=== PATIENT | female | born 1950 | race Caucasian/White ===

== ENCOUNTER 2020-01-30 09:45 | Outpatient (RCR) | payer MEDICARE, SELFPAY ==
--- NOTE | 2019-11-12 15:02 | PT.OIE ---
Current Diagnoses Spondylosis without myelopathy or radiculopathy, cervical region (11/12/19) Cervicalgia (11/12/19) Abnormal posture (11/12/19) Weakness (11/12/19) Visit Care Team Role Provider Type Marjorie Joseph MD Primary Care Provider Non-Staff Specialty: Medical Address: [address] [place] [address], [address] MD; [place], [address] Email: Jenelle Lutz PA-C Attending Provider Non-Staff Referring Provider Specialty: Medical Address: [address] [place] [address], [place], [address] Email: Physical Therapy Initial Evaluation PT-OP-A Visit Information Start: 11/12/19 10:58 Freq: Status: Active Protocol: Document 11/12/19 15:26 [facility] (Rec: 11/12/19 16:05 [facility] [id number]) Out-Patient Physical Therapy Visit Information Visit Information Visit Type Initial Evaluation Visit Note 05/25 Visit Start Time 15:21 Visit Stop Time 16:15 Total Visit Minutes 54 Visit Number 1 Number of TOY ASSEMBLY SUPERVISOR Visits 0 PT-OP-B Current Condition Start: 11/12/19 10:58 Freq: Status: Active Protocol: Document 11/12/19 15:26 [facility] (Rec: 11/12/19 16:05 [facility] [id number]) Current Condition History of Current Condition Onset Date August 2018 Current Complaints neck pain History of Current Condition Pt started to get general pain in August of last year then started getting pain and tingling into RUE then into LUE in October. Pt has seen spinal surgeon and neurosurgeon who did not consider a surgerical canidate . She got sent to a rheumatoligist who found that she polymyalgia rheumatica. Pt was put on prednisone on Jan and has been tapering down. Her neck and arm symptoms and knee symptoms were better after prednisone but started to come back after apr. Pt has ill defined area in neck region that is being monitored but it is not growing and they are not too concerned but are monitoring erin with imagine. Pt reports buring pain at night that is somewhat better in the AM. Pt has pain down into R shoulder and is R handed. First thing in the AM . L shoulder blade hurts the most in the AM an dhas to have something supporting head to get up. Pain got worse again in August and is getting tight Prior Treatments and Tests MRI report in chart; massage some help Treatment Goals Patient/Caregiver Goals Dec pain, be able to move better Personal Factors Other Personal Factors That May Effect R RCR R shoulder, R great toe Therapy/Recovery screw, neck pain, polymyalgia rheumatica PT-OP-C Subjective Start: 11/12/19 10:58 Freq: Status: Active Protocol: Document 11/12/19 15:26 [facility] (Rec: 11/12/19 16:05 [facility] [id number]) Patient Questionnaires Neck Disability Index NDI Score 14/50 OP-PT Pain Assessment Location neck pain Pain Location Details from base of head on R down to sup and ant shoulder/pec & L shoulder blade Intensity 3 Scale Used Numeric (0 - 10) Description Burning,With Movement Description- Other worst w/activities like getting up in AM 8/10 Frequency Daily Pain Duration about 30 min before goes to baseline Radiating Location jaw Pain Aggravating Factors Sitting,Lifting Other Pain Aggravating Factors in AM, any movement, laying down, computer Pain Alleviating Factors Heat,Medication PT-OP-F Manual Assessment Start: 11/12/19 10:58 Freq: Status: Active Protocol: Document 11/12/19 15:26 [facility] (Rec: 11/12/19 16:05 [facility] [id number]) Manual Assessments Soft Tissue Assessment Soft Tissue Mobility Assessment R>L tight and tender UT, LS, pec, scalenes, paraspinals; L UT, rhomboids, infraspinatus Joint Mobility Assessment Joint Mobility Assessment L scap winging PT-OP-J Posture/Palpation/Skin Start: 11/12/19 10:58 Freq: Status: Active Protocol: Document 11/12/19 15:26 [facility] (Rec: 11/12/19 16:05 [facility] [id number]) Posture Evaluation Javier Postural Classification System Javier Postural Classifications Posterior/Anterior Vertebral Compression Test 3 Elbow Flexion Test 0 PT-OP-K Range of Motion Start: 11/12/19 10:58 Freq: Status: Active Protocol: Document 11/12/19 15:26 [facility] (Rec: 11/12/19 16:05 [facility] [id number]) Cervical Spine Range of Motion Cervical Spine Active Degrees Flexion 58 Extension 37 Rotation Left 51 Rotation Right 40 Lateral Flexion Left 16 Lateral Flexion Right 14 ROM Limitations Pain Comments ipsilateral pain w/R sB PT-OP-L Special Tests Start: 11/12/19 10:58 Freq: Status: Active Protocol: Document 11/12/19 15:26 [facility] (Rec: 11/12/19 16:05 [facility] [id number]) Special Tests Cervical Spine Special Tests Spurling's Test Test Results neg Vertebrobasilar Test Results neg Alar Ligament Test Results neg PT-OP-M Strength Start: 11/12/19 10:58 Freq: Status: Active Protocol: Document 11/12/19 15:26 [facility] (Rec: 11/12/19 16:05 [facility] [id number]) Shoulder Strength Shoulder Manual Muscle Testing Right Flexion 3 Fair Extension 3+ Fair+ Abduction (C5) 3 Fair External Rotation 3+ Fair+ Internal Rotation 4 Good Left Flexion 4- Good- Extension 4 Good Abduction (C5) 3+ Fair+ External Rotation 4- Good- Internal Rotation 4+ Good+ PT-OP-Q Treatments Start: 11/12/19 10:58 Freq: Status: Active Protocol: Document 11/12/19 15:26 [facility] (Rec: 11/12/19 16:05 [facility] [id number]) Self-Care/Home Management Treatment Education Other Education discussion of pillow positioning and how to choose a pillow PT-OP-R Modalities Start: 11/12/19 10:58 Freq: Status: Active Protocol: Document 11/12/19 15:26 [facility] (Rec: 11/12/19 16:05 [facility] [id number]) Hot Pack/Cold Pack Treatment Hot Pack Location cervical & R shoulder Patient Position Hooklying Treatment Duration (minutes) 15 PT-OP-T Assessment and Plan Start: 11/12/19 10:58 Freq: Status: Active Protocol: Document 11/12/19 15:26 [facility] (Rec: 11/12/19 16:05 [facility] [id number]) Physical Therapy Assessment Rehab Potential Rehabilitation Potential Good Evaluation Complexity Number of Personal Factors/Comorbidities 1-2 Number of Body Systems Impaired 4 or More Clinical Presentation at Evaluation Evolving Impairments Impairments Activity Tolerance,Functional Activities,Functional Mobility ,Pain,Posture,ROM,Soft Tissue Mobility,Strength Goals NDI Impairment 14/50 Short Term Goal (STG) Pt will improve NDI score to 9 /50 to show improved fucntional ability. STG Duration 12/13/19 Rn Integrated Goal (LTG) Pt will improve NDI score to 4 /50 to show improved fucntional ability. LTG Duration 01/12/20 strength Short Term Goal (STG) Pt will be indep with HEP STG Duration 12/13/19 Rn Integrated Goal (LTG) Pt will improve EFT to 4/5 and UE strength B to 5/5 without pain to allow inc ability to carry things and do normal daily activities LTG Duration 01/12/20 ROM Mcfp Goal (LTG) Pt will improve ROM to full range in order to allow improved ability to use neck without increasing pain. LTG Duration 01/12/20 Assessment Summary Assessment Pt presents with chronic neck pain that started with BUE radicular pain, which improved after starting steroids for polymyalgia rhematica. As she decreased steroid amount, she started to have pain again in neck and into R shoulder then into L scapular region. With an increase again in steriods, pain has persisted so MD has sent her to try PT. She has dec ROM, UE strength, core stability, postural stability and inc pain with all activities at this time. She would benefit from skilled PT to address these deficits. Physical Therapy Plan Frequency and Duration Frequency of Treatment 2x/Week Duration of Treatment 2 months Plan of Care Start Date 11/12/19 Plan of Care End Date 01/12/20 Therapeutic Interventions Therapeutic Interventions Aquatic Therapy,Home Exercise Program,Joint Mobilizations, Manual Therapy,Neuromuscular Re-education,Patient/Caregiver Education,Self-Care/Home Management,Soft Tissue Mobilization,Taping, Therapeutic Activities, Therapeutic Exercises Modalities Cold Pack/Ice Massage,Electric Stimulation,Hot Packs, Infrared Therapy,Iontophoresis ,Traction- Mechanical, Ultrasound Next Visit Focus/Plan Next Note Type Treatment Note Next Visit Plan wall posture, cervical retraction, scap stability exercises, STM to cervical region
--- NOTE | 2019-11-12 15:02 | PT.OPPOC ---
Physical, Occupational [facility] Speech Therapy [facility] Current Diagnoses Spondylosis without myelopathy or radiculopathy, cervical region (11/12/19) Cervicalgia (11/12/19) Abnormal posture (11/12/19) Weakness (11/12/19) Visit Care Team Role Provider Type Marjorie Joseph MD Primary Care Provider Non-Staff Specialty: Medical Address: [address] [place] [address], [address] MD; [place], [address] Email: Jenelle Lutz PA-C Attending Provider Non-Staff Referring Provider Specialty: Medical Address: [address] [place] [address], [place], [address] Email: Plan Of Care PT-OP-T Assessment and Plan Start: 11/12/19 10:58 Freq: Status: Active Protocol: Document 11/12/19 15:26 [facility] (Rec: 11/12/19 16:05 [facility] [id number]) Physical Therapy Assessment Rehab Potential Rehabilitation Potential Good Evaluation Complexity Number of Personal Factors/Comorbidities 1-2 Number of Body Systems Impaired 4 or More Clinical Presentation at Evaluation Evolving Impairments Impairments Activity Tolerance,Functional Activities,Functional Mobility ,Pain,Posture,ROM,Soft Tissue Mobility,Strength Goals NDI Impairment 14/50 Short Term Goal (STG) Pt will improve NDI score to 9 /50 to show improved fucntional ability. STG Duration 12/13/19 Assisted Goal (LTG) Pt will improve NDI score to 4 /50 to show improved fucntional ability. LTG Duration 01/12/20 strength Short Term Goal (STG) Pt will be indep with HEP STG Duration 12/13/19 Assisted Goal (LTG) Pt will improve EFT to 4/5 and UE strength B to 5/5 without pain to allow inc ability to carry things and do normal daily activities LTG Duration 01/12/20 ROM Title Curator Goal (LTG) Pt will improve ROM to full range in order to allow improved ability to use neck without increasing pain. LTG Duration 01/12/20 Assessment Summary Assessment Pt presents with chronic neck pain that started with BUE radicular pain, which improved after starting steroids for polymyalgia rhematica. As she decreased steroid amount, she started to have pain again in neck and into R shoulder then into L scapular region. With an increase again in steriods, pain has persisted so MD has sent her to try PT. She has dec ROM, UE strength, core stability, postural stability and inc pain with all activities at this time. She would benefit from skilled PT to address these deficits. Physical Therapy Plan Frequency and Duration Frequency of Treatment 2x/Week Duration of Treatment 2 months Plan of Care Start Date 11/12/19 Plan of Care End Date 01/12/20 Therapeutic Interventions Therapeutic Interventions Aquatic Therapy,Home Exercise Program,Joint Mobilizations, Manual Therapy,Neuromuscular Re-education,Patient/Caregiver Education,Self-Care/Home Management,Soft Tissue Mobilization,Taping, Therapeutic Activities, Therapeutic Exercises Modalities Cold Pack/Ice Massage,Electric Stimulation,Hot Packs, Infrared Therapy,Iontophoresis ,Traction- Mechanical, Ultrasound Next Visit Focus/Plan Next Note Type Treatment Note Next Visit Plan wall posture, cervical retraction, scap stability exercises, STM to cervical region Plan of Care Dates Plan of Care Start Date 11/12/19 Plan of Care End Date 01/12/20 Electronically Signed by: Jennifer Pitts, PT 11/13/19 1002 Please Sign and Return: I have reviewed this Plan of Care and certify that the skilled therapy services above are required to meet the patient?s needs. Physician Signature Date Printed Name and Credentials Clinical Instructor Signature Printed Name and Credentials
--- NOTE | 2019-11-15 12:03 | PT.OTN ---
Current Diagnoses Spondylosis without myelopathy or radiculopathy, cervical region (11/15/19) Cervicalgia (11/15/19) Abnormal posture (11/15/19) Weakness (11/15/19) Physical Therapy Treatment Note PT-OP-A Visit Information Start: 11/12/19 10:58 Freq: Status: Active Protocol: Document 11/15/19 11:18 [facility] (Rec: 11/15/19 12:03 [facility] [id number]) Out-Patient Physical Therapy Visit Information Visit Information Visit Type Treatment Note Visit Note 06/25 Visit Start Time 11:15 Visit Stop Time 12:00 Total Visit Minutes 45 Visit Number 2 Number of RUBY ENGINEER Visits 0 PT-OP-B Current Condition Start: 11/12/19 10:58 Freq: Status: Active Protocol: Document 11/12/19 15:26 [facility] (Rec: 11/12/19 16:05 [facility] [id number]) Current Condition History of Current Condition Onset Date August 2018 Current Complaints neck pain History of Current Condition Pt started to get general pain in August of last year then started getting pain and tingling into RUE then into LUE in October. Pt has seen spinal surgeon and neurosurgeon who did not consider a surgerical canidate . She got sent to a rheumatoligist who found that she polymyalgia rheumatica. Pt was put on prednisone on Jan and has been tapering down. Her neck and arm symptoms and knee symptoms were better after prednisone but started to come back after dec. Pt has ill defined area in neck region that is being monitored but it is not growing and they are not too concerned but are monitoring erin with imagine. Pt reports buring pain at night that is somewhat better in the AM. Pt has pain down into R shoulder and is R handed. First thing in the AM . L shoulder blade hurts the most in the AM an dhas to have something supporting head to get up. Pain got worse again in August and is getting tight Prior Treatments and Tests MRI report in chart; massage some help Treatment Goals Patient/Caregiver Goals Dec pain, be able to move better Personal Factors Other Personal Factors That May Effect R RCR R shoulder, R great toe Therapy/Recovery screw, neck pain, polymyalgia rheumatica PT-OP-C Subjective Start: 11/12/19 10:58 Freq: Status: Active Protocol: Document 11/15/19 11:18 [facility] (Rec: 11/15/19 12:03 [facility] [id number]) OP-PT Subjective Patient Comments Patient Comments I'm about the same as usual. PT-OP-F Manual Assessment Start: 11/12/19 10:58 Freq: Status: Active Protocol: Document 11/12/19 15:26 [facility] (Rec: 11/12/19 16:05 [facility] [id number]) Manual Assessments Soft Tissue Assessment Soft Tissue Mobility Assessment R>L tight and tender UT, LS, pec, scalenes, paraspinals; L UT, rhomboids, infraspinatus Joint Mobility Assessment Joint Mobility Assessment L scap winging PT-OP-J Posture/Palpation/Skin Start: 11/12/19 10:58 Freq: Status: Active Protocol: Document 11/12/19 15:26 [facility] (Rec: 11/12/19 16:05 [facility] [id number]) Posture Evaluation Javier Postural Classification System Javier Postural Classifications Posterior/Anterior Vertebral Compression Test 3 Elbow Flexion Test 0 PT-OP-K Range of Motion Start: 11/12/19 10:58 Freq: Status: Active Protocol: Document 11/12/19 15:26 [facility] (Rec: 11/12/19 16:05 [facility] [id number]) Cervical Spine Range of Motion Cervical Spine Active Degrees Flexion 58 Extension 37 Rotation Left 51 Rotation Right 40 Lateral Flexion Left 16 Lateral Flexion Right 14 ROM Limitations Pain Comments ipsilateral pain w/R sB PT-OP-L Special Tests Start: 11/12/19 10:58 Freq: Status: Active Protocol: Document 11/12/19 15:26 [facility] (Rec: 11/12/19 16:05 [facility] [id number]) Special Tests Cervical Spine Special Tests Spurling's Test Test Results neg Vertebrobasilar Test Results neg Alar Ligament Test Results neg PT-OP-M Strength Start: 11/12/19 10:58 Freq: Status: Active Protocol: Document 11/12/19 15:26 [facility] (Rec: 11/12/19 16:05 [facility] [id number]) Shoulder Strength Shoulder Manual Muscle Testing Right Flexion 3 Fair Extension 3+ Fair+ Abduction (C5) 3 Fair External Rotation 3+ Fair+ Internal Rotation 4 Good Left Flexion 4- Good- Extension 4 Good Abduction (C5) 3+ Fair+ External Rotation 4- Good- Internal Rotation 4+ Good+ PT-OP-Q Treatments Start: 11/12/19 10:58 Freq: Status: Active Protocol: Document 11/15/19 11:18 [facility] (Rec: 11/15/19 12:03 [facility] [id number]) Therapeutic Exercises Supine Exercises Horizontal Adduction Supine Exercise Name H Adduction Side bilateral Resistance 3# Serratus Punch Supine Exercise Name Serratus punch Side bilateral Resistance 3# Sitting Exercises Scaption Sitting Exercise Name Scaption Side bilateral Resistance 3# Standing Exercises Wall posture Standing Exercise Name wall posture/chin tucks Manual Therapy Treatment Soft Tissue Mobilization Parascapular musculature Body Location B Parascapular Mobilization Type Sustained Pressure,Trigger Point Release Body Position Supine Upper Trap Body Location R Upper Trap Mobilization Type Strumming,Sustained Pressure, Trigger Point Release SCM Body Location R SCM Mobilization Type Strumming,Sustained Pressure Suboccipital Body Location Suboccipitals Mobilization Type Sustained Pressure Joint Mobilizations GH Joint R GH Direction Inferior Grade II Body Position Supine Scapulothoracic Joint R Scapulothoracic Direction Lateral Grade III Body Position Supine PT-OP-R Modalities Start: 11/12/19 10:58 Freq: Status: Active Protocol: Document 11/15/19 11:18 [facility] (Rec: 11/15/19 12:03 [facility] [id number]) Hot Pack/Cold Pack Treatment Hot Pack Location cervical & B shoulder Patient Position Hooklying Treatment Duration (minutes) 15 PT-OP-T Assessment and Plan Start: 11/12/19 10:58 Freq: Status: Active Protocol: Document 11/15/19 11:18 [facility] (Rec: 11/15/19 12:03 [facility] [id number]) Physical Therapy Assessment Impairments Impairments Activity Tolerance,Functional Activities,Functional Mobility ,Pain,Posture,ROM,Soft Tissue Mobility,Strength Goals NDI Impairment 14/50 Short Term Goal (STG) Pt will improve NDI score to 9 /50 to show improved fucntional ability. STG Duration 12/13/19 Custodial Goal (LTG) Pt will improve NDI score to 4 /50 to show improved fucntional ability. LTG Duration 01/12/20 strength Short Term Goal (STG) Pt will be indep with HEP STG Duration 12/13/19 Custodial Goal (LTG) Pt will improve EFT to 4/5 and UE strength B to 5/5 without pain to allow inc ability to carry things and do normal daily activities LTG Duration 01/12/20 ROM Custodial Goal (LTG) Pt will improve ROM to full range in order to allow improved ability to use neck without increasing pain. LTG Duration 01/12/20 Assessment Summary Assessment Pt had difficulty with some scapular strengthening exercises due to poor scapulothoracic rhythm, compensated using upper traps and increased lumbar lordosis. Tolerated STM well, did note some tenderness along SCM and at the A/C joint. Physical Therapy Plan Frequency and Duration Frequency of Treatment 2x/Week Duration of Treatment 2 months Plan of Care Start Date 11/12/19 Plan of Care End Date 01/12/20 Therapeutic Interventions Therapeutic Interventions Aquatic Therapy,Home Exercise Program,Joint Mobilizations, Manual Therapy,Neuromuscular Re-education,Patient/Caregiver Education,Self-Care/Home Management,Soft Tissue Mobilization,Taping, Therapeutic Activities, Therapeutic Exercises Modalities Cold Pack/Ice Massage,Electric Stimulation,Hot Packs, Infrared Therapy,Iontophoresis ,Traction- Mechanical, Ultrasound Next Visit Focus/Plan Next Note Type Treatment Note Next Visit Plan wall posture, cervical retraction, scap stability exercises, STM to cervical region
--- NOTE | 2019-11-19 16:42 | PT.OTN ---
Current Diagnoses Spondylosis without myelopathy or radiculopathy, cervical region (11/19/19) Cervicalgia (11/19/19) Abnormal posture (11/19/19) Weakness (11/19/19) Physical Therapy Treatment Note PT-OP-A Visit Information Start: 11/12/19 10:58 Freq: Status: Active Protocol: Document 11/19/19 15:18 [facility] (Rec: 11/19/19 16:42 [facility] [id number]) Out-Patient Physical Therapy Visit Information Visit Information Visit Type Treatment Note Visit Note 07/23 Visit Start Time 15:20 Visit Stop Time 16:15 Total Visit Minutes 55 Visit Number 3 Number of FORGING MACHINE OPERATOR Visits 0 PT-OP-B Current Condition Start: 11/12/19 10:58 Freq: Status: Active Protocol: Document 11/12/19 15:26 [facility] (Rec: 11/12/19 16:05 [facility] [id number]) Current Condition History of Current Condition Onset Date August 2018 Current Complaints neck pain History of Current Condition Pt started to get general pain in August of last year then started getting pain and tingling into RUE then into LUE in October. Pt has seen spinal surgeon and neurosurgeon who did not consider a surgerical canidate . She got sent to a rheumatoligist who found that she polymyalgia rheumatica. Pt was put on prednisone on Jan and has been tapering down. Her neck and arm symptoms and knee symptoms were better after prednisone but started to come back after dec. Pt has ill defined area in neck region that is being monitored but it is not growing and they are not too concerned but are monitoring erin with imagine. Pt reports buring pain at night that is somewhat better in the AM. Pt has pain down into R shoulder and is R handed. First thing in the AM . L shoulder blade hurts the most in the AM an dhas to have something supporting head to get up. Pain got worse again in August and is getting tight Prior Treatments and Tests MRI report in chart; massage some help Treatment Goals Patient/Caregiver Goals Dec pain, be able to move better Personal Factors Other Personal Factors That May Effect R RCR R shoulder, R great toe Therapy/Recovery screw, neck pain, polymyalgia rheumatica PT-OP-C Subjective Start: 11/12/19 10:58 Freq: Status: Active Protocol: Document 11/19/19 15:18 [facility] (Rec: 11/19/19 16:42 [facility] [id number]) OP-PT Subjective Patient Comments Patient Comments L shoulder blade has been painful PT-OP-F Manual Assessment Start: 11/12/19 10:58 Freq: Status: Active Protocol: Document 11/12/19 15:26 [facility] (Rec: 11/12/19 16:05 [facility] [id number]) Manual Assessments Soft Tissue Assessment Soft Tissue Mobility Assessment R>L tight and tender UT, LS, pec, scalenes, paraspinals; L UT, rhomboids, infraspinatus Joint Mobility Assessment Joint Mobility Assessment L scap winging PT-OP-J Posture/Palpation/Skin Start: 11/12/19 10:58 Freq: Status: Active Protocol: Document 11/12/19 15:26 [facility] (Rec: 11/12/19 16:05 [facility] [id number]) Posture Evaluation [facility] Postural Classification System [facility] Postural Classifications Posterior/Anterior Vertebral Compression Test 3 Elbow Flexion Test 0 PT-OP-K Range of Motion Start: 11/12/19 10:58 Freq: Status: Active Protocol: Document 11/12/19 15:26 [facility] (Rec: 11/12/19 16:05 [facility] [id number]) Cervical Spine Range of Motion Cervical Spine Active Degrees Flexion 58 Extension 37 Rotation Left 51 Rotation Right 40 Lateral Flexion Left 16 Lateral Flexion Right 14 ROM Limitations Pain Comments ipsilateral pain w/R sB PT-OP-L Special Tests Start: 11/12/19 10:58 Freq: Status: Active Protocol: Document 11/12/19 15:26 [facility] (Rec: 11/12/19 16:05 [facility] [id number]) Special Tests Cervical Spine Special Tests Spurling's Test Test Results neg Vertebrobasilar Test Results neg Alar Ligament Test Results neg PT-OP-M Strength Start: 11/12/19 10:58 Freq: Status: Active Protocol: Document 11/12/19 15:26 [facility] (Rec: 11/12/19 16:05 [facility] [id number]) Shoulder Strength Shoulder Manual Muscle Testing Right Flexion 3 Fair Extension 3+ Fair+ Abduction (C5) 3 Fair External Rotation 3+ Fair+ Internal Rotation 4 Good Left Flexion 4- Good- Extension 4 Good Abduction (C5) 3+ Fair+ External Rotation 4- Good- Internal Rotation 4+ Good+ PT-OP-Q Treatments Start: 11/12/19 10:58 Freq: Status: Active Protocol: Document 11/19/19 15:18 [facility] (Rec: 11/19/19 16:42 [facility] [id number]) Therapeutic Exercises Supine Exercises retraction Reps/Minutes 5 sec x10 Horizontal Adduction Supine Exercise Name H Adduction Side bilateral Resistance L1 Reps/Minutes 15 Comments stopped d/t improper form Serratus Punch Supine Exercise Name Serratus punch Side bilateral Resistance 3# Reps/Minutes 15 Sidelying Exercises roll & reach Side bilateral Reps/Minutes 10 Standing Exercises ER Side bilateral Reps/Minutes 10x2 row Side bilateral Reps/Minutes 10x2 Wall posture Standing Exercise Name wall posture/chin tucks Manual Therapy Treatment Soft Tissue Mobilization infraspinatus Body Location L Mobilization Type Rolling,Strumming Upper Trap Body Location R Upper Trap Mobilization Type Strumming,Sustained Pressure, Trigger Point Release SCM Body Location R SCM/scalenes Mobilization Type Strumming,Sustained Pressure Joint Mobilizations SC Joint R Direction inf FM AC Joint r Direction gapping PT-OP-R Modalities Start: 11/12/19 10:58 Freq: Status: Active Protocol: Document 11/19/19 15:18 [facility] (Rec: 11/19/19 16:42 [facility] [id number]) Hot Pack/Cold Pack Treatment Hot Pack Location cervical & R shoulder Patient Position Hooklying Treatment Duration (minutes) 15 PT-OP-T Assessment and Plan Start: 11/12/19 10:58 Freq: Status: Active Protocol: Document 11/19/19 15:18 [facility] (Rec: 11/19/19 16:42 [facility] [id number]) Physical Therapy Assessment Goals NDI Impairment 14/50 Short Term Goal (STG) Pt will improve NDI score to 9 /50 to show improved fucntional ability. STG Duration 12/13/19 Carpentry Specialist Goal (LTG) Pt will improve NDI score to 4 /50 to show improved fucntional ability. LTG Duration 01/12/20 strength Short Term Goal (STG) Pt will be indep with HEP STG Duration 12/13/19 Carpentry Specialist Goal (LTG) Pt will improve EFT to 4/5 and UE strength B to 5/5 without pain to allow inc ability to carry things and do normal daily activities LTG Duration 8/29/20 ROM Senior Living Goal (LTG) Pt will improve ROM to full range in order to allow improved ability to use neck without increasing pain. LTG Duration 01/12/20 Assessment Summary Assessment Pt improved with SC motion after mobiliztion with improved shoulder flex. She has signfiicant SCM & scalene on R side that improves with STM. PT educated on why need to work on shoulder and thoracic to improve neck pain. Physical Therapy Plan Frequency and Duration Frequency of Treatment 2x/Week Duration of Treatment 2 months Plan of Care Start Date 11/12/19 Plan of Care End Date 01/12/20 Next Visit Focus/Plan Next Note Type Treatment Note Next Visit Plan review HEP, STM and gentle mobs to shoulders
--- NOTE | 2019-11-21 18:35 | PT.OTN ---
Current Diagnoses Spondylosis without myelopathy or radiculopathy, cervical region (11/21/19) Cervicalgia (11/21/19) Abnormal posture (11/21/19) Weakness (11/21/19) Physical Therapy Treatment Note PT-OP-A Visit Information Start: 11/12/19 10:58 Freq: Status: Active Protocol: Document 11/21/19 18:30 [facility] (Rec: 11/21/19 18:35 [facility] [id number]) Out-Patient Physical Therapy Visit Information Visit Information Visit Type Treatment Note Visit Note 08/23 Visit Start Time 16:48 Visit Stop Time 17:36 Total Visit Minutes 48 Visit Number 4 Number of INDUSTRIAL GARAGE SERVICER Visits 0 PT-OP-B Current Condition Start: 11/12/19 10:58 Freq: Status: Active Protocol: Document 11/12/19 15:26 [facility] (Rec: 11/12/19 16:05 [facility] [id number]) Current Condition History of Current Condition Onset Date August 2018 Current Complaints neck pain History of Current Condition Pt started to get general pain in August of last year then started getting pain and tingling into RUE then into LUE in October. Pt has seen spinal surgeon and neurosurgeon who did not consider a surgerical canidate . She got sent to a rheumatoligist who found that she polymyalgia rheumatica. Pt was put on prednisone on Jan and has been tapering down. Her neck and arm symptoms and knee symptoms were better after prednisone but started to come back after dec. Pt has ill defined area in neck region that is being monitored but it is not growing and they are not too concerned but are monitoring erin with imagine. Pt reports buring pain at night that is somewhat better in the AM. Pt has pain down into R shoulder and is R handed. First thing in the AM . L shoulder blade hurts the most in the AM an dhas to have something supporting head to get up. Pain got worse again in August and is getting tight Prior Treatments and Tests MRI report in chart; massage some help Treatment Goals Patient/Caregiver Goals Dec pain, be able to move better Personal Factors Other Personal Factors That May Effect R RCR R shoulder, R great toe Therapy/Recovery screw, neck pain, polymyalgia rheumatica PT-OP-C Subjective Start: 11/12/19 10:58 Freq: Status: Active Protocol: Document 11/21/19 18:30 [facility] (Rec: 11/21/19 18:35 [facility] [id number]) OP-PT Subjective Patient Comments Patient Comments Pt reports feeling great after last sesion. PT-OP-F Manual Assessment Start: 11/12/19 10:58 Freq: Status: Active Protocol: Document 11/12/19 15:26 [facility] (Rec: 11/12/19 16:05 [facility] [id number]) Manual Assessments Soft Tissue Assessment Soft Tissue Mobility Assessment R>L tight and tender UT, LS, pec, scalenes, paraspinals; L UT, rhomboids, infraspinatus Joint Mobility Assessment Joint Mobility Assessment L scap winging PT-OP-J Posture/Palpation/Skin Start: 11/12/19 10:58 Freq: Status: Active Protocol: Document 11/12/19 15:26 [facility] (Rec: 11/12/19 16:05 [facility] [id number]) Posture Evaluation [facility] Postural Classification System Javier Postural Classifications Posterior/Anterior Vertebral Compression Test 3 Elbow Flexion Test 0 PT-OP-K Range of Motion Start: 11/12/19 10:58 Freq: Status: Active Protocol: Document 11/12/19 15:26 [facility] (Rec: 11/12/19 16:05 [facility] [id number]) Cervical Spine Range of Motion Cervical Spine Active Degrees Flexion 58 Extension 37 Rotation Left 51 Rotation Right 40 Lateral Flexion Left 16 Lateral Flexion Right 14 ROM Limitations Pain Comments ipsilateral pain w/R sB PT-OP-L Special Tests Start: 11/12/19 10:58 Freq: Status: Active Protocol: Document 11/12/19 15:26 [facility] (Rec: 11/12/19 16:05 [facility] [id number]) Special Tests Cervical Spine Special Tests Spurling's Test Test Results neg Vertebrobasilar Test Results neg Alar Ligament Test Results neg PT-OP-M Strength Start: 11/12/19 10:58 Freq: Status: Active Protocol: Document 11/12/19 15:26 [facility] (Rec: 11/12/19 16:05 [facility] [id number]) Shoulder Strength Shoulder Manual Muscle Testing Right Flexion 3 Fair Extension 3+ Fair+ Abduction (C5) 3 Fair External Rotation 3+ Fair+ Internal Rotation 4 Good Left Flexion 4- Good- Extension 4 Good Abduction (C5) 3+ Fair+ External Rotation 4- Good- Internal Rotation 4+ Good+ PT-OP-Q Treatments Start: 11/12/19 10:58 Freq: Status: Active Protocol: Document 11/21/19 18:30 [facility] (Rec: 11/21/19 18:35 [facility] [id number]) Therapeutic Exercises Supine Exercises retraction Reps/Minutes 5 sec x10 Sidelying Exercises roll & reach Side bilateral Reps/Minutes 10 Standing Exercises ER Side bilateral Reps/Minutes 10x2 row Side bilateral Reps/Minutes 10x2 Wall posture Standing Exercise Name wall posture/chin tucks Reps/Minutes 10 Comments 90/90 ER Manual Therapy Treatment Soft Tissue Mobilization Upper Trap Body Location R Upper Trap/LS Mobilization Type Strumming,Sustained Pressure, Trigger Point Release SCM Body Location R SCM/scalenes Mobilization Type Strumming,Sustained Pressure Joint Mobilizations AC Joint r Direction gapping GH Joint R GH Direction post & distraction FM Grade II Body Position Supine PT-OP-R Modalities Start: 11/12/19 10:58 Freq: Status: Active Protocol: Document 11/19/19 15:18 [facility] (Rec: 11/19/19 16:42 [facility] [id number]) Hot Pack/Cold Pack Treatment Hot Pack Location cervical & R shoulder Patient Position Hooklying Treatment Duration (minutes) 15 PT-OP-T Assessment and Plan Start: 11/12/19 10:58 Freq: Status: Active Protocol: Document 11/21/19 18:30 [facility] (Rec: 11/21/19 18:35 [facility] [id number]) Physical Therapy Assessment Goals NDI Impairment 14/50 Short Term Goal (STG) Pt will improve NDI score to 9 /50 to show improved fucntional ability. STG Duration 12/13/19 Fdc Goal (LTG) Pt will improve NDI score to 4 /50 to show improved fucntional ability. LTG Duration 01/12/20 strength Short Term Goal (STG) Pt will be indep with HEP STG Duration 12/13/19 Fdc Goal (LTG) Pt will improve EFT to 4/5 and UE strength B to 5/5 without pain to allow inc ability to carry things and do normal daily activities LTG Duration 01/12/20 ROM Cargo Service Supervisor Goal (LTG) Pt will improve ROM to full range in order to allow improved ability to use neck without increasing pain. LTG Duration 01/12/20 Assessment Summary Assessment Pt reports relief with manual treatment and had improved scapular depression after manual. W/all shoulder motions R>L pt tends to activate SCM, scalenes & UT for elevation of scapula which likely contributes to her pain. Physical Therapy Plan Frequency and Duration Frequency of Treatment 2x/Week Duration of Treatment 2 months Plan of Care Start Date 11/12/19 Plan of Care End Date 01/12/20 Next Visit Focus/Plan Next Note Type Treatment Note Next Visit Plan review HEP, STM and gentle mobs to shoulders
--- NOTE | 2019-11-27 13:47 | PT.OTN ---
Current Diagnoses Spondylosis without myelopathy or radiculopathy, cervical region (11/27/19) Cervicalgia (11/27/19) Abnormal posture (11/27/19) Weakness (11/27/19) Physical Therapy Treatment Note PT-OP-A Visit Information Start: 11/12/19 10:58 Freq: Status: Active Protocol: Document 11/27/19 13:04 [facility] (Rec: 11/27/19 13:47 [facility] [id number]) Out-Patient Physical Therapy Visit Information Visit Information Visit Type Treatment Note Visit Note 09/22 Visit Start Time 13:01 Visit Stop Time 13:42 Total Visit Minutes 41 Visit Number 5 Number of FINANCIAL INVESTIGATOR Visits 0 PT-OP-B Current Condition Start: 11/12/19 10:58 Freq: Status: Active Protocol: Document 11/12/19 15:26 [facility] (Rec: 11/12/19 16:05 [facility] [id number]) Current Condition History of Current Condition Onset Date August 2018 Current Complaints neck pain History of Current Condition Pt started to get general pain in August of last year then started getting pain and tingling into RUE then into LUE in October. Pt has seen spinal surgeon and neurosurgeon who did not consider a surgerical canidate . She got sent to a rheumatoligist who found that she polymyalgia rheumatica. Pt was put on prednisone on Jan and has been tapering down. Her neck and arm symptoms and knee symptoms were better after prednisone but started to come back after dec. Pt has ill defined area in neck region that is being monitored but it is not growing and they are not too concerned but are monitoring erin with imagine. Pt reports buring pain at night that is somewhat better in the AM. Pt has pain down into R shoulder and is R handed. First thing in the AM . L shoulder blade hurts the most in the AM an dhas to have something supporting head to get up. Pain got worse again in August and is getting tight Prior Treatments and Tests MRI report in chart; massage some help Treatment Goals Patient/Caregiver Goals Dec pain, be able to move better Personal Factors Other Personal Factors That May Effect R RCR R shoulder, R great toe Therapy/Recovery screw, neck pain, polymyalgia rheumatica PT-OP-C Subjective Start: 11/12/19 10:58 Freq: Status: Active Protocol: Document 11/27/19 13:04 [facility] (Rec: 11/27/19 13:47 [facility] [id number]) OP-PT Subjective Patient Comments Patient Comments Pt reports she has been working on her exercises. Reports L shoulder still hurts in . R neck pain feels better Patient Reported Progress Improving PT-OP-F Manual Assessment Start: 11/12/19 10:58 Freq: Status: Active Protocol: Document 11/12/19 15:26 [facility] (Rec: 11/12/19 16:05 [facility] [id number]) Manual Assessments Soft Tissue Assessment Soft Tissue Mobility Assessment R>L tight and tender UT, LS, pec, scalenes, paraspinals; L UT, rhomboids, infraspinatus Joint Mobility Assessment Joint Mobility Assessment L scap winging PT-OP-J Posture/Palpation/Skin Start: 11/12/19 10:58 Freq: Status: Active Protocol: Document 11/12/19 15:26 [facility] (Rec: 11/12/19 16:05 [facility] [id number]) Posture Evaluation [facility] Postural Classification System [facility] Postural Classifications Posterior/Anterior Vertebral Compression Test 3 Elbow Flexion Test 0 PT-OP-K Range of Motion Start: 11/12/19 10:58 Freq: Status: Active Protocol: Document 11/12/19 15:26 [facility] (Rec: 11/12/19 16:05 [facility] [id number]) Cervical Spine Range of Motion Cervical Spine Active Degrees Flexion 58 Extension 37 Rotation Left 51 Rotation Right 40 Lateral Flexion Left 16 Lateral Flexion Right 14 ROM Limitations Pain Comments ipsilateral pain w/R sB PT-OP-L Special Tests Start: 11/12/19 10:58 Freq: Status: Active Protocol: Document 11/12/19 15:26 [facility] (Rec: 11/12/19 16:05 [facility] [id number]) Special Tests Cervical Spine Special Tests Spurling's Test Test Results neg Vertebrobasilar Test Results neg Alar Ligament Test Results neg PT-OP-M Strength Start: 11/12/19 10:58 Freq: Status: Active Protocol: Document 11/12/19 15:26 [facility] (Rec: 11/12/19 16:05 [facility] [id number]) Shoulder Strength Shoulder Manual Muscle Testing Right Flexion 3 Fair Extension 3+ Fair+ Abduction (C5) 3 Fair External Rotation 3+ Fair+ Internal Rotation 4 Good Left Flexion 4- Good- Extension 4 Good Abduction (C5) 3+ Fair+ External Rotation 4- Good- Internal Rotation 4+ Good+ PT-OP-Q Treatments Start: 11/12/19 10:58 Freq: Status: Active Protocol: Document 11/27/19 13:04 [facility] (Rec: 11/27/19 13:47 [facility] [id number]) Therapeutic Exercises Supine Exercises foam roll Supine Exercise Name flex, abd, Habd Side bilateral Reps/Minutes 10 retraction Reps/Minutes 5 sec x10 Sidelying Exercises roll & reach Side bilateral Reps/Minutes 10 Standing Exercises ER Side bilateral Reps/Minutes 15 row Side bilateral Reps/Minutes 15 Wall posture Standing Exercise Name wall posture/chin tucks Reps/Minutes 10 Comments 90/90 ER Manual Therapy Treatment Soft Tissue Mobilization teres Body Location L Mobilization Type Rolling Parascapular musculature Body Location L>R Parascapular Mobilization Type Rolling,Sustained Pressure Body Position Supine Joint Mobilizations ribs Joint r rib 3-4 Direction gapping SC Joint R Direction inf FM AC Joint L Direction gapping Scapulothoracic Joint L Scapulothoracic Direction Lateral, med, inf, tipping Grade III Body Position Supine PT-OP-R Modalities Start: 11/12/19 10:58 Freq: Status: Active Protocol: Document 11/19/19 15:18 [facility] (Rec: 11/19/19 16:42 [facility] [id number]) Hot Pack/Cold Pack Treatment Hot Pack Location cervical & R shoulder Patient Position Hooklying Treatment Duration (minutes) 15 PT-OP-T Assessment and Plan Start: 11/12/19 10:58 Freq: Status: Active Protocol: Document 11/27/19 13:04 [facility] (Rec: 11/27/19 13:47 [facility] [id number]) Physical Therapy Assessment Goals NDI Impairment 14/50 Short Term Goal (STG) Pt will improve NDI score to 9 /50 to show improved fucntional ability. STG Duration 12/13/19 Residential Goal (LTG) Pt will improve NDI score to 4 /50 to show improved fucntional ability. LTG Duration 01/12/20 strength Short Term Goal (STG) Pt will be indep with HEP STG Duration 12/13/19 Nut Tapper Goal (LTG) Pt will improve EFT to 4/5 and UE strength B to 5/5 without pain to allow inc ability to carry things and do normal daily activities LTG Duration 01/12/20 ROM Nut Tapper Goal (LTG) Pt will improve ROM to full range in order to allow improved ability to use neck without increasing pain. LTG Duration 01/12/20 Assessment Summary Assessment Improved scap movement after manual treatment to L side. She is imrpoving performance of exercises with better scap movement. cueing required with roll & reach to keep neck in line with torso to avoid pian. Physical Therapy Plan Frequency and Duration Frequency of Treatment 2x/Week Duration of Treatment 2 months Plan of Care Start Date 11/12/19 Plan of Care End Date 01/12/20 Next Visit Focus/Plan Next Note Type Treatment Note Next Visit Plan cont to work with gentle mobs & improve cervical range
--- NOTE | 2019-11-29 14:36 | PT.OTN ---
Current Diagnoses Spondylosis without myelopathy or radiculopathy, cervical region (11/29/19) Cervicalgia (11/29/19) Abnormal posture (11/29/19) Weakness (11/29/19) Physical Therapy Treatment Note PT-OP-A Visit Information Start: 11/12/19 10:58 Freq: Status: Active Protocol: Document 11/29/19 13:56 SP (Rec: 11/29/19 15:47 SP [id number]) Out-Patient Physical Therapy Visit Information Visit Information Visit Type Treatment Note Visit Note 10/23 Visit Start Time 13:56 Visit Stop Time 14:36 Total Visit Minutes 40 Visit Number 6 Number of FORECAST ANALYST Visits 1 PT-OP-B Current Condition Start: 11/12/19 10:58 Freq: Status: Active Protocol: Document 11/12/19 15:26 [facility] (Rec: 11/12/19 16:05 [facility] [id number]) Current Condition History of Current Condition Onset Date August 2018 Current Complaints neck pain History of Current Condition Pt started to get general pain in August of last year then started getting pain and tingling into RUE then into LUE in October. Pt has seen spinal surgeon and neurosurgeon who did not consider a surgerical canidate . She got sent to a rheumatoligist who found that she polymyalgia rheumatica. Pt was put on prednisone on Jan and has been tapering down. Her neck and arm symptoms and knee symptoms were better after prednisone but started to come back after dec. Pt has ill defined area in neck region that is being monitored but it is not growing and they are not too concerned but are monitoring erin with imagine. Pt reports buring pain at night that is somewhat better in the AM. Pt has pain down into R shoulder and is R handed. First thing in the AM . L shoulder blade hurts the most in the AM an dhas to have something supporting head to get up. Pain got worse again in August and is getting tight Prior Treatments and Tests MRI report in chart; massage some help Treatment Goals Patient/Caregiver Goals Dec pain, be able to move better Personal Factors Other Personal Factors That May Effect R RCR R shoulder, R great toe Therapy/Recovery screw, neck pain, polymyalgia rheumatica PT-OP-C Subjective Start: 11/12/19 10:58 Freq: Status: Active Protocol: Document 11/29/19 13:56 SP (Rec: 11/29/19 15:47 SP [id number]) OP-PT Subjective Patient Comments Patient Comments Pt reported working on her exercises, still hurts over R lateral neck occiput to R shld . Patient Reported Progress Improving PT-OP-F Manual Assessment Start: 11/12/19 10:58 Freq: Status: Active Protocol: Document 11/12/19 15:26 [facility] (Rec: 11/12/19 16:05 [facility] [id number]) Manual Assessments Soft Tissue Assessment Soft Tissue Mobility Assessment R>L tight and tender UT, LS, pec, scalenes, paraspinals; L UT, rhomboids, infraspinatus Joint Mobility Assessment Joint Mobility Assessment L scap winging PT-OP-J Posture/Palpation/Skin Start: 11/12/19 10:58 Freq: Status: Active Protocol: Document 11/12/19 15:26 [facility] (Rec: 11/12/19 16:05 [facility] [id number]) Posture Evaluation [facility] Postural Classification System Javier Postural Classifications Posterior/Anterior Vertebral Compression Test 3 Elbow Flexion Test 0 PT-OP-K Range of Motion Start: 11/12/19 10:58 Freq: Status: Active Protocol: Document 11/12/19 15:26 [facility] (Rec: 11/12/19 16:05 [facility] [id number]) Cervical Spine Range of Motion Cervical Spine Active Degrees Flexion 58 Extension 37 Rotation Left 51 Rotation Right 40 Lateral Flexion Left 16 Lateral Flexion Right 14 ROM Limitations Pain Comments ipsilateral pain w/R sB PT-OP-L Special Tests Start: 11/12/19 10:58 Freq: Status: Active Protocol: Document 11/12/19 15:26 [facility] (Rec: 11/12/19 16:05 [facility] [id number]) Special Tests Cervical Spine Special Tests Spurling's Test Test Results neg Vertebrobasilar Test Results neg Alar Ligament Test Results neg PT-OP-M Strength Start: 11/12/19 10:58 Freq: Status: Active Protocol: Document 11/12/19 15:26 [facility] (Rec: 11/12/19 16:05 [facility] [id number]) Shoulder Strength Shoulder Manual Muscle Testing Right Flexion 3 Fair Extension 3+ Fair+ Abduction (C5) 3 Fair External Rotation 3+ Fair+ Internal Rotation 4 Good Left Flexion 4- Good- Extension 4 Good Abduction (C5) 3+ Fair+ External Rotation 4- Good- Internal Rotation 4+ Good+ PT-OP-Q Treatments Start: 11/12/19 10:58 Freq: Status: Active Protocol: Document 11/29/19 13:56 SP (Rec: 11/29/19 15:47 SP [id number]) Therapeutic Exercises Supine Exercises retraction Equipment Used table and 1/2 foam roll Horizontal Adduction Supine Exercise Name H Abduction (open book) Side bilateral Resistance L1 Reps/Minutes 15 Comments stopped d/t improper form Manual Therapy Treatment Soft Tissue Mobilization PNF Body Location scapulothoracic Comments PROM, AAROM, AResisted ROM, eccentric levator scap Body Location R>L Mobilization Type Cross-Friction,Myofascial Release Intensity/Depth Moderate Body Position Supine Upper Trap Body Location R Upper Trap/LS Mobilization Type Strumming,Sustained Pressure, Trigger Point Release Joint Mobilizations ribs Joint r rib 3-4, L 5-7 Direction gapping SC Joint R Direction inf FM PT-OP-R Modalities Start: 11/12/19 10:58 Freq: Status: Active Protocol: Document 11/19/19 15:18 [facility] (Rec: 11/19/19 16:42 [facility] [id number]) Hot Pack/Cold Pack Treatment Hot Pack Location cervical & R shoulder Patient Position Hooklying Treatment Duration (minutes) 15 PT-OP-T Assessment and Plan Start: 11/12/19 10:58 Freq: Status: Active Protocol: Document 11/29/19 13:56 SP (Rec: 11/29/19 15:47 SP [id number]) Physical Therapy Assessment Goals NDI Impairment 14/50 Short Term Goal (STG) Pt will improve NDI score to 9 /50 to show improved fucntional ability. STG Duration 12/13/19 Tax Appraiser Goal (LTG) Pt will improve NDI score to 4 /50 to show improved fucntional ability. LTG Duration 01/12/20 strength Short Term Goal (STG) Pt will be indep with HEP STG Duration 12/13/19 Nursing Home Goal (LTG) Pt will improve EFT to 4/5 and UE strength B to 5/5 without pain to allow inc ability to carry things and do normal daily activities LTG Duration 01/12/20 ROM Tax Appraiser Goal (LTG) Pt will improve ROM to full range in order to allow improved ability to use neck without increasing pain. LTG Duration 01/12/20 Assessment Summary Assessment Tx focused on manual STMs and jt mobs then review HEP with cuing required for scap retraction/ depression to improve mobility in TS and scapulothoracic junctions. Included PNF feedback see details. Physical Therapy Plan Frequency and Duration Frequency of Treatment 2x/Week Duration of Treatment 2 months Plan of Care Start Date 11/12/19 Plan of Care End Date 01/12/20 Therapeutic Interventions Therapeutic Interventions Aquatic Therapy,Home Exercise Program,Joint Mobilizations, Manual Therapy,Neuromuscular Re-education,Patient/Caregiver Education,Self-Care/Home Management,Soft Tissue Mobilization,Taping, Therapeutic Activities, Therapeutic Exercises Modalities Cold Pack/Ice Massage,Electric Stimulation,Hot Packs, Infrared Therapy,Iontophoresis ,Traction- Mechanical, Ultrasound Next Visit Focus/Plan Next Note Type Treatment Note Next Visit Plan assess response to last tx. Continue work gentle mobs, TS rotation, scap mobility to improve cervical ROM.
--- NOTE | 2019-12-04 15:23 | PT.OTN ---
Current Diagnoses Spondylosis without myelopathy or radiculopathy, cervical region (12/04/19) Cervicalgia (12/04/19) Abnormal posture (12/04/19) Weakness (12/04/19) Physical Therapy Treatment Note PT-OP-A Visit Information Start: 11/12/19 10:58 Freq: Status: Active Protocol: Document 12/04/19 15:14 [facility] (Rec: 12/04/19 15:23 [facility] [id number]) Out-Patient Physical Therapy Visit Information Visit Information Visit Type Treatment Note Visit Note 11/22 Visit Start Time 10:35 Visit Stop Time 11:15 Total Visit Minutes 40 Visit Number 7 Number of AERIAL ADVERTISER Visits 0 PT-OP-B Current Condition Start: 11/12/19 10:58 Freq: Status: Active Protocol: Document 11/12/19 15:26 [facility] (Rec: 11/12/19 16:05 [facility] [id number]) Current Condition History of Current Condition Onset Date August 2018 Current Complaints neck pain History of Current Condition Pt started to get general pain in August of last year then started getting pain and tingling into RUE then into LUE in October. Pt has seen spinal surgeon and neurosurgeon who did not consider a surgerical canidate . She got sent to a rheumatoligist who found that she polymyalgia rheumatica. Pt was put on prednisone on Jan and has been tapering down. Her neck and arm symptoms and knee symptoms were better after prednisone but started to come back after dec. Pt has ill defined area in neck region that is being monitored but it is not growing and they are not too concerned but are monitoring erin with imagine. Pt reports buring pain at night that is somewhat better in the AM. Pt has pain down into R shoulder and is R handed. First thing in the AM . L shoulder blade hurts the most in the AM an dhas to have something supporting head to get up. Pain got worse again in August and is getting tight Prior Treatments and Tests MRI report in chart; massage some help Treatment Goals Patient/Caregiver Goals Dec pain, be able to move better Personal Factors Other Personal Factors That May Effect R RCR R shoulder, R great toe Therapy/Recovery screw, neck pain, polymyalgia rheumatica PT-OP-C Subjective Start: 11/12/19 10:58 Freq: Status: Active Protocol: Document 12/04/19 15:14 [facility] (Rec: 12/04/19 15:23 [facility] [id number]) OP-PT Subjective Patient Comments Patient Comments Pt reports her R side of her neck no longer feels as bad. Starting the end of last week, she inc her prednisone per MD recommendation PT-OP-F Manual Assessment Start: 11/12/19 10:58 Freq: Status: Active Protocol: Document 11/12/19 15:26 [facility] (Rec: 11/12/19 16:05 [facility] [id number]) Manual Assessments Soft Tissue Assessment Soft Tissue Mobility Assessment R>L tight and tender UT, LS, pec, scalenes, paraspinals; L UT, rhomboids, infraspinatus Joint Mobility Assessment Joint Mobility Assessment L scap winging PT-OP-J Posture/Palpation/Skin Start: 11/12/19 10:58 Freq: Status: Active Protocol: Document 11/12/19 15:26 [facility] (Rec: 11/12/19 16:05 [facility] [id number]) Posture Evaluation [facility] Postural Classification System Javier Postural Classifications Posterior/Anterior Vertebral Compression Test 3 Elbow Flexion Test 0 PT-OP-K Range of Motion Start: 11/12/19 10:58 Freq: Status: Active Protocol: Document 11/12/19 15:26 [facility] (Rec: 11/12/19 16:05 [facility] [id number]) Cervical Spine Range of Motion Cervical Spine Active Degrees Flexion 58 Extension 37 Rotation Left 51 Rotation Right 40 Lateral Flexion Left 16 Lateral Flexion Right 14 ROM Limitations Pain Comments ipsilateral pain w/R sB PT-OP-L Special Tests Start: 11/12/19 10:58 Freq: Status: Active Protocol: Document 11/12/19 15:26 [facility] (Rec: 11/12/19 16:05 [facility] [id number]) Special Tests Cervical Spine Special Tests Spurling's Test Test Results neg Vertebrobasilar Test Results neg Alar Ligament Test Results neg PT-OP-M Strength Start: 11/12/19 10:58 Freq: Status: Active Protocol: Document 11/12/19 15:26 [facility] (Rec: 11/12/19 16:05 [facility] [id number]) Shoulder Strength Shoulder Manual Muscle Testing Right Flexion 3 Fair Extension 3+ Fair+ Abduction (C5) 3 Fair External Rotation 3+ Fair+ Internal Rotation 4 Good Left Flexion 4- Good- Extension 4 Good Abduction (C5) 3+ Fair+ External Rotation 4- Good- Internal Rotation 4+ Good+ PT-OP-Q Treatments Start: 11/12/19 10:58 Freq: Status: Active Protocol: Document 12/04/19 15:14 [facility] (Rec: 12/04/19 15:23 [facility] [id number]) Therapeutic Exercises Standing Exercises pec stretch Standing Exercise Name doorway Side bilateral Reps/Minutes 30sec Manual Therapy Treatment Soft Tissue Mobilization Upper Trap Body Location R Upper Trap/LS Mobilization Type Strumming,Sustained Pressure, Trigger Point Release SCM Body Location R SCM/scalenes Mobilization Type Strumming,Sustained Pressure Joint Mobilizations ribs Joint R 3 Direction inf FM SC Joint R Direction inf FM PT-OP-R Modalities Start: 11/12/19 10:58 Freq: Status: Active Protocol: Document 11/19/19 15:18 [facility] (Rec: 11/19/19 16:42 [facility] [id number]) Hot Pack/Cold Pack Treatment Hot Pack Location cervical & R shoulder Patient Position Hooklying Treatment Duration (minutes) 15 PT-OP-T Assessment and Plan Start: 11/12/19 10:58 Freq: Status: Active Protocol: Document 12/04/19 15:14 [facility] (Rec: 12/04/19 15:23 [facility] [id number]) Physical Therapy Assessment Goals NDI Impairment 14/50 Short Term Goal (STG) Pt will improve NDI score to 9 /50 to show improved fucntional ability. STG Duration 12/13/19 Rolled Glass Crosscutter Goal (LTG) Pt will improve NDI score to 4 /50 to show improved fucntional ability. LTG Duration 01/12/20 strength Short Term Goal (STG) Pt will be indep with HEP STG Duration 12/13/19 Rolled Glass Crosscutter Goal (LTG) Pt will improve EFT to 4/5 and UE strength B to 5/5 without pain to allow inc ability to carry things and do normal daily activities LTG Duration 01/12/20 ROM Penitentiary Goal (LTG) Pt will improve ROM to full range in order to allow improved ability to use neck without increasing pain. LTG Duration 01/12/20 Assessment Summary Assessment Improved rotation B by 10% after manual treatment and improved thoracic rotation froma bout 50% B to about 80% B. Physical Therapy Plan Frequency and Duration Frequency of Treatment 2x/Week Duration of Treatment 2 months Plan of Care Start Date 11/12/19 Plan of Care End Date 01/12/20 Next Visit Focus/Plan Next Note Type Treatment Note Next Visit Plan assess response to last tx. Continue work gentle mobs, TS rotation, scap mobility to improve cervical ROM.
--- NOTE | 2019-12-06 12:24 | PT.OTN ---
Current Diagnoses Spondylosis without myelopathy or radiculopathy, cervical region (12/06/19) Cervicalgia (12/06/19) Abnormal posture (12/06/19) Weakness (12/06/19) Physical Therapy Treatment Note PT-OP-A Visit Information Start: 11/12/19 10:58 Freq: Status: Active Protocol: Document 12/06/19 12:20 [facility] (Rec: 12/06/19 12:24 [facility] [id number]) Out-Patient Physical Therapy Visit Information Visit Information Visit Type Treatment Note Visit Note 12/23 Visit Start Time 10:35 Visit Stop Time 11:15 Total Visit Minutes 40 Visit Number 8 Number of BELLHOP SERVICE CAPTAIN Visits 0 PT-OP-B Current Condition Start: 11/12/19 10:58 Freq: Status: Active Protocol: Document 11/12/19 15:26 [facility] (Rec: 11/12/19 16:05 [facility] [id number]) Current Condition History of Current Condition Onset Date August 2018 Current Complaints neck pain History of Current Condition Pt started to get general pain in August of last year then started getting pain and tingling into RUE then into LUE in October. Pt has seen spinal surgeon and neurosurgeon who did not consider a surgerical canidate . She got sent to a rheumatoligist who found that she polymyalgia rheumatica. Pt was put on prednisone on Jan and has been tapering down. Her neck and arm symptoms and knee symptoms were better after prednisone but started to come back after dec. Pt has ill defined area in neck region that is being monitored but it is not growing and they are not too concerned but are monitoring erin with imagine. Pt reports buring pain at night that is somewhat better in the AM. Pt has pain down into R shoulder and is R handed. First thing in the AM . L shoulder blade hurts the most in the AM an dhas to have something supporting head to get up. Pain got worse again in August and is getting tight Prior Treatments and Tests MRI report in chart; massage some help Treatment Goals Patient/Caregiver Goals Dec pain, be able to move better Personal Factors Other Personal Factors That May Effect R RCR R shoulder, R great toe Therapy/Recovery screw, neck pain, polymyalgia rheumatica PT-OP-C Subjective Start: 11/12/19 10:58 Freq: Status: Active Protocol: Document 12/06/19 12:20 [facility] (Rec: 12/06/19 12:24 [facility] [id number]) OP-PT Subjective Patient Comments Patient Comments Pt reports she feels like she is opening up more and is not always waking up with L shoulder blade pain now. Patient Reported Progress Improving PT-OP-F Manual Assessment Start: 11/12/19 10:58 Freq: Status: Active Protocol: Document 11/12/19 15:26 [facility] (Rec: 11/12/19 16:05 [facility] [id number]) Manual Assessments Soft Tissue Assessment Soft Tissue Mobility Assessment R>L tight and tender UT, LS, pec, scalenes, paraspinals; L UT, rhomboids, infraspinatus Joint Mobility Assessment Joint Mobility Assessment L scap winging PT-OP-J Posture/Palpation/Skin Start: 11/12/19 10:58 Freq: Status: Active Protocol: Document 11/12/19 15:26 [facility] (Rec: 11/12/19 16:05 [facility] [id number]) Posture Evaluation [facility] Postural Classification System Javier Postural Classifications Posterior/Anterior Vertebral Compression Test 3 Elbow Flexion Test 0 PT-OP-K Range of Motion Start: 11/12/19 10:58 Freq: Status: Active Protocol: Document 11/12/19 15:26 [facility] (Rec: 11/12/19 16:05 [facility] [id number]) Cervical Spine Range of Motion Cervical Spine Active Degrees Flexion 58 Extension 37 Rotation Left 51 Rotation Right 40 Lateral Flexion Left 16 Lateral Flexion Right 14 ROM Limitations Pain Comments ipsilateral pain w/R sB PT-OP-L Special Tests Start: 11/12/19 10:58 Freq: Status: Active Protocol: Document 11/12/19 15:26 [facility] (Rec: 11/12/19 16:05 [facility] [id number]) Special Tests Cervical Spine Special Tests Spurling's Test Test Results neg Vertebrobasilar Test Results neg Alar Ligament Test Results neg PT-OP-M Strength Start: 11/12/19 10:58 Freq: Status: Active Protocol: Document 11/12/19 15:26 [facility] (Rec: 11/12/19 16:05 [facility] [id number]) Shoulder Strength Shoulder Manual Muscle Testing Right Flexion 3 Fair Extension 3+ Fair+ Abduction (C5) 3 Fair External Rotation 3+ Fair+ Internal Rotation 4 Good Left Flexion 4- Good- Extension 4 Good Abduction (C5) 3+ Fair+ External Rotation 4- Good- Internal Rotation 4+ Good+ PT-OP-Q Treatments Start: 11/12/19 10:58 Freq: Status: Active Protocol: Document 12/06/19 12:20 [facility] (Rec: 12/06/19 12:24 [facility] [id number]) Therapeutic Exercises Supine Exercises Thoracic ext Supine Exercise Name LTR w/rolled towel under T5 Side bilateral Reps/Minutes 10 retraction Supine Exercise Name axial elongation w/chin tuck to hand off mat Reps/Minutes 3sec x9 Manual Therapy Treatment Soft Tissue Mobilization Lats Body Location L Mobilization Type Strumming,Sustained Pressure Intensity/Depth Moderate Body Position Sidelying Comments w/shoulder flex Upper Trap Body Location R Upper Trap/LS Mobilization Type Strumming,Sustained Pressure, Trigger Point Release SCM Body Location R SCM/scalenes Mobilization Type Strumming,Sustained Pressure Joint Mobilizations Thoracic Joint T4-7 Direction UPA L FM w/ shoulder flex GH Joint R Direction post FM PT-OP-R Modalities Start: 11/12/19 10:58 Freq: Status: Active Protocol: Document 11/19/19 15:18 [facility] (Rec: 11/19/19 16:42 [facility] [id number]) Hot Pack/Cold Pack Treatment Hot Pack Location cervical & R shoulder Patient Position Hooklying Treatment Duration (minutes) 15 PT-OP-T Assessment and Plan Start: 11/12/19 10:58 Freq: Status: Active Protocol: Document 12/06/19 12:20 [facility] (Rec: 12/06/19 12:24 [facility] [id number]) Physical Therapy Assessment Goals NDI Impairment 14/50 Short Term Goal (STG) Pt will improve NDI score to 9 /50 to show improved fucntional ability. STG Duration 12/13/19 Senior Living Goal (LTG) Pt will improve NDI score to 4 /50 to show improved fucntional ability. LTG Duration 01/12/20 strength Short Term Goal (STG) Pt will be indep with HEP STG Duration 12/13/19 [employer]ilet[employer] Salesperson Goal (LTG) Pt will improve EFT to 4/5 and UE strength B to 5/5 without pain to allow inc ability to carry things and do normal daily activities LTG Duration 01/12/20 ROM Cosmetics [employer] Toilet[employer] Salesperson Goal (LTG) Pt will improve ROM to full range in order to allow improved ability to use neck without increasing pain. LTG Duration 01/12/20 Assessment Summary Assessment pt improved with ability to flex LUE overhead with thoracic mobs. She was able to progress to axial elongation exercise w/out head supported today with challenge and cueing. Physical Therapy Plan Frequency and Duration Frequency of Treatment 2x/Week Duration of Treatment 2 months Plan of Care Start Date 11/12/19 Plan of Care End Date 01/12/20 Next Visit Focus/Plan Next Note Type Treatment Note Next Visit Plan cont to work on cervical and thoracic mboility, work on L rib mobility inf
--- NOTE | 2019-12-10 18:03 | PT.OTN ---
Current Diagnoses Spondylosis without myelopathy or radiculopathy, cervical region (12/10/19) Cervicalgia (12/10/19) Abnormal posture (12/10/19) Weakness (12/10/19) Physical Therapy Treatment Note PT-OP-A Visit Information Start: 11/12/19 10:58 Freq: Status: Active Protocol: Document 12/10/19 17:56 [facility] (Rec: 12/10/19 18:03 [facility] [id number]) Out-Patient Physical Therapy Visit Information Visit Information Visit Type Treatment Note Visit Note 01/23 Visit Start Time 16:50 Visit Stop Time 17:33 Total Visit Minutes 43 Visit Number 9 Number of OIL AND GAS EXPLORATION TECHNICIAN Visits 0 PT-OP-B Current Condition Start: 11/12/19 10:58 Freq: Status: Active Protocol: Document 11/12/19 15:26 [facility] (Rec: 11/12/19 16:05 [facility] [id number]) Current Condition History of Current Condition Onset Date August 2018 Current Complaints neck pain History of Current Condition Pt started to get general pain in August of last year then started getting pain and tingling into RUE then into LUE in October. Pt has seen spinal surgeon and neurosurgeon who did not consider a surgerical canidate . She got sent to a rheumatoligist who found that she polymyalgia rheumatica. Pt was put on prednisone on Jan and has been tapering down. Her neck and arm symptoms and knee symptoms were better after prednisone but started to come back after dec. Pt has ill defined area in neck region that is being monitored but it is not growing and they are not too concerned but are monitoring erin with imagine. Pt reports buring pain at night that is somewhat better in the AM. Pt has pain down into R shoulder and is R handed. First thing in the AM . L shoulder blade hurts the most in the AM an dhas to have something supporting head to get up. Pain got worse again in August and is getting tight Prior Treatments and Tests MRI report in chart; massage some help Treatment Goals Patient/Caregiver Goals Dec pain, be able to move better Personal Factors Other Personal Factors That May Effect R RCR R shoulder, R great toe Therapy/Recovery screw, neck pain, polymyalgia rheumatica PT-OP-C Subjective Start: 11/12/19 10:58 Freq: Status: Active Protocol: Document 12/10/19 17:56 [facility] (Rec: 12/10/19 18:03 [facility] [id number]) OP-PT Subjective Patient Comments Patient Comments pt cont to feel like her pain is improving signfiicantly. Sees rheumatoligist tomorrow. Patient Reported Progress Improving PT-OP-F Manual Assessment Start: 11/12/19 10:58 Freq: Status: Active Protocol: Document 11/12/19 15:26 [facility] (Rec: 11/12/19 16:05 [facility] [id number]) Manual Assessments Soft Tissue Assessment Soft Tissue Mobility Assessment R>L tight and tender UT, LS, pec, scalenes, paraspinals; L UT, rhomboids, infraspinatus Joint Mobility Assessment Joint Mobility Assessment L scap winging PT-OP-J Posture/Palpation/Skin Start: 11/12/19 10:58 Freq: Status: Active Protocol: Document 11/12/19 15:26 [facility] (Rec: 11/12/19 16:05 [facility] [id number]) Posture Evaluation [facility] Postural Classification System Javier Postural Classifications Posterior/Anterior Vertebral Compression Test 3 Elbow Flexion Test 0 PT-OP-K Range of Motion Start: 11/12/19 10:58 Freq: Status: Active Protocol: Document 11/12/19 15:26 [facility] (Rec: 11/12/19 16:05 [facility] [id number]) Cervical Spine Range of Motion Cervical Spine Active Degrees Flexion 58 Extension 37 Rotation Left 51 Rotation Right 40 Lateral Flexion Left 16 Lateral Flexion Right 14 ROM Limitations Pain Comments ipsilateral pain w/R sB PT-OP-L Special Tests Start: 11/12/19 10:58 Freq: Status: Active Protocol: Document 11/12/19 15:26 [facility] (Rec: 11/12/19 16:05 [facility] [id number]) Special Tests Cervical Spine Special Tests Spurling's Test Test Results neg Vertebrobasilar Test Results neg Alar Ligament Test Results neg PT-OP-M Strength Start: 11/12/19 10:58 Freq: Status: Active Protocol: Document 11/12/19 15:26 [facility] (Rec: 11/12/19 16:05 [facility] [id number]) Shoulder Strength Shoulder Manual Muscle Testing Right Flexion 3 Fair Extension 3+ Fair+ Abduction (C5) 3 Fair External Rotation 3+ Fair+ Internal Rotation 4 Good Left Flexion 4- Good- Extension 4 Good Abduction (C5) 3+ Fair+ External Rotation 4- Good- Internal Rotation 4+ Good+ PT-OP-Q Treatments Start: 11/12/19 10:58 Freq: Status: Active Protocol: Document 12/10/19 17:56 [facility] (Rec: 12/10/19 18:03 [facility] [id number]) Therapeutic Exercises Supine Exercises foam roll Supine Exercise Name abd on 1/2 roll Side bilateral Reps/Minutes 10x2 Comments focus on scap retraction Manual Therapy Treatment Soft Tissue Mobilization pecs Body Location R Mobilization Type Rolling,Sustained Pressure Intensity/Depth Moderate Comments w/add & IR/ER Lats Body Location R Mobilization Type Strumming,Sustained Pressure Intensity/Depth Moderate Body Position Sidelying Comments w/shoulder flex & use of plunger Joint Mobilizations Thoracic Joint T4-6 Direction transverse L ribs Joint R 3-5 Direction gapping FM AC Joint r Direction ventral GH Joint R Direction post & lat gapping FM Scapulothoracic Joint R Direction inf, med &med & lat tilts PT-OP-R Modalities Start: 11/12/19 10:58 Freq: Status: Active Protocol: Document 11/19/19 15:18 [facility] (Rec: 11/19/19 16:42 [facility] [id number]) Hot Pack/Cold Pack Treatment Hot Pack Location cervical & R shoulder Patient Position Hooklying Treatment Duration (minutes) 15 PT-OP-T Assessment and Plan Start: 11/12/19 10:58 Freq: Status: Active Protocol: Document 12/10/19 17:56 [facility] (Rec: 12/10/19 18:03 [facility] [id number]) Physical Therapy Assessment Goals NDI Impairment 14/50 Short Term Goal (STG) Pt will improve NDI score to 9 /50 to show improved fucntional ability. STG Duration 12/13/19 Care Home Goal (LTG) Pt will improve NDI score to 4 /50 to show improved fucntional ability. LTG Duration 01/12/20 strength Short Term Goal (STG) Pt will be indep with HEP STG Duration 12/13/19 Group Director Experience Goal (LTG) Pt will improve EFT to 4/5 and UE strength B to 5/5 without pain to allow inc ability to carry things and do normal daily activities LTG Duration 01/12/20 ROM Group Director Experience Goal (LTG) Pt will improve ROM to full range in order to allow improved ability to use neck without increasing pain. LTG Duration 01/12/20 Assessment Summary Assessment pt was c/o grinding of shoulder that was not painful on foam roll w/abd. noted itw as during add phase as humerus comes ant along with scap. Improved range after manual with cracking noise only at end range add. She does not get appropriate lat gappign of shoulder during add which she would benefit from further mobs. Physical Therapy Plan Frequency and Duration Frequency of Treatment 2x/Week Duration of Treatment 2 months Plan of Care Start Date 11/12/19 Plan of Care End Date 01/12/20 Next Visit Focus/Plan Next Note Type Progress Note Next Visit Plan cont to work on cervical and thoracic mboility, work on L rib mobility inf
--- NOTE | 2019-12-13 12:18 | PT.OTN ---
Current Diagnoses Spondylosis without myelopathy or radiculopathy, cervical region (12/13/19) Cervicalgia (12/13/19) Abnormal posture (12/13/19) Weakness (12/13/19) Physical Therapy Treatment Note PT-OP-A Visit Information Start: 11/12/19 10:58 Freq: Status: Active Protocol: Document 12/13/19 10:36 [facility] (Rec: 12/13/19 12:17 [facility] [id number]) Out-Patient Physical Therapy Visit Information Visit Information Visit Type Treatment Note Visit Note 05/25 Visit Start Time 10:35 Visit Stop Time 11:15 Total Visit Minutes 40 Visit Number 10 Number of TOP BOTTOM ATTACHING MACHINE OPERATOR Visits 0 PT-OP-B Current Condition Start: 11/12/19 10:58 Freq: Status: Active Protocol: Document 11/12/19 15:26 [facility] (Rec: 11/12/19 16:05 [facility] [id number]) Current Condition History of Current Condition Onset Date August 2018 Current Complaints neck pain History of Current Condition Pt started to get general pain in August of last year then started getting pain and tingling into RUE then into LUE in October. Pt has seen spinal surgeon and neurosurgeon who did not consider a surgerical canidate . She got sent to a rheumatoligist who found that she polymyalgia rheumatica. Pt was put on prednisone on Jan and has been tapering down. Her neck and arm symptoms and knee symptoms were better after prednisone but started to come back after dec. Pt has ill defined area in neck region that is being monitored but it is not growing and they are not too concerned but are monitoring erin with imagine. Pt reports buring pain at night that is somewhat better in the AM. Pt has pain down into R shoulder and is R handed. First thing in the AM . L shoulder blade hurts the most in the AM an dhas to have something supporting head to get up. Pain got worse again in August and is getting tight Prior Treatments and Tests MRI report in chart; massage some help Treatment Goals Patient/Caregiver Goals Dec pain, be able to move better Personal Factors Other Personal Factors That May Effect R RCR R shoulder, R great toe Therapy/Recovery screw, neck pain, polymyalgia rheumatica PT-OP-C Subjective Start: 11/12/19 10:58 Freq: Status: Active Protocol: Document 12/13/19 10:36 [facility] (Rec: 12/13/19 12:17 [facility] [id number]) OP-PT Subjective Patient Comments Patient Comments Pt reports MD gino wakefield d/t LE issues [facility] is still having . Patient Reported Progress Improving PT-OP-F Manual Assessment Start: 11/12/19 10:58 Freq: Status: Active Protocol: Document 11/12/19 15:26 [facility] (Rec: 11/12/19 16:05 [facility] [id number]) Manual Assessments Soft Tissue Assessment Soft Tissue Mobility Assessment R>L tight and tender UT, LS, pec, scalenes, paraspinals; L UT, rhomboids, infraspinatus Joint Mobility Assessment Joint Mobility Assessment L scap winging PT-OP-J Posture/Palpation/Skin Start: 11/12/19 10:58 Freq: Status: Active Protocol: Document 12/13/19 10:36 [facility] (Rec: 12/13/19 12:17 [facility] [id number]) Posture Evaluation Javier Postural Classification System Elbow Flexion Test 2 PT-OP-K Range of Motion Start: 11/12/19 10:58 Freq: Status: Active Protocol: Document 12/13/19 10:36 [facility] (Rec: 12/13/19 12:17 [facility] [id number]) Cervical Spine Range of Motion Cervical Spine Active Degrees Flexion 60 Extension 36 Rotation Left 64 Rotation Right 67 Lateral Flexion Left 34 Lateral Flexion Right 20 ROM Limitations Pain Comments ipsilateral pain w/R sB PT-OP-L Special Tests Start: 11/12/19 10:58 Freq: Status: Active Protocol: Document 11/12/19 15:26 [facility] (Rec: 11/12/19 16:05 [facility] [id number]) Special Tests Cervical Spine Special Tests Spurling's Test Test Results neg Vertebrobasilar Test Results neg Alar Ligament Test Results neg PT-OP-M Strength Start: 11/12/19 10:58 Freq: Status: Active Protocol: Document 12/13/19 10:36 [facility] (Rec: 12/13/19 12:17 [facility] [id number]) Shoulder Strength Shoulder Manual Muscle Testing Right Flexion 4- Good- Extension 4+ Good+ Abduction (C5) 3+ Fair+ External Rotation 4- Good- Internal Rotation 4+ Good+ Left Flexion 4- Good- Extension 5 Normal Abduction (C5) 3+ Fair+ External Rotation 4 Good Internal Rotation 5 Normal PT-OP-Q Treatments Start: 11/12/19 10:58 Freq: Status: Active Protocol: Document 12/13/19 10:36 [facility] (Rec: 12/13/19 12:17 [facility] [id number]) Manual Therapy Treatment Soft Tissue Mobilization pecs Body Location R Mobilization Type Rolling,Sustained Pressure Intensity/Depth Moderate Comments w/add & IR/ER SCM Body Location R SCM/scalenes Mobilization Type Strumming,Sustained Pressure Comments w/median n glide Joint Mobilizations ribs Joint R 3-5 Direction gapping FM PT-OP-R Modalities Start: 11/12/19 10:58 Freq: Status: Active Protocol: Document 11/19/19 15:18 [facility] (Rec: 11/19/19 16:42 [facility] [id number]) Hot Pack/Cold Pack Treatment Hot Pack Location cervical & R shoulder Patient Position Hooklying Treatment Duration (minutes) 15 PT-OP-T Assessment and Plan Start: 11/12/19 10:58 Freq: Status: Active Protocol: Document 12/13/19 10:36 [facility] (Rec: 12/13/19 12:17 [facility] [id number]) Physical Therapy Assessment Goals NDI Impairment 14/50 Short Term Goal (STG) Pt will improve NDI score to 9 /50 to show improved fucntional ability. STG Duration 12/13/19 Shelter Goal (LTG) Pt will improve NDI score to 4 /50 to show improved fucntional ability. LTG Duration 01/12/20 strength Short Term Goal (STG) Pt will be indep with HEP STG Duration 12/13/19 Shelter Goal (LTG) Pt will improve EFT to 4/5 and UE strength B to 5/5 without pain to allow inc ability to carry things and do normal daily activities LTG Duration 01/12/20 ROM National Accounts Recruiter Goal (LTG) Pt will improve ROM to full range in order to allow improved ability to use neck without increasing pain. LTG Duration 01/12/20 Assessment Summary Assessment Pt had improved shoulder abd and add with less ant shoulder movement and dec elevation. She did wellw ith HEP exercise with min cueing and is showing improved ROM and strength B. Physical Therapy Plan Frequency and Duration Frequency of Treatment 2x/Week Duration of Treatment 2 months Plan of Care Start Date 11/12/19 Plan of Care End Date 01/12/20 Next Visit Focus/Plan Next Note Type Treatment Note Next Visit Plan cont to work on cervical and thoracic mboility, work on L rib mobility inf, median n treatment
--- NOTE | 2019-12-13 16:59 | PT.OPPN ---
Current Diagnoses Spondylosis without myelopathy or radiculopathy, cervical region (12/17/19) Cervicalgia (12/17/19) Abnormal posture (12/17/19) Weakness (12/17/19) Physical Therapy Progress Note PT-OP-A Visit Information Start: 11/12/19 10:58 Freq: Status: Active Protocol: Document 12/13/19 10:36 [facility] (Rec: 12/13/19 12:17 [facility] [id number]) Out-Patient Physical Therapy Visit Information Visit Information Visit Type Treatment Note Visit Note 05/25 Visit Start Time 10:35 Visit Stop Time 11:15 Total Visit Minutes 40 Visit Number 10 Number of PEANUT CLEANER Visits 0 PT-OP-B Current Condition Start: 11/12/19 10:58 Freq: Status: Active Protocol: Document 11/12/19 15:26 [facility] (Rec: 11/12/19 16:05 [facility] [id number]) Current Condition History of Current Condition Onset Date August 2018 Current Complaints neck pain History of Current Condition Pt started to get general pain in August of last year then started getting pain and tingling into RUE then into LUE in October. Pt has seen spinal surgeon and neurosurgeon who did not consider a surgerical canidate . She got sent to a rheumatoligist who found that she polymyalgia rheumatica. Pt was put on prednisone on Jan and has been tapering down. Her neck and arm symptoms and knee symptoms were better after prednisone but started to come back after dec. Pt has ill defined area in neck region that is being monitored but it is not growing and they are not too concerned but are monitoring erin with imagine. Pt reports buring pain at night that is somewhat better in the AM. Pt has pain down into R shoulder and is R handed. First thing in the AM . L shoulder blade hurts the most in the AM an dhas to have something supporting head to get up. Pain got worse again in August and is getting tight Prior Treatments and Tests MRI report in chart; massage some help Treatment Goals Patient/Caregiver Goals Dec pain, be able to move better Personal Factors Other Personal Factors That May Effect R RCR R shoulder, R great toe Therapy/Recovery screw, neck pain, polymyalgia rheumatica PT-OP-C Subjective Start: 11/12/19 10:58 Freq: Status: Active Protocol: Document 12/13/19 10:36 [facility] (Rec: 12/13/19 12:17 [facility] [id number]) OP-PT Subjective Patient Comments Patient Comments Pt reports MD gino wakefield d/t LE issues [facility] is still having . Patient Reported Progress Improving PT-OP-F Manual Assessment Start: 11/12/19 10:58 Freq: Status: Active Protocol: Document 11/12/19 15:26 [facility] (Rec: 11/12/19 16:05 [facility] [id number]) Manual Assessments Soft Tissue Assessment Soft Tissue Mobility Assessment R>L tight and tender UT, LS, pec, scalenes, paraspinals; L UT, rhomboids, infraspinatus Joint Mobility Assessment Joint Mobility Assessment L scap winging PT-OP-J Posture/Palpation/Skin Start: 11/12/19 10:58 Freq: Status: Active Protocol: Document 12/13/19 10:36 [facility] (Rec: 12/13/19 12:17 [facility] [id number]) Posture Evaluation Javier Postural Classification System Elbow Flexion Test 2 PT-OP-K Range of Motion Start: 11/12/19 10:58 Freq: Status: Active Protocol: Document 12/13/19 10:36 [facility] (Rec: 12/13/19 12:17 [facility] [id number]) Cervical Spine Range of Motion Cervical Spine Active Degrees Flexion 60 Extension 36 Rotation Left 64 Rotation Right 67 Lateral Flexion Left 34 Lateral Flexion Right 20 ROM Limitations Pain Comments ipsilateral pain w/R sB PT-OP-L Special Tests Start: 11/12/19 10:58 Freq: Status: Active Protocol: Document 11/12/19 15:26 [facility] (Rec: 11/12/19 16:05 [facility] [id number]) Special Tests Cervical Spine Special Tests Spurling's Test Test Results neg Vertebrobasilar Test Results neg Alar Ligament Test Results neg PT-OP-M Strength Start: 11/12/19 10:58 Freq: Status: Active Protocol: Document 12/13/19 10:36 [facility] (Rec: 12/13/19 12:17 [facility] [id number]) Shoulder Strength Shoulder Manual Muscle Testing Right Flexion 4- Good- Extension 4+ Good+ Abduction (C5) 3+ Fair+ External Rotation 4- Good- Internal Rotation 4+ Good+ Left Flexion 4- Good- Extension 5 Normal Abduction (C5) 3+ Fair+ External Rotation 4 Good Internal Rotation 5 Normal PT-OP-T Assessment and Plan Start: 11/12/19 10:58 Freq: Status: Active Protocol: Document 12/13/19 10:36 [facility] (Rec: 12/13/19 12:17 [facility] [id number]) Physical Therapy Assessment Goals NDI Impairment 14/50 Short Term Goal (STG) Pt will improve NDI score to 9 /50 to show improved fucntional ability. STG Duration 12/13/19 Crematory Operator Goal (LTG) Pt will improve NDI score to 4 /50 to show improved fucntional ability. LTG Duration 01/12/20 strength Short Term Goal (STG) Pt will be indep with HEP STG Duration achieved Fdc Goal (LTG) Pt will improve EFT to 4/5 and UE strength B to 5/5 without pain to allow inc ability to carry things and do normal daily activities LTG Duration 01/12/20 ROM Crematory Operator Goal (LTG) Pt will improve ROM to full range in order to allow improved ability to use neck without increasing pain. LTG Duration 01/12/20 Assessment Summary Assessment Pt had improved shoulder abd and add with less ant shoulder movement and dec elevation. She did wellw ith HEP exercise with min cueing and is showing improved ROM and strength B. Physical Therapy Plan Frequency and Duration Frequency of Treatment 2x/Week Duration of Treatment 2 months Plan of Care Start Date 11/12/19 Plan of Care End Date 01/12/20 Next Visit Focus/Plan Next Note Type Treatment Note Next Visit Plan cont to work on cervical and thoracic mboility, work on L rib mobility inf, median n treatment
--- NOTE | 2019-12-17 13:48 | PT.OTN ---
Current Diagnoses Spondylosis without myelopathy or radiculopathy, cervical region (12/17/19) Cervicalgia (12/17/19) Abnormal posture (12/17/19) Weakness (12/17/19) Physical Therapy Treatment Note PT-OP-A Visit Information Start: 11/12/19 10:58 Freq: Status: Active Protocol: Document 12/17/19 12:59 [facility] (Rec: 12/17/19 13:48 [facility] [id number]) Out-Patient Physical Therapy Visit Information Visit Information Visit Type Treatment Note Visit Note 06/25 Visit Start Time 13:00 Visit Stop Time 13:41 Total Visit Minutes 41 Visit Number 11 Number of PRODUCTION PATTERN MAKER Visits 0 PT-OP-B Current Condition Start: 11/12/19 10:58 Freq: Status: Active Protocol: Document 11/12/19 15:26 [facility] (Rec: 11/12/19 16:05 [facility] [id number]) Current Condition History of Current Condition Onset Date August 2018 Current Complaints neck pain History of Current Condition Pt started to get general pain in August of last year then started getting pain and tingling into RUE then into LUE in October. Pt has seen spinal surgeon and neurosurgeon who did not consider a surgerical canidate . She got sent to a rheumatoligist who found that she polymyalgia rheumatica. Pt was put on prednisone on Jan and has been tapering down. Her neck and arm symptoms and knee symptoms were better after prednisone but started to come back after dec. Pt has ill defined area in neck region that is being monitored but it is not growing and they are not too concerned but are monitoring erin with imagine. Pt reports buring pain at night that is somewhat better in the AM. Pt has pain down into R shoulder and is R handed. First thing in the AM . L shoulder blade hurts the most in the AM an dhas to have something supporting head to get up. Pain got worse again in August and is getting tight Prior Treatments and Tests MRI report in chart; massage some help Treatment Goals Patient/Caregiver Goals Dec pain, be able to move better Personal Factors Other Personal Factors That May Effect R RCR R shoulder, R great toe Therapy/Recovery screw, neck pain, polymyalgia rheumatica PT-OP-C Subjective Start: 11/12/19 10:58 Freq: Status: Active Protocol: Document 12/17/19 12:59 [facility] (Rec: 12/17/19 13:48 [facility] [id number]) OP-PT Subjective Patient Comments Patient Comments Pt reports waking up w/some chest soreness. Notes shoulder blade sroeenss is intermittent PT-OP-F Manual Assessment Start: 11/12/19 10:58 Freq: Status: Active Protocol: Document 11/12/19 15:26 [facility] (Rec: 11/12/19 16:05 [facility] [id number]) Manual Assessments Soft Tissue Assessment Soft Tissue Mobility Assessment R>L tight and tender UT, LS, pec, scalenes, paraspinals; L UT, rhomboids, infraspinatus Joint Mobility Assessment Joint Mobility Assessment L scap winging PT-OP-J Posture/Palpation/Skin Start: 11/12/19 10:58 Freq: Status: Active Protocol: Document 12/13/19 10:36 [facility] (Rec: 12/13/19 12:17 [facility] [id number]) Posture Evaluation [facility] Postural Classification System Elbow Flexion Test 2 PT-OP-K Range of Motion Start: 11/12/19 10:58 Freq: Status: Active Protocol: Document 12/13/19 10:36 [facility] (Rec: 12/13/19 12:17 [facility] [id number]) Cervical Spine Range of Motion Cervical Spine Active Degrees Flexion 60 Extension 36 Rotation Left 64 Rotation Right 67 Lateral Flexion Left 34 Lateral Flexion Right 20 ROM Limitations Pain Comments ipsilateral pain w/R sB PT-OP-L Special Tests Start: 11/12/19 10:58 Freq: Status: Active Protocol: Document 11/12/19 15:26 [facility] (Rec: 11/12/19 16:05 [facility] [id number]) Special Tests Cervical Spine Special Tests Spurling's Test Test Results neg Vertebrobasilar Test Results neg Alar Ligament Test Results neg PT-OP-M Strength Start: 11/12/19 10:58 Freq: Status: Active Protocol: Document 12/13/19 10:36 [facility] (Rec: 12/13/19 12:17 [facility] [id number]) Shoulder Strength Shoulder Manual Muscle Testing Right Flexion 4- Good- Extension 4+ Good+ Abduction (C5) 3+ Fair+ External Rotation 4- Good- Internal Rotation 4+ Good+ Left Flexion 4- Good- Extension 5 Normal Abduction (C5) 3+ Fair+ External Rotation 4 Good Internal Rotation 5 Normal PT-OP-Q Treatments Start: 11/12/19 10:58 Freq: Status: Active Protocol: Document 12/17/19 12:59 [facility] (Rec: 12/17/19 13:48 [facility] [id number]) Therapeutic Exercises Supine Exercises diaphragmatic breathing Reps/Minutes 8 Sidelying Exercises roll & reach Side bilateral Reps/Minutes 5 Sitting Exercises rotation Sitting Exercise Name L 2x 20 sec then R to see inc range Standing Exercises Wall posture Standing Exercise Name wall posture/chin tucks Reps/Minutes 10 Comments 90/90 ER Manual Therapy Treatment Soft Tissue Mobilization pecs Body Location R Mobilization Type Rolling,Sustained Pressure Intensity/Depth Moderate Comments w/add & IR/ER SCM Body Location R SCM/scalenes Mobilization Type Strumming,Sustained Pressure Comments w/median n glide Joint Mobilizations Thoracic Joint T3-6 Direction transverse L FM AC Joint r Direction ventral GH Joint R Direction post FM Nerve Glides median n Nerve w/soft tissue along pathway w/ activw n glide PT-OP-R Modalities Start: 11/12/19 10:58 Freq: Status: Active Protocol: Document 11/19/19 15:18 [facility] (Rec: 11/19/19 16:42 [facility] [id number]) Hot Pack/Cold Pack Treatment Hot Pack Location cervical & R shoulder Patient Position Hooklying Treatment Duration (minutes) 15 PT-OP-T Assessment and Plan Start: 11/12/19 10:58 Freq: Status: Active Protocol: Document 12/17/19 12:59 [facility] (Rec: 12/17/19 13:48 [facility] [id number]) Physical Therapy Assessment Goals NDI Impairment 14/50 Short Term Goal (STG) Pt will improve NDI score to 9 /50 to show improved fucntional ability. STG Duration 12/13/19 Bread Wrapping Machine Feeder Goal (LTG) Pt will improve NDI score to 4 /50 to show improved fucntional ability. LTG Duration 01/12/20 strength Short Term Goal (STG) Pt will be indep with HEP STG Duration achieved Bread Wrapping Machine Feeder Goal (LTG) Pt will improve EFT to 4/5 and UE strength B to 5/5 without pain to allow inc ability to carry things and do normal daily activities LTG Duration 01/12/20 ROM Correction Goal (LTG) Pt will improve ROM to full range in order to allow improved ability to use neck without increasing pain. LTG Duration 01/12/20 Assessment Summary Assessment Pt had improved ability to adduct today. Improved ability to achieve wall posture but still limited with end range neck positioning. She improves with thoracic rotation with dec pain after mobs Physical Therapy Plan Frequency and Duration Frequency of Treatment 2x/Week Duration of Treatment 2 months Plan of Care Start Date 11/12/19 Plan of Care End Date 01/12/20 Next Visit Focus/Plan Next Note Type Treatment Note Next Visit Plan cont to work on cervical and thoracic mboility, work on L rib mobility inf,
--- NOTE | 2019-12-20 13:47 | PT.OTN ---
Current Diagnoses Spondylosis without myelopathy or radiculopathy, cervical region (12/20/19) Cervicalgia (12/20/19) Abnormal posture (12/20/19) Weakness (12/20/19) Physical Therapy Treatment Note PT-OP-A Visit Information Start: 11/12/19 10:58 Freq: Status: Active Protocol: Document 12/20/19 13:43 [facility] (Rec: 12/20/19 13:47 [facility] [id number]) Out-Patient Physical Therapy Visit Information Visit Information Visit Type Treatment Note Visit Note 07/23 Visit Start Time 13:00 Visit Stop Time 13:40 Total Visit Minutes 40 Visit Number 12 Number of SCIENTIFIC PUBLICATIONS EDITOR Visits 0 PT-OP-B Current Condition Start: 11/12/19 10:58 Freq: Status: Active Protocol: Document 11/12/19 15:26 [facility] (Rec: 11/12/19 16:05 [facility] [id number]) Current Condition History of Current Condition Onset Date August 2018 Current Complaints neck pain History of Current Condition Pt started to get general pain in August of last year then started getting pain and tingling into RUE then into LUE in October. Pt has seen spinal surgeon and neurosurgeon who did not consider a surgerical canidate . She got sent to a rheumatoligist who found that she polymyalgia rheumatica. Pt was put on prednisone on Jan and has been tapering down. Her neck and arm symptoms and knee symptoms were better after prednisone but started to come back after dec. Pt has ill defined area in neck region that is being monitored but it is not growing and they are not too concerned but are monitoring erin with imagine. Pt reports buring pain at night that is somewhat better in the AM. Pt has pain down into R shoulder and is R handed. First thing in the AM . L shoulder blade hurts the most in the AM an dhas to have something supporting head to get up. Pain got worse again in August and is getting tight Prior Treatments and Tests MRI report in chart; massage some help Treatment Goals Patient/Caregiver Goals Dec pain, be able to move better Personal Factors Other Personal Factors That May Effect R RCR R shoulder, R great toe Therapy/Recovery screw, neck pain, polymyalgia rheumatica PT-OP-C Subjective Start: 11/12/19 10:58 Freq: Status: Active Protocol: Document 12/20/19 13:43 [facility] (Rec: 12/20/19 13:47 [facility] [id number]) OP-PT Subjective Patient Comments Patient Comments Pt reports she is able to sleep through the night. PT-OP-F Manual Assessment Start: 11/12/19 10:58 Freq: Status: Active Protocol: Document 11/12/19 15:26 [facility] (Rec: 11/12/19 16:05 [facility] [id number]) Manual Assessments Soft Tissue Assessment Soft Tissue Mobility Assessment R>L tight and tender UT, LS, pec, scalenes, paraspinals; L UT, rhomboids, infraspinatus Joint Mobility Assessment Joint Mobility Assessment L scap winging PT-OP-J Posture/Palpation/Skin Start: 11/12/19 10:58 Freq: Status: Active Protocol: Document 12/13/19 10:36 [facility] (Rec: 12/13/19 12:17 [facility] [id number]) Posture Evaluation [facility] Postural Classification System Elbow Flexion Test 2 PT-OP-K Range of Motion Start: 11/12/19 10:58 Freq: Status: Active Protocol: Document 12/13/19 10:36 [facility] (Rec: 12/13/19 12:17 [facility] [id number]) Cervical Spine Range of Motion Cervical Spine Active Degrees Flexion 60 Extension 36 Rotation Left 64 Rotation Right 67 Lateral Flexion Left 34 Lateral Flexion Right 20 ROM Limitations Pain Comments ipsilateral pain w/R sB PT-OP-L Special Tests Start: 11/12/19 10:58 Freq: Status: Active Protocol: Document 11/12/19 15:26 [facility] (Rec: 11/12/19 16:05 [facility] [id number]) Special Tests Cervical Spine Special Tests Spurling's Test Test Results neg Vertebrobasilar Test Results neg Alar Ligament Test Results neg PT-OP-M Strength Start: 11/12/19 10:58 Freq: Status: Active Protocol: Document 12/13/19 10:36 [facility] (Rec: 12/13/19 12:17 [facility] [id number]) Shoulder Strength Shoulder Manual Muscle Testing Right Flexion 4- Good- Extension 4+ Good+ Abduction (C5) 3+ Fair+ External Rotation 4- Good- Internal Rotation 4+ Good+ Left Flexion 4- Good- Extension 5 Normal Abduction (C5) 3+ Fair+ External Rotation 4 Good Internal Rotation 5 Normal PT-OP-Q Treatments Start: 11/12/19 10:58 Freq: Status: Active Protocol: Document 12/20/19 13:43 [facility] (Rec: 12/20/19 13:47 [facility] [id number]) Therapeutic Exercises Standing Exercises Wall posture Standing Exercise Name wall posture/chin tucks Reps/Minutes 10 Comments 90/90 ER Manual Therapy Treatment Soft Tissue Mobilization pecs Body Location L Mobilization Type Rolling,Sustained Pressure Intensity/Depth Moderate Comments w/add & IR/ER SCM Body Location R SCM/scalenes Mobilization Type Strumming,Sustained Pressure Joint Mobilizations Thoracic Joint T4-5 Direction transverse R FM AC Joint L Direction ventral GH Joint L Direction post & inf FM PT-OP-R Modalities Start: 11/12/19 10:58 Freq: Status: Active Protocol: Document 11/19/19 15:18 [facility] (Rec: 11/19/19 16:42 [facility] [id number]) Hot Pack/Cold Pack Treatment Hot Pack Location cervical & R shoulder Patient Position Hooklying Treatment Duration (minutes) 15 PT-OP-T Assessment and Plan Start: 11/12/19 10:58 Freq: Status: Active Protocol: Document 12/20/19 13:43 [facility] (Rec: 12/20/19 13:47 [facility] [id number]) Physical Therapy Assessment Goals NDI Impairment 14/50 Short Term Goal (STG) Pt will improve NDI score to 9 /50 to show improved fucntional ability. STG Duration 12/13/19 Nursing Home Goal (LTG) Pt will improve NDI score to 4 /50 to show improved fucntional ability. LTG Duration 01/12/20 strength Short Term Goal (STG) Pt will be indep with HEP STG Duration achieved Nursing Home Goal (LTG) Pt will improve EFT to 4/5 and UE strength B to 5/5 without pain to allow inc ability to carry things and do normal daily activities LTG Duration 01/12/20 ROM Nursing Home Goal (LTG) Pt will improve ROM to full range in order to allow improved ability to use neck without increasing pain. LTG Duration 01/12/20 Assessment Summary Assessment Pt is progressing abilityt o be more upright and achieved better rotation. Her R scalenes are mroe rested in neutral position but get tight again when put into R rotation. Physical Therapy Plan Frequency and Duration Frequency of Treatment 2x/Week Duration of Treatment 2 months Plan of Care Start Date 11/12/19 Plan of Care End Date 01/12/20 Next Visit Focus/Plan Next Note Type Treatment Note Next Visit Plan cont to work on cervical and thoracic mboility, work on L rib mobility inf, PNF
--- NOTE | 2019-12-24 12:07 | PT.OTN ---
Current Diagnoses Spondylosis without myelopathy or radiculopathy, cervical region (12/24/19) Cervicalgia (12/24/19) Abnormal posture (12/24/19) Weakness (12/24/19) Physical Therapy Treatment Note PT-OP-A Visit Information Start: 11/12/19 10:58 Freq: Status: Active Protocol: Document 12/24/19 12:03 [facility] (Rec: 12/24/19 12:07 [facility] [id number]) Out-Patient Physical Therapy Visit Information Visit Information Visit Type Treatment Note Visit Note 08/23 Visit Start Time 11:17 Visit Stop Time 12:00 Total Visit Minutes 43 Visit Number 13 Number of LOGISTICS ADMINISTRATOR Visits 0 PT-OP-B Current Condition Start: 11/12/19 10:58 Freq: Status: Active Protocol: Document 11/12/19 15:26 [facility] (Rec: 11/12/19 16:05 [facility] [id number]) Current Condition History of Current Condition Onset Date August 2018 Current Complaints neck pain History of Current Condition Pt started to get general pain in August of last year then started getting pain and tingling into RUE then into LUE in October. Pt has seen spinal surgeon and neurosurgeon who did not consider a surgerical canidate . She got sent to a rheumatoligist who found that she polymyalgia rheumatica. Pt was put on prednisone on Jan and has been tapering down. Her neck and arm symptoms and knee symptoms were better after prednisone but started to come back after dec. Pt has ill defined area in neck region that is being monitored but it is not growing and they are not too concerned but are monitoring erin with imagine. Pt reports buring pain at night that is somewhat better in the AM. Pt has pain down into R shoulder and is R handed. First thing in the AM . L shoulder blade hurts the most in the AM an dhas to have something supporting head to get up. Pain got worse again in August and is getting tight Prior Treatments and Tests MRI report in chart; massage some help Treatment Goals Patient/Caregiver Goals Dec pain, be able to move better Personal Factors Other Personal Factors That May Effect R RCR R shoulder, R great toe Therapy/Recovery screw, neck pain, polymyalgia rheumatica PT-OP-C Subjective Start: 11/12/19 10:58 Freq: Status: Active Protocol: Document 12/24/19 12:03 [facility] (Rec: 12/24/19 12:07 [facility] [id number]) OP-PT Subjective Patient Comments Patient Comments Pt reprots her weekend went well til she tried to use her friend's peyman pillow under her neck last night and that made her sore Patient Reported Progress Improving PT-OP-F Manual Assessment Start: 11/12/19 10:58 Freq: Status: Active Protocol: Document 11/12/19 15:26 [facility] (Rec: 11/12/19 16:05 [facility] [id number]) Manual Assessments Soft Tissue Assessment Soft Tissue Mobility Assessment R>L tight and tender UT, LS, pec, scalenes, paraspinals; L UT, rhomboids, infraspinatus Joint Mobility Assessment Joint Mobility Assessment L scap winging PT-OP-J Posture/Palpation/Skin Start: 11/12/19 10:58 Freq: Status: Active Protocol: Document 12/13/19 10:36 [facility] (Rec: 12/13/19 12:17 [facility] [id number]) Posture Evaluation [facility] Postural Classification System Elbow Flexion Test 2 PT-OP-K Range of Motion Start: 11/12/19 10:58 Freq: Status: Active Protocol: Document 12/13/19 10:36 [facility] (Rec: 12/13/19 12:17 [facility] [id number]) Cervical Spine Range of Motion Cervical Spine Active Degrees Flexion 60 Extension 36 Rotation Left 64 Rotation Right 67 Lateral Flexion Left 34 Lateral Flexion Right 20 ROM Limitations Pain Comments ipsilateral pain w/R sB PT-OP-L Special Tests Start: 11/12/19 10:58 Freq: Status: Active Protocol: Document 11/12/19 15:26 [facility] (Rec: 11/12/19 16:05 [facility] [id number]) Special Tests Cervical Spine Special Tests Spurling's Test Test Results neg Vertebrobasilar Test Results neg Alar Ligament Test Results neg PT-OP-M Strength Start: 11/12/19 10:58 Freq: Status: Active Protocol: Document 12/13/19 10:36 [facility] (Rec: 12/13/19 12:17 [facility] [id number]) Shoulder Strength Shoulder Manual Muscle Testing Right Flexion 4- Good- Extension 4+ Good+ Abduction (C5) 3+ Fair+ External Rotation 4- Good- Internal Rotation 4+ Good+ Left Flexion 4- Good- Extension 5 Normal Abduction (C5) 3+ Fair+ External Rotation 4 Good Internal Rotation 5 Normal PT-OP-Q Treatments Start: 11/12/19 10:58 Freq: Status: Active Protocol: Document 12/24/19 12:03 [facility] (Rec: 12/24/19 12:07 [facility] [id number]) Manual Therapy Treatment Soft Tissue Mobilization Upper Trap Body Location R Upper Trap/LS Mobilization Type Strumming,Sustained Pressure, Trigger Point Release SCM Body Location R SCM/scalenes Mobilization Type Strumming,Sustained Pressure Joint Mobilizations cervical Joint C4 trasnverse L Grade II Thoracic Joint T1-3 PA & transverse L FM ribs Joint R Direction inf and AP ribs 2 & 3 & inf 1st rib FM Self-Care/Home Management Treatment Education Other Education discusses pillow options & what to focus on. Look into guarantees for return option PT-OP-R Modalities Start: 11/12/19 10:58 Freq: Status: Active Protocol: Document 11/19/19 15:18 [facility] (Rec: 11/19/19 16:42 [facility] [id number]) Hot Pack/Cold Pack Treatment Hot Pack Location cervical & R shoulder Patient Position Hooklying Treatment Duration (minutes) 15 PT-OP-T Assessment and Plan Start: 11/12/19 10:58 Freq: Status: Active Protocol: Document 12/24/19 12:03 [facility] (Rec: 12/24/19 12:07 [facility] [id number]) Physical Therapy Assessment Goals NDI Impairment 14/50 Short Term Goal (STG) Pt will improve NDI score to 9 /50 to show improved fucntional ability. STG Duration 12/13/19 Long-Term Goal (LTG) Pt will improve NDI score to 4 /50 to show improved fucntional ability. LTG Duration 01/12/20 strength Short Term Goal (STG) Pt will be indep with HEP STG Duration achieved Wireline Field Operator Goal (LTG) Pt will improve EFT to 4/5 and UE strength B to 5/5 without pain to allow inc ability to carry things and do normal daily activities LTG Duration 01/12/20 ROM Long-Term Goal (LTG) Pt will improve ROM to full range in order to allow improved ability to use neck without increasing pain. LTG Duration 01/12/20 Assessment Summary Assessment Pt had improved SB to R with dec apin after manual treatment and improved rotation to R after manual but still noted post R neck tightenss when rotation R. She is improving with ROM and her mobility overallb ut is still limited by ribcage mobility. Physical Therapy Plan Frequency and Duration Frequency of Treatment 2x/Week Duration of Treatment 2 months Plan of Care Start Date 11/12/19 Plan of Care End Date 01/12/20 Next Visit Focus/Plan Next Note Type Treatment Note Next Visit Plan cont to work on cervical and thoracic mboility, work on L rib mobility inf, PNF
--- NOTE | 2019-12-26 12:15 | PT.OTN ---
Current Diagnoses Spondylosis without myelopathy or radiculopathy, cervical region (12/26/19) Cervicalgia (12/26/19) Abnormal posture (12/26/19) Weakness (12/26/19) Physical Therapy Treatment Note PT-OP-A Visit Information Start: 11/12/19 10:58 Freq: Status: Active Protocol: Document 12/26/19 12:07 [facility] (Rec: 12/26/19 12:15 [facility] [id number]) Out-Patient Physical Therapy Visit Information Visit Information Visit Type Treatment Note Visit Note 09/22 Visit Start Time 11:21 Visit Stop Time 12:00 Total Visit Minutes 39 Visit Number 14 Number of INSURANCE UNDERWRITER Visits 0 PT-OP-B Current Condition Start: 11/12/19 10:58 Freq: Status: Active Protocol: Document 11/12/19 15:26 [facility] (Rec: 11/12/19 16:05 [facility] [id number]) Current Condition History of Current Condition Onset Date August 2018 Current Complaints neck pain History of Current Condition Pt started to get general pain in August of last year then started getting pain and tingling into RUE then into LUE in October. Pt has seen spinal surgeon and neurosurgeon who did not consider a surgerical canidate . She got sent to a rheumatoligist who found that she polymyalgia rheumatica. Pt was put on prednisone on Jan and has been tapering down. Her neck and arm symptoms and knee symptoms were better after prednisone but started to come back after dec. Pt has ill defined area in neck region that is being monitored but it is not growing and they are not too concerned but are monitoring erin with imagine. Pt reports buring pain at night that is somewhat better in the AM. Pt has pain down into R shoulder and is R handed. First thing in the AM . L shoulder blade hurts the most in the AM an dhas to have something supporting head to get up. Pain got worse again in August and is getting tight Prior Treatments and Tests MRI report in chart; massage some help Treatment Goals Patient/Caregiver Goals Dec pain, be able to move better Personal Factors Other Personal Factors That May Effect R RCR R shoulder, R great toe Therapy/Recovery screw, neck pain, polymyalgia rheumatica PT-OP-C Subjective Start: 11/12/19 10:58 Freq: Status: Active Protocol: Document 12/26/19 12:07 [facility] (Rec: 12/26/19 12:15 [facility] [id number]) OP-PT Subjective Patient Comments Patient Comments Pt reports overall doing well with exercises. Patient Reported Progress Improving PT-OP-F Manual Assessment Start: 11/12/19 10:58 Freq: Status: Active Protocol: Document 11/12/19 15:26 [facility] (Rec: 11/12/19 16:05 [facility] [id number]) Manual Assessments Soft Tissue Assessment Soft Tissue Mobility Assessment R>L tight and tender UT, LS, pec, scalenes, paraspinals; L UT, rhomboids, infraspinatus Joint Mobility Assessment Joint Mobility Assessment L scap winging PT-OP-J Posture/Palpation/Skin Start: 11/12/19 10:58 Freq: Status: Active Protocol: Document 12/13/19 10:36 [facility] (Rec: 12/13/19 12:17 [facility] [id number]) Posture Evaluation [facility] Postural Classification System Elbow Flexion Test 2 PT-OP-K Range of Motion Start: 11/12/19 10:58 Freq: Status: Active Protocol: Document 12/13/19 10:36 [facility] (Rec: 12/13/19 12:17 [facility] [id number]) Cervical Spine Range of Motion Cervical Spine Active Degrees Flexion 60 Extension 36 Rotation Left 64 Rotation Right 67 Lateral Flexion Left 34 Lateral Flexion Right 20 ROM Limitations Pain Comments ipsilateral pain w/R sB PT-OP-L Special Tests Start: 11/12/19 10:58 Freq: Status: Active Protocol: Document 11/12/19 15:26 [facility] (Rec: 11/12/19 16:05 [facility] [id number]) Special Tests Cervical Spine Special Tests Spurling's Test Test Results neg Vertebrobasilar Test Results neg Alar Ligament Test Results neg PT-OP-M Strength Start: 11/12/19 10:58 Freq: Status: Active Protocol: Document 12/13/19 10:36 [facility] (Rec: 12/13/19 12:17 [facility] [id number]) Shoulder Strength Shoulder Manual Muscle Testing Right Flexion 4- Good- Extension 4+ Good+ Abduction (C5) 3+ Fair+ External Rotation 4- Good- Internal Rotation 4+ Good+ Left Flexion 4- Good- Extension 5 Normal Abduction (C5) 3+ Fair+ External Rotation 4 Good Internal Rotation 5 Normal PT-OP-Q Treatments Start: 11/12/19 10:58 Freq: Status: Active Protocol: Document 12/26/19 12:07 [facility] (Rec: 12/26/19 12:15 [facility] [id number]) Therapeutic Exercises Other Exercises thread the needle Side bilateral Reps/Minutes 30s ec lourdes pose Side bilateral Reps/Minutes fwd & to sides 30 sec ea cat/camel Reps/Minutes 10 Manual Therapy Treatment Soft Tissue Mobilization pecs Body Location R Mobilization Type Rolling,Sustained Pressure Intensity/Depth Moderate Comments w/scap depression Upper Trap Body Location R Upper Trap/LS Mobilization Type Strumming,Sustained Pressure, Trigger Point Release SCM Body Location R SCM/scalenes Mobilization Type Strumming,Sustained Pressure Joint Mobilizations Thoracic Joint PA T3-6 Direction UPA R T3 ribs Joint R Direction caudal FM 1st rib R, distraction R 4-6 FM SC Joint R Direction inf FM AC Joint R Direction ventral Scapulothoracic Joint R Direction inf, med &med & lat tilts PT-OP-R Modalities Start: 11/12/19 10:58 Freq: Status: Active Protocol: Document 11/19/19 15:18 [facility] (Rec: 11/19/19 16:42 [facility] [id number]) Hot Pack/Cold Pack Treatment Hot Pack Location cervical & R shoulder Patient Position Hooklying Treatment Duration (minutes) 15 PT-OP-T Assessment and Plan Start: 11/12/19 10:58 Freq: Status: Active Protocol: Document 12/26/19 12:07 [facility] (Rec: 12/26/19 12:15 [facility] [id number]) Physical Therapy Assessment Goals NDI Impairment 14/50 Short Term Goal (STG) Pt will improve NDI score to 9 /50 to show improved fucntional ability. STG Duration 01/26/20 Group Home Goal (LTG) Pt will improve NDI score to 4 /50 to show improved fucntional ability. LTG Duration 02/25/20 strength Short Term Goal (STG) Pt will be indep with HEP STG Duration achieved Group Home Goal (LTG) Pt will improve EFT to 4/5 and UE strength B to 5/5 without pain to allow inc ability to carry things and do normal daily activities LTG Duration 02/25/20 ROM Hydroelectric Station Operator Goal (LTG) Pt will improve ROM to full range in order to allow improved ability to use neck without increasing pain. LTG Duration 02/25/20 Assessment Summary Assessment Pt had improved SB with dec pain after manual treatment and had imrpoved ROM in R rotation after manual with more equal range B. Pt is cont to imrpove with her ROM and functional ability and is noting less pain. She would benefit from cont with PT to contt o progress. Physical Therapy Plan Frequency and Duration Frequency of Treatment 1-2x/Week Duration of Treatment 2 months Plan of Care Start Date 12/26/19 Plan of Care End Date 02/25/20 Therapeutic Interventions Therapeutic Interventions Aquatic Therapy,Home Exercise Program,Joint Mobilizations, Manual Therapy,Neuromuscular Re-education,Patient/Caregiver Education,Self-Care/Home Management,Soft Tissue Mobilization,Taping, Therapeutic Activities, Therapeutic Exercises Modalities Cold Pack/Ice Massage,Electric Stimulation,Hot Packs, Infrared Therapy,Iontophoresis ,Traction- Mechanical, Ultrasound Next Visit Focus/Plan Next Note Type Treatment Note Next Visit Plan cont to work on cervical and thoracic mboility, work on L rib mobility inf, PNF
--- NOTE | 2019-12-26 12:15 | PT.OPPOC ---
Physical, Occupational & Speech Therapy At [facility] Current Diagnoses Spondylosis without myelopathy or radiculopathy, cervical region (12/26/19) Cervicalgia (12/26/19) Abnormal posture (12/26/19) Weakness (12/26/19) Visit Care Team Role Provider Type Marjorie Joseph MD Primary Care Provider Non-Staff Specialty: Medical Address: [address] [place] [address], [address] MD; [place], [address] Email: Jenelle Lutz PA-C Attending Provider Non-Staff Referring Provider Specialty: Medical Address: [address] [place] [address], [place], [address] Email: Plan Of Care PT-OP-T Assessment and Plan Start: 11/12/19 10:58 Freq: Status: Active Protocol: Document 12/26/19 12:07 [facility] (Rec: 12/26/19 12:15 [facility] [id number]) Physical Therapy Assessment Goals NDI Impairment 14/50 Short Term Goal (STG) Pt will improve NDI score to 9 /50 to show improved fucntional ability. STG Duration 01/26/20 Tiger Machine Operator Goal (LTG) Pt will improve NDI score to 4 /50 to show improved fucntional ability. LTG Duration 02/25/20 strength Short Term Goal (STG) Pt will be indep with HEP STG Duration achieved Tiger Machine Operator Goal (LTG) Pt will improve EFT to 4/5 and UE strength B to 5/5 without pain to allow inc ability to carry things and do normal daily activities LTG Duration 02/25/20 ROM Tiger Machine Operator Goal (LTG) Pt will improve ROM to full range in order to allow improved ability to use neck without increasing pain. LTG Duration 02/25/20 Assessment Summary Assessment Pt had improved SB with dec pain after manual treatment and had imrpoved ROM in R rotation after manual with more equal range B. Pt is cont to imrpove with her ROM and functional ability and is noting less pain. She would benefit from cont with PT to contt o progress. Physical Therapy Plan Frequency and Duration Frequency of Treatment 1-2x/Week Duration of Treatment 2 months Plan of Care Start Date 12/26/19 Plan of Care End Date 02/25/20 Therapeutic Interventions Therapeutic Interventions Aquatic Therapy,Home Exercise Program,Joint Mobilizations, Manual Therapy,Neuromuscular Re-education,Patient/Caregiver Education,Self-Care/Home Management,Soft Tissue Mobilization,Taping, Therapeutic Activities, Therapeutic Exercises Modalities Cold Pack/Ice Massage,Electric Stimulation,Hot Packs, Infrared Therapy,Iontophoresis ,Traction- Mechanical, Ultrasound Next Visit Focus/Plan Next Note Type Treatment Note Next Visit Plan cont to work on cervical and thoracic mboility, work on L rib mobility inf, PNF Plan of Care Dates Plan of Care Start Date 12/26/19 Plan of Care End Date 02/25/20 Electronically Signed by: Jennifer Pitts, PT 12/26/19 [id number] Please Sign and Return: I have reviewed this Plan of Care and certify that the skilled therapy services above are required to meet the patient?s needs. Physician Signature Date Printed Name and Credentials Clinical Instructor Signature Printed Name and Credentials
--- NOTE | 2019-12-31 12:16 | PT.OTN ---
Current Diagnoses Spondylosis without myelopathy or radiculopathy, cervical region (12/31/19) Cervicalgia (12/31/19) Abnormal posture (12/31/19) Weakness (12/31/19) Physical Therapy Treatment Note PT-OP-A Visit Information Start: 11/12/19 10:58 Freq: Status: Active Protocol: Document 12/31/19 12:12 [facility] (Rec: 12/31/19 12:16 [facility] [id number]) Out-Patient Physical Therapy Visit Information Visit Information Visit Type Treatment Note Visit Note 10/23 Visit Start Time 11:21 Visit Stop Time 12:01 Total Visit Minutes 40 Visit Number 15 Number of POWDER GUARD Visits 0 PT-OP-B Current Condition Start: 11/12/19 10:58 Freq: Status: Active Protocol: Document 11/12/19 15:26 [facility] (Rec: 11/12/19 16:05 [facility] [id number]) Current Condition History of Current Condition Onset Date August 2018 Current Complaints neck pain History of Current Condition Pt started to get general pain in August of last year then started getting pain and tingling into RUE then into LUE in October. Pt has seen spinal surgeon and neurosurgeon who did not consider a surgerical canidate . She got sent to a rheumatoligist who found that she polymyalgia rheumatica. Pt was put on prednisone on Jan and has been tapering down. Her neck and arm symptoms and knee symptoms were better after prednisone but started to come back after dec. Pt has ill defined area in neck region that is being monitored but it is not growing and they are not too concerned but are monitoring erin with imagine. Pt reports buring pain at night that is somewhat better in the AM. Pt has pain down into R shoulder and is R handed. First thing in the AM . L shoulder blade hurts the most in the AM an dhas to have something supporting head to get up. Pain got worse again in August and is getting tight Prior Treatments and Tests MRI report in chart; massage some help Treatment Goals Patient/Caregiver Goals Dec pain, be able to move better Personal Factors Other Personal Factors That May Effect R RCR R shoulder, R great toe Therapy/Recovery screw, neck pain, polymyalgia rheumatica PT-OP-C Subjective Start: 11/12/19 10:58 Freq: Status: Active Protocol: Document 12/31/19 12:12 [facility] (Rec: 12/31/19 12:16 [facility] [id number]) OP-PT Subjective Patient Comments Patient Comments Pt reports she is improving and got a new pillwo that helped Patient Reported Progress Improving PT-OP-F Manual Assessment Start: 11/12/19 10:58 Freq: Status: Active Protocol: Document 11/12/19 15:26 [facility] (Rec: 11/12/19 16:05 [facility] [id number]) Manual Assessments Soft Tissue Assessment Soft Tissue Mobility Assessment R>L tight and tender UT, LS, pec, scalenes, paraspinals; L UT, rhomboids, infraspinatus Joint Mobility Assessment Joint Mobility Assessment L scap winging PT-OP-J Posture/Palpation/Skin Start: 11/12/19 10:58 Freq: Status: Active Protocol: Document 12/13/19 10:36 [facility] (Rec: 12/13/19 12:17 [facility] [id number]) Posture Evaluation [facility] Postural Classification System Elbow Flexion Test 2 PT-OP-K Range of Motion Start: 11/12/19 10:58 Freq: Status: Active Protocol: Document 12/13/19 10:36 [facility] (Rec: 12/13/19 12:17 [facility] [id number]) Cervical Spine Range of Motion Cervical Spine Active Degrees Flexion 60 Extension 36 Rotation Left 64 Rotation Right 67 Lateral Flexion Left 34 Lateral Flexion Right 20 ROM Limitations Pain Comments ipsilateral pain w/R sB PT-OP-L Special Tests Start: 11/12/19 10:58 Freq: Status: Active Protocol: Document 11/12/19 15:26 [facility] (Rec: 11/12/19 16:05 [facility] [id number]) Special Tests Cervical Spine Special Tests Spurling's Test Test Results neg Vertebrobasilar Test Results neg Alar Ligament Test Results neg PT-OP-M Strength Start: 11/12/19 10:58 Freq: Status: Active Protocol: Document 12/13/19 10:36 [facility] (Rec: 12/13/19 12:17 [facility] [id number]) Shoulder Strength Shoulder Manual Muscle Testing Right Flexion 4- Good- Extension 4+ Good+ Abduction (C5) 3+ Fair+ External Rotation 4- Good- Internal Rotation 4+ Good+ Left Flexion 4- Good- Extension 5 Normal Abduction (C5) 3+ Fair+ External Rotation 4 Good Internal Rotation 5 Normal PT-OP-Q Treatments Start: 11/12/19 10:58 Freq: Status: Active Protocol: Document 12/31/19 12:12 [facility] (Rec: 12/31/19 12:16 [facility] [id number]) Therapeutic Exercises Sitting Exercises stretches Sitting Exercise Name UT & LS stretchs Side bilateral Reps/Minutes 30 sec Manual Therapy Treatment Soft Tissue Mobilization SCM Body Location R SCM/scalenes Mobilization Type Myofascial Release,Strumming, Sustained Pressure Comments w/rot Joint Mobilizations cervical Joint C1 UPA R & transverse L PT-OP-R Modalities Start: 11/12/19 10:58 Freq: Status: Active Protocol: Document 11/19/19 15:18 [facility] (Rec: 11/19/19 16:42 [facility] [id number]) Hot Pack/Cold Pack Treatment Hot Pack Location cervical & R shoulder Patient Position Hooklying Treatment Duration (minutes) 15 PT-OP-T Assessment and Plan Start: 11/12/19 10:58 Freq: Status: Active Protocol: Document 12/31/19 12:12 [facility] (Rec: 12/31/19 12:16 [facility] [id number]) Physical Therapy Assessment Goals NDI Impairment 14/50 Short Term Goal (STG) Pt will improve NDI score to 9 /50 to show improved fucntional ability. STG Duration 01/26/20 Entertainment Lawyer Goal (LTG) Pt will improve NDI score to 4 /50 to show improved fucntional ability. LTG Duration 02/25/20 strength Short Term Goal (STG) Pt will be indep with HEP STG Duration achieved Shelter Goal (LTG) Pt will improve EFT to 4/5 and UE strength B to 5/5 without pain to allow inc ability to carry things and do normal daily activities LTG Duration 02/25/20 ROM Shelter Goal (LTG) Pt will improve ROM to full range in order to allow improved ability to use neck without increasing pain. LTG Duration 02/25/20 Assessment Summary Assessment Pt improved with R rotation w/ manual treatment today. She had dec pain with w/ R sidebend after manual treatment. Physical Therapy Plan Frequency and Duration Frequency of Treatment 1-2x/Week Duration of Treatment 2 months Plan of Care Start Date 12/26/19 Plan of Care End Date 02/25/20 Next Visit Focus/Plan Next Note Type Treatment Note Next Visit Plan cont to work on cervical and thoracic mboility, work on L rib mobility inf, PNF
--- NOTE | 2019-12-31 13:00 | PT.OTN ---
Current Diagnoses Spondylosis without myelopathy or radiculopathy, cervical region (12/31/19) Cervicalgia (12/31/19) Abnormal posture (12/31/19) Weakness (12/31/19) Physical Therapy Treatment Note PT-OP-A Visit Information Start: 11/12/19 10:58 Freq: Status: Active Protocol: Document 12/31/19 12:12 [facility] (Rec: 12/31/19 12:16 [facility] [id number]) Out-Patient Physical Therapy Visit Information Visit Information Visit Type Treatment Note Visit Note 10/23 Visit Start Time 11:21 Visit Stop Time 12:01 Total Visit Minutes 40 Visit Number 15 Number of LOTTERY CLERK Visits 0 PT-OP-B Current Condition Start: 11/12/19 10:58 Freq: Status: Active Protocol: Document 11/12/19 15:26 [facility] (Rec: 11/12/19 16:05 [facility] [id number]) Current Condition History of Current Condition Onset Date August 2018 Current Complaints neck pain History of Current Condition Pt started to get general pain in August of last year then started getting pain and tingling into RUE then into LUE in October. Pt has seen spinal surgeon and neurosurgeon who did not consider a surgerical canidate . She got sent to a rheumatoligist who found that she polymyalgia rheumatica. Pt was put on prednisone on Jan and has been tapering down. Her neck and arm symptoms and knee symptoms were better after prednisone but started to come back after dec. Pt has ill defined area in neck region that is being monitored but it is not growing and they are not too concerned but are monitoring erin with imagine. Pt reports buring pain at night that is somewhat better in the AM. Pt has pain down into R shoulder and is R handed. First thing in the AM . L shoulder blade hurts the most in the AM an dhas to have something supporting head to get up. Pain got worse again in August and is getting tight Prior Treatments and Tests MRI report in chart; massage some help Treatment Goals Patient/Caregiver Goals Dec pain, be able to move better Personal Factors Other Personal Factors That May Effect R RCR R shoulder, R great toe Therapy/Recovery screw, neck pain, polymyalgia rheumatica PT-OP-C Subjective Start: 11/12/19 10:58 Freq: Status: Active Protocol: Document 12/31/19 12:12 [facility] (Rec: 12/31/19 12:16 [facility] [id number]) OP-PT Subjective Patient Comments Patient Comments Pt reports she is improving and got a new pillwo that helped Patient Reported Progress Improving PT-OP-F Manual Assessment Start: 11/12/19 10:58 Freq: Status: Active Protocol: Document 11/12/19 15:26 [facility] (Rec: 11/12/19 16:05 [facility] [id number]) Manual Assessments Soft Tissue Assessment Soft Tissue Mobility Assessment R>L tight and tender UT, LS, pec, scalenes, paraspinals; L UT, rhomboids, infraspinatus Joint Mobility Assessment Joint Mobility Assessment L scap winging PT-OP-J Posture/Palpation/Skin Start: 11/12/19 10:58 Freq: Status: Active Protocol: Document 12/13/19 10:36 [facility] (Rec: 12/13/19 12:17 [facility] [id number]) Posture Evaluation [facility] Postural Classification System Elbow Flexion Test 2 PT-OP-K Range of Motion Start: 11/12/19 10:58 Freq: Status: Active Protocol: Document 12/13/19 10:36 [facility] (Rec: 12/13/19 12:17 [facility] [id number]) Cervical Spine Range of Motion Cervical Spine Active Degrees Flexion 60 Extension 36 Rotation Left 64 Rotation Right 67 Lateral Flexion Left 34 Lateral Flexion Right 20 ROM Limitations Pain Comments ipsilateral pain w/R sB PT-OP-L Special Tests Start: 11/12/19 10:58 Freq: Status: Active Protocol: Document 11/12/19 15:26 [facility] (Rec: 11/12/19 16:05 [facility] [id number]) Special Tests Cervical Spine Special Tests Spurling's Test Test Results neg Vertebrobasilar Test Results neg Alar Ligament Test Results neg PT-OP-M Strength Start: 11/12/19 10:58 Freq: Status: Active Protocol: Document 12/13/19 10:36 [facility] (Rec: 12/13/19 12:17 [facility] [id number]) Shoulder Strength Shoulder Manual Muscle Testing Right Flexion 4- Good- Extension 4+ Good+ Abduction (C5) 3+ Fair+ External Rotation 4- Good- Internal Rotation 4+ Good+ Left Flexion 4- Good- Extension 5 Normal Abduction (C5) 3+ Fair+ External Rotation 4 Good Internal Rotation 5 Normal PT-OP-Q Treatments Start: 11/12/19 10:58 Freq: Status: Active Protocol: Document 12/31/19 12:12 [facility] (Rec: 12/31/19 12:16 [facility] [id number]) Therapeutic Exercises Sitting Exercises stretches Sitting Exercise Name UT & LS stretchs Side bilateral Reps/Minutes 30 sec Manual Therapy Treatment Soft Tissue Mobilization SCM Body Location R SCM/scalenes Mobilization Type Myofascial Release,Strumming, Sustained Pressure Comments w/rot Joint Mobilizations cervical Joint C1 UPA R & transverse L PT-OP-R Modalities Start: 11/12/19 10:58 Freq: Status: Active Protocol: Document 11/19/19 15:18 [facility] (Rec: 11/19/19 16:42 [facility] [id number]) Hot Pack/Cold Pack Treatment Hot Pack Location cervical & R shoulder Patient Position Hooklying Treatment Duration (minutes) 15 PT-OP-T Assessment and Plan Start: 11/12/19 10:58 Freq: Status: Active Protocol: Document 12/31/19 12:12 [facility] (Rec: 12/31/19 12:16 [facility] [id number]) Physical Therapy Assessment Goals NDI Impairment 14/50 Short Term Goal (STG) Pt will improve NDI score to 9 /50 to show improved fucntional ability. STG Duration 01/26/20 Business Law Professor Goal (LTG) Pt will improve NDI score to 4 /50 to show improved fucntional ability. LTG Duration 02/25/20 strength Short Term Goal (STG) Pt will be indep with HEP STG Duration achieved Halfway Goal (LTG) Pt will improve EFT to 4/5 and UE strength B to 5/5 without pain to allow inc ability to carry things and do normal daily activities LTG Duration 02/25/20 ROM Halfway Goal (LTG) Pt will improve ROM to full range in order to allow improved ability to use neck without increasing pain. LTG Duration 02/25/20 Assessment Summary Assessment Pt improved with R rotation w/ manual treatment today. She had dec pain with w/ R sidebend after manual treatment. Physical Therapy Plan Frequency and Duration Frequency of Treatment 1-2x/Week Duration of Treatment 2 months Plan of Care Start Date 12/26/19 Plan of Care End Date 02/25/20 Next Visit Focus/Plan Next Note Type Treatment Note Next Visit Plan cont to work on cervical and thoracic mboility, work on L rib mobility inf, PNF
--- NOTE | 2020-01-02 12:12 | PT.OTN ---
Current Diagnoses Spondylosis without myelopathy or radiculopathy, cervical region (01/02/20) Cervicalgia (01/02/20) Abnormal posture (01/02/20) Weakness (01/02/20) Physical Therapy Treatment Note PT-OP-A Visit Information Start: 11/12/19 10:58 Freq: Status: Active Protocol: Document 01/02/20 11:11 [facility] (Rec: 01/02/20 12:12 [facility] [id number]) Out-Patient Physical Therapy Visit Information Visit Information Visit Type Treatment Note Visit Note 11/22 Visit Start Time 11:13 Visit Stop Time 12:01 Total Visit Minutes 48 Visit Number 16 Number of HEATING FIXTURE TENDER Visits 0 PT-OP-B Current Condition Start: 11/12/19 10:58 Freq: Status: Active Protocol: Document 11/12/19 15:26 [facility] (Rec: 11/12/19 16:05 [facility] [id number]) Current Condition History of Current Condition Onset Date August 2018 Current Complaints neck pain History of Current Condition Pt started to get general pain in August of last year then started getting pain and tingling into RUE then into LUE in October. Pt has seen spinal surgeon and neurosurgeon who did not consider a surgerical canidate . She got sent to a rheumatoligist who found that she polymyalgia rheumatica. Pt was put on prednisone on Jan and has been tapering down. Her neck and arm symptoms and knee symptoms were better after prednisone but started to come back after dec. Pt has ill defined area in neck region that is being monitored but it is not growing and they are not too concerned but are monitoring erin with imagine. Pt reports buring pain at night that is somewhat better in the AM. Pt has pain down into R shoulder and is R handed. First thing in the AM . L shoulder blade hurts the most in the AM an dhas to have something supporting head to get up. Pain got worse again in August and is getting tight Prior Treatments and Tests MRI report in chart; massage some help Treatment Goals Patient/Caregiver Goals Dec pain, be able to move better Personal Factors Other Personal Factors That May Effect R RCR R shoulder, R great toe Therapy/Recovery screw, neck pain, polymyalgia rheumatica PT-OP-C Subjective Start: 11/12/19 10:58 Freq: Status: Active Protocol: Document 01/02/20 11:11 [facility] (Rec: 01/02/20 12:12 [facility] [id number]) OP-PT Subjective Patient Comments Patient Comments Pt reports seh cont to improve . She likes the new stretches. no L shoulder kavin pain recently Patient Reported Progress Improving PT-OP-F Manual Assessment Start: 11/12/19 10:58 Freq: Status: Active Protocol: Document 11/12/19 15:26 [facility] (Rec: 11/12/19 16:05 [facility] [id number]) Manual Assessments Soft Tissue Assessment Soft Tissue Mobility Assessment R>L tight and tender UT, LS, pec, scalenes, paraspinals; L UT, rhomboids, infraspinatus Joint Mobility Assessment Joint Mobility Assessment L scap winging PT-OP-J Posture/Palpation/Skin Start: 11/12/19 10:58 Freq: Status: Active Protocol: Document 12/13/19 10:36 [facility] (Rec: 12/13/19 12:17 [facility] [id number]) Posture Evaluation Javier Postural Classification System Elbow Flexion Test 2 PT-OP-K Range of Motion Start: 11/12/19 10:58 Freq: Status: Active Protocol: Document 12/13/19 10:36 [facility] (Rec: 12/13/19 12:17 [facility] [id number]) Cervical Spine Range of Motion Cervical Spine Active Degrees Flexion 60 Extension 36 Rotation Left 64 Rotation Right 67 Lateral Flexion Left 34 Lateral Flexion Right 20 ROM Limitations Pain Comments ipsilateral pain w/R sB PT-OP-L Special Tests Start: 11/12/19 10:58 Freq: Status: Active Protocol: Document 11/12/19 15:26 [facility] (Rec: 11/12/19 16:05 [facility] [id number]) Special Tests Cervical Spine Special Tests Spurling's Test Test Results neg Vertebrobasilar Test Results neg Alar Ligament Test Results neg PT-OP-M Strength Start: 11/12/19 10:58 Freq: Status: Active Protocol: Document 12/13/19 10:36 [facility] (Rec: 12/13/19 12:17 [facility] [id number]) Shoulder Strength Shoulder Manual Muscle Testing Right Flexion 4- Good- Extension 4+ Good+ Abduction (C5) 3+ Fair+ External Rotation 4- Good- Internal Rotation 4+ Good+ Left Flexion 4- Good- Extension 5 Normal Abduction (C5) 3+ Fair+ External Rotation 4 Good Internal Rotation 5 Normal PT-OP-Q Treatments Start: 11/12/19 10:58 Freq: Status: Active Protocol: Document 01/02/20 11:11 [facility] (Rec: 01/02/20 12:12 [facility] [id number]) Therapeutic Exercises Sitting Exercises stretches Sitting Exercise Name UT & LS stretches-R only; scalene B Reps/Minutes 30 sec x2 ea Therapeutic Activity Therapeutic Activity posture Name seated w/focus on thoracic & cervical positioning Manual Therapy Treatment Soft Tissue Mobilization SCM Body Location R SCM/scalenes Mobilization Type Myofascial Release,Strumming, Sustained Pressure Comments w/rot Joint Mobilizations Thoracic Joint PA T3-7; transverse L T2-3 SC Joint R Direction inf FM AC Joint R Direction ventral Neuro Re-Education Treatment Other Activities PNF Details post dep Comments L 1. rhythmic initiaion 2. sustained hold PT-OP-R Modalities Start: 11/12/19 10:58 Freq: Status: Active Protocol: Document 11/19/19 15:18 [facility] (Rec: 11/19/19 16:42 [facility] [id number]) Hot Pack/Cold Pack Treatment Hot Pack Location cervical & R shoulder Patient Position Hooklying Treatment Duration (minutes) 15 PT-OP-T Assessment and Plan Start: 11/12/19 10:58 Freq: Status: Active Protocol: Document 01/02/20 11:11 [facility] (Rec: 01/02/20 12:12 [facility] [id number]) Physical Therapy Assessment Goals NDI Impairment 14/50 Short Term Goal (STG) Pt will improve NDI score to 9 /50 to show improved fucntional ability. STG Duration 01/26/20 Microcomputer Support Specialist Goal (LTG) Pt will improve NDI score to 4 /50 to show improved fucntional ability. LTG Duration 02/25/20 strength Short Term Goal (STG) Pt will be indep with HEP STG Duration achieved Microcomputer Support Specialist Goal (LTG) Pt will improve EFT to 4/5 and UE strength B to 5/5 without pain to allow inc ability to carry things and do normal daily activities LTG Duration 02/25/20 ROM Microcomputer Support Specialist Goal (LTG) Pt will improve ROM to full range in order to allow improved ability to use neck without increasing pain. LTG Duration 02/25/20 Assessment Summary Assessment Pt improved with postural understanding after training. Pt had pain on R w/R sidbending so no stretches to L UT d/t R dec mobility to fold. Improved ability to get in good posture after manual Physical Therapy Plan Frequency and Duration Frequency of Treatment 1-2x/Week Duration of Treatment 2 months Plan of Care Start Date 12/26/19 Plan of Care End Date 02/25/20 Next Visit Focus/Plan Next Note Type Treatment Note Next Visit Plan scap stability exercises & scap PNF training
--- NOTE | 2020-01-07 13:45 | PT.OTN ---
Current Diagnoses Spondylosis without myelopathy or radiculopathy, cervical region (01/07/20) Cervicalgia (01/07/20) Abnormal posture (01/07/20) Weakness (01/07/20) Physical Therapy Treatment Note PT-OP-A Visit Information Start: 11/12/19 10:58 Freq: Status: Active Protocol: Document 01/07/20 13:04 [facility] (Rec: 01/07/20 13:48 [facility] [id number]) Out-Patient Physical Therapy Visit Information Visit Information Visit Type Treatment Note Visit Note 12/23 Visit Start Time 13:04 Visit Stop Time 13:45 Total Visit Minutes 41 Visit Number 17 Number of POWER CUTTING MACHINE OPERATOR Visits 1 PT-OP-B Current Condition Start: 11/12/19 10:58 Freq: Status: Active Protocol: Document 11/12/19 15:26 [facility] (Rec: 11/12/19 16:05 [facility] [id number]) Current Condition History of Current Condition Onset Date August 2018 Current Complaints neck pain History of Current Condition Pt started to get general pain in August of last year then started getting pain and tingling into RUE then into LUE in October. Pt has seen spinal surgeon and neurosurgeon who did not consider a surgerical canidate . She got sent to a rheumatoligist who found that she polymyalgia rheumatica. Pt was put on prednisone on Jan and has been tapering down. Her neck and arm symptoms and knee symptoms were better after prednisone but started to come back after dec. Pt has ill defined area in neck region that is being monitored but it is not growing and they are not too concerned but are monitoring erin with imagine. Pt reports buring pain at night that is somewhat better in the AM. Pt has pain down into R shoulder and is R handed. First thing in the AM . L shoulder blade hurts the most in the AM an dhas to have something supporting head to get up. Pain got worse again in August and is getting tight Prior Treatments and Tests MRI report in chart; massage some help Treatment Goals Patient/Caregiver Goals Dec pain, be able to move better Personal Factors Other Personal Factors That May Effect R RCR R shoulder, R great toe Therapy/Recovery screw, neck pain, polymyalgia rheumatica PT-OP-C Subjective Start: 11/12/19 10:58 Freq: Status: Active Protocol: Document 01/07/20 13:04 [facility] (Rec: 01/07/20 13:48 [facility] [id number]) OP-PT Subjective Patient Comments Patient Comments Pt doing good today, wants to review neck stretches given past 2 visits doing correctly. PT-OP-F Manual Assessment Start: 11/12/19 10:58 Freq: Status: Active Protocol: Document 11/12/19 15:26 [facility] (Rec: 11/12/19 16:05 [facility] [id number]) Manual Assessments Soft Tissue Assessment Soft Tissue Mobility Assessment R>L tight and tender UT, LS, pec, scalenes, paraspinals; L UT, rhomboids, infraspinatus Joint Mobility Assessment Joint Mobility Assessment L scap winging PT-OP-J Posture/Palpation/Skin Start: 11/12/19 10:58 Freq: Status: Active Protocol: Document 12/13/19 10:36 [facility] (Rec: 12/13/19 12:17 [facility] [id number]) Posture Evaluation Javier Postural Classification System Elbow Flexion Test 2 PT-OP-K Range of Motion Start: 11/12/19 10:58 Freq: Status: Active Protocol: Document 12/13/19 10:36 [facility] (Rec: 12/13/19 12:17 [facility] [id number]) Cervical Spine Range of Motion Cervical Spine Active Degrees Flexion 60 Extension 36 Rotation Left 64 Rotation Right 67 Lateral Flexion Left 34 Lateral Flexion Right 20 ROM Limitations Pain Comments ipsilateral pain w/R sB PT-OP-L Special Tests Start: 11/12/19 10:58 Freq: Status: Active Protocol: Document 11/12/19 15:26 [facility] (Rec: 11/12/19 16:05 [facility] [id number]) Special Tests Cervical Spine Special Tests Spurling's Test Test Results neg Vertebrobasilar Test Results neg Alar Ligament Test Results neg PT-OP-M Strength Start: 11/12/19 10:58 Freq: Status: Active Protocol: Document 12/13/19 10:36 [facility] (Rec: 12/13/19 12:17 [facility] [id number]) Shoulder Strength Shoulder Manual Muscle Testing Right Flexion 4- Good- Extension 4+ Good+ Abduction (C5) 3+ Fair+ External Rotation 4- Good- Internal Rotation 4+ Good+ Left Flexion 4- Good- Extension 5 Normal Abduction (C5) 3+ Fair+ External Rotation 4 Good Internal Rotation 5 Normal PT-OP-Q Treatments Start: 11/12/19 10:58 Freq: Status: Active Protocol: Document 01/07/20 13:04 [facility] (Rec: 01/07/20 13:48 [facility] [id number]) Therapeutic Exercises Supine Exercises Thoracic ext Supine Exercise Name towel roll, open noodle horizontal spine Reps/Minutes 10 sec x4 Sitting Exercises stretches Sitting Exercise Name UT & LS stretches-R only; scalene B Reps/Minutes 30 sec x2 ea Standing Exercises scaption pec stretch Side bilateral Reps/Minutes 30 sec x2 pec stretch Standing Exercise Name doorway Side bilateral Reps/Minutes 30sec Wall posture Standing Exercise Name w/ T and ER chest lift with LB on wall Reps/Minutes x10 5 sec hold each PT-OP-R Modalities Start: 11/12/19 10:58 Freq: Status: Active Protocol: Document 11/19/19 15:18 [facility] (Rec: 11/19/19 16:42 [facility] [id number]) Hot Pack/Cold Pack Treatment Hot Pack Location cervical & R shoulder Patient Position Hooklying Treatment Duration (minutes) 15 PT-OP-T Assessment and Plan Start: 11/12/19 10:58 Freq: Status: Active Protocol: Document 01/07/20 13:04 [facility] (Rec: 01/07/20 13:48 [facility] [id number]) Physical Therapy Assessment Goals NDI Impairment 14/50 Short Term Goal (STG) Pt will improve NDI score to 9 /50 to show improved fucntional ability. STG Duration 01/26/20 Prison Goal (LTG) Pt will improve NDI score to 4 /50 to show improved fucntional ability. LTG Duration 02/25/20 strength Short Term Goal (STG) Pt will be indep with HEP STG Duration achieved Telephone Interceptor Operator Goal (LTG) Pt will improve EFT to 4/5 and UE strength B to 5/5 without pain to allow inc ability to carry things and do normal daily activities LTG Duration 02/25/20 ROM Prison Goal (LTG) Pt will improve ROM to full range in order to allow improved ability to use neck without increasing pain. LTG Duration 02/25/20 Assessment Summary Assessment Pt improved with posture understanding. Reviewed scalene stretch. Added horizontal rolled towel for TS ext and carryover cuing during scaption pec stretch in doorway. Added ER palms face up with good chest lift while incorporating core facilitation at wall. Pt toleraated tx well. No time for manual, will assess need next tx. Physical Therapy Plan Frequency and Duration Frequency of Treatment 1-2x/Week Duration of Treatment 2 months Plan of Care Start Date 12/26/19 Plan of Care End Date 02/25/20 Therapeutic Interventions Therapeutic Interventions Aquatic Therapy,Home Exercise Program,Joint Mobilizations, Manual Therapy,Neuromuscular Re-education,Patient/Caregiver Education,Self-Care/Home Management,Soft Tissue Mobilization,Taping, Therapeutic Activities, Therapeutic Exercises Modalities Cold Pack/Ice Massage,Electric Stimulation,Hot Packs, Infrared Therapy,Iontophoresis ,Traction- Mechanical, Ultrasound Next Visit Focus/Plan Next Note Type Treatment Note Next Visit Plan Assess scalene tightness if need manual. Review wall posture and stretch HEP as needed. Continue progress scap stability exercises & scap PNF training
--- NOTE | 2020-01-15 12:53 | PT.OTN ---
Current Diagnoses Spondylosis without myelopathy or radiculopathy, cervical region (01/15/20) Cervicalgia (01/15/20) Abnormal posture (01/15/20) Weakness (01/15/20) Physical Therapy Treatment Note PT-OP-A Visit Information Start: 11/12/19 10:58 Freq: Status: Active Protocol: Document 01/15/20 12:09 [facility] (Rec: 01/15/20 12:59 [facility] [id number]) Out-Patient Physical Therapy Visit Information Visit Information Visit Type Treatment Note Visit Note 01/23 Visit Start Time 12:10 Visit Stop Time 12:53 Total Visit Minutes 43 Visit Number 18 Number of REPAIRER FINISHED METAL Visits 2 PT-OP-B Current Condition Start: 11/12/19 10:58 Freq: Status: Active Protocol: Document 11/12/19 15:26 [facility] (Rec: 11/12/19 16:05 [facility] [id number]) Current Condition History of Current Condition Onset Date August 2018 Current Complaints neck pain History of Current Condition Pt started to get general pain in August of last year then started getting pain and tingling into RUE then into LUE in October. Pt has seen spinal surgeon and neurosurgeon who did not consider a surgerical canidate . She got sent to a rheumatoligist who found that she polymyalgia rheumatica. Pt was put on prednisone on Jan and has been tapering down. Her neck and arm symptoms and knee symptoms were better after prednisone but started to come back after dec. Pt has ill defined area in neck region that is being monitored but it is not growing and they are not too concerned but are monitoring erin with imagine. Pt reports buring pain at night that is somewhat better in the AM. Pt has pain down into R shoulder and is R handed. First thing in the AM . L shoulder blade hurts the most in the AM an dhas to have something supporting head to get up. Pain got worse again in August and is getting tight Prior Treatments and Tests MRI report in chart; massage some help Treatment Goals Patient/Caregiver Goals Dec pain, be able to move better Personal Factors Other Personal Factors That May Effect R RCR R shoulder, R great toe Therapy/Recovery screw, neck pain, polymyalgia rheumatica PT-OP-C Subjective Start: 11/12/19 10:58 Freq: Status: Active Protocol: Document 01/15/20 12:09 [facility] (Rec: 01/15/20 12:59 [facility] [id number]) OP-PT Subjective Patient Comments Patient Comments Pt reported was pretty sore after last tx with added more OH pec stretch in corner, pre that day pain in front chest and neck had improved and almost went away. So starting little over again. Is very compliant with many HEP, will review today for proper form. PT-OP-F Manual Assessment Start: 11/12/19 10:58 Freq: Status: Active Protocol: Document 11/12/19 15:26 [facility] (Rec: 11/12/19 16:05 [facility] [id number]) Manual Assessments Soft Tissue Assessment Soft Tissue Mobility Assessment R>L tight and tender UT, LS, pec, scalenes, paraspinals; L UT, rhomboids, infraspinatus Joint Mobility Assessment Joint Mobility Assessment L scap winging PT-OP-J Posture/Palpation/Skin Start: 11/12/19 10:58 Freq: Status: Active Protocol: Document 12/13/19 10:36 [facility] (Rec: 12/13/19 12:17 [facility] [id number]) Posture Evaluation Javier Postural Classification System Elbow Flexion Test 2 PT-OP-K Range of Motion Start: 11/12/19 10:58 Freq: Status: Active Protocol: Document 12/13/19 10:36 [facility] (Rec: 12/13/19 12:17 [facility] [id number]) Cervical Spine Range of Motion Cervical Spine Active Degrees Flexion 60 Extension 36 Rotation Left 64 Rotation Right 67 Lateral Flexion Left 34 Lateral Flexion Right 20 ROM Limitations Pain Comments ipsilateral pain w/R sB PT-OP-L Special Tests Start: 11/12/19 10:58 Freq: Status: Active Protocol: Document 11/12/19 15:26 [facility] (Rec: 11/12/19 16:05 [facility] [id number]) Special Tests Cervical Spine Special Tests Spurling's Test Test Results neg Vertebrobasilar Test Results neg Alar Ligament Test Results neg PT-OP-M Strength Start: 11/12/19 10:58 Freq: Status: Active Protocol: Document 12/13/19 10:36 [facility] (Rec: 12/13/19 12:17 [facility] [id number]) Shoulder Strength Shoulder Manual Muscle Testing Right Flexion 4- Good- Extension 4+ Good+ Abduction (C5) 3+ Fair+ External Rotation 4- Good- Internal Rotation 4+ Good+ Left Flexion 4- Good- Extension 5 Normal Abduction (C5) 3+ Fair+ External Rotation 4 Good Internal Rotation 5 Normal PT-OP-Q Treatments Start: 11/12/19 10:58 Freq: Status: Active Protocol: Document 01/15/20 12:09 [facility] (Rec: 01/15/20 12:59 SP [id number]) Therapeutic Exercises Supine Exercises retraction Supine Exercise Name axial elongation w/chin tuck to hand off mat Equipment Used towel support head when need with BUE Reps/Minutes 5sec x5 Prone Exercises thread needle Comments cued serratus press with R UE during L movement to dec ant shld pinching Sidelying Exercises roll & reach Side bilateral Reps/Minutes 5 Standing Exercises cs ext TB at wall Resistance TB 32 Reps/Minutes 5 sec hold x5 Comments cued scap retraction/ depression OH reverse ABD Standing Exercise Name pulld down frontal plane Equipment Used TB #2, back to wall Reps/Minutes 2x5 Comments cued PPT, c/s ext neural, scap depression ER Side bilateral Resistance Tb #1 Reps/Minutes 15 row Standing Exercise Name row and ext Side bilateral Reps/Minutes 15 Manual Therapy Treatment Soft Tissue Mobilization Upper Trap Body Location R>L Upper Trap/LS Mobilization Type Strumming,Sustained Pressure, Trigger Point Release SCM Body Location R>L SCM/scalenes Mobilization Type Myofascial Release,Strumming, Sustained Pressure Comments w/rot Suboccipital Body Location R>LSuboccipitals Mobilization Type Myofascial Release,Sustained Pressure Intensity/Depth Moderate Body Position Hooklying PT-OP-R Modalities Start: 11/12/19 10:58 Freq: Status: Active Protocol: Document 11/19/19 15:18 [facility] (Rec: 11/19/19 16:42 [facility] [id number]) Hot Pack/Cold Pack Treatment Hot Pack Location cervical & R shoulder Patient Position Hooklying Treatment Duration (minutes) 15 PT-OP-T Assessment and Plan Start: 11/12/19 10:58 Freq: Status: Active Protocol: Document 01/15/20 12:09 [facility] (Rec: 01/15/20 12:59 SP [id number]) Physical Therapy Assessment Goals NDI Impairment 14/50 Short Term Goal (STG) Pt will improve NDI score to 9 /50 to show improved fucntional ability. STG Duration 01/26/20 Bottle Sorter Goal (LTG) Pt will improve NDI score to 4 /50 to show improved fucntional ability. LTG Duration 02/25/20 strength Short Term Goal (STG) Pt will be indep with HEP STG Duration achieved Jail Goal (LTG) Pt will improve EFT to 4/5 and UE strength B to 5/5 without pain to allow inc ability to carry things and do normal daily activities LTG Duration 02/25/20 ROM Bottle Sorter Goal (LTG) Pt will improve ROM to full range in order to allow improved ability to use neck without increasing pain. LTG Duration 02/25/20 Assessment Summary Assessment Pt tolerated tx well, HEP review with cuing for proper form: c/s neutral, scap retract/depression and LS neutral pelvis. Added towel UE support with DNF lift isometric hold supine and pulldown frontal plane scap stabilization with positive feedback and added back towall for self alignment self feedback for form. Physical Therapy Plan Frequency and Duration Frequency of Treatment 1-2x/Week Duration of Treatment 2 months Plan of Care Start Date 12/26/19 Plan of Care End Date 02/25/20 Therapeutic Interventions Therapeutic Interventions Aquatic Therapy,Home Exercise Program,Joint Mobilizations, Manual Therapy,Neuromuscular Re-education,Patient/Caregiver Education,Self-Care/Home Management,Soft Tissue Mobilization,Taping, Therapeutic Activities, Therapeutic Exercises Modalities Cold Pack/Ice Massage,Electric Stimulation,Hot Packs, Infrared Therapy,Iontophoresis ,Traction- Mechanical, Ultrasound Next Visit Focus/Plan Next Note Type Treatment Note Next Visit Plan Assess last tx Tb HEP and added pull down frontal plane with scap stabilztation/ cs and ls neutra l. Hold on pec stretch in corner, discomfort last tx. Continue progress scap stability exercises & scap PNF training
--- NOTE | 2020-01-30 12:32 | PT.OTN ---
Current Diagnoses Spondylosis without myelopathy or radiculopathy, cervical region (01/30/20) Cervicalgia (01/30/20) Abnormal posture (01/30/20) Weakness (01/30/20) Physical Therapy Treatment Note PT-OP-A Visit Information Start: 11/12/19 10:58 Freq: Status: Active Protocol: Document 01/30/20 10:02 [facility] (Rec: 01/30/20 12:30 [facility] [id number]) Out-Patient Physical Therapy Visit Information Visit Information Visit Type Discharge Summary Visit Start Time 09:48 Visit Stop Time 10:35 Total Visit Minutes 47 Visit Number 19 Number of WATER [employer] MECH[employer]IC Visits 2 PT-OP-B Current Condition Start: 11/12/19 10:58 Freq: Status: Active Protocol: Document 11/12/19 15:26 [facility] (Rec: 11/12/19 16:05 [facility] [id number]) Current Condition History of Current Condition Onset Date August 2018 Current Complaints neck pain History of Current Condition Pt started to get general pain in August of last year then started getting pain and tingling into RUE then into LUE in October. Pt has seen spinal surgeon and neurosurgeon who did not consider a surgerical canidate . She got sent to a rheumatoligist who found that she polymyalgia rheumatica. Pt was put on prednisone on Jan and has been tapering down. Her neck and arm symptoms and knee symptoms were better after prednisone but started to come back after dec. Pt has ill defined area in neck region that is being monitored but it is not growing and they are not too concerned but are monitoring erin with imagine. Pt reports buring pain at night that is somewhat better in the AM. Pt has pain down into R shoulder and is R handed. First thing in the AM . L shoulder blade hurts the most in the AM an dhas to have something supporting head to get up. Pain got worse again in August and is getting tight Prior Treatments and Tests MRI report in chart; massage some help Treatment Goals Patient/Caregiver Goals Dec pain, be able to move better Personal Factors Other Personal Factors That May Effect R RCR R shoulder, R great toe Therapy/Recovery screw, neck pain, polymyalgia rheumatica PT-OP-C Subjective Start: 11/12/19 10:58 Freq: Status: Active Protocol: Document 01/30/20 10:02 [facility] (Rec: 01/30/20 12:30 [facility] [id number]) OP-PT Subjective Patient Comments Patient Comments Pt reports she is doing well and pain comes amnd goes. Does not limit her PT-OP-F Manual Assessment Start: 11/12/19 10:58 Freq: Status: Active Protocol: Document 11/12/19 15:26 [facility] (Rec: 11/12/19 16:05 [facility] [id number]) Manual Assessments Soft Tissue Assessment Soft Tissue Mobility Assessment R>L tight and tender UT, LS, pec, scalenes, paraspinals; L UT, rhomboids, infraspinatus Joint Mobility Assessment Joint Mobility Assessment L scap winging PT-OP-J Posture/Palpation/Skin Start: 11/12/19 10:58 Freq: Status: Active Protocol: Document 01/30/20 10:02 [facility] (Rec: 01/30/20 12:22 [facility] [id number]) Posture Evaluation Javier Postural Classification System Vertebral Compression Test 4 Elbow Flexion Test 4 PT-OP-K Range of Motion Start: 11/12/19 10:58 Freq: Status: Active Protocol: Document 01/30/20 10:02 [facility] (Rec: 01/30/20 12:22 [facility] [id number]) Cervical Spine Range of Motion Cervical Spine Active Degrees Flexion 61 Extension 39 Rotation Left 68 Rotation Right 67 Lateral Flexion Left 45 Lateral Flexion Right 32 ROM Limitations Pain Comments ipsilateral pain w/R sB PT-OP-L Special Tests Start: 11/12/19 10:58 Freq: Status: Active Protocol: Document 11/12/19 15:26 [facility] (Rec: 11/12/19 16:05 [facility] [id number]) Special Tests Cervical Spine Special Tests Spurling's Test Test Results neg Vertebrobasilar Test Results neg Alar Ligament Test Results neg PT-OP-M Strength Start: 11/12/19 10:58 Freq: Status: Active Protocol: Document 01/30/20 10:02 [facility] (Rec: 01/30/20 12:22 [facility] [id number]) Shoulder Strength Shoulder Manual Muscle Testing Right Flexion 5 Normal Extension 5 Normal Abduction (C5) 5 Normal External Rotation 4+ Good+ Internal Rotation 5 Normal Left Flexion 5 Normal Extension 5 Normal Abduction (C5) 5 Normal External Rotation 5 Normal Internal Rotation 5 Normal PT-OP-Q Treatments Start: 11/12/19 10:58 Freq: Status: Active Protocol: Document 01/30/20 10:02 [facility] (Rec: 01/30/20 12:30 [facility] [id number]) Therapeutic Exercises Supine Exercises retraction Supine Exercise Name axial elongation w/chin tuck to hand off mat Reps/Minutes 5sec x5 Standing Exercises cs ext TB at wall Resistance 2 Reps/Minutes 5 sec hold x5 Comments cued scap retraction/ depression OH reverse ABD Standing Exercise Name pulld down frontal plane Equipment Used TB #2, back to wall Reps/Minutes 2x5 Comments cued PPT, c/s ext neural, scap depression Manual Therapy Treatment Soft Tissue Mobilization SCM Body Location R>L SCM/scalenes Mobilization Type Myofascial Release,Strumming, Sustained Pressure Comments w/rot Self-Care/Home Management Treatment Education Other Education discussed talking to pamphlet distributor or natropath if there does not appear to be any mechanical cause ot pain. Reviewed HEP PT-OP-R Modalities Start: 11/12/19 10:58 Freq: Status: Active Protocol: Document 11/19/19 15:18 [facility] (Rec: 11/19/19 16:42 [facility] [id number]) Hot Pack/Cold Pack Treatment Hot Pack Location cervical & R shoulder Patient Position Hooklying Treatment Duration (minutes) 15 PT-OP-T Assessment and Plan Start: 11/12/19 10:58 Freq: Status: Active Protocol: Document 01/30/20 10:02 [facility] (Rec: 01/30/20 12:22 [facility] [id number]) Physical Therapy Assessment Goals NDI Impairment 14/50 Short Term Goal (STG) Pt will improve NDI score to 9 /50 to show improved fucntional ability. STG Duration achieved Casing Sewer Goal (LTG) Pt will improve NDI score to 4 /50 to show improved fucntional ability. LTG Duration achieved strength Short Term Goal (STG) Pt will be indep with HEP STG Duration achieved Prison Goal (LTG) Pt will improve EFT to 4/5 and UE strength B to 5/5 without pain to allow inc ability to carry things and do normal daily activities LTG Duration mostly achieved ROM Casing Sewer Goal (LTG) Pt will improve ROM to full range in order to allow improved ability to use neck without increasing pain. LTG Duration achieved Assessment Summary Assessment Pt has WNL ROM and strength at this time and min limits as shown by NDI. She would benefit from cont HEP at this time to cont to work on her posture, flexibility, and strength, but is DC d/t meeting all goals. Min cuieng was required for exercises and seh is indep and consistant with HEP Physical Therapy Plan Discharge Physical Therapy Discharge Reasons Goals Met
== END 2020-02-01 14:34 ==
LOC: PHYS 09:45
PROVIDERS: PCP Student in an Organized Health Care Education/Training Program; Referring Provider Physician Assistant; Visit Provider Physician Assistant
DX: M54.2 Cervicalgia (principal); M47.812 Spondylosis without myelopathy or radiculopathy, cervical region; R53.1 Weakness; R29.3 Abnormal posture
CPT/HCPCS: 97010; 97110; 97140; 97162; 97530; 97535

== ENCOUNTER → 2020-06-12 14:29 | Outpatient (CLI) | payer MEDICARE, SELFPAY ==
[2020-06-12] MEDS: COVID-19 VACC #1, MRNA(MOD) 100 MCG/0.5 ML VIAL IM (14:34)
== END ==
PROVIDERS: PCP Student in an Organized Health Care Education/Training Program; Visit Provider Internal Medicine
DX: Z23 Encounter for immunization (principal)
CPT/HCPCS: 0011A; 91301

== ENCOUNTER → 2020-07-10 14:14 | Outpatient (CLI) | payer MEDICARE, SELFPAY ==
[2020-07-10] MEDS: COVID-19 VACC #2, MRNA(MOD) 100 MCG/0.5 ML VIAL IM (14:31)
== END ==
PROVIDERS: PCP Student in an Organized Health Care Education/Training Program; Visit Provider Internal Medicine
DX: Z23 Encounter for immunization (principal)
CPT/HCPCS: 0012A; 91301

== ENCOUNTER 2020-12-04 05:20 | Emergency (ER) | payer MEDICARE, SELFPAY ==
[2020-12-04] VITALS (40 sets, daily range): BP systolic 109–143; BP diastolic 55–78; PULSE 78–118; RESP 13–29; TEMP 36.6; O2SAT 95–99
--- NOTE | 2020-12-04 05:30 | ED_ITS ---
HPI - Chest Pain <Betzaida Lee, DO - Last Filed: 12/14/20 19:33> General Chief Complaint: Chest Pain Stated Complaint: chest pain raidiating to left shoulder Time Seen by Provider: 12/04/20 05:29 Source: patient Mode of arrival: Ambulatory Limitations: no limitations History of Present Illness HPI narrative: This is a pleasant 70-year-old female comes to the emergency department with complaint of chest pain substernal that started about 5:45 p.m. last night on the . Patient states it radiates towards her left shoulder and at some they went to her left jaw teeth. Patient states she has had chest discomfort occasionally in the past but related to esophageal spasm and history of Schatzki's ring which she has had dilated in the past. She states this typically resolves fairly shortly on its own. This feels a little bit different she has never had chest pain that radiated to her shoulder before and has not resolved at any point. Patient states that going upstairs did not seem to make it worse but climbing into bed did bother her. Patient's denies any radiation to her back. She denies any shortness of breath. She states she does not feel sweaty or had any diaphoresis. She has not had any nausea or vomiting. No abdominal pain. No other GI or urinary symptoms. No swelling in her extremities. She did take an omeprazole and see if that would help because she has had a history of GERD, she has history of polymyalgia rheumatica diagnosed in 2019 and is on a very slow prednisone taper currently taking 1 mg for the next 2 weeks before having that. Her garnett fixer has recently started her on hydroxychloroquine and she states all of her markers have been good. She is on a statin, she takes vitamin-D and calcium. She does not take any medications for hypertension or diabetes. She has had the Schatzki use ring dilated in terms of surgical history, right shoulder surgery, laparoscopy as well as a toe surgery. No tobacco, rare alcohol, no illicit. Her brother had a cardiac stent placed at age 56. She had a g father of a heart attack in his 60s but he also had rheumatoid disease. She has had a treadmill and an echo in the but has never had any further cardiac evaluations. She is allergic to morphine and Vicodin and states she gets a rash. Related Data Allergies Allergy/AdvReac Type Severity Reaction Status Date / Time acetaminophen [From Vicodin] Allergy Unknown Verified 12/04/20 05:35 hydrocodone [From Vicodin] Allergy Unknown Verified 12/04/20 05:35 morphine Allergy Unknown Verified 12/04/20 05:35 Review of Systems <Betzaida Lee DO - Last Filed: 12/14/20 19:33> Review of Systems ROS Unobtainable: All systems reviewed & are unremarkable except as noted in HPI and below Patient History <Betzaida Lee DO - Last Filed: 12/14/20 19:33> Medical History (Updated 12/04/20 @ 09:18 by Nicolasa Garcia MD) Dyslipidemia GERD (gastroesophageal reflux disease) Polymyalgia rheumatica Schatzki's ring Social History Smoking Status: Never smoker Exam <Betzaida Lee DO - Last Filed: 12/14/20 19:33> Narrative Exam Narrative: GENERAL: Alert and oriented x three, well-nourished female in mild distress HEENT: Head normocephalic, atraumatic, EOMI, pupils reactive, face symmetric, moist mucous membranes NECK: Supple, full range of motion CARDIOVASCULAR: Regular rate and rhythm without murmurs, rubs or gallops. RESPIRATORY: Breath sounds equal bilaterally, no wheezes rales or rhonchi. ABDOMEN: Soft, nontender. Normoactive bowel sounds all 4 quadrants. No guarding or rebound, rigidity, no mass : No CVA tenderness EXTREMITIES: Normal range of motion, no clubbing or edema. Neurovascularly intact NEUROLOGICAL: Cranial nerves II through XII grossly intact. Moving all extremities SKIN: Warm, dry, no petechiae, no rashes or lesions. Initial Vital Signs Initial Vital Signs: Vital Signs Temperature 97.8 F 12/04/20 05:25 Pulse Rate 89 12/04/20 05:25 Respiratory Rate 21 12/04/20 05:25 Blood Pressure 143/65 H 12/04/20 05:25 Pulse Oximetry 98 12/04/20 05:25 <Nicolasa Garcia MD - Last Filed: 12/04/20 09:18> Initial Vital Signs Initial Vital Signs: Vital Signs Temperature 97.8 F 12/04/20 05:25 Pulse Rate 89 12/04/20 05:25 Respiratory Rate 21 12/04/20 05:25 Blood Pressure 143/65 H 12/04/20 05:25 Pulse Oximetry 98 12/04/20 05:25 Course <Betzaida Lee, - Last Filed: 12/14/20 19:33> Orders Ordered: Discontinued Medications Aspirin (Aspirin 81 Mg Chew Tab) 324 mg PO NOW ONE Stop: 12/04/20 05:32 Last Admin: 12/04/20 05:39 Dose: 324 mg Documented by: PARESH Clopidogrel Bisulfate (Clopidogrel 75 Mg Tablet) 600 mg PO NOW ONE Stop: 12/04/20 08:50 Last Admin: 12/04/20 08:59 Dose: 600 mg Documented by: JOSÉ Heparin Sodium (Porcine) (Heparin 5,000 Unit/Ml Vial) 5,000 unit IV NOW ONE Stop: 12/04/20 06:31 Last Admin: 12/04/20 06:42 Dose: 5,000 unit Documented by: PARESH Hydromorphone HCl (Hydromorphone 0.5 Mg Inj) 0.5 mg IV Q15MIN PRN PRN Reason: Pain, Last Admin: 12/04/20 08:59 Dose: 0.5 mg Documented by: JOSÉ Sodium Chloride (Normal Saline 0.9%) 1,000 mls @ 150 mls/hr IV CONT JULEE Heparin Sodium/Dextrose (Heparin Drip) 25,000 unit in 500 mls @ 19.377 mls/hr IV CONT JULEE; Protocol Last Infusion: 12/04/20 09:40 Dose: 11.77 units/kg/hr, 19 mls/hr Documented by: Admin: 12/04/20 06:49 Dose: 12 units/kg/hr, 19.377 mls/hr Documented by: PARESH Nitroglycerin (Nitroglycerin) 50 mg in 250 mls @ 1.5 mls/hr IV TITRATE JULEE; Protocol Last Titration: 12/04/20 09:40 Dose: 5 mcg/min, 1.5 mls/hr Documented by: Admin: 12/04/20 06:50 Dose: 5 mcg/min, 1.5 mls/hr Documented by: PARESH Lorazepam (Lorazepam 2 Mg/Ml Inj) 0.5 mg IV NOW ONE Stop: 12/04/20 09:15 Last Admin: 12/04/20 09:22 Dose: 0.5 mg Documented by: JOSÉ Nitroglycerin (Nitroglycerin 0.4 Mg Sl Tab) 0.4 mg SL [id number] PRN PRN Reason: chest pain Last Admin: 12/04/20 06:09 Dose: 0.4 mg Documented by: Admin: 12/04/20 05:50 Dose: 0.4 mg Documented by: PARESH Ondansetron HCl (Ondansetron 4 Mg/2 Ml Inj) 4 mg IV NOW ONE Stop: 12/04/20 08:50 Last Admin: 12/04/20 08:59 Dose: 4 mg Documented by: JOSÉ Reevaluation(s) Reevaluation #1: Patient did have some improvement with sublingual nitro started have some return. Updated patient on her troponin which is 1.88. Patient is aware that we are starting heparin as well as a nitro drip and will be discussing with cardiology. Patient does express that if she does not require stat transfer to the outside facility her main preference would be [facility]. Consultations Consultation #1: Dr. Johnson with Cardiology at [facility]. Discussed today's EKG changes as well as her troponin. Patient had improvement with nitro sublingual but did return and nitro drip is being initiated. Dr. Johnson states that some if were able to control patient's chest pain with nitro drip we do not have to stab her over but if she continues to have chest pain she would recommend stat transfer for cardiac catheterization. Dr. Kapoor his linking machine operator taking over today and she will sign the patient out him as were closed shift change and if patient is continuing to have chest pain he will be aware of the patient. Vital Signs Vital signs: Vital Signs - 8 hr 12/04/20 05:25 12/04/20 05:31 12/04/20 05:46 Temperature 97.8 F Pulse Rate 89 88 81 Respiratory Rate 21 23 Blood Pressure 143/65 H 139/60 Pulse Oximetry 98 99 98 12/04/20 05:50 12/04/20 05:55 12/04/20 06:00 Temperature Pulse Rate 85 81 80 Respiratory Rate 18 20 19 Blood Pressure 115/60 116/57 L 118/57 L Pulse Oximetry 97 96 96 12/04/20 06:16 12/04/20 06:30 12/04/20 06:36 Temperature Pulse Rate 82 78 87 Respiratory Rate 19 19 19 Blood Pressure 109/55 L 116/56 L Pulse Oximetry 96 97 98 12/04/20 06:56 12/04/20 07:00 12/04/20 07:02 Temperature Pulse Rate 80 80 Respiratory Rate 22 15 Blood Pressure 141/65 H 136/63 Pulse Oximetry 99 99 12/04/20 07:05 12/04/20 07:10 12/04/20 07:15 Temperature Pulse Rate 80 87 93 H Respiratory Rate 27 H 21 20 Blood Pressure 127/59 L 132/64 141/69 H Pulse Oximetry 99 99 99 12/04/20 07:20 Temperature Pulse Rate 90 Respiratory Rate 21 Blood Pressure 130/65 Pulse Oximetry 98 <Nicolasa Garcia MD - Last Filed: 12/04/20 09:18> Orders Ordered: Discontinued Medications Aspirin (Aspirin 81 Mg Chew Tab) 324 mg PO NOW ONE Stop: 12/04/20 05:32 Last Admin: 12/04/20 05:39 Dose: 324 mg Documented by: PARESH Clopidogrel Bisulfate (Clopidogrel 75 Mg Tablet) 600 mg PO NOW ONE Stop: 12/04/20 08:50 Last Admin: 12/04/20 08:59 Dose: 600 mg Documented by: JOSÉ Heparin Sodium (Porcine) (Heparin 5,000 Unit/Ml Vial) 5,000 unit IV NOW ONE Stop: 12/04/20 06:31 Last Admin: 12/04/20 06:42 Dose: 5,000 unit Documented by: PARESH Hydromorphone HCl (Hydromorphone 0.5 Mg Inj) 0.5 mg IV Q15MIN PRN PRN Reason: Pain, Last Admin: 12/04/20 08:59 Dose: 0.5 mg Documented by: JOSÉ Sodium Chloride (Normal Saline 0.9%) 1,000 mls @ 150 mls/hr IV CONT JULEE Heparin Sodium/Dextrose (Heparin Drip) 25,000 unit in 500 mls @ 19.377 mls/hr IV CONT JULEE; Protocol Last Infusion: 12/04/20 09:40 Dose: 11.77 units/kg/hr, 19 mls/hr Documented by: Admin: 12/04/20 06:49 Dose: 12 units/kg/hr, 19.377 mls/hr Documented by: PARESH Nitroglycerin (Nitroglycerin) 50 mg in 250 mls @ 1.5 mls/hr IV TITRATE JULEE; Protocol Last Titration: 12/04/20 09:40 Dose: 5 mcg/min, 1.5 mls/hr Documented by: Admin: 12/04/20 06:50 Dose: 5 mcg/min, 1.5 mls/hr Documented by: PARESH Lorazepam (Lorazepam 2 Mg/Ml Inj) 0.5 mg IV NOW ONE Stop: 12/04/20 09:15 Last Admin: 12/04/20 09:22 Dose: 0.5 mg Documented by: JOSÉ Nitroglycerin (Nitroglycerin 0.4 Mg Sl Tab) 0.4 mg SL [id number] PRN PRN Reason: chest pain Last Admin: 12/04/20 06:09 Dose: 0.4 mg Documented by: Admin: 12/04/20 05:50 Dose: 0.4 mg Documented by: PARESH Ondansetron HCl (Ondansetron 4 Mg/2 Ml Inj) 4 mg IV NOW ONE Stop: 12/04/20 08:50 Last Admin: 12/04/20 08:59 Dose: 4 mg Documented by: JOSÉ Reevaluation(s) Reevaluation #2: Care is assumed this morning 845am 70-year-old woman with chest pain currently on nitro at 30 mics and heparin drip initial troponin of 1.88. On multiple waiting lists for various h ospitals including [facility], [facility] and [facility]. This morning she sat up to void and had recurrent chest pain with all current drips in place. She describes it as a central pain fullness that is more noticeable. EKG is repeated and does show some mild dynamic change anteriorly without meeting STEMI criteria. She does not tolerate morphine a but believe she has had Dilaudid in the past. Try small dose of this to help with pain control and contact Cardiology at [facility]. Care is reviewed with Dr. Duarte. He recommend 600 mg of oral Plavix and statin transfer with anticipation of urgent heart catheterization. Will talk with Dr. Kapoor who currently is at [facility] 854am car e is reviewed with Dr. Kapoor. He agrees that urgent transfer is needed and will be talking with the charge nurse immediately. Will be calling back and hopefully and ALS transfer directly from the ER to crime lab analyst can be facilitated. Patient is updated. 911 permission from [facility] to do stat transfer, patient will go to [facility] with anticipation of urgent catheterization. The half a mg of Dilaudid did relieve the rest of her pain. She is hemodynamically stable. She is increasingly anxious and will be given 0.5 mg of IV Ativan Consultations Consultation #1: Dr. Johnson with Cardiology at [facility]. Discussed today's EKG changes as well as her troponin. Patient had improvement with nitro sublingual but did return and nitro drip is being initiated. Dr. Johnson states that some if were able to control patient's chest pain with nitro drip we do not have to stab her over but if she continues to have chest pain she would recommend stat transfer for cardiac catheterization. Dr. Kapoor the linking machine operator taking over today and she will sign the patient out him as were closed shift change and if patient is continuing to have chest pain he will be aware of the patient. Vital Signs Vital signs: Vital Signs - 8 hr 12/04/20 05:25 12/04/20 05:31 12/04/20 05:46 Temperature 97.8 F Pulse Rate 89 88 81 Respiratory Rate 21 23 Blood Pressure 143/65 H 139/60 Pulse Oximetry 98 99 98 12/04/20 05:50 12/04/20 05:55 12/04/20 06:00 Temperature Pulse Rate 85 81 80 Respiratory Rate 18 20 19 Blood Pressure 115/60 116/57 L 118/57 L Pulse Oximetry 97 96 96 12/04/20 06:16 12/04/20 06:30 12/04/20 06:36 Temperature Pulse Rate 82 78 87 Respiratory Rate 19 19 19 Blood Pressure 109/55 L 116/56 L Pulse Oximetry 96 97 98 12/04/20 06:56 12/04/20 07:00 12/04/20 07:02 Temperature Pulse Rate 80 80 Respiratory Rate 22 15 Blood Pressure 141/65 H 136/63 Pulse Oximetry 99 99 12/04/20 07:05 12/04/20 07:10 12/04/20 07:15 Temperature Pulse Rate 80 87 93 H Respiratory Rate 27 H 21 20 Blood Pressure 127/59 L 132/64 141/69 H Pulse Oximetry 99 99 99 12/04/20 07:20 Temperature Pulse Rate 90 Respiratory Rate 21 Blood Pressure 130/65 Pulse Oximetry 98 MDM - Chest Pain <Betzaida Lee DO - Last Filed: 12/14/20 19:33> Lab Data Result diagrams: 12/04/20 05:54 12/04/20 05:54 Labs: Lab Results 12/04/20 12/04/20 12/04/20 Range/Units 05:54 05:54 05:54 WBC 8.4 (4.5-11.0) X10^3/uL RBC 4.19 (4.0-5.2) X10^6/uL Hgb 12.5 (12.0-16.0) g/dL Hct 36.9 (36-46) % MCV 88.1 (80-100) fL MCH 29.7 (26-34) PG MCHC 33.8 (30-36) % RDW 13.5 (11.6-14.8) % Plt Count 219 (150-400) X10^3/uL Neut % (Auto) 70.1 (50-75) % Lymph % (Auto) 19.6 L (25-40) % Blount % (Auto) 8.4 (3-14) % Eos % (Auto) 1.3 L (2-4) % Baso % (Auto) 0.6 (0-2) % Neut # (Auto) 5900 (7726-1527) /uL Lymph # (Auto) 1600 (5784-0044) /uL Blount # (Auto) 700 (0-900) /uL Eos # (Auto) 100 (0-450) /uL Baso # (Auto) 100 (0-100) /uL PT 12.0 (10.1-12.7) SECONDS INR 1.1 (0.9-1.3) APTT 37 H (26.4-36.2) SECONDS Sodium 143 (137-145) mmol/L Potassium 3.9 (3.4-5.1) mmol/L Chloride 106 (98-107) mmol/L Carbon Dioxide 25 (22-32) mmol/L BUN 11 (7-17) mg/dL Creatinine 0.58 (0.52-1.04) mg/dL Estimated GFR > 60.0 (>60) mL/min BUN/Creatinine Ratio 19.0 (6-22) Glucose 106 (80-110) mg/dL Calcium 9.0 (8.4-10.2) mg/dL Total Bilirubin 0.6 (0.2-1.3) mg/dL AST 42 H (14-36) IU/L ALT 23 (<35) IU/L Alkaline Phosphatase 67 (38-126) U/L Total Creatine Kinase 222 H (30-135) U/L CK-MB (CK-2) 8.91 H (<2.37) ng/mL CK-MB (CK-2) Rel Index 4.0 (1.5-5.0) % Troponin I 1.880 H* (0.01-0.034) ng/mL Total Protein 7.2 (6.3-8.2) g/dL Albumin 4.5 (3.5-5.0) g/dL Globulin 2.7 (1.7-4.1) g/dL Albumin/Globulin Ratio 1.7 (1.0-2.8) Lipase 123 (23-300) U/L SARS-CoV-2 (PCR) (Negative) 12/04/20 Range/Units 09:02 WBC (4.5-11.0) X10^3/uL RBC (4.0-5.2) X10^6/uL Hgb (12.0-16.0) g/dL Hct (36-46) % MCV (80-100) fL MCH (26-34) PG MCHC (30-36) % RDW (11.6-14.8) % Plt Count (150-400) X10^3/uL Neut % (Auto) (50-75) % Lymph % (Auto) (25-40) % Blount % (Auto) (3-14) % Eos % (Auto) (2-4) % Baso % (Auto) (0-2) % Neut # (Auto) (6869-1522) /uL Lymph # (Auto) (2843-3449) /uL Blount # (Auto) (0-900) /uL Eos # (Auto) (0-450) /uL Baso # (Auto) (0-100) /uL PT (10.1-12.7) SECONDS INR (0.9-1.3) APTT (26.4-36.2) SECONDS Sodium (137-145) mmol/L Potassium (3.4-5.1) mmol/L Chloride (98-107) mmol/L Carbon Dioxide (22-32) mmol/L BUN (7-17) mg/dL Creatinine (0.52-1.04) mg/dL Estimated GFR (>60) mL/min BUN/Creatinine Ratio (6-22) Glucose (80-110) mg/dL Calcium (8.4-10.2) mg/dL Total Bilirubin (0.2-1.3) mg/dL AST (14-36) IU/L ALT (<35) IU/L Alkaline Phosphatase (38-126) U/L Total Creatine Kinase (30-135) U/L CK-MB (CK-2) (<2.37) ng/mL CK-MB (CK-2) Rel Index (1.5-5.0) % Troponin I (0.01-0.034) ng/mL Total Protein (6.3-8.2) g/dL Albumin (3.5-5.0) g/dL Globulin (1.7-4.1) g/dL Albumin/Globulin Ratio (1.0-2.8) Lipase (23-300) U/L SARS-CoV-2 (PCR) Negative (Negative) Imaging Data Chest x-ray: My Impression: nap ECG Data Attestation: I personally reviewed and interpreted this ECG as follows: Prior ECG tracings: not available for review Interpretation: Sinus rhythm rate of 85, with occasional PVCs. RI 180, QRS 96, QTc 461. T wave inversion 1, avL. V1-V3. MDM Narrative Medical decision making narrative: This is a 70-year-old female comes to the emergency department with chest pain that started last night almost 12 hours ago. Patient has had continuous chest pain that radiates to the left shoulder. She does have some cardiac risk factors with dyslipidemia, brother had cardiac stents in his 50s and a grandfather who of a heart attack in his 60s. Patient EKG does show some inverted T-waves in 1 and aVL, no elevation appreciated put Q-waves in V1 2 and 3. Discussed with patient she had some improvement in her nitro and troponin is positive. Patient is not completely chest pain-free and nitro drip and heparin were ordered. Case was discussed with Cardiology. Patient chest pain had improved with nitro sublingual but had sensed returned on recheck. Nitro drip is being hung and if patient's chest pain does not resolve she would recommend call back to Cardiology for stat transfe ED to ED. If patient's chest pain has resolved patient still needs urgent catheterization but can wait for ability to transfer when bed av ailability is present. Patient signed out to Dr. Garcia while awaiting transfer. We did discuss that patient develops recurrent chest pain she is to recontact Cardiology for stat transfer. Dr. Kapoor is on today. <Nicolasa Garcia MD - Last Filed: 12/04/20 09:18> Lab Data Labs: Lab Results 12/04/20 12/04/20 12/04/20 Range/Units 05:54 05:54 05:54 WBC 8.4 (4.5-11.0) X10^3/uL RBC 4.19 (4.0-5.2) X10^6/uL Hgb 12.5 (12.0-16.0) g/dL Hct 36.9 (36-46) % MCV 88.1 (80-100) fL MCH 29.7 (26-34) PG MCHC 33.8 (30-36) % RDW 13.5 (11.6-14.8) % Plt Count 219 (150-400) X10^3/uL Neut % (Auto) 70.1 (50-75) % Lymph % (Auto) 19.6 L (25-40) % Blount % (Auto) 8.4 (3-14) % Eos % (Auto) 1.3 L (2-4) % Baso % (Auto) 0.6 (0-2) % Neut # (Auto) 5900 (7525-8217) /uL Lymph # (Auto) 1600 (2429-4614) /uL Blount # (Auto) 700 (0-900) /uL Eos # (Auto) 100 (0-450) /uL Baso # (Auto) 100 (0-100) /uL PT 12.0 (10.1-12.7) SECONDS INR 1.1 (0.9-1.3) APTT 37 H (26.4-36.2) SECONDS Sodium 143 (137-145) mmol/L Potassium 3.9 (3.4-5.1) mmol/L Chloride 106 (98-107) mmol/L Carbon Dioxide 25 (22-32) mmol/L BUN 11 (7-17) mg/dL Creatinine 0.58 (0.52-1.04) mg/dL Estimated GFR > 60.0 (>60) mL/min BUN/Creatinine Ratio 19.0 (6-22) Glucose 106 (80-110) mg/dL Calcium 9.0 (8.4-10.2) mg/dL Total Bilirubin 0.6 (0.2-1.3) mg/dL AST 42 H (14-36) IU/L ALT 23 (<35) IU/L Alkaline Phosphatase 67 (38-126) U/L Total Creatine Kinase 222 H (30-135) U/L CK-MB (CK-2) 8.91 H (<2.37) ng/mL CK-MB (CK-2) Rel Index 4.0 (1.5-5.0) % Troponin I 1.880 H* (0.01-0.034) ng/mL Total Protein 7.2 (6.3-8.2) g/dL Albumin 4.5 (3.5-5.0) g/dL Globulin 2.7 (1.7-4.1) g/dL Albumin/Globulin Ratio 1.7 (1.0-2.8) Lipase 123 (23-300) U/L SARS-CoV-2 (PCR) (Negative) 12/04/20 Range/Units 09:02 WBC (4.5-11.0) X10^3/uL RBC (4.0-5.2) X10^6/uL Hgb (12.0-16.0) g/dL Hct (36-46) % MCV (80-100) fL MCH (26-34) PG MCHC (30-36) % RDW (11.6-14.8) % Plt Count (150-400) X10^3/uL Neut % (Auto) (50-75) % Lymph % (Auto) (25-40) % Blount % (Auto) (3-14) % Eos % (Auto) (2-4) % Baso % (Auto) (0-2) % Neut # (Auto) (2232-0891) /uL Lymph # (Auto) (3057-2304) /uL Blount # (Auto) (0-900) /uL Eos # (Auto) (0-450) /uL Baso # (Auto) (0-100) /uL PT (10.1-12.7) SECONDS INR (0.9-1.3) APTT (26.4-36.2) SECONDS Sodium (137-145) mmol/L Potassium (3.4-5.1) mmol/L Chloride (98-107) mmol/L Carbon Dioxide (22-32) mmol/L BUN (7-17) mg/dL Creatinine (0.52-1.04) mg/dL Estimated GFR (>60) mL/min BUN/Creatinine Ratio (6-22) Glucose (80-110) mg/dL Calcium (8.4-10.2) mg/dL Total Bilirubin (0.2-1.3) mg/dL AST (14-36) IU/L ALT (<35) IU/L Alkaline Phosphatase (38-126) U/L Total Creatine Kinase (30-135) U/L CK-MB (CK-2) (<2.37) ng/mL CK-MB (CK-2) Rel Index (1.5-5.0) % Troponin I (0.01-0.034) ng/mL Total Protein (6.3-8.2) g/dL Albumin (3.5-5.0) g/dL Globulin (1.7-4.1) g/dL Albumin/Globulin Ratio (1.0-2.8) Lipase (23-300) U/L SARS-CoV-2 (PCR) Negative (Negative) Critical Care Time <Betzaida Lee DO - Last Filed: 12/14/20 19:33> Critical Care Time Critical Care Time: Yes Attestation: The high probability of a clinically significant, sudden or life threatening deterioration of the [cardiac] system(s) required my full and direct attention, intervention and personal management. The aggregate critical care time was [] minutes. This time is in addition to time spent performing reported procedures but includes the following: [x] Data Review and interpretation [x] Patient assessment and monitoring of vital signs [x] Documentation [x] Medication orders and management <Nicolasa Garcia MD - Last Filed: 12/04/20 09:18> Critical Care Time Total Critical Care Time: 61 Attestation: The high probability of a clinically significant, sudden or life threatening deterioration of the [cardiac] system(s) required my full and direct attention, intervention and personal management. The aggregate critical care time was [61] minutes. This time is in addition to time spent performing reported procedures but includes the following: [x] Data Review and interpretation [x] Patient assessment and monitoring of vital signs [x] Documentation [x] Medication orders and management Discharge Plan Departure Patient Disposition: [facility] Clinical Impression: Myocardial infarction Qualifiers: Myocardial infarction type: non-ST elevation myocardial infarction Qualified Code(s): I21.4 - Non-ST elevation (NSTEMI) myocardial infarction
--- NOTE | 2020-12-04 05:31 | DI.RAD.S_ITS ---
PROCEDURE: XR CHEST 1V INDICATIONS: chest pain TECHNIQUE: One view of the chest was acquired. COMPARISON: None. FINDINGS: Surgical changes and devices: None. Lungs and pleura: Lungs are clear. No pleural effusions or pneumothorax. Mediastinum: Mediastinal contours appear normal. Heart is enlarged. Bones and chest wall: No suspicious bony lesions. Overlying soft tissues appear unremarkable. IMPRESSION: No acute cardiopulmonary disease process. Dictated by: Emilia Hilario MD, PhD on 12/04/2020 at 8:27 Approved by: Emilia Hilario MD, PhD on 12/04/2020 at 8:27
[2020-12-04] MEDS: ASPIRIN 81 MG CHEW TAB 324 MG PO (05:39)
[2020-12-04] MEDS: NITROGLYCERIN 0.4 MG SL TAB SL ×2 (05:50→06:09)
[2020-12-04 06:08] LABS: INR 1.1 (0.9-1.3)
[2020-12-04 06:10] LABS: PTT Partial Thromboplastin Tim 37 SECONDS (26.4-36.2)
[2020-12-04 06:12] LABS: Alanine Aminotransferase 23 IU/L (<35); Albumin 4.5 g/dL (3.5-5.0); Albumin Globulin Ratio 1.7 (1.0-2.8); Alkaline Phosphatase 67 U/L (38-126); Aspartate Aminotransferase 42 IU/L (14-36); Bilirubin Total 0.6 mg/dL (0.2-1.3); Blood Urea Nitrogen 11 mg/dL (7-17); Carbon Dioxide 25 mmol/L (22-32); Chloride 106 mmol/L (98-107); Creatine Kinase 222 U/L (30-135); Estimated Glomerular Filt Rate > 60.0 mL/min (>60); Globulin 2.7 g/dL (1.7-4.1); Glucose 106 mg/dL (80-110); HEMOLYSIS < 15 (0-50); Lipase 123 U/L (23-300); Potassium 3.9 mmol/L (3.4-5.1); Sodium 143 mmol/L (137-145); Total Protein 7.2 g/dL (6.3-8.2)
[2020-12-04 06:17] LABS: Add Manual Diff / Slide Review NO; Basophils Absolute Auto 100 /uL (0-100); Basophils Percent Auto 0.6 % (0-2); Eosinophils Absolute Auto 100 /uL (0-450); Eosinophils Percent Auto 1.3 % (2-4); Hematocrit 36.9 % (36-46); Hemoglobin 12.5 g/dL (12.0-16.0); Lymphocytes Absolute Auto 1600 /uL (1100-4500); Lymphocytes Percent Auto 19.6 % (25-40); Mean Corpuscular HGB Conc 33.8 % (30-36); Mean Corpuscular Hemoglobin 29.7 PG (26-34); Mean Corpuscular Volume 88.1 fL (80-100); Monocytes Absolute Auto 700 /uL (0-900); Monocytes Percent Auto 8.4 % (3-14); Neutrophils Absolute Auto 5900 /uL (1500-7000); Neutrophils Percent Auto 70.1 % (50-75); Platelet Count 219 X10^3/uL (150-400); Red Blood Cell Count 4.19 X10^6/uL (4.0-5.2); Red Cell Distribution Width 13.5 % (11.6-14.8); White Blood Cell Count 8.4 X10^3/uL (4.5-11.0)
[2020-12-04 06:27] LABS: Creatine Kinase MB 8.91 ng/mL (<2.37)
[2020-12-04] MEDS: HEPARIN 5,000 UNIT/ML VIAL 5000 UNIT IV (06:42)
[2020-12-04] MEDS: HEPARIN DRIP 25,000 UNIT/500 ML IV.SOLN 19.377 UNIT IV (06:49)
[2020-12-04] MEDS: NITROGLYCERIN 50 MG/250 ML INFUS..BTL IV (06:50)
--- NOTE | 2020-12-04 07:22 | PC.NURSE ---
She is pain free now,nitro gtt is infusing at mcg per min.
[2020-12-04] MEDS: CLOPIDOGREL 75 MG TABLET 600 MG PO (08:59)
[2020-12-04] MEDS: ONDANSETRON 4 MG/2 ML INJ IV (08:59)
[2020-12-04] MEDS: HYDROMORPHONE 0.5 MG INJ IV (08:59)
[2020-12-04] MEDS: LORazepam 2 MG/ML INJ 0.5 MG IV (09:22)
[2020-12-04 10:22] LABS: COVID19 - ADMIT (NP swab/PCR) Negative (Negative)
== END 2020-12-04 09:41 | disposition short-term general hospital (02) ==
PROVIDERS: Emergency Medicine; Emergency Provider Emergency Medicine
DX: I21.9 Acute myocardial infarction, unspecified (principal); R07.9 Chest pain, unspecified; K22.2 Esophageal obstruction
CPT/HCPCS: 36415; 71045; 80053; 82550; 82553; 83690; 84484; 85025; 85610; 85730; 87635; 93005; 93010; 96365; 96366; 96368; 96375; 99284; 99291; C9803; J1170; J1644; J2060; J2405

== ENCOUNTER → 2021-03-03 13:33 | Outpatient (CLI) | payer MEDICARE, SELFPAY ==
--- NOTE | 2021-03-03 | DI.ECHO.S_ITS ---
[place] +---------+ [facility] +---------+ : : [address] : : : : [id number] : : : : Phone: [phone]+ Echocardiogram Report + + :Name: WAGNER GUZMÁN Study Date: 03/03/2021 Height: 64.5 in: :[facility] ReadingLocation: Weight: 175 lb : : Gender: Female BSA: 1.9 m2 : :: 1950 Age: 71 yrs BP: 145/69 mmHg: :Reason For Study: CARDIOMYOPATHY : :Ordering Physician: DAVID, : :MARTHA Performed By: Celeste Ruby : :Referring: MARTHA KAPOOR : + + Interpretation Summary 1) Normal left ventricular thickness, size, wall motion, and systolic function (EF about 60%). 2) Normal right ventricular size and function. 3) No significant valvular abnormalities. 4) Compared to the Echo done 12/06/2020, LVEF has improved significantly from 40-45% to abot 60% on this study. Procedure: A two-dimensional transthoracic echocardiogram with color flow and Doppler was performed. The study quality was technically adequate. Comparison is made with the echocardiogram of 12/06/2020. The patient was in sinus bradycardia with heart rates between 53-60 bpm during the exam. Left Ventricle: The left ventricle is normal in size and wall thickness. A false chord is noted (normal variant). Left ventricular ejection fraction is estimated to be 60 +/- 5%. Left ventricular systolic function appears normal without focal wall motion abnormalities. Right Ventricle: The right ventricle is normal in size and function. Atria: The left atrium is moderately dilated. Right atrial size is normal. There is no Doppler evidence for an interatrial shunt. Mitral Valve: The mitral valve is normal in structure and function. There is trace mitral regurgitation. Aortic Valve: The aortic valve is trileaflet. The aortic valve opens well. There is no aortic valve stenosis. No aortic regurgitation is present. Tricuspid Valve: The tricuspid valve is normal in structure and function. There is mild tricuspid regurgitation. The right ventricular systolic pressure is estimated to be at least 24 mmHg based on an estimated right atrial pressure of 3 mm Hg. Pulmonic Valve: The pulmonic valve leaflets are thin and pliable; valve motion is normal. There is mild pulmonic regurgitation. Great Vessels: The aortic root is normal size. The ascending aorta is at the upper limits of normal in size. The IVC is of normal diameter and collapses greater than 50% with a sniff. This suggests a low right atrial pressure of 3 mm Hg. Pericardium/ Pleura There is no pericardial effusion. There is no pleural effusion. MMode/2D Measurements & Calculations LVIDd: 5.2 cm LVOT diam: 2.0 cm LVIDs: 3.4 cm Ao root diam: 2.9 cm FS: 35.3 % asc Aorta Diam: 3.4 cm IVSd: 0.80 cm Ao Arch Diam (Prox Trans): 2.6 cm LVPWd: 0.74 cm LV [place]. diameter/BSA (cm/m^2): 2.8 LV sys. diameter/BSA (cm/m^2): 1.8 LA A2 area: 25.5 cm2 RA long axis: 5.8 cm LA A4 area: 19.6 cm2 RA area: 18.9 cm2 LA length (vol): 5.1 cm RA vol: 52.1 ml LA vol: 82.5 ml RA : 28.0 ml/m2 LA vol index: 44.4 ml/m2 IVC diam: 1.3 cm RVD1 (basal): 3.1 cm TAPSE: 2.4 cm Doppler Measurements & Calculations Ao V2 max: 164.7 cm/sec LVOT Max Chuck: 90.0 cm/sec Ao V2 mean: 101.3 cm/sec LV V1 max P.2 mmHg Ao max P.8 mmHg LV V1 VTI: 26.0 cm Ao mean P.9 mmHg COSMO(I,D): 2.3 cm2 Ao V2 VTI: 36.6 cm COSMO(V,D): 1.7 cm2 sev ratio: 0.71 COSMO indexed to BSA (cm^2/m^2): 1.2 MV E max chuck: 75.3 cm/sec TR max chuck: 228.7 cm/sec MV A max chuck: 105.1 cm/sec TR max P.9 mmHg MV E/A: 0.72 PA V2 max: 122.3 cm/sec Med Peak E' Chuck: 5.8 cm/sec PA V2 mean: 81.8 cm/sec E/E' med: 12.9 PA mean P.2 mmHg Lat Peak E' Chuck: 8.4 cm/sec PA pr(Accel): 31.0 mmHg E/E' lat: 9.0 E/e' average: 11.0 MV dec time: 0.27 sec SV(LVOT): 83.0 ml Reading Physician:09:27 AM
== END ==
PROVIDERS: PCP Internal Medicine; Referring Provider Internal Medicine Cardiovascular Disease; Visit Provider Internal Medicine Cardiovascular Disease
DX: I07.1 Rheumatic tricuspid insufficiency (principal); I37.1 Nonrheumatic pulmonary valve insufficiency; I42.9 Cardiomyopathy, unspecified
CPT/HCPCS: 93306

== ENCOUNTER → 2021-03-27 15:29 | Outpatient (CLI) | payer MEDICARE, SELFPAY ==
[2021-03-27] MEDS: COVID-19 VACC #3, MRNA(MOD) 50 MCG/0.25 ML VIAL IM (15:37)
== END ==
PROVIDERS: PCP Internal Medicine; Visit Provider Internal Medicine
DX: Z23 Encounter for immunization (principal)
CPT/HCPCS: 0013A; 91301

== ENCOUNTER 2021-04-06 13:45 | Outpatient (RCR) | payer MEDICARE, SELFPAY ==
--- NOTE | 2020-12-25 18:35 | PT.OIE ---
Current Diagnoses Pain in right hip (12/25/20) Pain in right knee (12/25/20) Dorsalgia, unspecified (12/25/20) Difficulty in walking, not elsewhere classified (12/25/20) Abnormal posture (12/25/20) Weakness (12/25/20) Past Medical History (Last Updated 12/04/20 @ 05:54 by Betzaida Lee DO) Dyslipidemia GERD (gastroesophageal reflux disease) Polymyalgia rheumatica Nayeki's ring Visit Care Team Role Provider Type Jaqueline Riojas MD Attending Provider Non-Staff Referring Provider Specialty: Medical Address: [address] [place] [address], [facility] Email: Physical Therapy Initial Evaluation PT-OP-A Visit Information Start: 12/25/20 08:56 Freq: Status: Active Protocol: Document 12/25/20 16:50 [facility] (Rec: 12/25/20 18:26 [facility] [id number]) Out-Patient Physical Therapy Visit Information Visit Information Visit Type Initial Evaluation Visit Note 05/25 Visit Start Time 16:54 Visit Stop Time 17:46 Total Visit Minutes 52 Visit Number 1 Number of PRICE ANALYST Visits 0 PT-OP-B Current Condition Start: 12/25/20 08:56 Freq: Status: Active Protocol: Document 12/25/20 16:50 [facility] (Rec: 12/25/20 18:26 [facility] [id number]) Current Condition History of Current Condition Onset Date earlier this year Current Complaints R hip pain & knee pain History of Current Condition Pt reports in Jan 2020 she started to get plantar fascititis and got hoka shoes and insoles which helped but still occ gets feet pain in AMs. HIp pain started this year and she hobbles quite a bit when she first gets up. Notes a couple months later the R groin started hurting too and esteban tis the most notable pain now. Pt reports groin gives out on her more recently (few weeks) and comes and goes-sometimes up to 20x/ day. Pt reprots pain in R med also. Pt cannot lay on either side d/t pain in R hip with about 5 min of laying on side so has to lay on back. Denies LBP. Pt notes at one point had to drag herself up the stairs . Pain has gotten gradually worse. Pt walks about 2 miles maximum but her hip hurts the entire time and she just pushes through pain. Pt has polymyalgia rheumatica, w/hx of oopherectomy, R big toe sx, R shoulder surgery, and heart attack and eneck pain. 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, grade one L; neck pain for PT which was successful only occ pain Treatment Goals Patient/Caregiver Goals Be able to walk further and be able to go on the trails, sleep on her sides, not hobble in AM when get up, ease going up/down stairs w/o pain, get up/down from floor w/o using hands on something outside of herself, be able to squat down low to pick up operator things, be able dress lower body w/o pain PT-OP-C Subjective Start: 12/25/20 08:56 Freq: Status: Active Protocol: Document 12/25/20 16:50 [facility] (Rec: 12/25/20 18:26 [facility] [id number]) Patient Questionnaires Lower Extremity Functional Scale LEFS Score 33 Oswestry Low Back Index Oswestry Score 15/50 OP-PT Pain Assessment Location R knee Pain Location Details med knee Intensity 4 Description Tightness,With Movement Description- Other aware of knee all the time but not painful all the time Frequency Intermittent Pain Duration during the activity but then okay after Pain Aggravating Factors Standing,Stair Climbing Other Pain Aggravating Factors change of position (out of bed , out of chair) Other Pain Alleviating Factors rest R hip Pain Location Details R lat hip & groin Scale Used worst 6/10 Description Sharp,Stabbing,With Movement Frequency Frequent Pain Duration after get going better after a couple min Pain Aggravating Factors Changing Position,Standing, Stair Climbing Other Pain Aggravating Factors laying on side, up from bed/up from chair, turning, sit extended Pain Alleviating Factors Heat,Lying Supine Other Pain Alleviating Factors voltaren, menthol cream, hold muscle when getting up (groin) PT-OP-D Balance Start: 12/25/20 08:56 Freq: Status: Active Protocol: Document 12/25/20 16:50 [facility] (Rec: 12/25/20 18:26 [facility] [id number]) Balance Tests Single Limb Standing Single Limb- Right 23 sec w/hip drop and sig UE use Single Limb- Left 22 sec w/hip drop and sig ue use PT-OP-F Manual Assessment Start: 12/25/20 08:56 Freq: Status: Active Protocol: Document 12/25/20 16:50 [facility] (Rec: 12/25/20 18:26 [facility] [id number]) Manual Assessments Soft Tissue Assessment Soft Tissue Mobility Assessment R iliacus, ITB, HS, adductors tightness and tenderness Joint Mobility Assessment Joint Mobility Assessment equal greater trochanter and iliac crest height PT-OP-G Mobility & Gait Start: 12/25/20 08:56 Freq: Status: Active Protocol: Document 12/25/20 16:50 [facility] (Rec: 12/25/20 18:26 [facility] [id number]) OP Gait Assessment Comments Gait Comments very rigid upper body and trunk, dec stance time RUE, ER BLEs PT-OP-J Posture/Palpation/Skin Start: 12/25/20 08:56 Freq: Status: Active Protocol: Document 12/25/20 16:50 [facility] (Rec: 12/25/20 18:26 [facility] [id number]) Posture Evaluation Javier Postural Classification System Lumbar Protective Mechanism Left AP 0 Lumbar Protective Mechanism Right AP 1 Lumbar Protective Mechanism Left PA 0 Lumbar Protective Mechanism Right PA 0 Comments Posture Comments IR of femurs, knees locked, R foot ER >L PT-OP-K Range of Motion Start: 12/25/20 08:56 Freq: Status: Active Protocol: Document 12/25/20 16:50 [facility] (Rec: 12/25/20 18:26 [facility] [id number]) Hip Goniometric Range of Motion Hip Right Active Flexion w/Knee Flexed 94 Straight Leg Raise 66 Internal Rotation 35 External Rotation 21 Left Active Flexion w/Knee Flexed 105 Straight Leg Raise 78 Internal Rotation 31 External Rotation 25 Knee Goniometric Range of Motion Knee Right Flexion Active (degrees) 118 Extension Active (degrees) 8 Left Flexion Active (degrees) 130 Extension Active (degrees) 3 PT-OP-L Special Tests Start: 12/25/20 08:56 Freq: Status: Active Protocol: Document 12/25/20 16:50 [facility] (Rec: 12/25/20 18:26 [facility] [id number]) Special Tests Hip Special Tests obers Test Results R post PT-OP-M Strength Start: 08/12/21 08:56 Freq: Status: Active Protocol: Document 12/25/20 16:50 [facility] (Rec: 12/25/20 18:26 [facility] [id number]) Hip Strength Hip Manual Muscle Testing Right Flexion (L2) 3+ Fair+ Extension (S1) 4- Good- Abduction 4- Good- Adduction 3+ Fair+ External Rotation 4- Good- Internal Rotation 4- Good- Comments pain MMT Left Flexion (L2) 5 Normal Extension (S1) 3+ Fair+ Abduction 5 Normal Adduction 4- Good- External Rotation 4+ Good+ Internal Rotation 4 Good Knee Strength Knee Manual Muscle Testing Right Flexion (S2) 5 Normal Extension (L3) 4+ Good+ Comments sligh knee pain Left Flexion (S2) 5 Normal Extension (L3) 5 Normal Ankle/Foot Strength Ankle and Foot Manual Muscle Testing Right Dorsiflexion (L4) 5 Normal Plantarflexion (S1) 5 Normal Left Dorsiflexion (L4) 5 Normal Plantarflexion (S1) 5 Normal Comments PF tested seated B PT-OP-T Assessment and Plan Start: 12/25/20 08:56 Freq: Status: Active Protocol: Document 12/25/20 16:50 [facility] (Rec: 12/25/20 18:26 [facility] [id number]) Physical Therapy Assessment Rehab Potential Rehabilitation Potential Good Evaluation Complexity Number of Personal Factors/Comorbidities 3 or More Number of Body Systems Impaired 4 or More Clinical Presentation at Evaluation Evolving Impairments Impairments Activity Tolerance,Balance, Functional Activities, Functional Mobility,Gait,Pain, Posture,ROM,Soft Tissue Mobility,Strength,Transfers Goals gait Short Term Goal (STG) pt will be able to go up/down stairs without inc pain in hip or knee STG Duration 01/25/21 Shelter Goal (LTG) Pt will be able to walk any distance she wants without inc pain and be able to walk on trails without feeling of instability. LTG Duration 02/24/21 ADLS Short Term Goal (STG) Pt will have enough hip range to be able to do all lower body dressing w/o pain. STG Duration 01/25/21 Optical Lab Technician Goal (LTG) pt will be able to sleep on B sides w/o inc pain. LTG Duration 02/24/21 strength Short Term Goal (STG) Pt will be indep w/HEP STG Duration 01/25/21 Optical Lab Technician Goal (LTG) Pt will improve strength to at least3/5 LPM all planes and 5 /5 LE strength B to allow for inc ease with mobility. LTG Duration 02/24/21 functional mobility Short Term Goal (STG) Pt will be able to crouch low to pick up operator objects from the ground and/or low shelves without inc pain. STG Duration 01/25/21 Shelter Goal (LTG) pt will be able to get up/down from ground w/o requiring outside surface for hands and without inc pain. LTG Duration 02/24/21 LEFS Impairment 33/80 Short Term Goal (STG) Pt will improve LEFS score to at least 45/80 to show improved functional ability. STG Duration 01/25/21 Shelter Goal (LTG) Pt will improve LEFS score to at least 55/80 to show improved functional ability. LTG Duration 02/24/21 Assessment Summary Assessment Pt presents with gradual increasing pain in R hip and knee with pain worsening to now giving her stabbing pain in groin that makes her leg feel like it will give way that does not appear to have a specific pattern. She has signfiicant LE weakness, dec balance, dec ROM of R hip and knee that all limit her ability to complete functional tasks like up/down from the gorund, squatting down to pick up operator things, dressing, standing extended and walking.She would benefit from skilled PT to work on these deficits in order to improve her mobility and return her to normal funciton. Physical Therapy Plan Frequency and Duration Frequency of Treatment 2x/Week Duration of Treatment 2 months Plan of Care Start Date 12/25/20 Plan of Care End Date 02/24/21 Therapeutic Interventions Therapeutic Interventions Aquatic Therapy,Balance Training,Gait Training,Home Exercise Program,Joint Mobilizations,Manual Therapy, Neuromuscular Re-education, Patient/Caregiver Education, Self-Care/Home Management,Soft Tissue Mobilization,Taping, Therapeutic Activities, Therapeutic Exercises Modalities Cold Pack/Ice Massage,Electric Stimulation,Hot Packs, Infrared Therapy,Ultrasound Next Visit Focus/Plan Next Note Type Treatment Note Next Visit Plan pelvic tilt, bridge, hip stretches (HS, figure 4, piriformis, hip flexor), clamshell, STM to glutes & iliacus, hip mobs
--- NOTE | 2020-12-25 18:35 | PT.OPPOC ---
Physical, Occupational & Speech Therapy At [facility] Current Diagnoses Pain in right hip (12/25/20) Pain in right knee (12/25/20) Dorsalgia, unspecified (12/25/20) Difficulty in walking, not elsewhere classified (12/25/20) Abnormal posture (12/25/20) Weakness (12/25/20) Visit Care Team Role Provider Type Jaqueline Riojas MD Attending Provider Non-Staff Referring Provider Specialty: Medical Address: [address] [place] [address], [facility] Email: Plan Of Care PT-OP-T Assessment and Plan Start: 12/25/20 08:56 Freq: Status: Active Protocol: Document 12/25/20 16:50 [facility] (Rec: 12/25/20 18:26 [facility] [id number]) Physical Therapy Assessment Rehab Potential Rehabilitation Potential Good Evaluation Complexity Number of Personal Factors/Comorbidities 3 or More Number of Body Systems Impaired 4 or More Clinical Presentation at Evaluation Evolving Impairments Impairments Activity Tolerance,Balance, Functional Activities, Functional Mobility,Gait,Pain, Posture,ROM,Soft Tissue Mobility,Strength,Transfers Goals gait Short Term Goal (STG) pt will be able to go up/down stairs without inc pain in hip or knee STG Duration 01/25/21 Custodial Goal (LTG) Pt will be able to walk any distance she wants without inc pain and be able to walk on trails without feeling of instability. LTG Duration 02/24/21 ADLS Short Term Goal (STG) Pt will have enough hip range to be able to do all lower body dressing w/o pain. STG Duration 01/25/21 Custodial Goal (LTG) pt will be able to sleep on B sides w/o inc pain. LTG Duration 02/24/21 strength Short Term Goal (STG) Pt will be indep w/HEP STG Duration 01/25/21 Financial Services Sales Representative Goal (LTG) Pt will improve strength to at least3/5 LPM all planes and 5 /5 LE strength B to allow for inc ease with mobility. LTG Duration 02/24/21 functional mobility Short Term Goal (STG) Pt will be able to crouch low to turkey picker objects from the ground and/or low shelves without inc pain. STG Duration 01/25/21 Financial Services Sales Representative Goal (LTG) pt will be able to get up/down from ground w/o requiring outside surface for hands and without inc pain. LTG Duration 02/24/21 LEFS Impairment 33/80 Short Term Goal (STG) Pt will improve LEFS score to at least 45/80 to show improved functional ability. STG Duration 01/25/21 Custodial Goal (LTG) Pt will improve LEFS score to at least 55/80 to show improved functional ability. LTG Duration 02/24/21 Assessment Summary Assessment Pt presents with gradual increasing pain in R hip and knee with pain worsening to now giving her stabbing pain in groin that makes her leg feel like it will give way that does not appear to have a specific pattern. She has signfiicant LE weakness, dec balance, dec ROM of R hip and knee that all limit her ability to complete functional tasks like up/down from the gorund, squatting down to turkey picker things, dressing, standing extended and walking.She would benefit from skilled PT to work on these deficits in order to improve her mobility and return her to normal funciton. Physical Therapy Plan Frequency and Duration Frequency of Treatment 2x/Week Duration of Treatment 2 months Plan of Care Start Date 12/25/20 Plan of Care End Date 02/24/21 Therapeutic Interventions Therapeutic Interventions Aquatic Therapy,Balance Training,Gait Training,Home Exercise Program,Joint Mobilizations,Manual Therapy, Neuromuscular Re-education, Patient/Caregiver Education, Self-Care/Home Management,Soft Tissue Mobilization,Taping, Therapeutic Activities, Therapeutic Exercises Modalities Cold Pack/Ice Massage,Electric Stimulation,Hot Packs, Infrared Therapy,Ultrasound Next Visit Focus/Plan Next Note Type Treatment Note Next Visit Plan pelvic tilt, bridge, hip stretches (HS, figure 4, piriformis, hip flexor), clamshell, STM to glutes & iliacus, hip mobs Plan of Care Dates Plan of Care Start Date 12/25/20 Plan of Care End Date 02/24/21 Electronically Signed by: Jennifer Pitts, PT 12/25/20 0221 Please Sign and Return: I have reviewed this Plan of Care and certify that the skilled therapy services above are required to meet the patient?s needs. Physician Signature Date Printed Name and Credentials Clinical Instructor Signature Printed Name and Credentials
--- NOTE | 2020-12-31 10:34 | PT.OTN ---
Current Diagnoses Pain in right hip (12/31/20) Pain in right knee (12/31/20) Dorsalgia, unspecified (12/31/20) Difficulty in walking, not elsewhere classified (12/31/20) Abnormal posture (12/31/20) Weakness (12/31/20) Physical Therapy Treatment Note PT-OP-A Visit Information Start: 12/25/20 08:56 Freq: Status: Active Protocol: Document 12/31/20 09:53 [facility] (Rec: 12/31/20 10:34 [facility] [id number]) Out-Patient Physical Therapy Visit Information Visit Information Visit Type Treatment Note Visit Note 06/25 Visit Start Time 09:48 Visit Stop Time 10:30 Total Visit Minutes 42 Visit Number 2 Number of CHUCKING AND SAWING MACHINE OPERATOR Visits 0 PT-OP-B Current Condition Start: 12/25/20 08:56 Freq: Status: Active Protocol: Document 12/25/20 16:50 [facility] (Rec: 12/25/20 18:26 [facility] [id number]) Current Condition History of Current Condition Onset Date earlier this year Current Complaints R hip pain & knee pain History of Current Condition Pt reports in Jan 2020 she started to get plantar fascititis and got hoka shoes and insoles which helped but still occ gets feet pain in AMs. HIp pain started this year and she hobbles quite a bit when she first gets up. Notes a couple months later the R groin started hurting too and esteban tis the most notable pain now. Pt reports groin gives out on her more recently (few weeks) and comes and goes-sometimes up to 20x/ day. Pt reprots pain in R med also. Pt cannot lay on either side d/t pain in R hip with about 5 min of laying on side so has to lay on back. Denies LBP. Pt notes at one point had to drag herself up the stairs . Pain has gotten gradually worse. Pt walks about 2 miles maximum but her hip hurts the entire time and she just pushes through pain. Pt has polymyalgia rheumatica, w/hx of oopherectomy, R big toe sx, R shoulder surgery, and heart attack and eneck pain. 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, grade one L; neck pain for PT which was successful only occ pain Treatment Goals Patient/Caregiver Goals Be able to walk further and be able to go on the trails, sleep on her sides, not hobble in AM when get up, ease going up/down stairs w/o pain, get up/down from floor w/o using hands on something outside of herself, be able to squat down low to warehouse order picker things, be able dress lower body w/o pain PT-OP-C Subjective Start: 12/25/20 08:56 Freq: Status: Active Protocol: Document 12/31/20 09:53 [facility] (Rec: 12/31/20 10:34 [facility] [id number]) OP-PT Subjective Patient Comments Patient Comments Notes soreness just like usual especially getting out of bed PT-OP-D Balance Start: 12/25/20 08:56 Freq: Status: Active Protocol: Document 12/25/20 16:50 [facility] (Rec: 12/25/20 18:26 [facility] [id number]) Balance Tests Single Limb Standing Single Limb- Right 23 sec w/hip drop and sig UE use Single Limb- Left 22 sec w/hip drop and sig ue use PT-OP-F Manual Assessment Start: 12/25/20 08:56 Freq: Status: Active Protocol: Document 12/25/20 16:50 [facility] (Rec: 12/25/20 18:26 [facility] [id number]) Manual Assessments Soft Tissue Assessment Soft Tissue Mobility Assessment R iliacus, ITB, HS, adductors tightness and tenderness Joint Mobility Assessment Joint Mobility Assessment equal greater trochanter and iliac crest height PT-OP-G Mobility & Gait Start: 12/25/20 08:56 Freq: Status: Active Protocol: Document 12/25/20 16:50 [facility] (Rec: 12/25/20 18:26 [facility] [id number]) OP Gait Assessment Comments Gait Comments very rigid upper body and trunk, dec stance time RUE, ER BLEs PT-OP-J Posture/Palpation/Skin Start: 12/25/20 08:56 Freq: Status: Active Protocol: Document 12/25/20 16:50 [facility] (Rec: 12/25/20 18:26 [facility] [id number]) Posture Evaluation [facility] Postural Classification System Lumbar Protective Mechanism Left AP 0 Lumbar Protective Mechanism Right AP 1 Lumbar Protective Mechanism Left PA 0 Lumbar Protective Mechanism Right PA 0 Comments Posture Comments IR of femurs, knees locked, R foot ER >L PT-OP-K Range of Motion Start: 12/25/20 08:56 Freq: Status: Active Protocol: Document 12/25/20 16:50 [facility] (Rec: 12/25/20 18:26 [facility] [id number]) Hip Goniometric Range of Motion Hip Right Active Flexion w/Knee Flexed 94 Straight Leg Raise 66 Internal Rotation 35 External Rotation 21 Left Active Flexion w/Knee Flexed 105 Straight Leg Raise 78 Internal Rotation 31 External Rotation 25 Knee Goniometric Range of Motion Knee Right Flexion Active (degrees) 118 Extension Active (degrees) 8 Left Flexion Active (degrees) 130 Extension Active (degrees) 3 PT-OP-L Special Tests Start: 12/25/20 08:56 Freq: Status: Active Protocol: Document 12/25/20 16:50 [facility] (Rec: 12/25/20 18:26 [facility] [id number]) Special Tests Hip Special Tests obers Test Results R post PT-OP-M Strength Start: 12/25/20 08:56 Freq: Status: Active Protocol: Document 12/25/20 16:50 [facility] (Rec: 12/25/20 18:26 [facility] [id number]) Hip Strength Hip Manual Muscle Testing Right Flexion (L2) 3+ Fair+ Extension (S1) 4- Good- Abduction 4- Good- Adduction 3+ Fair+ External Rotation 4- Good- Internal Rotation 4- Good- Comments pain MMT Left Flexion (L2) 5 Normal Extension (S1) 3+ Fair+ Abduction 5 Normal Adduction 4- Good- External Rotation 4+ Good+ Internal Rotation 4 Good Knee Strength Knee Manual Muscle Testing Right Flexion (S2) 5 Normal Extension (L3) 4+ Good+ Comments sligh knee pain Left Flexion (S2) 5 Normal Extension (L3) 5 Normal Ankle/Foot Strength Ankle and Foot Manual Muscle Testing Right Dorsiflexion (L4) 5 Normal Plantarflexion (S1) 5 Normal Left Dorsiflexion (L4) 5 Normal Plantarflexion (S1) 5 Normal Comments PF tested seated B PT-OP-Q Treatments Start: 12/25/20 08:56 Freq: Status: Active Protocol: Document 12/31/20 09:53 [facility] (Rec: 12/31/20 10:34 [facility] [id number]) Therapeutic Exercises Supine Exercises core Supine Exercise Name DL flex isometric Side bilateral Reps/Minutes 30 sec bridge Side bilateral Reps/Minutes 3 sec x15 Comments traction to improve activiation pelvic tilt Reps/Minutes 15 hip stretch Supine Exercise Name 1. knee to opp chest 2. figure 4 Side bilateral Reps/Minutes 30 sec ea HS stretch Supine Exercise Name w/AP Side bilateral Reps/Minutes 1 min Sidelying Exercises clamshell Side bilateral Reps/Minutes 15 ea Standing Exercises hip flexor Standing Exercise Name stretch Side bilateral Reps/Minutes 30 sec x2 Manual Therapy Treatment Soft Tissue Mobilization iliacus Body Location R Mobilization Type Sustained Pressure Intensity/Depth Moderate Body Position Supine Comments w/ER/IR glute Body Location R Mobilization Type Sustained Pressure Intensity/Depth Moderate Body Position Prone Comments w/ER/IR Joint Mobilizations hip Joint R Direction inf FM & hip on axis ER FM PT-OP-T Assessment and Plan Start: 12/25/20 08:56 Freq: Status: Active Protocol: Document 12/31/20 09:53 [facility] (Rec: 12/31/20 10:34 [facility] [id number]) Physical Therapy Assessment Goals gait Short Term Goal (STG) pt will be able to go up/down stairs without inc pain in hip or knee STG Duration 01/25/21 Band Teacher Goal (LTG) Pt will be able to walk any distance she wants without inc pain and be able to walk on trails without feeling of instability. LTG Duration 02/24/21 ADLS Short Term Goal (STG) Pt will have enough hip range to be able to do all lower body dressing w/o pain. STG Duration 01/25/21 Band Teacher Goal (LTG) pt will be able to sleep on B sides w/o inc pain. LTG Duration 02/24/21 strength Short Term Goal (STG) Pt will be indep w/HEP STG Duration 01/25/21 Residential Goal (LTG) Pt will improve strength to at least3/5 LPM all planes and 5 /5 LE strength B to allow for inc ease with mobility. LTG Duration 02/24/21 functional mobility Short Term Goal (STG) Pt will be able to crouch low to warehouse order picker objects from the ground and/or low shelves without inc pain. STG Duration 01/25/21 Band Teacher Goal (LTG) pt will be able to get up/down from ground w/o requiring outside surface for hands and without inc pain. LTG Duration 02/24/21 LEFS Impairment 33/80 Short Term Goal (STG) Pt will improve LEFS score to at least 45/80 to show improved functional ability. STG Duration 01/25/21 Residential Goal (LTG) Pt will improve LEFS score to at least 55/80 to show improved functional ability. LTG Duration 02/24/21 Assessment Summary Assessment Pt did well with all exercises with out inc pain. had to set up for better position for piriformis stretch in order to get full stretch B. She shows more difficulty w/ moblity of R hip greater than left. Improved ER after manual treatment Physical Therapy Plan Frequency and Duration Frequency of Treatment 2x/Week Duration of Treatment 2 months Plan of Care Start Date 12/25/20 Plan of Care End Date 02/24/21 Next Visit Focus/Plan Next Note Type Treatment Note Next Visit Plan Review :pelvic tilt, bridge, hip stretches (HS, figure 4, piriformis, hip flexor), clamshell, STM to glutes & iliacus, hip mobs
--- NOTE | 2021-01-06 18:20 | PT.OTN ---
Current Diagnoses Pain in right hip (01/06/21) Pain in right knee (01/06/21) Dorsalgia, unspecified (01/06/21) Difficulty in walking, not elsewhere classified (01/06/21) Abnormal posture (01/06/21) Weakness (01/06/21) Physical Therapy Treatment Note PT-OP-A Visit Information Start: 12/25/20 08:56 Freq: Status: Active Protocol: Document 01/06/21 15:34 [facility] (Rec: 01/06/21 18:20 [facility] [id number]) Out-Patient Physical Therapy Visit Information Visit Information Visit Type Treatment Note Visit Note 07/23 Visit Start Time 15:21 Visit Stop Time 16:06 Total Visit Minutes 45 Visit Number 3 Number of SPOOL CARRIER Visits 0 PT-OP-B Current Condition Start: 12/25/20 08:56 Freq: Status: Active Protocol: Document 12/25/20 16:50 [facility] (Rec: 12/25/20 18:26 [facility] [id number]) Current Condition History of Current Condition Onset Date earlier this year Current Complaints R hip pain & knee pain History of Current Condition Pt reports in Jan 2020 she started to get plantar fascititis and got hoka shoes and insoles which helped but still occ gets feet pain in AMs. HIp pain started this year and she hobbles quite a bit when she first gets up. Notes a couple months later the R groin started hurting too and esteban tis the most notable pain now. Pt reports groin gives out on her more recently (few weeks) and comes and goes-sometimes up to 20x/ day. Pt reprots pain in R med also. Pt cannot lay on either side d/t pain in R hip with about 5 min of laying on side so has to lay on back. Denies LBP. Pt notes at one point had to drag herself up the stairs . Pain has gotten gradually worse. Pt walks about 2 miles maximum but her hip hurts the entire time and she just pushes through pain. Pt has polymyalgia rheumatica, w/hx of oopherectomy, R big toe sx, R shoulder surgery, and heart attack and eneck pain. 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, grade one L; neck pain for PT which was successful only occ pain Treatment Goals Patient/Caregiver Goals Be able to walk further and be able to go on the trails, sleep on her sides, not hobble in AM when get up, ease going up/down stairs w/o pain, get up/down from floor w/o using hands on something outside of herself, be able to squat down low to hop picker things, be able dress lower body w/o pain PT-OP-C Subjective Start: 12/25/20 08:56 Freq: Status: Active Protocol: Document 01/06/21 15:34 [facility] (Rec: 01/06/21 18:20 [facility] [id number]) OP-PT Subjective Patient Comments Patient Comments Pt reports [place] re:duc alfaro PT-OP-D Balance Start: 12/25/20 08:56 Freq: Status: Active Protocol: Document 12/25/20 16:50 [facility] (Rec: 12/25/20 18:26 [facility] [id number]) Balance Tests Single Limb Standing Single Limb- Right 23 sec w/hip drop and sig UE use Single Limb- Left 22 sec w/hip drop and sig ue use PT-OP-F Manual Assessment Start: 12/25/20 08:56 Freq: Status: Active Protocol: Document 12/25/20 16:50 [facility] (Rec: 12/25/20 18:26 [facility] [id number]) Manual Assessments Soft Tissue Assessment Soft Tissue Mobility Assessment R iliacus, ITB, HS, adductors tightness and tenderness Joint Mobility Assessment Joint Mobility Assessment equal greater trochanter and iliac crest height PT-OP-G Mobility & Gait Start: 12/25/20 08:56 Freq: Status: Active Protocol: Document 12/25/20 16:50 [facility] (Rec: 12/25/20 18:26 [facility] [id number]) OP Gait Assessment Comments Gait Comments very rigid upper body and trunk, dec stance time RUE, ER BLEs PT-OP-J Posture/Palpation/Skin Start: 12/25/20 08:56 Freq: Status: Active Protocol: Document 12/25/20 16:50 [facility] (Rec: 12/25/20 18:26 [facility] [id number]) Posture Evaluation [facility] Postural Classification System Lumbar Protective Mechanism Left AP 0 Lumbar Protective Mechanism Right AP 1 Lumbar Protective Mechanism Left PA 0 Lumbar Protective Mechanism Right PA 0 Comments Posture Comments IR of femurs, knees locked, R foot ER >L PT-OP-K Range of Motion Start: 12/25/20 08:56 Freq: Status: Active Protocol: Document 12/25/20 16:50 [facility] (Rec: 12/25/20 18:26 [facility] [id number]) Hip Goniometric Range of Motion Hip Right Active Flexion w/Knee Flexed 94 Straight Leg Raise 66 Internal Rotation 35 External Rotation 21 Left Active Flexion w/Knee Flexed 105 Straight Leg Raise 78 Internal Rotation 31 External Rotation 25 Knee Goniometric Range of Motion Knee Right Flexion Active (degrees) 118 Extension Active (degrees) 8 Left Flexion Active (degrees) 130 Extension Active (degrees) 3 PT-OP-L Special Tests Start: 12/25/20 08:56 Freq: Status: Active Protocol: Document 12/25/20 16:50 [facility] (Rec: 12/25/20 18:26 [facility] [id number]) Special Tests Hip Special Tests obers Test Results R post PT-OP-M Strength Start: 12/25/20 08:56 Freq: Status: Active Protocol: Document 12/25/20 16:50 [facility] (Rec: 12/25/20 18:26 [facility] [id number]) Hip Strength Hip Manual Muscle Testing Right Flexion (L2) 3+ Fair+ Extension (S1) 4- Good- Abduction 4- Good- Adduction 3+ Fair+ External Rotation 4- Good- Internal Rotation 4- Good- Comments pain MMT Left Flexion (L2) 5 Normal Extension (S1) 3+ Fair+ Abduction 5 Normal Adduction 4- Good- External Rotation 4+ Good+ Internal Rotation 4 Good Knee Strength Knee Manual Muscle Testing Right Flexion (S2) 5 Normal Extension (L3) 4+ Good+ Comments sligh knee pain Left Flexion (S2) 5 Normal Extension (L3) 5 Normal Ankle/Foot Strength Ankle and Foot Manual Muscle Testing Right Dorsiflexion (L4) 5 Normal Plantarflexion (S1) 5 Normal Left Dorsiflexion (L4) 5 Normal Plantarflexion (S1) 5 Normal Comments PF tested seated B PT-OP-Q Treatments Start: 12/25/20 08:56 Freq: Status: Active Protocol: Document 01/06/21 15:34 [facility] (Rec: 01/06/21 18:20 [facility] [id number]) Therapeutic Exercises Supine Exercises core Supine Exercise Name DL flex isometric Side bilateral Reps/Minutes 30 sec bridge Side bilateral Reps/Minutes 5sec x4, progressed to /july x10 pelvic tilt Supine Exercise Name w/alt july focus on core Reps/Minutes 15 hip stretch Supine Exercise Name 1. knee to opp chest 2. figure 4 Side bilateral Reps/Minutes 30 sec ea HS stretch Supine Exercise Name 1. HS stretch 2. HS/add stretch Side bilateral Reps/Minutes 30 sec ea Manual Therapy Treatment Soft Tissue Mobilization QL Body Location R Mobilization Type Rolling Comments w/ant elevaiton/post dep iliacus Body Location R Mobilization Type Sustained Pressure Intensity/Depth Moderate Body Position Supine Comments w/ER/IR glute Body Location R Mobilization Type Sustained Pressure Intensity/Depth Moderate Body Position Prone Comments w/ER/IR Joint Mobilizations tibfib Joint R proximal Direction AP FM tibfem Joint R Direction AP PF Joint R patellofem Direction sup, inf, med PT-OP-T Assessment and Plan Start: 12/25/20 08:56 Freq: Status: Active Protocol: Document 01/06/21 15:34 [facility] (Rec: 01/06/21 18:20 [facility] [id number]) Physical Therapy Assessment Goals gait Short Term Goal (STG) pt will be able to go up/down stairs without inc pain in hip or knee STG Duration 01/25/21 Mold Closer Goal (LTG) Pt will be able to walk any distance she wants without inc pain and be able to walk on trails without feeling of instability. LTG Duration 02/24/21 ADLS Short Term Goal (STG) Pt will have enough hip range to be able to do all lower body dressing w/o pain. STG Duration 01/25/21 Detention Goal (LTG) pt will be able to sleep on B sides w/o inc pain. LTG Duration 02/24/21 strength Short Term Goal (STG) Pt will be indep w/HEP STG Duration 01/25/21 Detention Goal (LTG) Pt will improve strength to at least3/5 LPM all planes and 5 /5 LE strength B to allow for inc ease with mobility. LTG Duration 02/24/21 functional mobility Short Term Goal (STG) Pt will be able to crouch low to hop picker objects from the ground and/or low shelves without inc pain. STG Duration 01/25/21 Detention Goal (LTG) pt will be able to get up/down from ground w/o requiring outside surface for hands and without inc pain. LTG Duration 02/24/21 LEFS Impairment 33/80 Short Term Goal (STG) Pt will improve LEFS score to at least 45/80 to show improved functional ability. STG Duration 01/25/21 Detention Goal (LTG) Pt will improve LEFS score to at least 55/80 to show improved functional ability. LTG Duration 02/24/21 Assessment Summary Assessment Pt was able to tolerate advancement of exercises today without aneudy pain. Stopped knee to opposite chest stretch d/t stretch not felt in correct area. Physical Therapy Plan Frequency and Duration Frequency of Treatment 2x/Week Duration of Treatment 2 months Plan of Care Start Date 12/25/20 Plan of Care End Date 02/24/21 Next Visit Focus/Plan Next Note Type Treatment Note Next Visit Plan Review :progressed exercises & clamshell, STM to glutes & iliacus, hip mobs
--- NOTE | 2021-01-08 12:04 | PT.OTN ---
Current Diagnoses Pain in right hip (01/08/21) Pain in right knee (01/08/21) Dorsalgia, unspecified (01/08/21) Difficulty in walking, not elsewhere classified (01/08/21) Abnormal posture (01/08/21) Weakness (01/08/21) Physical Therapy Treatment Note PT-OP-A Visit Information Start: 12/25/20 08:56 Freq: Status: Active Protocol: Document 01/08/21 09:50 [facility] (Rec: 01/08/21 12:04 [facility] [id number]) Out-Patient Physical Therapy Visit Information Visit Information Visit Type Treatment Note Visit Note 08/23 Visit Start Time 09:50 Visit Stop Time 10:30 Total Visit Minutes 40 Visit Number 4 Number of SAW REPAIRER Visits 0 PT-OP-B Current Condition Start: 12/25/20 08:56 Freq: Status: Active Protocol: Document 12/25/20 16:50 [facility] (Rec: 12/25/20 18:26 [facility] [id number]) Current Condition History of Current Condition Onset Date earlier this year Current Complaints R hip pain & knee pain History of Current Condition Pt reports in Jan 2020 she started to get plantar fascititis and got hoka shoes and insoles which helped but still occ gets feet pain in AMs. HIp pain started this year and she hobbles quite a bit when she first gets up. Notes a couple months later the R groin started hurting too and esteban tis the most notable pain now. Pt reports groin gives out on her more recently (few weeks) and comes and goes-sometimes up to 20x/ day. Pt reprots pain in R med also. Pt cannot lay on either side d/t pain in R hip with about 5 min of laying on side so has to lay on back. Denies LBP. Pt notes at one point had to drag herself up the stairs . Pain has gotten gradually worse. Pt walks about 2 miles maximum but her hip hurts the entire time and she just pushes through pain. Pt has polymyalgia rheumatica, w/hx of oopherectomy, R big toe sx, R shoulder surgery, and heart attack and eneck pain. 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, grade one L; neck pain for PT which was successful only occ pain Treatment Goals Patient/Caregiver Goals Be able to walk further and be able to go on the trails, sleep on her sides, not hobble in AM when get up, ease going up/down stairs w/o pain, get up/down from floor w/o using hands on something outside of herself, be able to squat down low to lemon picker things, be able dress lower body w/o pain PT-OP-C Subjective Start: 12/25/20 08:56 Freq: Status: Active Protocol: Document 01/08/21 09:50 [facility] (Rec: 01/08/21 12:04 [facility] [id number]) OP-PT Subjective Patient Comments Patient Comments Pt reports compliance w/ exercises. Some questions w/ exercises PT-OP-D Balance Start: 12/25/20 08:56 Freq: Status: Active Protocol: Document 12/25/20 16:50 [facility] (Rec: 12/25/20 18:26 [facility] [id number]) Balance Tests Single Limb Standing Single Limb- Right 23 sec w/hip drop and sig UE use Single Limb- Left 22 sec w/hip drop and sig ue use PT-OP-F Manual Assessment Start: 12/25/20 08:56 Freq: Status: Active Protocol: Document 12/25/20 16:50 [facility] (Rec: 12/25/20 18:26 [facility] [id number]) Manual Assessments Soft Tissue Assessment Soft Tissue Mobility Assessment R iliacus, ITB, HS, adductors tightness and tenderness Joint Mobility Assessment Joint Mobility Assessment equal greater trochanter and iliac crest height PT-OP-G Mobility & Gait Start: 12/25/20 08:56 Freq: Status: Active Protocol: Document 12/25/20 16:50 [facility] (Rec: 12/25/20 18:26 [facility] [id number]) OP Gait Assessment Comments Gait Comments very rigid upper body and trunk, dec stance time RUE, ER BLEs PT-OP-J Posture/Palpation/Skin Start: 12/25/20 08:56 Freq: Status: Active Protocol: Document 12/25/20 16:50 [facility] (Rec: 12/25/20 18:26 [facility] [id number]) Posture Evaluation Javier Postural Classification System Lumbar Protective Mechanism Left AP 0 Lumbar Protective Mechanism Right AP 1 Lumbar Protective Mechanism Left PA 0 Lumbar Protective Mechanism Right PA 0 Comments Posture Comments IR of femurs, knees locked, R foot ER >L PT-OP-K Range of Motion Start: 12/25/20 08:56 Freq: Status: Active Protocol: Document 12/25/20 16:50 [facility] (Rec: 12/25/20 18:26 [facility] [id number]) Hip Goniometric Range of Motion Hip Right Active Flexion w/Knee Flexed 94 Straight Leg Raise 66 Internal Rotation 35 External Rotation 21 Left Active Flexion w/Knee Flexed 105 Straight Leg Raise 78 Internal Rotation 31 External Rotation 25 Knee Goniometric Range of Motion Knee Right Flexion Active (degrees) 118 Extension Active (degrees) 8 Left Flexion Active (degrees) 130 Extension Active (degrees) 3 PT-OP-L Special Tests Start: 12/25/20 08:56 Freq: Status: Active Protocol: Document 12/25/20 16:50 [facility] (Rec: 12/25/20 18:26 [facility] [id number]) Special Tests Hip Special Tests obers Test Results R post PT-OP-M Strength Start: 12/25/20 08:56 Freq: Status: Active Protocol: Document 12/25/20 16:50 [facility] (Rec: 12/25/20 18:26 [facility] [id number]) Hip Strength Hip Manual Muscle Testing Right Flexion (L2) 3+ Fair+ Extension (S1) 4- Good- Abduction 4- Good- Adduction 3+ Fair+ External Rotation 4- Good- Internal Rotation 4- Good- Comments pain MMT Left Flexion (L2) 5 Normal Extension (S1) 3+ Fair+ Abduction 5 Normal Adduction 4- Good- External Rotation 4+ Good+ Internal Rotation 4 Good Knee Strength Knee Manual Muscle Testing Right Flexion (S2) 5 Normal Extension (L3) 4+ Good+ Comments sligh knee pain Left Flexion (S2) 5 Normal Extension (L3) 5 Normal Ankle/Foot Strength Ankle and Foot Manual Muscle Testing Right Dorsiflexion (L4) 5 Normal Plantarflexion (S1) 5 Normal Left Dorsiflexion (L4) 5 Normal Plantarflexion (S1) 5 Normal Comments PF tested seated B PT-OP-Q Treatments Start: 12/25/20 08:56 Freq: Status: Active Protocol: Document 01/08/21 09:50 [facility] (Rec: 01/08/21 12:04 [facility] [id number]) Therapeutic Exercises Supine Exercises core Supine Exercise Name DL flex isometric Side bilateral Reps/Minutes 30 sec bridge Supine Exercise Name w/alt july Side bilateral Reps/Minutes 10 pelvic tilt Supine Exercise Name 1.w/alt july focus on core 2. SLR Reps/Minutes 10 ea hip stretch Supine Exercise Name figure 4 Side bilateral Reps/Minutes 30 sec ea HS stretch Supine Exercise Name 1. HS stretch 2. HS/add stretch Side bilateral Reps/Minutes 30 sec ea Sidelying Exercises clamshell Side bilateral Equipment Used L1 Reps/Minutes 15 ea Standing Exercises sidestep Side bilateral Reps/Minutes 20ftx2 hip flexor Standing Exercise Name stretch Side bilateral Reps/Minutes 30 sec x2 Manual Therapy Treatment Soft Tissue Mobilization QL Body Location R Mobilization Type Rolling Comments w/ant elevaiton/post dep glute Body Location R Mobilization Type Sustained Pressure Intensity/Depth Moderate Body Position Prone Comments w/ER/IR Joint Mobilizations innominate Joint R Direction ER FM hip Joint R Direction hip on axis ER FM PT-OP-T Assessment and Plan Start: 12/25/20 08:56 Freq: Status: Active Protocol: Document 01/08/21 09:50 [facility] (Rec: 01/08/21 12:04 [facility] [id number]) Physical Therapy Assessment Goals gait Short Term Goal (STG) pt will be able to go up/down stairs without inc pain in hip or knee STG Duration 01/25/21 Fuel Verification Technician Goal (LTG) Pt will be able to walk any distance she wants without inc pain and be able to walk on trails without feeling of instability. LTG Duration 02/24/21 ADLS Short Term Goal (STG) Pt will have enough hip range to be able to do all lower body dressing w/o pain. STG Duration 01/25/21 Fuel Verification Technician Goal (LTG) pt will be able to sleep on B sides w/o inc pain. LTG Duration 02/24/21 strength Short Term Goal (STG) Pt will be indep w/HEP STG Duration 01/25/21 Usp Goal (LTG) Pt will improve strength to at least3/5 LPM all planes and 5 /5 LE strength B to allow for inc ease with mobility. LTG Duration 02/24/21 functional mobility Short Term Goal (STG) Pt will be able to crouch low to lemon picker objects from the ground and/or low shelves without inc pain. STG Duration 01/25/21 Fuel Verification Technician Goal (LTG) pt will be able to get up/down from ground w/o requiring outside surface for hands and without inc pain. LTG Duration 02/24/21 LEFS Impairment 33/80 Short Term Goal (STG) Pt will improve LEFS score to at least 45/80 to show improved functional ability. STG Duration 01/25/21 Usp Goal (LTG) Pt will improve LEFS score to at least 55/80 to show improved functional ability. LTG Duration 02/24/21 Assessment Summary Assessment Pt did well with exercises. Cueing needed for all the added progressions of exercises and added more instructions on handouts. Improved hip ER afer manual treatment. Physical Therapy Plan Next Visit Focus/Plan Next Note Type Treatment Note Next Visit Plan review exercises if needed, progress hip and core strengthening
--- NOTE | 2021-01-12 17:51 | PT.OTN ---
Current Diagnoses Pain in right hip (01/12/21) Pain in right knee (01/12/21) Dorsalgia, unspecified (01/12/21) Difficulty in walking, not elsewhere classified (01/12/21) Abnormal posture (01/12/21) Weakness (01/12/21) Physical Therapy Treatment Note PT-OP-A Visit Information Start: 12/25/20 08:56 Freq: Status: Active Protocol: Document 01/12/21 16:51 [facility] (Rec: 01/12/21 17:50 [facility] [id number]) Out-Patient Physical Therapy Visit Information Visit Information Visit Type Treatment Note Visit Note 09/22 Visit Start Time 16:50 Visit Stop Time 17:30 Total Visit Minutes 40 Visit Number 5 Number of REAL ESTATE AGENCY LICENSEE Visits 0 PT-OP-B Current Condition Start: 12/25/20 08:56 Freq: Status: Active Protocol: Document 12/25/20 16:50 [facility] (Rec: 12/25/20 18:26 [facility] [id number]) Current Condition History of Current Condition Onset Date earlier this year Current Complaints R hip pain & knee pain History of Current Condition Pt reports in Jan 2020 she started to get plantar fascititis and got hoka shoes and insoles which helped but still occ gets feet pain in AMs. HIp pain started this year and she hobbles quite a bit when she first gets up. Notes a couple months later the R groin started hurting too and esteban tis the most notable pain now. Pt reports groin gives out on her more recently (few weeks) and comes and goes-sometimes up to 20x/ day. Pt reprots pain in R med also. Pt cannot lay on either side d/t pain in R hip with about 5 min of laying on side so has to lay on back. Denies LBP. Pt notes at one point had to drag herself up the stairs . Pain has gotten gradually worse. Pt walks about 2 miles maximum but her hip hurts the entire time and she just pushes through pain. Pt has polymyalgia rheumatica, w/hx of oopherectomy, R big toe sx, R shoulder surgery, and heart attack and eneck pain. 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, grade one L; neck pain for PT which was successful only occ pain Treatment Goals Patient/Caregiver Goals Be able to walk further and be able to go on the trails, sleep on her sides, not hobble in AM when get up, ease going up/down stairs w/o pain, get up/down from floor w/o using hands on something outside of herself, be able to squat down low to pear picker things, be able dress lower body w/o pain PT-OP-C Subjective Start: 12/25/20 08:56 Freq: Status: Active Protocol: Document 01/12/21 16:51 [facility] (Rec: 01/12/21 17:50 [facility] [id number]) OP-PT Subjective Patient Comments Patient Comments Pt reports pain has been a little better. feels like she can get out of a chairb rukhsana. Couldn't remember if she was supposed to tie band for clamshells PT-OP-D Balance Start: 12/25/20 08:56 Freq: Status: Active Protocol: Document 12/25/20 16:50 [facility] (Rec: 12/25/20 18:26 [facility] [id number]) Balance Tests Single Limb Standing Single Limb- Right 23 sec w/hip drop and sig UE use Single Limb- Left 22 sec w/hip drop and sig ue use PT-OP-F Manual Assessment Start: 12/25/20 08:56 Freq: Status: Active Protocol: Document 12/25/20 16:50 [facility] (Rec: 12/25/20 18:26 [facility] [id number]) Manual Assessments Soft Tissue Assessment Soft Tissue Mobility Assessment R iliacus, ITB, HS, adductors tightness and tenderness Joint Mobility Assessment Joint Mobility Assessment equal greater trochanter and iliac crest height PT-OP-G Mobility & Gait Start: 12/25/20 08:56 Freq: Status: Active Protocol: Document 12/25/20 16:50 [facility] (Rec: 12/25/20 18:26 [facility] [id number]) OP Gait Assessment Comments Gait Comments very rigid upper body and trunk, dec stance time RUE, ER BLEs PT-OP-J Posture/Palpation/Skin Start: 12/25/20 08:56 Freq: Status: Active Protocol: Document 12/25/20 16:50 [facility] (Rec: 12/25/20 18:26 [facility] [id number]) Posture Evaluation Javier Postural Classification System Lumbar Protective Mechanism Left AP 0 Lumbar Protective Mechanism Right AP 1 Lumbar Protective Mechanism Left PA 0 Lumbar Protective Mechanism Right PA 0 Comments Posture Comments IR of femurs, knees locked, R foot ER >L PT-OP-K Range of Motion Start: 12/25/20 08:56 Freq: Status: Active Protocol: Document 12/25/20 16:50 [facility] (Rec: 12/25/20 18:26 [facility] [id number]) Hip Goniometric Range of Motion Hip Right Active Flexion w/Knee Flexed 94 Straight Leg Raise 66 Internal Rotation 35 External Rotation 21 Left Active Flexion w/Knee Flexed 105 Straight Leg Raise 78 Internal Rotation 31 External Rotation 25 Knee Goniometric Range of Motion Knee Right Flexion Active (degrees) 118 Extension Active (degrees) 8 Left Flexion Active (degrees) 130 Extension Active (degrees) 3 PT-OP-L Special Tests Start: 12/25/20 08:56 Freq: Status: Active Protocol: Document 12/25/20 16:50 [facility] (Rec: 12/25/20 18:26 [facility] [id number]) Special Tests Hip Special Tests obers Test Results R post PT-OP-M Strength Start: 12/25/20 08:56 Freq: Status: Active Protocol: Document 12/25/20 16:50 [facility] (Rec: 12/25/20 18:26 [facility] [id number]) Hip Strength Hip Manual Muscle Testing Right Flexion (L2) 3+ Fair+ Extension (S1) 4- Good- Abduction 4- Good- Adduction 3+ Fair+ External Rotation 4- Good- Internal Rotation 4- Good- Comments pain MMT Left Flexion (L2) 5 Normal Extension (S1) 3+ Fair+ Abduction 5 Normal Adduction 4- Good- External Rotation 4+ Good+ Internal Rotation 4 Good Knee Strength Knee Manual Muscle Testing Right Flexion (S2) 5 Normal Extension (L3) 4+ Good+ Comments sligh knee pain Left Flexion (S2) 5 Normal Extension (L3) 5 Normal Ankle/Foot Strength Ankle and Foot Manual Muscle Testing Right Dorsiflexion (L4) 5 Normal Plantarflexion (S1) 5 Normal Left Dorsiflexion (L4) 5 Normal Plantarflexion (S1) 5 Normal Comments PF tested seated B PT-OP-Q Treatments Start: 12/25/20 08:56 Freq: Status: Active Protocol: Document 01/12/21 16:51 [facility] (Rec: 01/12/21 17:50 [facility] [id number]) Gym Equipment Shuttle Balance red clips Comments fwd & side: WBOS & NBOS fwd: staggered stance B Therapeutic Exercises Sidelying Exercises clamshell Side bilateral Equipment Used L1 Reps/Minutes 15 ea Standing Exercises hip abd Side bilateral Equipment Used L1 Reps/Minutes x10 hip ext Side bilateral Equipment Used L1 Reps/Minutes 2x10 sidestep Side bilateral Equipment Used lvl 1 Reps/Minutes 20ftx2 Manual Therapy Treatment Soft Tissue Mobilization ITB Body Location R Mobilization Type Rolling,Strumming Intensity/Depth Moderate Body Position Sidelying QL Body Location R Mobilization Type Rolling Comments w/ant elevaiton/post dep glute Body Location R glure and piriformis Mobilization Type Sustained Pressure Intensity/Depth Moderate Body Position Sidelying Neuro Re-Education Treatment Balance Activities SLS Details trials in mirror working on no pelvis drop B PT-OP-T Assessment and Plan Start: 12/25/20 08:56 Freq: Status: Active Protocol: Document 01/12/21 16:51 [facility] (Rec: 01/12/21 17:50 [facility] [id number]) Physical Therapy Assessment Goals gait Short Term Goal (STG) pt will be able to go up/down stairs without inc pain in hip or knee STG Duration 01/25/21 Fishing Rod Mechanic Goal (LTG) Pt will be able to walk any distance she wants without inc pain and be able to walk on trails without feeling of instability. LTG Duration 02/24/21 ADLS Short Term Goal (STG) Pt will have enough hip range to be able to do all lower body dressing w/o pain. STG Duration 01/25/21 Fishing Rod Mechanic Goal (LTG) pt will be able to sleep on B sides w/o inc pain. LTG Duration 02/24/21 strength Short Term Goal (STG) Pt will be indep w/HEP STG Duration 01/25/21 Detention Goal (LTG) Pt will improve strength to at least3/5 LPM all planes and 5 /5 LE strength B to allow for inc ease with mobility. LTG Duration 02/24/21 functional mobility Short Term Goal (STG) Pt will be able to crouch low to pear picker objects from the ground and/or low shelves without inc pain. STG Duration 01/25/21 Detention Goal (LTG) pt will be able to get up/down from ground w/o requiring outside surface for hands and without inc pain. LTG Duration 02/24/21 LEFS Impairment 33/80 Short Term Goal (STG) Pt will improve LEFS score to at least 45/80 to show improved functional ability. STG Duration 01/25/21 Detention Goal (LTG) Pt will improve LEFS score to at least 55/80 to show improved functional ability. LTG Duration 02/24/21 Assessment Summary Assessment Pt tolerated more advanced exercises today without c/o pain. Notes feeling clamshells in glutes but appears to be mm work when using band. Physical Therapy Plan Frequency and Duration Frequency of Treatment 2x/Week Duration of Treatment 2 months Plan of Care Start Date 12/25/20 Plan of Care End Date 02/24/21 Next Visit Focus/Plan Next Note Type Treatment Note Next Visit Plan manual to dec pain, progress hip and core strengthening
--- NOTE | 2021-01-14 11:27 | PT.OTN ---
Current Diagnoses Pain in right hip (01/14/21) Pain in right knee (01/14/21) Dorsalgia, unspecified (01/14/21) Difficulty in walking, not elsewhere classified (01/14/21) Abnormal posture (01/14/21) Weakness (01/14/21) Physical Therapy Treatment Note PT-OP-A Visit Information Start: 12/25/20 08:56 Freq: Status: Active Protocol: Document 01/14/21 10:35 [facility] (Rec: 01/14/21 11:26 [facility] [id number]) Out-Patient Physical Therapy Visit Information Visit Information Visit Type Treatment Note Visit Note 10/23 Visit Start Time 10:35 Visit Stop Time 11:15 Total Visit Minutes 40 Visit Number 6 Number of MEDICAL REPRESENTATIVE Visits 0 PT-OP-B Current Condition Start: 12/25/20 08:56 Freq: Status: Active Protocol: Document 12/25/20 16:50 [facility] (Rec: 12/25/20 18:26 [facility] [id number]) Current Condition History of Current Condition Onset Date earlier this year Current Complaints R hip pain & knee pain History of Current Condition Pt reports in Jan 2020 she started to get plantar fascititis and got hoka shoes and insoles which helped but still occ gets feet pain in AMs. HIp pain started this year and she hobbles quite a bit when she first gets up. Notes a couple months later the R groin started hurting too and esteban tis the most notable pain now. Pt reports groin gives out on her more recently (few weeks) and comes and goes-sometimes up to 20x/ day. Pt reprots pain in R med also. Pt cannot lay on either side d/t pain in R hip with about 5 min of laying on side so has to lay on back. Denies LBP. Pt notes at one point had to drag herself up the stairs . Pain has gotten gradually worse. Pt walks about 2 miles maximum but her hip hurts the entire time and she just pushes through pain. Pt has polymyalgia rheumatica, w/hx of oopherectomy, R big toe sx, R shoulder surgery, and heart attack and eneck pain. 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, grade one L; neck pain for PT which was successful only occ pain Treatment Goals Patient/Caregiver Goals Be able to walk further and be able to go on the trails, sleep on her sides, not hobble in AM when get up, ease going up/down stairs w/o pain, get up/down from floor w/o using hands on something outside of herself, be able to squat down low to pharmacy picking tech things, be able dress lower body w/o pain PT-OP-C Subjective Start: 12/25/20 08:56 Freq: Status: Active Protocol: Document 01/14/21 10:35 [facility] (Rec: 01/14/21 11:26 [facility] [id number]) OP-PT Subjective Patient Comments Patient Comments Pt reports the exercise that is really difficult is the sideways walk. Overall no questiosn on exercises though PT-OP-D Balance Start: 12/25/20 08:56 Freq: Status: Active Protocol: Document 12/25/20 16:50 [facility] (Rec: 12/25/20 18:26 [facility] [id number]) Balance Tests Single Limb Standing Single Limb- Right 23 sec w/hip drop and sig UE use Single Limb- Left 22 sec w/hip drop and sig ue use PT-OP-F Manual Assessment Start: 12/25/20 08:56 Freq: Status: Active Protocol: Document 12/25/20 16:50 [facility] (Rec: 12/25/20 18:26 [facility] [id number]) Manual Assessments Soft Tissue Assessment Soft Tissue Mobility Assessment R iliacus, ITB, HS, adductors tightness and tenderness Joint Mobility Assessment Joint Mobility Assessment equal greater trochanter and iliac crest height PT-OP-G Mobility & Gait Start: 12/25/20 08:56 Freq: Status: Active Protocol: Document 12/25/20 16:50 [facility] (Rec: 12/25/20 18:26 [facility] [id number]) OP Gait Assessment Comments Gait Comments very rigid upper body and trunk, dec stance time RUE, ER BLEs PT-OP-J Posture/Palpation/Skin Start: 12/25/20 08:56 Freq: Status: Active Protocol: Document 12/25/20 16:50 [facility] (Rec: 12/25/20 18:26 [facility] [id number]) Posture Evaluation [facility]avier Postural Classification System Lumbar Protective Mechanism Left AP 0 Lumbar Protective Mechanism Right AP 1 Lumbar Protective Mechanism Left PA 0 Lumbar Protective Mechanism Right PA 0 Comments Posture Comments IR of femurs, knees locked, R foot ER >L PT-OP-K Range of Motion Start: 12/25/20 08:56 Freq: Status: Active Protocol: Document 12/25/20 16:50 [facility] (Rec: 12/25/20 18:26 [facility] [id number]) Hip Goniometric Range of Motion Hip Right Active Flexion w/Knee Flexed 94 Straight Leg Raise 66 Internal Rotation 35 External Rotation 21 Left Active Flexion w/Knee Flexed 105 Straight Leg Raise 78 Internal Rotation 31 External Rotation 25 Knee Goniometric Range of Motion Knee Right Flexion Active (degrees) 118 Extension Active (degrees) 8 Left Flexion Active (degrees) 130 Extension Active (degrees) 3 PT-OP-L Special Tests Start: 12/25/20 08:56 Freq: Status: Active Protocol: Document 12/25/20 16:50 [facility] (Rec: 12/25/20 18:26 [facility] [id number]) Special Tests Hip Special Tests obers Test Results R post PT-OP-M Strength Start: 12/25/20 08:56 Freq: Status: Active Protocol: Document 12/25/20 16:50 [facility] (Rec: 12/25/20 18:26 [facility] [id number]) Hip Strength Hip Manual Muscle Testing Right Flexion (L2) 3+ Fair+ Extension (S1) 4- Good- Abduction 4- Good- Adduction 3+ Fair+ External Rotation 4- Good- Internal Rotation 4- Good- Comments pain MMT Left Flexion (L2) 5 Normal Extension (S1) 3+ Fair+ Abduction 5 Normal Adduction 4- Good- External Rotation 4+ Good+ Internal Rotation 4 Good Knee Strength Knee Manual Muscle Testing Right Flexion (S2) 5 Normal Extension (L3) 4+ Good+ Comments sligh knee pain Left Flexion (S2) 5 Normal Extension (L3) 5 Normal Ankle/Foot Strength Ankle and Foot Manual Muscle Testing Right Dorsiflexion (L4) 5 Normal Plantarflexion (S1) 5 Normal Left Dorsiflexion (L4) 5 Normal Plantarflexion (S1) 5 Normal Comments PF tested seated B PT-OP-Q Treatments Start: 12/25/20 08:56 Freq: Status: Active Protocol: Document 01/14/21 10:35 [facility] (Rec: 01/14/21 11:26 [facility] [id number]) Gym Equipment Shuttle Balance red clips Comments fwd & side: WBOS & NBOS fwd: staggered stance B Therapeutic Exercises Standing Exercises hip abd Side bilateral Equipment Used L1 Reps/Minutes x10 hip ext Side bilateral Equipment Used L1 Reps/Minutes 2x10 sidestep Side bilateral Equipment Used lvl 1 Reps/Minutes 20ftx2 Manual Therapy Treatment Soft Tissue Mobilization HS Body Location R Mobilization Type Rolling,Strumming Intensity/Depth Moderate Body Position Supine Comments w/hip flex passive ITB Body Location R Mobilization Type Rolling,Strumming Intensity/Depth Moderate Body Position Sidelying iliacus Body Location R Mobilization Type Sustained Pressure Intensity/Depth Moderate Body Position Supine Comments w/ER/IR Joint Mobilizations innominate Joint R Direction flex FM PT-OP-T Assessment and Plan Start: 12/25/20 08:56 Freq: Status: Active Protocol: Document 01/14/21 10:35 [facility] (Rec: 01/14/21 11:26 [facility] [id number]) Physical Therapy Assessment Goals gait Short Term Goal (STG) pt will be able to go up/down stairs without inc pain in hip or knee STG Duration 01/25/21 Wick Tender Goal (LTG) Pt will be able to walk any distance she wants without inc pain and be able to walk on trails without feeling of instability. LTG Duration 02/24/21 ADLS Short Term Goal (STG) Pt will have enough hip range to be able to do all lower body dressing w/o pain. STG Duration 01/25/21 Longterm Goal (LTG) pt will be able to sleep on B sides w/o inc pain. LTG Duration 02/24/21 strength Short Term Goal (STG) Pt will be indep w/HEP STG Duration 01/25/21 Wick Tender Goal (LTG) Pt will improve strength to at least3/5 LPM all planes and 5 /5 LE strength B to allow for inc ease with mobility. LTG Duration 02/24/21 functional mobility Short Term Goal (STG) Pt will be able to crouch low to pharmacy picking tech objects from the ground and/or low shelves without inc pain. STG Duration 01/25/21 Longterm Goal (LTG) pt will be able to get up/down from ground w/o requiring outside surface for hands and without inc pain. LTG Duration 02/24/21 LEFS Impairment 33/80 Short Term Goal (STG) Pt will improve LEFS score to at least 45/80 to show improved functional ability. STG Duration 01/25/21 Longterm Goal (LTG) Pt will improve LEFS score to at least 55/80 to show improved functional ability. LTG Duration 02/24/21 Assessment Summary Assessment Pt did well with exercises but does require cues with ext to avoid fwd lean. She had significantly improved hip flex w/less ant pinching after manual treatment. Physical Therapy Plan Frequency and Duration Frequency of Treatment 2x/Week Duration of Treatment 2 months Plan of Care Start Date 12/25/20 Plan of Care End Date 02/24/21 Next Visit Focus/Plan Next Note Type Treatment Note Next Visit Plan manual to dec pain, progress hip and core strengthening; work on hip hinge and squat form
--- NOTE | 2021-01-23 11:19 | PT.OTN ---
Current Diagnoses Pain in right hip (01/23/21) Pain in right knee (01/23/21) Dorsalgia, unspecified (01/23/21) Difficulty in walking, not elsewhere classified (01/23/21) Abnormal posture (01/23/21) Weakness (01/23/21) Physical Therapy Treatment Note PT-OP-A Visit Information Start: 12/25/20 08:56 Freq: Status: Active Protocol: Document 01/23/21 10:36 [facility] (Rec: 01/23/21 11:19 [facility] [id number]) Out-Patient Physical Therapy Visit Information Visit Information Visit Type Treatment Note Visit Note 11/22 Visit Start Time 10:35 Visit Stop Time 11:00 Visit Number 7 Number of DIETARY SERVICES MANAGER Visits 1 PT-OP-B Current Condition Start: 12/25/20 08:56 Freq: Status: Active Protocol: Document 12/25/20 16:50 [facility] (Rec: 12/25/20 18:26 [facility] [id number]) Current Condition History of Current Condition Onset Date earlier this year Current Complaints R hip pain & knee pain History of Current Condition Pt reports in Jan 2020 she started to get plantar fascititis and got hoka shoes and insoles which helped but still occ gets feet pain in AMs. HIp pain started this year and she hobbles quite a bit when she first gets up. Notes a couple months later the R groin started hurting too and esteban tis the most notable pain now. Pt reports groin gives out on her more recently (few weeks) and comes and goes-sometimes up to 20x/ day. Pt reprots pain in R med also. Pt cannot lay on either side d/t pain in R hip with about 5 min of laying on side so has to lay on back. Denies LBP. Pt notes at one point had to drag herself up the stairs . Pain has gotten gradually worse. Pt walks about 2 miles maximum but her hip hurts the entire time and she just pushes through pain. Pt has polymyalgia rheumatica, w/hx of oopherectomy, R big toe sx, R shoulder surgery, and heart attack and eneck pain. 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, grade one L; neck pain for PT which was successful only occ pain Treatment Goals Patient/Caregiver Goals Be able to walk further and be able to go on the trails, sleep on her sides, not hobble in AM when get up, ease going up/down stairs w/o pain, get up/down from floor w/o using hands on something outside of herself, be able to squat down low to shrimp picker things, be able dress lower body w/o pain PT-OP-C Subjective Start: 12/25/20 08:56 Freq: Status: Active Protocol: Document 01/23/21 10:36 [facility] (Rec: 01/23/21 11:19 [facility] [id number]) OP-PT Subjective Patient Comments Patient Comments Pt states that her pain has improved since starting PT-OP-D Balance Start: 12/25/20 08:56 Freq: Status: Active Protocol: Document 12/25/20 16:50 [facility] (Rec: 12/25/20 18:26 [facility] [id number]) Balance Tests Single Limb Standing Single Limb- Right 23 sec w/hip drop and sig UE use Single Limb- Left 22 sec w/hip drop and sig ue use PT-OP-F Manual Assessment Start: 12/25/20 08:56 Freq: Status: Active Protocol: Document 12/25/20 16:50 [facility] (Rec: 12/25/20 18:26 [facility] [id number]) Manual Assessments Soft Tissue Assessment Soft Tissue Mobility Assessment R iliacus, ITB, HS, adductors tightness and tenderness Joint Mobility Assessment Joint Mobility Assessment equal greater trochanter and iliac crest height PT-OP-G Mobility & Gait Start: 12/25/20 08:56 Freq: Status: Active Protocol: Document 12/25/20 16:50 [facility] (Rec: 12/25/20 18:26 [facility] [id number]) OP Gait Assessment Comments Gait Comments very rigid upper body and trunk, dec stance time RUE, ER BLEs PT-OP-J Posture/Palpation/Skin Start: 12/25/20 08:56 Freq: Status: Active Protocol: Document 12/25/20 16:50 [facility] (Rec: 12/25/20 18:26 [facility] [id number]) Posture Evaluation [facility] Postural Classification System Lumbar Protective Mechanism Left AP 0 Lumbar Protective Mechanism Right AP 1 Lumbar Protective Mechanism Left PA 0 Lumbar Protective Mechanism Right PA 0 Comments Posture Comments IR of femurs, knees locked, R foot ER >L PT-OP-K Range of Motion Start: 12/25/20 08:56 Freq: Status: Active Protocol: Document 12/25/20 16:50 [facility] (Rec: 12/25/20 18:26 [facility] [id number]) Hip Goniometric Range of Motion Hip Right Active Flexion w/Knee Flexed 94 Straight Leg Raise 66 Internal Rotation 35 External Rotation 21 Left Active Flexion w/Knee Flexed 105 Straight Leg Raise 78 Internal Rotation 31 External Rotation 25 Knee Goniometric Range of Motion Knee Right Flexion Active (degrees) 118 Extension Active (degrees) 8 Left Flexion Active (degrees) 130 Extension Active (degrees) 3 PT-OP-L Special Tests Start: 12/25/20 08:56 Freq: Status: Active Protocol: Document 12/25/20 16:50 [facility] (Rec: 12/25/20 18:26 [facility] [id number]) Special Tests Hip Special Tests obers Test Results R post PT-OP-M Strength Start: 12/25/20 08:56 Freq: Status: Active Protocol: Document 12/25/20 16:50 [facility] (Rec: 12/25/20 18:26 [facility] [id number]) Hip Strength Hip Manual Muscle Testing Right Flexion (L2) 3+ Fair+ Extension (S1) 4- Good- Abduction 4- Good- Adduction 3+ Fair+ External Rotation 4- Good- Internal Rotation 4- Good- Comments pain MMT Left Flexion (L2) 5 Normal Extension (S1) 3+ Fair+ Abduction 5 Normal Adduction 4- Good- External Rotation 4+ Good+ Internal Rotation 4 Good Knee Strength Knee Manual Muscle Testing Right Flexion (S2) 5 Normal Extension (L3) 4+ Good+ Comments sligh knee pain Left Flexion (S2) 5 Normal Extension (L3) 5 Normal Ankle/Foot Strength Ankle and Foot Manual Muscle Testing Right Dorsiflexion (L4) 5 Normal Plantarflexion (S1) 5 Normal Left Dorsiflexion (L4) 5 Normal Plantarflexion (S1) 5 Normal Comments PF tested seated B PT-OP-Q Treatments Start: 12/25/20 08:56 Freq: Status: Active Protocol: Document 01/23/21 10:36 [facility] (Rec: 01/23/21 11:19 [facility] [id number]) Therapeutic Exercises Standing Exercises squats Standing Exercise Name mini squats Side bilateral Reps/Minutes 10x Comments over raised plinth Hip Hinge Equipment Used yardstick Reps/Minutes 10x hip abd Side bilateral Equipment Used L1 Reps/Minutes x10 hip ext Side bilateral Equipment Used L1 Reps/Minutes 2x10 sidestep Side bilateral Equipment Used lvl 1 Reps/Minutes 20ftx2 Manual Therapy Treatment Soft Tissue Mobilization HS Body Location R Mobilization Type Rolling,Strumming Intensity/Depth Moderate Body Position Supine Comments w/hip flex passive ITB Body Location R Mobilization Type Rolling,Strumming Intensity/Depth Moderate Body Position Sidelying QL Body Location R Mobilization Type Rolling Comments w/ant elevaiton/post dep iliacus Body Location R Mobilization Type Sustained Pressure Intensity/Depth Moderate Body Position Supine Comments w/ER/IR glute Body Location R glure and piriformis Mobilization Type Sustained Pressure Intensity/Depth Moderate Body Position Sidelying PT-OP-T Assessment and Plan Start: 12/25/20 08:56 Freq: Status: Active Protocol: Document 01/23/21 10:36 [facility] (Rec: 01/23/21 11:19 [facility] [id number]) Physical Therapy Assessment Goals gait Short Term Goal (STG) pt will be able to go up/down stairs without inc pain in hip or knee STG Duration 01/25/21 Prison Goal (LTG) Pt will be able to walk any distance she wants without inc pain and be able to walk on trails without feeling of instability. LTG Duration 02/24/21 ADLS Short Term Goal (STG) Pt will have enough hip range to be able to do all lower body dressing w/o pain. STG Duration Achieved Patternmaker Goal (LTG) pt will be able to sleep on B sides w/o inc pain. LTG Duration 02/24/21 strength Short Term Goal (STG) Pt will be indep w/HEP STG Duration Achieved Patternmaker Goal (LTG) Pt will improve strength to at least3/5 LPM all planes and 5 /5 LE strength B to allow for inc ease with mobility. LTG Duration 02/24/21 functional mobility Short Term Goal (STG) Pt will be able to crouch low to shrimp picker objects from the ground and/or low shelves without inc pain. STG Duration 01/25/21 Patternmaker Goal (LTG) pt will be able to get up/down from ground w/o requiring outside surface for hands and without inc pain. LTG Duration 02/24/21 LEFS Impairment 33/80 Short Term Goal (STG) Pt will improve LEFS score to at least 45/80 to show improved functional ability. 01/23/21- score 34/80 STG Duration 01/25/21 Patternmaker Goal (LTG) Pt will improve LEFS score to at least 55/80 to show improved functional ability. LTG Duration 02/24/21 Assessment Summary Assessment María required yardstick for external cue during hip hinge or she will flex thoracic spine. Worked on sit<>stands from raised plinth than progressed to squats over chair with pt having minor pain along medial knee during squats but showing good form. Pt requested heavier resistance band at end of session for HEP. Will assess how exercises went with lvl 2TB next session. Pt filled out LEFS at end of session and increased 1 point from 33 to 34/80. Pt thinks she filled out the form incorrectly the first time and overestimated her abilities but states she filled it out more accurately and truthfully today. Physical Therapy Plan Frequency and Duration Frequency of Treatment 2x/Week Duration of Treatment 2 months Plan of Care Start Date 12/25/20 Plan of Care End Date 02/24/21 Therapeutic Interventions Therapeutic Interventions Aquatic Therapy,Balance Training,Gait Training,Home Exercise Program,Joint Mobilizations,Manual Therapy, Neuromuscular Re-education, Patient/Caregiver Education, Self-Care/Home Management,Soft Tissue Mobilization,Taping, Therapeutic Activities, Therapeutic Exercises Modalities Cold Pack/Ice Massage,Electric Stimulation,Hot Packs, Infrared Therapy,Ultrasound Next Visit Focus/Plan Next Note Type Treatment Note Next Visit Plan manual to dec pain, progress hip and core strengthening; work on hip hinge and squat form
--- NOTE | 2021-02-04 13:45 | PT.OTN ---
Current Diagnoses Pain in right hip (02/04/21) Pain in right knee (02/04/21) Dorsalgia, unspecified (02/04/21) Difficulty in walking, not elsewhere classified (02/04/21) Abnormal posture (02/04/21) Weakness (02/04/21) Physical Therapy Treatment Note PT-OP-A Visit Information Start: 12/25/20 08:56 Freq: Status: Active Protocol: Document 02/04/21 13:03 [facility] (Rec: 02/04/21 13:45 [facility] [id number]) Out-Patient Physical Therapy Visit Information Visit Information Visit Type Progress Note Visit Start Time 13:00 Visit Stop Time 13:40 Total Visit Minutes 40 Visit Number 8 Number of INSTRUCTIONAL DESIGNER Visits 0 PT-OP-B Current Condition Start: 12/25/20 08:56 Freq: Status: Active Protocol: Document 12/25/20 16:50 [facility] (Rec: 12/25/20 18:26 [facility] [id number]) Current Condition History of Current Condition Onset Date earlier this year Current Complaints R hip pain & knee pain History of Current Condition Pt reports in Jan 2020 she started to get plantar fascititis and got hoka shoes and insoles which helped but still occ gets feet pain in AMs. HIp pain started this year and she hobbles quite a bit when she first gets up. Notes a couple months later the R groin started hurting too and esteban tis the most notable pain now. Pt reports groin gives out on her more recently (few weeks) and comes and goes-sometimes up to 20x/ day. Pt reprots pain in R med also. Pt cannot lay on either side d/t pain in R hip with about 5 min of laying on side so has to lay on back. Denies LBP. Pt notes at one point had to drag herself up the stairs . Pain has gotten gradually worse. Pt walks about 2 miles maximum but her hip hurts the entire time and she just pushes through pain. Pt has polymyalgia rheumatica, w/hx of oopherectomy, R big toe sx, R shoulder surgery, and heart attack and eneck pain. 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, grade one L; neck pain for PT which was successful only occ pain Treatment Goals Patient/Caregiver Goals Be able to walk further and be able to go on the trails, sleep on her sides, not hobble in AM when get up, ease going up/down stairs w/o pain, get up/down from floor w/o using hands on something outside of herself, be able to squat down low to corn picker things, be able dress lower body w/o pain PT-OP-C Subjective Start: 12/25/20 08:56 Freq: Status: Active Protocol: Document 02/04/21 13:03 [facility] (Rec: 02/04/21 13:45 [facility] [id number]) OP-PT Subjective Patient Comments Patient Comments Pt reports being stiff after driving to [place]. Still painful laying on hips Patient Reported Progress Improving PT-OP-D Balance Start: 12/25/20 08:56 Freq: Status: Active Protocol: Document 12/25/20 16:50 [facility] (Rec: 12/25/20 18:26 [facility] [id number]) Balance Tests Single Limb Standing Single Limb- Right 23 sec w/hip drop and sig UE use Single Limb- Left 22 sec w/hip drop and sig ue use PT-OP-F Manual Assessment Start: 12/25/20 08:56 Freq: Status: Active Protocol: Document 12/25/20 16:50 [facility] (Rec: 12/25/20 18:26 [facility] [id number]) Manual Assessments Soft Tissue Assessment Soft Tissue Mobility Assessment R iliacus, ITB, HS, adductors tightness and tenderness Joint Mobility Assessment Joint Mobility Assessment equal greater trochanter and iliac crest height PT-OP-G Mobility & Gait Start: 12/25/20 08:56 Freq: Status: Active Protocol: Document 12/25/20 16:50 [facility] (Rec: 12/25/20 18:26 [facility] [id number]) OP Gait Assessment Comments Gait Comments very rigid upper body and trunk, dec stance time RUE, ER BLEs PT-OP-J Posture/Palpation/Skin Start: 12/25/20 08:56 Freq: Status: Active Protocol: Document 02/04/21 13:03 [facility] (Rec: 02/04/21 13:45 [facility] [id number]) Posture Evaluation Javier Postural Classification System Lumbar Protective Mechanism Left AP 0 Lumbar Protective Mechanism Right AP 2 Lumbar Protective Mechanism Left PA 1 Lumbar Protective Mechanism Right PA 0 PT-OP-K Range of Motion Start: 12/25/20 08:56 Freq: Status: Active Protocol: Document 12/25/20 16:50 [facility] (Rec: 12/25/20 18:26 [facility] [id number]) Hip Goniometric Range of Motion Hip Right Active Flexion w/Knee Flexed 94 Straight Leg Raise 66 Internal Rotation 35 External Rotation 21 Left Active Flexion w/Knee Flexed 105 Straight Leg Raise 78 Internal Rotation 31 External Rotation 25 Knee Goniometric Range of Motion Knee Right Flexion Active (degrees) 118 Extension Active (degrees) 8 Left Flexion Active (degrees) 130 Extension Active (degrees) 3 PT-OP-L Special Tests Start: 12/25/20 08:56 Freq: Status: Active Protocol: Document 12/25/20 16:50 [facility] (Rec: 12/25/20 18:26 [facility] [id number]) Special Tests Hip Special Tests obers Test Results R post PT-OP-M Strength Start: 12/25/20 08:56 Freq: Status: Active Protocol: Document 02/04/21 13:03 [facility] (Rec: 02/04/21 13:45 [facility] [id number]) Hip Strength Hip Manual Muscle Testing Right Flexion (L2) 4+ Good+ Extension (S1) 4 Good Abduction 4- Good- Adduction 4- Good- External Rotation 5 Normal Internal Rotation 5 Normal Left Flexion (L2) 4 Good Extension (S1) 4 Good Abduction 5 Normal Adduction 4 Good External Rotation 5 Normal Internal Rotation 5 Normal Knee Strength Knee Manual Muscle Testing Right Flexion (S2) 5 Normal Extension (L3) 5 Normal Left Flexion (S2) 5 Normal Extension (L3) 5 Normal Ankle/Foot Strength Ankle and Foot Manual Muscle Testing Right Dorsiflexion (L4) 5 Normal Plantarflexion (S1) 5 Normal Left Dorsiflexion (L4) 5 Normal Plantarflexion (S1) 5 Normal Comments 20 heel raises B PT-OP-Q Treatments Start: 12/25/20 08:56 Freq: Status: Active Protocol: Document 02/04/21 13:03 [facility] (Rec: 02/04/21 13:45 [facility] [id number]) Therapeutic Exercises Standing Exercises squats Standing Exercise Name sit to stand Side bilateral Reps/Minutes 10x Comments onto plinth cues for ocntrol Manual Therapy Treatment Soft Tissue Mobilization ant knee Body Location pes anscerine & patellar tendon Mobilization Type Strumming HS Body Location R HS & calf med Mobilization Type Rolling,Strumming Intensity/Depth Moderate Body Position Supine Comments w/APs ITB Body Location R Mobilization Type Rolling,Strumming Intensity/Depth Moderate Body Position Supine Joint Mobilizations tibfem Joint PA FM PT-OP-T Assessment and Plan Start: 12/25/20 08:56 Freq: Status: Active Protocol: Document 02/04/21 13:03 [facility] (Rec: 02/04/21 13:45 [facility] [id number]) Physical Therapy Assessment Goals gait Short Term Goal (STG) pt will be able to go up/down stairs without inc pain in hip or knee 02/04-able to do recipro [place] but slight knee pain but better and R hip pain STG Duration 03/06 Group Home Goal (LTG) Pt will be able to walk any distance she wants without inc pain and be able to walk on trails without feeling of instability. 02/04-has walked the [place] only LTG Duration 04/06 ADLS Short Term Goal (STG) Pt will have enough hip range to be able to do all lower body dressing w/o pain. STG Duration Achieved Group Home Goal (LTG) pt will be able to sleep on B sides w/o inc pain. 02/04-can lie on sides a little more but after 10 min has to go back to back LTG Duration 04/06 strength Short Term Goal (STG) Pt will be indep w/HEP STG Duration Achieved Group Home Goal (LTG) Pt will improve strength to at least3/5 LPM all planes and 5 /5 LE strength B to allow for inc ease with mobility. 02/04-improved LTG Duration 04/06 functional mobility Short Term Goal (STG) Pt will be able to crouch low to corn picker objects from the ground and/or low shelves without inc pain. 02/04-avoids crouching still- knee painw hen attempting STG Duration 03/06/21 Group Home Goal (LTG) pt will be able to get up/down from ground w/o requiring outside surface for hands and without inc pain. LTG Duration achieved LEFS Impairment 33/80 Short Term Goal (STG) Pt will improve LEFS score to at least 45/80 to show improved functional ability. 01/23/21- score 34/80 STG Duration 01/25/21 Orthopedic Tech Goal (LTG) Pt will improve LEFS score to at least 55/80 to show improved functional ability. LTG Duration 02/24/21 Assessment Summary Assessment Pt did well with sit to stand w/o pain so encouraged to do 10 reps at a time at home and can inc if no pain with that. Pt did well with testing showing improved strength, functional ability and dec pain> She woudl beneift from cont PT to work on strength, stability, balance and dec pain of B knees and hips Physical Therapy Plan Frequency and Duration Frequency of Treatment 1-2x/week Duration of Treatment 2 months Plan of Care Start Date 02/04/21 Plan of Care End Date 04/06/21 Therapeutic Interventions Therapeutic Interventions Aquatic Therapy,Balance Training,Gait Training,Home Exercise Program,Joint Mobilizations,Manual Therapy, Neuromuscular Re-education, Patient/Caregiver Education, Self-Care/Home Management, Sensory Integration,Soft Tissue Mobilization,Taping, Therapeutic Activities, Therapeutic Exercises Modalities Cold Pack/Ice Massage,Electric Stimulation,Hot Packs, Infrared Therapy,Ultrasound Next Visit Focus/Plan Next Note Type Treatment Note Next Visit Plan manual to dec pain, progress hip and core strengthening; work on hip hinge and squat form
--- NOTE | 2021-02-04 13:46 | PT.OPPOC ---
Physical, Occupational & Speech Therapy At [facility] Current Diagnoses Pain in right hip (02/04/21) Pain in right knee (02/04/21) Dorsalgia, unspecified (02/04/21) Difficulty in walking, not elsewhere classified (02/04/21) Abnormal posture (02/04/21) Weakness (02/04/21) Visit Care Team Role Provider Type Jaqueline Riojas MD Attending Provider Non-Staff Referring Provider Specialty: Medical Address: [address] [place] [address], [facility] Email: Plan Of Care PT-OP-T Assessment and Plan Start: 12/25/20 08:56 Freq: Status: Active Protocol: Document 02/04/21 13:03 [facility] (Rec: 02/04/21 13:45 [facility] [id number]) Physical Therapy Assessment Goals gait Short Term Goal (STG) pt will be able to go up/down stairs without inc pain in hip or knee 02/04-able to do recipro [place] but slight knee pain but better and R hip pain STG Duration 03/06 Dorr Operator Goal (LTG) Pt will be able to walk any distance she wants without inc pain and be able to walk on trails without feeling of instability. 02/04-has walked the flat of [facility] only LTG Duration 04/06 ADLS Short Term Goal (STG) Pt will have enough hip range to be able to do all lower body dressing w/o pain. STG Duration Achieved Dorr Operator Goal (LTG) pt will be able to sleep on B sides w/o inc pain. 02/04-can lie on sides a little more but after 10 min has to go back to back LTG Duration 04/06 strength Short Term Goal (STG) Pt will be indep w/HEP STG Duration Achieved Dorr Operator Goal (LTG) Pt will improve strength to at least3/5 LPM all planes and 5 /5 LE strength B to allow for inc ease with mobility. 02/04-improved LTG Duration 04/06 functional mobility Short Term Goal (STG) Pt will be able to crouch low to picker and sorter load and unload objects from the ground and/or low shelves without inc pain. 02/04-avoids crouching still- knee painw hen attempting STG Duration 03/06/21 Dorr Operator Goal (LTG) pt will be able to get up/down from ground w/o requiring outside surface for hands and without inc pain. LTG Duration achieved LEFS Impairment 33/80 Short Term Goal (STG) Pt will improve LEFS score to at least 45/80 to show improved functional ability. 01/23/21- score 34/80 STG Duration 01/25/21 Senior Care Goal (LTG) Pt will improve LEFS score to at least 55/80 to show improved functional ability. LTG Duration 02/24/21 Assessment Summary Assessment Pt did well with sit to stand w/o pain so encouraged to do 10 reps at a time at home and can inc if no pain with that. Pt did well with testing showing improved strength, functional ability and dec pain> She woudl beneift from cont PT to work on strength, stability, balance and dec pain of B knees and hips Physical Therapy Plan Frequency and Duration Frequency of Treatment 1-2x/week Duration of Treatment 2 months Plan of Care Start Date 02/04/21 Plan of Care End Date 04/06/21 Therapeutic Interventions Therapeutic Interventions Aquatic Therapy,Balance Training,Gait Training,Home Exercise Program,Joint Mobilizations,Manual Therapy, Neuromuscular Re-education, Patient/Caregiver Education, Self-Care/Home Management, Sensory Integration,Soft Tissue Mobilization,Taping, Therapeutic Activities, Therapeutic Exercises Modalities Cold Pack/Ice Massage,Electric Stimulation,Hot Packs, Infrared Therapy,Ultrasound Next Visit Focus/Plan Next Note Type Treatment Note Next Visit Plan manual to dec pain, progress hip and core strengthening; work on hip hinge and squat form Plan of Care Dates Plan of Care Start Date 02/04/21 Plan of Care End Date 04/06/21 Electronically Signed by: Jennifer Pitts, PT 02/04/21 [id number] Please Sign and Return: I have reviewed this Plan of Care and certify that the skilled therapy services above are required to meet the patient?s needs. Physician Signature Date Printed Name and Credentials Clinical Instructor Signature Printed Name and Credentials
--- NOTE | 2021-02-06 11:13 | PT.OTN ---
Current Diagnoses Pain in right hip (02/06/21) Pain in right knee (02/06/21) Dorsalgia, unspecified (02/06/21) Difficulty in walking, not elsewhere classified (02/06/21) Abnormal posture (02/06/21) Weakness (02/06/21) Physical Therapy Treatment Note PT-OP-A Visit Information Start: 12/25/20 08:56 Freq: Status: Active Protocol: Document 02/06/21 10:29 [facility] (Rec: 02/06/21 11:13 [facility] [id number]) Out-Patient Physical Therapy Visit Information Visit Information Visit Type Treatment Note Visit Note 01/23 Visit Start Time 10:30 Visit Stop Time 11:12 Total Visit Minutes 42 Visit Number 9 Number of GLOBAL PROCESS OWNER Visits 1 PT-OP-B Current Condition Start: 12/25/20 08:56 Freq: Status: Active Protocol: Document 12/25/20 16:50 [facility] (Rec: 12/25/20 18:26 [facility] [id number]) Current Condition History of Current Condition Onset Date earlier this year Current Complaints R hip pain & knee pain History of Current Condition Pt reports in Jan 2020 she started to get plantar fascititis and got hoka shoes and insoles which helped but still occ gets feet pain in AMs. HIp pain started this year and she hobbles quite a bit when she first gets up. Notes a couple months later the R groin started hurting too and esteban tis the most notable pain now. Pt reports groin gives out on her more recently (few weeks) and comes and goes-sometimes up to 20x/ day. Pt reprots pain in R med also. Pt cannot lay on either side d/t pain in R hip with about 5 min of laying on side so has to lay on back. Denies LBP. Pt notes at one point had to drag herself up the stairs . Pain has gotten gradually worse. Pt walks about 2 miles maximum but her hip hurts the entire time and she just pushes through pain. Pt has polymyalgia rheumatica, w/hx of oopherectomy, R big toe sx, R shoulder surgery, and heart attack and eneck pain. 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, grade one L; neck pain for PT which was successful only occ pain Treatment Goals Patient/Caregiver Goals Be able to walk further and be able to go on the trails, sleep on her sides, not hobble in AM when get up, ease going up/down stairs w/o pain, get up/down from floor w/o using hands on something outside of herself, be able to squat down low to pickling solution maker things, be able dress lower body w/o pain PT-OP-C Subjective Start: 12/25/20 08:56 Freq: Status: Active Protocol: Document 02/06/21 10:29 [facility] (Rec: 02/06/21 11:13 [facility] [id number]) OP-PT Subjective Patient Comments Patient Comments Pt reports doing well with HEP and feeling challenged by level 2 TB PT-OP-D Balance Start: 12/25/20 08:56 Freq: Status: Active Protocol: Document 12/25/20 16:50 [facility] (Rec: 12/25/20 18:26 [facility] [id number]) Balance Tests Single Limb Standing Single Limb- Right 23 sec w/hip drop and sig UE use Single Limb- Left 22 sec w/hip drop and sig ue use PT-OP-F Manual Assessment Start: 12/25/20 08:56 Freq: Status: Active Protocol: Document 12/25/20 16:50 [facility] (Rec: 12/25/20 18:26 [facility] [id number]) Manual Assessments Soft Tissue Assessment Soft Tissue Mobility Assessment R iliacus, ITB, HS, adductors tightness and tenderness Joint Mobility Assessment Joint Mobility Assessment equal greater trochanter and iliac crest height PT-OP-G Mobility & Gait Start: 12/25/20 08:56 Freq: Status: Active Protocol: Document 12/25/20 16:50 [facility] (Rec: 12/25/20 18:26 [facility] [id number]) OP Gait Assessment Comments Gait Comments very rigid upper body and trunk, dec stance time RUE, ER BLEs PT-OP-J Posture/Palpation/Skin Start: 12/25/20 08:56 Freq: Status: Active Protocol: Document 02/04/21 13:03 [facility] (Rec: 02/04/21 13:45 [facility] [id number]) Posture Evaluation Javier Postural Classification System Lumbar Protective Mechanism Left AP 0 Lumbar Protective Mechanism Right AP 2 Lumbar Protective Mechanism Left PA 1 Lumbar Protective Mechanism Right PA 0 PT-OP-K Range of Motion Start: 08/12/21 08:56 Freq: Status: Active Protocol: Document 12/25/20 16:50 [facility] (Rec: 12/25/20 18:26 [facility] [id number]) Hip Goniometric Range of Motion Hip Right Active Flexion w/Knee Flexed 94 Straight Leg Raise 66 Internal Rotation 35 External Rotation 21 Left Active Flexion w/Knee Flexed 105 Straight Leg Raise 78 Internal Rotation 31 External Rotation 25 Knee Goniometric Range of Motion Knee Right Flexion Active (degrees) 118 Extension Active (degrees) 8 Left Flexion Active (degrees) 130 Extension Active (degrees) 3 PT-OP-L Special Tests Start: 12/25/20 08:56 Freq: Status: Active Protocol: Document 12/25/20 16:50 [facility] (Rec: 12/25/20 18:26 [facility] [id number]) Special Tests Hip Special Tests obers Test Results R post PT-OP-M Strength Start: 12/25/20 08:56 Freq: Status: Active Protocol: Document 02/04/21 13:03 [facility] (Rec: 02/04/21 13:45 [facility] [id number]) Hip Strength Hip Manual Muscle Testing Right Flexion (L2) 4+ Good+ Extension (S1) 4 Good Abduction 4- Good- Adduction 4- Good- External Rotation 5 Normal Internal Rotation 5 Normal Left Flexion (L2) 4 Good Extension (S1) 4 Good Abduction 5 Normal Adduction 4 Good External Rotation 5 Normal Internal Rotation 5 Normal Knee Strength Knee Manual Muscle Testing Right Flexion (S2) 5 Normal Extension (L3) 5 Normal Left Flexion (S2) 5 Normal Extension (L3) 5 Normal Ankle/Foot Strength Ankle and Foot Manual Muscle Testing Right Dorsiflexion (L4) 5 Normal Plantarflexion (S1) 5 Normal Left Dorsiflexion (L4) 5 Normal Plantarflexion (S1) 5 Normal Comments 20 heel raises B PT-OP-Q Treatments Start: 12/25/20 08:56 Freq: Status: Active Protocol: Document 02/06/21 10:29 [facility] (Rec: 02/06/21 11:13 [facility] [id number]) Therapeutic Exercises Supine Exercises hip stretch Supine Exercise Name figure 4 Side bilateral Reps/Minutes 30 sec ea HS stretch Supine Exercise Name 1. HS stretch 2. HS/add stretch Side bilateral Reps/Minutes 30 sec ea Standing Exercises squats Standing Exercise Name sit to stand Side bilateral Reps/Minutes 10x Comments onto plinth cues for ocntrol hip abd Side bilateral Equipment Used L2 Reps/Minutes x10 hip ext Side bilateral Equipment Used L2 Reps/Minutes 2x10 sidestep Side bilateral Equipment Used lvl 2 Reps/Minutes 20ftx2 Manual Therapy Treatment Soft Tissue Mobilization ant knee Body Location pes anscerine & patellar tendon Mobilization Type Strumming HS Body Location R HS & calf med Mobilization Type Rolling,Strumming Intensity/Depth Moderate Body Position Supine Comments w/APs ITB Body Location R Mobilization Type Rolling,Strumming Intensity/Depth Moderate Body Position Supine QL Body Location R Mobilization Type Rolling Comments w/ant elevaiton/post dep glute Body Location R glure and piriformis Mobilization Type Sustained Pressure Intensity/Depth Moderate Body Position Sidelying PT-OP-T Assessment and Plan Start: 12/25/20 08:56 Freq: Status: Active Protocol: Document 02/06/21 10:29 [facility] (Rec: 02/06/21 11:13 [facility] [id number]) Physical Therapy Assessment Goals gait Short Term Goal (STG) pt will be able to go up/down stairs without inc pain in hip or knee 02/04-able to do recipro [place] but slight knee pain but better and R hip pain STG Duration 03/06 Strike Off Machine Operator Goal (LTG) Pt will be able to walk any distance she wants without inc pain and be able to walk on trails without feeling of instability. 02/04-has walked the flat of [facility] only LTG Duration 04/06 ADLS Short Term Goal (STG) Pt will have enough hip range to be able to do all lower body dressing w/o pain. STG Duration Achieved Half-Way Goal (LTG) pt will be able to sleep on B sides w/o inc pain. 02/04-can lie on sides a little more but after 10 min has to go back to back LTG Duration 04/06 strength Short Term Goal (STG) Pt will be indep w/HEP STG Duration Achieved Strike Off Machine Operator Goal (LTG) Pt will improve strength to at least3/5 LPM all planes and 5 /5 LE strength B to allow for inc ease with mobility. 02/04-improved LTG Duration 04/06 functional mobility Short Term Goal (STG) Pt will be able to crouch low to pickling solution maker objects from the ground and/or low shelves without inc pain. 02/04-avoids crouching still- knee painw hen attempting STG Duration 03/06/21 Half-Way Goal (LTG) pt will be able to get up/down from ground w/o requiring outside surface for hands and without inc pain. LTG Duration achieved LEFS Impairment 33/80 Short Term Goal (STG) Pt will improve LEFS score to at least 45/80 to show improved functional ability. 01/23/21- score 34/80 STG Duration 01/25/21 Half-Way Goal (LTG) Pt will improve LEFS score to at least 55/80 to show improved functional ability. LTG Duration 02/24/21 Assessment Summary Assessment Pt is most tender along adductors this session during STM. She has knee pain when performing sit<>stands from a low surface such as her chair at home but pain improves if height is raised to starting from 90 degree knee flexion. Physical Therapy Plan Frequency and Duration Frequency of Treatment 1-2x/week Duration of Treatment 2 months Plan of Care Start Date 02/04/21 Plan of Care End Date 04/06/21 Therapeutic Interventions Therapeutic Interventions Aquatic Therapy,Balance Training,Gait Training,Home Exercise Program,Joint Mobilizations,Manual Therapy, Neuromuscular Re-education, Patient/Caregiver Education, Self-Care/Home Management, Sensory Integration,Soft Tissue Mobilization,Taping, Therapeutic Activities, Therapeutic Exercises Modalities Cold Pack/Ice Massage,Electric Stimulation,Hot Packs, Infrared Therapy,Ultrasound Next Visit Focus/Plan Next Note Type Treatment Note Next Visit Plan Add adductor stretch to HEP; manual to dec pain, progress hip and core strengthening; work on hip hinge and squat form
--- NOTE | 2021-02-10 13:02 | PT.OTN ---
Current Diagnoses Pain in right hip (02/10/21) Pain in right knee (02/10/21) Dorsalgia, unspecified (02/10/21) Difficulty in walking, not elsewhere classified (02/10/21) Abnormal posture (02/10/21) Weakness (02/10/21) Physical Therapy Treatment Note PT-OP-A Visit Information Start: 12/25/20 08:56 Freq: Status: Active Protocol: Document 02/10/21 12:17 SP (Rec: 02/10/21 14:03 SP [id number]) Out-Patient Physical Therapy Visit Information Visit Information Visit Type Treatment Note Visit Note 02/22 Visit Start Time 12:17 Visit Stop Time 13:02 Total Visit Minutes 45 Visit Number 10 Number of FACE AND FILL PACKER Visits 2 PT-OP-B Current Condition Start: 12/25/20 08:56 Freq: Status: Active Protocol: Document 12/25/20 16:50 LR (Rec: 12/25/20 18:26 [facility] [id number]) Current Condition History of Current Condition Onset Date earlier this year Current Complaints R hip pain & knee pain History of Current Condition Pt reports in Jan 2020 she started to get plantar fascititis and got hoka shoes and insoles which helped but still occ gets feet pain in AMs. HIp pain started this year and she hobbles quite a bit when she first gets up. Notes a couple months later the R groin started hurting too and esteban tis the most notable pain now. Pt reports groin gives out on her more recently (few weeks) and comes and goes-sometimes up to 20x/ day. Pt reprots pain in R med also. Pt cannot lay on either side d/t pain in R hip with about 5 min of laying on side so has to lay on back. Denies LBP. Pt notes at one point had to drag herself up the stairs . Pain has gotten gradually worse. Pt walks about 2 miles maximum but her hip hurts the entire time and she just pushes through pain. Pt has polymyalgia rheumatica, w/hx of oopherectomy, R big toe sx, R shoulder surgery, and heart attack and eneck pain. 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, grade one L; neck pain for PT which was successful only occ pain Treatment Goals Patient/Caregiver Goals Be able to walk further and be able to go on the trails, sleep on her sides, not hobble in AM when get up, ease going up/down stairs w/o pain, get up/down from floor w/o using hands on something outside of herself, be able to squat down low to greens picker things, be able dress lower body w/o pain PT-OP-C Subjective Start: 12/25/20 08:56 Freq: Status: Active Protocol: Document 02/10/21 12:17 SP (Rec: 02/10/21 14:03 SP [id number]) OP-PT Subjective Patient Comments Patient Comments Pt reporte hips more sore and painful lately. PT-OP-D Balance Start: 12/25/20 08:56 Freq: Status: Active Protocol: Document 12/25/20 16:50 LR (Rec: 12/25/20 18:26 [facility] [id number]) Balance Tests Single Limb Standing Single Limb- Right 23 sec w/hip drop and sig UE use Single Limb- Left 22 sec w/hip drop and sig ue use PT-OP-F Manual Assessment Start: 12/25/20 08:56 Freq: Status: Active Protocol: Document 12/25/20 16:50 [facility] (Rec: 12/25/20 18:26 [facility] [id number]) Manual Assessments Soft Tissue Assessment Soft Tissue Mobility Assessment R iliacus, ITB, HS, adductors tightness and tenderness Joint Mobility Assessment Joint Mobility Assessment equal greater trochanter and iliac crest height PT-OP-G Mobility & Gait Start: 12/25/20 08:56 Freq: Status: Active Protocol: Document 12/25/20 16:50 [facility] (Rec: 12/25/20 18:26 [facility] [id number]) OP Gait Assessment Comments Gait Comments very rigid upper body and trunk, dec stance time RUE, ER BLEs PT-OP-J Posture/Palpation/Skin Start: 12/25/20 08:56 Freq: Status: Active Protocol: Document 02/04/21 13:03 LR (Rec: 02/04/21 13:45 [facility] [id number]) Posture Evaluation Javier Postural Classification System Lumbar Protective Mechanism Left AP 0 Lumbar Protective Mechanism Right AP 2 Lumbar Protective Mechanism Left PA 1 Lumbar Protective Mechanism Right PA 0 PT-OP-K Range of Motion Start: 12/25/20 08:56 Freq: Status: Active Protocol: Document 12/25/20 16:50 [facility] (Rec: 12/25/20 18:26 [facility] [id number]) Hip Goniometric Range of Motion Hip Right Active Flexion w/Knee Flexed 94 Straight Leg Raise 66 Internal Rotation 35 External Rotation 21 Left Active Flexion w/Knee Flexed 105 Straight Leg Raise 78 Internal Rotation 31 External Rotation 25 Knee Goniometric Range of Motion Knee Right Flexion Active (degrees) 118 Extension Active (degrees) 8 Left Flexion Active (degrees) 130 Extension Active (degrees) 3 PT-OP-L Special Tests Start: 12/25/20 08:56 Freq: Status: Active Protocol: Document 12/25/20 16:50 [facility] (Rec: 12/25/20 18:26 [facility] [id number]) Special Tests Hip Special Tests obers Test Results R post PT-OP-M Strength Start: 12/25/20 08:56 Freq: Status: Active Protocol: Document 02/04/21 13:03 [facility] (Rec: 02/04/21 13:45 [facility] [id number]) Hip Strength Hip Manual Muscle Testing Right Flexion (L2) 4+ Good+ Extension (S1) 4 Good Abduction 4- Good- Adduction 4- Good- External Rotation 5 Normal Internal Rotation 5 Normal Left Flexion (L2) 4 Good Extension (S1) 4 Good Abduction 5 Normal Adduction 4 Good External Rotation 5 Normal Internal Rotation 5 Normal Knee Strength Knee Manual Muscle Testing Right Flexion (S2) 5 Normal Extension (L3) 5 Normal Left Flexion (S2) 5 Normal Extension (L3) 5 Normal Ankle/Foot Strength Ankle and Foot Manual Muscle Testing Right Dorsiflexion (L4) 5 Normal Plantarflexion (S1) 5 Normal Left Dorsiflexion (L4) 5 Normal Plantarflexion (S1) 5 Normal Comments 20 heel raises B PT-OP-Q Treatments Start: 12/25/20 08:56 Freq: Status: Active Protocol: Document 02/10/21 12:17 SP (Rec: 02/10/21 14:03 SP [id number]) Therapeutic Exercises Supine Exercises Marcelino stretch Supine Exercise Name added to HEP Side right Equipment Used strap to get mid quad Reps/Minutes 60 sec Comments good feedback response core Supine Exercise Name hip/ knee flexion isometric against hands Side bilateral Reps/Minutes 30 sec bridge Supine Exercise Name w/alt front kick july Side bilateral Reps/Minutes 5 sec hold then 10 kicks Comments can lead each LE, cued slow pacing kick/march hip stretch Supine Exercise Name figure 4 Side bilateral Reps/Minutes 30 sec ea Comments able to get more knee flexion for stronger stretch HS stretch Supine Exercise Name 1. HS stretch w/ankle pump grasp behind thigh 2. HS/add stretch Side bilateral Equipment Used w/ strap adductor stretch Reps/Minutes 30 sec ea Comments good feedback response Standing Exercises self STMs using ball wall Standing Exercise Name R piriformis, glut med, ITB Equipment Used tennis ball roll on wall Reps/Minutes good feedback tolerance squats Standing Exercise Name sit to stand Side bilateral Reps/Minutes 10x Comments onto plinth cues for control, knees //w/ feet Manual Therapy Treatment Soft Tissue Mobilization ant knee Body Location R pes anscerine & patellar tendon, Mobilization Type Strumming glute Body Location R glut med and distal piriformis Mobilization Type Strumming Intensity/Depth Moderate Body Position Hooklying PT-OP-T Assessment and Plan Start: 12/25/20 08:56 Freq: Status: Active Protocol: Document 02/10/21 12:17 SP (Rec: 02/10/21 14:03 SP [id number]) Physical Therapy Assessment Goals gait Short Term Goal (STG) pt will be able to go up/down stairs without inc pain in hip or knee. 02/04-able to do recipro lebron but slight knee pain but better and R hip pain 02/10/21: progressing: Pt ableto ascend/descend reciprocal patterning without UE support mild medial R knee pain. STG Duration 03/06 progressing Dairy Processing Equipment Operator Goal (LTG) Pt will be able to walk any distance she wants without inc pain and be able to walk on trails without feeling of instability. 02/04-has walked the flat of [employer] only 02/10/21: progressing able to walk more level surfaces of [employer] approx little over 1 mile total still pain low level constant pain with warm to touch. LTG Duration 04/06 progressing ADLS Short Term Goal (STG) Pt will have enough hip range to be able to do all lower body dressing w/o pain. 02/10/21: progressing: LLE stiff and tight but not pain, R knee below knee and R hip when cross R over L knee. STG Duration Achieved Alf Goal (LTG) pt will be able to sleep on B sides w/o inc pain. 02/04-can lie on sides a little more but after 10 min has to go back to back LTG Duration 04/06 strength Short Term Goal (STG) Pt will be indep w/HEP STG Duration Achieved Alf Goal (LTG) Pt will improve strength to at least 3/5 LPM all planes and 5/5 LE strength B to allow for inc ease with mobility. 02/04-improved LTG Duration 04/06 functional mobility Short Term Goal (STG) Pt will be able to crouch low to greens picker objects from the ground and/or low shelves without inc pain. 02/04-avoids crouching still- knee painw hen attempting 02/10/21pt able to modify mini squat to get things off floor. STG Duration 03/06/21 Alf Goal (LTG) pt will be able to get up/down from ground w/o requiring outside surface for hands and without inc pain. LTG Duration achieved LEFS Impairment 33/80 Short Term Goal (STG) Pt will improve LEFS score to at least 45/80 to show improved functional ability. 01/23/21- score 34/80 STG Duration 01/25/21 Dairy Processing Equipment Operator Goal (LTG) Pt will improve LEFS score to at least 55/80 to show improved functional ability. LTG Duration 02/24/21 Assessment Summary Assessment Pt making gains in functional mobility ableto semi squat to grab objects off floor and ascend/ descend stairs no HR reciprocal. Continues to have medial R knee pain. Improves with STMs and stretching, is compliant. Limited R hip ER but notes able to perform better in supine than sitting. Initiated self STMs using racquetball on wall for ITB, glut med and added marcelino stretch for decrease groin pain has at times. Pt reported felt more mobility end of tx. Physical Therapy Plan Frequency and Duration Frequency of Treatment 1-2x/week Duration of Treatment 2 months Plan of Care Start Date 02/04/21 Plan of Care End Date 04/06/21 Therapeutic Interventions Therapeutic Interventions Aquatic Therapy,Balance Training,Gait Training,Home Exercise Program,Joint Mobilizations,Manual Therapy, Neuromuscular Re-education, Patient/Caregiver Education, Self-Care/Home Management, Sensory Integration,Soft Tissue Mobilization,Taping, Therapeutic Activities, Therapeutic Exercises Modalities Cold Pack/Ice Massage,Electric Stimulation,Hot Packs, Infrared Therapy,Ultrasound Next Visit Focus/Plan Next Note Type Treatment Note Next Visit Plan Assess response to added Marcelino stretch to HEP, revieed adductor stretch; manual to dec pain POC: progress hip and core strengthening; work on hip hinge and squat form
--- NOTE | 2021-02-12 11:19 | PT.OTN ---
Current Diagnoses Pain in right hip (02/12/21) Pain in right knee (02/12/21) Dorsalgia, unspecified (02/12/21) Difficulty in walking, not elsewhere classified (02/12/21) Abnormal posture (02/12/21) Weakness (02/12/21) Physical Therapy Treatment Note PT-OP-A Visit Information Start: 12/25/20 08:56 Freq: Status: Active Protocol: Document 02/12/21 10:34 SP (Rec: 02/12/21 11:35 SP [id number]) Out-Patient Physical Therapy Visit Information Visit Information Visit Type Treatment Note Visit Note 03/25 Visit Start Time 10:34 Visit Stop Time 11:19 Total Visit Minutes 45 Visit Number 11 Number of MEDICAL SALES SPECIALIST Visits 3 PT-OP-B Current Condition Start: 12/25/20 08:56 Freq: Status: Active Protocol: Document 12/25/20 16:50 LR (Rec: 12/25/20 18:26 [facility] [id number]) Current Condition History of Current Condition Onset Date earlier this year Current Complaints R hip pain & knee pain History of Current Condition Pt reports in Jan 2020 she started to get plantar fascititis and got hoka shoes and insoles which helped but still occ gets feet pain in AMs. HIp pain started this year and she hobbles quite a bit when she first gets up. Notes a couple months later the R groin started hurting too and esteban tis the most notable pain now. Pt reports groin gives out on her more recently (few weeks) and comes and goes-sometimes up to 20x/ day. Pt reprots pain in R med also. Pt cannot lay on either side d/t pain in R hip with about 5 min of laying on side so has to lay on back. Denies LBP. Pt notes at one point had to drag herself up the stairs . Pain has gotten gradually worse. Pt walks about 2 miles maximum but her hip hurts the entire time and she just pushes through pain. Pt has polymyalgia rheumatica, w/hx of oopherectomy, R big toe sx, R shoulder surgery, and heart attack and eneck pain. 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, grade one L; neck pain for PT which was successful only occ pain Treatment Goals Patient/Caregiver Goals Be able to walk further and be able to go on the trails, sleep on her sides, not hobble in AM when get up, ease going up/down stairs w/o pain, get up/down from floor w/o using hands on something outside of herself, be able to squat down low to orange picker things, be able dress lower body w/o pain PT-OP-C Subjective Start: 12/25/20 08:56 Freq: Status: Active Protocol: Document 02/12/21 10:34 SP (Rec: 02/12/21 11:35 SP [id number]) OP-PT Subjective Patient Comments Patient Comments Pt stated her R posterolateral hip experienced pain during Marcelino stretch so stopped, she didn't try it yesterday. Pt states feels so tight in anterior L>R pelvis today. Pt stated since last tx is able to squat little deeper than last tx to get things off ground. Still not able to get on/ off floor to allow yoga has done in past. Patient Reported Progress Improving PT-OP-D Balance Start: 12/25/20 08:56 Freq: Status: Active Protocol: Document 12/25/20 16:50 [facility] (Rec: 12/25/20 18:26 [facility] [id number]) Balance Tests Single Limb Standing Single Limb- Right 23 sec w/hip drop and sig UE use Single Limb- Left 22 sec w/hip drop and sig ue use PT-OP-F Manual Assessment Start: 12/25/20 08:56 Freq: Status: Active Protocol: Document 12/25/20 16:50 [facility] (Rec: 12/25/20 18:26 [facility] [id number]) Manual Assessments Soft Tissue Assessment Soft Tissue Mobility Assessment R iliacus, ITB, HS, adductors tightness and tenderness Joint Mobility Assessment Joint Mobility Assessment equal greater trochanter and iliac crest height PT-OP-G Mobility & Gait Start: 12/25/20 08:56 Freq: Status: Active Protocol: Document 12/25/20 16:50 LR (Rec: 12/25/20 18:26 [facility] [id number]) OP Gait Assessment Comments Gait Comments very rigid upper body and trunk, dec stance time RUE, ER BLEs PT-OP-J Posture/Palpation/Skin Start: 12/25/20 08:56 Freq: Status: Active Protocol: Document 02/04/21 13:03 [facility] (Rec: 02/04/21 13:45 [facility] [id number]) Posture Evaluation Javier Postural Classification System Lumbar Protective Mechanism Left AP 0 Lumbar Protective Mechanism Right AP 2 Lumbar Protective Mechanism Left PA 1 Lumbar Protective Mechanism Right PA 0 PT-OP-K Range of Motion Start: 12/25/20 08:56 Freq: Status: Active Protocol: Document 12/25/20 16:50 [facility] (Rec: 12/25/20 18:26 [facility] [id number]) Hip Goniometric Range of Motion Hip Right Active Flexion w/Knee Flexed 94 Straight Leg Raise 66 Internal Rotation 35 External Rotation 21 Left Active Flexion w/Knee Flexed 105 Straight Leg Raise 78 Internal Rotation 31 External Rotation 25 Knee Goniometric Range of Motion Knee Right Flexion Active (degrees) 118 Extension Active (degrees) 8 Left Flexion Active (degrees) 130 Extension Active (degrees) 3 PT-OP-L Special Tests Start: 12/25/20 08:56 Freq: Status: Active Protocol: Document 12/25/20 16:50 [facility] (Rec: 12/25/20 18:26 [facility] [id number]) Special Tests Hip Special Tests obers Test Results R post PT-OP-M Strength Start: 12/25/20 08:56 Freq: Status: Active Protocol: Document 02/04/21 13:03 [facility] (Rec: 02/04/21 13:45 [facility] [id number]) Hip Strength Hip Manual Muscle Testing Right Flexion (L2) 4+ Good+ Extension (S1) 4 Good Abduction 4- Good- Adduction 4- Good- External Rotation 5 Normal Internal Rotation 5 Normal Left Flexion (L2) 4 Good Extension (S1) 4 Good Abduction 5 Normal Adduction 4 Good External Rotation 5 Normal Internal Rotation 5 Normal Knee Strength Knee Manual Muscle Testing Right Flexion (S2) 5 Normal Extension (L3) 5 Normal Left Flexion (S2) 5 Normal Extension (L3) 5 Normal Ankle/Foot Strength Ankle and Foot Manual Muscle Testing Right Dorsiflexion (L4) 5 Normal Plantarflexion (S1) 5 Normal Left Dorsiflexion (L4) 5 Normal Plantarflexion (S1) 5 Normal Comments 20 heel raises B PT-OP-Q Treatments Start: 12/25/20 08:56 Freq: Status: Active Protocol: Document 02/12/21 10:34 SP (Rec: 02/12/21 11:35 SP [id number]) Therapeutic Exercises Supine Exercises Marcelino stretch Supine Exercise Name reviewed HEP Side right Equipment Used PROM release Reps/Minutes 60 sec Comments good feedback response post manual core Supine Exercise Name hip/ knee flexion isometric against hands Side bilateral Reps/Minutes 30 sec Comments discussed but not performed bridge Supine Exercise Name w/alt front kick march Side bilateral Resistance discussed not performed Reps/Minutes 5 sec hold then 10 kicks Comments can lead each LE, cued slow pacing kick/march hip stretch Supine Exercise Name figure 4 Side bilateral Reps/Minutes 30 sec ea Comments able to get more knee flexion for stronger stretch HS stretch Supine Exercise Name 1. HS stretch w/ankle pump grasp behind thigh 2. HS/add stretch Side bilateral Equipment Used w/ strap adductor stretch Reps/Minutes 30 sec ea Comments good feedback response Standing Exercises stationary lunge Standing Exercise Name assessed tolerance Side bilateral Equipment Used pillow under knee on floor, Mod UE support on table Reps/Minutes x3 each LE Comments improved ROM as reps progressed but did feel B knee pain, tolerable low rep squats Standing Exercise Name sit to stand Side bilateral Equipment Used 18 raised table Reps/Minutes 10x Comments feet //, arms across chest Hip Hinge Standing Exercise Name hip/knees 90 deg squat to orange picker object off floor Equipment Used yardstick Reps/Minutes x5 Comments very mild knee discomfort hip abd Side bilateral Equipment Used L2 Reps/Minutes x10 Comments discussed does daily hip ext Side bilateral Equipment Used L2 Reps/Minutes x10 Comments discussed does daily sidestep Standing Exercise Name f/b/side stepping Side bilateral Equipment Used lvl 2 Reps/Minutes 20ftx2 each direction Comments good pain free. Other Exercises 1/2 kneel stretch Other Exercise Name hip flexor, proximal quad stretch Side bilateral Equipment Used pillow under knee, contact table Reps/Minutes 30 x2 Comments more stretch felt on L than R, R better Marcelino stretch pos Manual Therapy Treatment Soft Tissue Mobilization iliacus Body Location R Mobilization Type Sustained Pressure Intensity/Depth Moderate Body Position Supine Comments w/ER/IR glute Body Location R glut med and distal piriformis Mobilization Type Strumming Intensity/Depth Moderate Body Position Hooklying Self-Care/Home Management Treatment Education Patient Education Body Mechanics,Home Exercise Program,Posture Other Education Initiated 1/2 knee hip flexor stretch felt supine marcelino stretch more effective and assessed ability to get down to 1/2 knee to progress getting on floor for return to yoga with improved hip/ knee ROM with UE support. PT-OP-T Assessment and Plan Start: 12/25/20 08:56 Freq: Status: Active Protocol: Document 02/12/21 10:34 SP (Rec: 02/12/21 11:35 SP [id number]) Physical Therapy Assessment Goals gait Short Term Goal (STG) pt will be able to go up/down stairs without inc pain in hip or knee. 02/04-able to do recipro lebron but slight knee pain but better and R hip pain 02/10/21: progressing: Pt ableto ascend/descend reciprocal patterning without UE support mild medial R knee pain. STG Duration 03/06 progressing Cleat Blanker Goal (LTG) Pt will be able to walk any distance she wants without inc pain and be able to walk on trails without feeling of instability. 02/04-has walked the flat of [employer] only 02/10/21: progressing able to walk more level surfaces of [employer] approx little over 1 mile total still pain low level constant pain with warm to touch. LTG Duration 04/06 progressing ADLS Short Term Goal (STG) Pt will have enough hip range to be able to do all lower body dressing w/o pain. 02/10/21: progressing: LLE stiff and tight but not pain, R knee below knee and R hip 8/ 10 when cross R over L knee. STG Duration Achieved Cleat Blanker Goal (LTG) pt will be able to sleep on B sides w/o inc pain. 02/04-can lie on sides a little more but after 10 min has to go back to back LTG Duration 04/06 strength Short Term Goal (STG) Pt will be indep w/HEP STG Duration Achieved Cleat Blanker Goal (LTG) Pt will improve strength to at least 3/5 LPM all planes and 5/5 LE strength B to allow for inc ease with mobility. 02/04-improved LTG Duration 04/06 functional mobility Short Term Goal (STG) Pt will be able to crouch low to orange picker objects from the ground and/or low shelves without inc pain. 02/04-avoids crouching still- knee painw hen attempting 02/10/21 pt able to modify mini squat to get things off floor very minimal pain. 02/12/21 Goal MET STG Duration achieved Cleat Blanker Goal (LTG) pt will be able to get up/down from ground w/o requiring outside surface for hands and without inc pain. LTG Duration achieved LEFS Impairment 33/80 Short Term Goal (STG) Pt will improve LEFS score to at least 45/80 to show improved functional ability. 01/23/21- score 34/80 STG Duration 01/25/21 Nursing Home Goal (LTG) Pt will improve LEFS score to at least 55/80 to show improved functional ability. LTG Duration 02/24/21 Progress Towards Goals Progress Towards Goals Progressing Toward Goals Progress Comments Met LTG # funcitional mobiltiy : able to crouch/hover maintain squat to pick small things off ground. Assessment Summary Assessment Pt able to crouch/ midrange squat to get small things off ground with mild knee pain. Initiated 1/2 kneel hip flexor stretch post manual and allowed her to get on/off floor w/ UE support on table for stretch and assess stationary lunge, reports some mild knee pain but able to eccentric lower as reps progressed. Physical Therapy Plan Frequency and Duration Frequency of Treatment 1-2x/week Duration of Treatment 2 months Plan of Care Start Date 02/04/21 Plan of Care End Date 04/06/21 Therapeutic Interventions Therapeutic Interventions Aquatic Therapy,Balance Training,Gait Training,Home Exercise Program,Joint Mobilizations,Manual Therapy, Neuromuscular Re-education, Patient/Caregiver Education, Self-Care/Home Management, Sensory Integration,Soft Tissue Mobilization,Taping, Therapeutic Activities, Therapeutic Exercises Modalities Cold Pack/Ice Massage,Electric Stimulation,Hot Packs, Infrared Therapy,Ultrasound Next Visit Focus/Plan Next Note Type Treatment Note Next Visit Plan Assess response to added band walk, 1/2 kneel hip flex stretch vs Marcelino stretch. Assessed response to stationary lunge last tx. manual to dec pain POC: progress hip and core strengthening; work on hip hinge and squat form
--- NOTE | 2021-02-16 19:09 | PT.OTN ---
Current Diagnoses Pain in right hip (02/16/21) Pain in right knee (02/16/21) Dorsalgia, unspecified (02/16/21) Difficulty in walking, not elsewhere classified (02/16/21) Abnormal posture (02/16/21) Weakness (02/16/21) Physical Therapy Treatment Note PT-OP-A Visit Information Start: 12/25/20 08:56 Freq: Status: Active Protocol: Document 02/16/21 18:58 [facility] (Rec: 02/16/21 19:09 [facility] [id number]) Out-Patient Physical Therapy Visit Information Visit Information Visit Type Treatment Note Visit Note 09/22 Visit Start Time 13:00 Visit Stop Time 13:43 Total Visit Minutes 43 Visit Number 12 Number of SOCIAL MEDIA INTERN Visits 0 PT-OP-B Current Condition Start: 12/25/20 08:56 Freq: Status: Active Protocol: Document 12/25/20 16:50 [facility] (Rec: 12/25/20 18:26 [facility] [id number]) Current Condition History of Current Condition Onset Date earlier this year Current Complaints R hip pain & knee pain History of Current Condition Pt reports in Jan 2020 she started to get plantar fascititis and got hoka shoes and insoles which helped but still occ gets feet pain in AMs. HIp pain started this year and she hobbles quite a bit when she first gets up. Notes a couple months later the R groin started hurting too and esteban tis the most notable pain now. Pt reports groin gives out on her more recently (few weeks) and comes and goes-sometimes up to 20x/ day. Pt reprots pain in R med also. Pt cannot lay on either side d/t pain in R hip with about 5 min of laying on side so has to lay on back. Denies LBP. Pt notes at one point had to drag herself up the stairs . Pain has gotten gradually worse. Pt walks about 2 miles maximum but her hip hurts the entire time and she just pushes through pain. Pt has polymyalgia rheumatica, w/hx of oopherectomy, R big toe sx, R shoulder surgery, and heart attack and eneck pain. 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, grade one L; neck pain for PT which was successful only occ pain Treatment Goals Patient/Caregiver Goals Be able to walk further and be able to go on the trails, sleep on her sides, not hobble in AM when get up, ease going up/down stairs w/o pain, get up/down from floor w/o using hands on something outside of herself, be able to squat down low to last picker things, be able dress lower body w/o pain PT-OP-C Subjective Start: 12/25/20 08:56 Freq: Status: Active Protocol: Document 02/16/21 18:58 [facility] (Rec: 02/16/21 19:09 [facility] [id number]) OP-PT Subjective Patient Comments Patient Comments Pt reprots R knee has been the main area bothering her especailly getting up from low surfaces PT-OP-D Balance Start: 12/25/20 08:56 Freq: Status: Active Protocol: Document 12/25/20 16:50 [facility] (Rec: 12/25/20 18:26 [facility] [id number]) Balance Tests Single Limb Standing Single Limb- Right 23 sec w/hip drop and sig UE use Single Limb- Left 22 sec w/hip drop and sig ue use PT-OP-F Manual Assessment Start: 12/25/20 08:56 Freq: Status: Active Protocol: Document 12/25/20 16:50 [facility] (Rec: 12/25/20 18:26 [facility] [id number]) Manual Assessments Soft Tissue Assessment Soft Tissue Mobility Assessment R iliacus, ITB, HS, adductors tightness and tenderness Joint Mobility Assessment Joint Mobility Assessment equal greater trochanter and iliac crest height PT-OP-G Mobility & Gait Start: 12/25/20 08:56 Freq: Status: Active Protocol: Document 12/25/20 16:50 [facility] (Rec: 12/25/20 18:26 [facility] [id number]) OP Gait Assessment Comments Gait Comments very rigid upper body and trunk, dec stance time RUE, DENEEN BLEs PT-OP-J Posture/Palpation/Skin Start: 12/25/20 08:56 Freq: Status: Active Protocol: Document 02/04/21 13:03 [facility] (Rec: 02/04/21 13:45 [facility] [id number]) Posture Evaluation [facility] Postural Classification System Lumbar Protective Mechanism Left AP 0 Lumbar Protective Mechanism Right AP 2 Lumbar Protective Mechanism Left PA 1 Lumbar Protective Mechanism Right PA 0 PT-OP-K Range of Motion Start: 12/25/20 08:56 Freq: Status: Active Protocol: Document 12/25/20 16:50 [facility] (Rec: 12/25/20 18:26 [facility] [id number]) Hip Goniometric Range of Motion Hip Right Active Flexion w/Knee Flexed 94 Straight Leg Raise 66 Internal Rotation 35 External Rotation 21 Left Active Flexion w/Knee Flexed 105 Straight Leg Raise 78 Internal Rotation 31 External Rotation 25 Knee Goniometric Range of Motion Knee Right Flexion Active (degrees) 118 Extension Active (degrees) 8 Left Flexion Active (degrees) 130 Extension Active (degrees) 3 PT-OP-L Special Tests Start: 12/25/20 08:56 Freq: Status: Active Protocol: Document 12/25/20 16:50 [facility] (Rec: 12/25/20 18:26 [facility] [id number]) Special Tests Hip Special Tests obers Test Results R post PT-OP-M Strength Start: 12/25/20 08:56 Freq: Status: Active Protocol: Document 02/04/21 13:03 [facility] (Rec: 02/04/21 13:45 [facility] [id number]) Hip Strength Hip Manual Muscle Testing Right Flexion (L2) 4+ Good+ Extension (S1) 4 Good Abduction 4- Good- Adduction 4- Good- External Rotation 5 Normal Internal Rotation 5 Normal Left Flexion (L2) 4 Good Extension (S1) 4 Good Abduction 5 Normal Adduction 4 Good External Rotation 5 Normal Internal Rotation 5 Normal Knee Strength Knee Manual Muscle Testing Right Flexion (S2) 5 Normal Extension (L3) 5 Normal Left Flexion (S2) 5 Normal Extension (L3) 5 Normal Ankle/Foot Strength Ankle and Foot Manual Muscle Testing Right Dorsiflexion (L4) 5 Normal Plantarflexion (S1) 5 Normal Left Dorsiflexion (L4) 5 Normal Plantarflexion (S1) 5 Normal Comments 20 heel raises B PT-OP-Q Treatments Start: 12/25/20 08:56 Freq: Status: Active Protocol: Document 02/16/21 18:58 [facility] (Rec: 02/16/21 19:09 [facility] [id number]) Manual Therapy Treatment Soft Tissue Mobilization ant knee Body Location R plunger on ant knee w/knee ext HS Body Location R HS Mobilization Type Rolling,Strumming Intensity/Depth Moderate Body Position Supine Comments w/knee ext ITB Body Location R Mobilization Type Rolling,Strumming Intensity/Depth Moderate Body Position Supine Comments w/ knee ext & rotation; also used plunger Joint Mobilizations tibfib Joint R proximal Direction AP FM tibfem Joint AP FM PF Joint R patellofem Direction sup, inf, med Self-Care/Home Management Treatment Education Other Education edu to pt to avoid jennifer test stretch d/t pain and cont w/ current exercises. encouraged when able to go to lower chair for sit to stand. edu re: rot of femur and how it can affect knee. PT-OP-T Assessment and Plan Start: 12/25/20 08:56 Freq: Status: Active Protocol: Document 02/16/21 18:58 [facility] (Rec: 02/16/21 19:09 [facility] [id number]) Physical Therapy Assessment Goals gait Short Term Goal (STG) pt will be able to go up/down stairs without inc pain in hip or knee. 02/04-able to do recipro [place] but slight knee pain but better and R hip pain 02/10/21: progressing: Pt ableto ascend/descend reciprocal patterning without UE support mild medial R knee pain. STG Duration 03/06 progressing Law Firm Administrator Goal (LTG) Pt will be able to walk any distance she wants without inc pain and be able to walk on trails without feeling of instability. 02/04-has walked the flat of [place] [employer] only 02/10/21: progressing able to walk more level surfaces of [facility] approx little over 1 mile total still pain low level constant pain with warm to touch. LTG Duration 04/06 progressing ADLS Short Term Goal (STG) Pt will have enough hip range to be able to do all lower body dressing w/o pain. 02/10/21: progressing: LLE stiff and tight but not pain, R knee below knee and R hip when cross R over L knee. STG Duration Achieved Law Firm Administrator Goal (LTG) pt will be able to sleep on B sides w/o inc pain. 02/04-can lie on sides a little more but after 10 min has to go back to back LTG Duration 04/06 strength Short Term Goal (STG) Pt will be indep w/HEP STG Duration Achieved Law Firm Administrator Goal (LTG) Pt will improve strength to at least 3/5 LPM all planes and 5/5 LE strength B to allow for inc ease with mobility. 02/04-improved LTG Duration 04/06 functional mobility Short Term Goal (STG) Pt will be able to crouch low to last picker objects from the ground and/or low shelves without inc pain. 02/04-avoids crouching still- knee painw hen attempting 02/10/21 pt able to modify mini squat to get things off floor very minimal pain. 02/12/21 Goal MET STG Duration achieved Law Firm Administrator Goal (LTG) pt will be able to get up/down from ground w/o requiring outside surface for hands and without inc pain. LTG Duration achieved LEFS Impairment 33/80 Short Term Goal (STG) Pt will improve LEFS score to at least 45/80 to show improved functional ability. 01/23/21- score 34/80 STG Duration 01/25/21 Senior Care Goal (LTG) Pt will improve LEFS score to at least 55/80 to show improved functional ability. LTG Duration 02/24/21 Assessment Summary Assessment Pt still has signficiant femoral IR on R which likely contributes to her knee pain. She did show improved end feel w/overpressure into ext w/ less pain after manual treatment and had improved AROM ext of R knee Physical Therapy Plan Frequency and Duration Frequency of Treatment 1-2x/week Duration of Treatment 2 months Plan of Care Start Date 02/04/21 Plan of Care End Date 04/06/21 Next Visit Focus/Plan Next Note Type Treatment Note Next Visit Plan work on hip mobility to improve knee tracking on R side to help w/knee pain
--- NOTE | 2021-02-24 10:07 | PT.OTN ---
Current Diagnoses Pain in right hip (02/24/21) Pain in right knee (02/24/21) Dorsalgia, unspecified (02/24/21) Difficulty in walking, not elsewhere classified (02/24/21) Abnormal posture (02/24/21) Weakness (02/24/21) Physical Therapy Treatment Note PT-OP-A Visit Information Start: 12/25/20 08:56 Freq: Status: Active Protocol: Document 02/24/21 09:56 [facility] (Rec: 02/24/21 10:07 [facility] [id number]) Out-Patient Physical Therapy Visit Information Visit Information Visit Type Treatment Note Visit Note 10/23 Visit Start Time 09:03 Visit Stop Time 09:45 Total Visit Minutes 42 Visit Number 13 Number of CRIME LAB ANALYST Visits 0 PT-OP-B Current Condition Start: 12/25/20 08:56 Freq: Status: Active Protocol: Document 12/25/20 16:50 [facility] (Rec: 12/25/20 18:26 [facility] [id number]) Current Condition History of Current Condition Onset Date earlier this year Current Complaints R hip pain & knee pain History of Current Condition Pt reports in Jan 2020 she started to get plantar fascititis and got hoka shoes and insoles which helped but still occ gets feet pain in AMs. HIp pain started this year and she hobbles quite a bit when she first gets up. Notes a couple months later the R groin started hurting too and esteban tis the most notable pain now. Pt reports groin gives out on her more recently (few weeks) and comes and goes-sometimes up to 20x/ day. Pt reprots pain in R med also. Pt cannot lay on either side d/t pain in R hip with about 5 min of laying on side so has to lay on back. Denies LBP. Pt notes at one point had to drag herself up the stairs . Pain has gotten gradually worse. Pt walks about 2 miles maximum but her hip hurts the entire time and she just pushes through pain. Pt has polymyalgia rheumatica, w/hx of oopherectomy, R big toe sx, R shoulder surgery, and heart attack and eneck pain. 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, grade one L; neck pain for PT which was successful only occ pain Treatment Goals Patient/Caregiver Goals Be able to walk further and be able to go on the trails, sleep on her sides, not hobble in AM when get up, ease going up/down stairs w/o pain, get up/down from floor w/o using hands on something outside of herself, be able to squat down low to pickers material handlers things, be able dress lower body w/o pain PT-OP-C Subjective Start: 12/25/20 08:56 Freq: Status: Active Protocol: Document 02/24/21 09:56 [facility] (Rec: 02/24/21 10:07 [facility] [id number]) OP-PT Subjective Patient Comments Patient Comments Pt reports something feels looser. Notes still tightness in ant lat R thigh and some pain in B knees w/standing up from low toilet or seats Patient Reported Progress Improving PT-OP-D Balance Start: 12/25/20 08:56 Freq: Status: Active Protocol: Document 12/25/20 16:50 [facility] (Rec: 12/25/20 18:26 [facility] [id number]) Balance Tests Single Limb Standing Single Limb- Right 23 sec w/hip drop and sig UE use Single Limb- Left 22 sec w/hip drop and sig ue use PT-OP-F Manual Assessment Start: 12/25/20 08:56 Freq: Status: Active Protocol: Document 12/25/20 16:50 [facility] (Rec: 12/25/20 18:26 [facility] [id number]) Manual Assessments Soft Tissue Assessment Soft Tissue Mobility Assessment R iliacus, ITB, HS, adductors tightness and tenderness Joint Mobility Assessment Joint Mobility Assessment equal greater trochanter and iliac crest height PT-OP-G Mobility & Gait Start: 12/25/20 08:56 Freq: Status: Active Protocol: Document 12/25/20 16:50 [facility] (Rec: 12/25/20 18:26 [facility] [id number]) OP Gait Assessment Comments Gait Comments very rigid upper body and trunk, dec stance time RUE, ER BLEs PT-OP-J Posture/Palpation/Skin Start: 12/25/20 08:56 Freq: Status: Active Protocol: Document 02/04/21 13:03 [facility] (Rec: 02/04/21 13:45 [facility] [id number]) Posture Evaluation [facility] Postural Classification System Lumbar Protective Mechanism Left AP 0 Lumbar Protective Mechanism Right AP 2 Lumbar Protective Mechanism Left PA 1 Lumbar Protective Mechanism Right PA 0 PT-OP-K Range of Motion Start: 12/25/20 08:56 Freq: Status: Active Protocol: Document 12/25/20 16:50 [facility] (Rec: 12/25/20 18:26 [facility] [id number]) Hip Goniometric Range of Motion Hip Right Active Flexion w/Knee Flexed 94 Straight Leg Raise 66 Internal Rotation 35 External Rotation 21 Left Active Flexion w/Knee Flexed 105 Straight Leg Raise 78 Internal Rotation 31 External Rotation 25 Knee Goniometric Range of Motion Knee Right Flexion Active (degrees) 118 Extension Active (degrees) 8 Left Flexion Active (degrees) 130 Extension Active (degrees) 3 PT-OP-L Special Tests Start: 12/25/20 08:56 Freq: Status: Active Protocol: Document 12/25/20 16:50 [facility] (Rec: 12/25/20 18:26 [facility] [id number]) Special Tests Hip Special Tests obers Test Results R post PT-OP-M Strength Start: 12/25/20 08:56 Freq: Status: Active Protocol: Document 02/04/21 13:03 [facility] (Rec: 02/04/21 13:45 [facility] [id number]) Hip Strength Hip Manual Muscle Testing Right Flexion (L2) 4+ Good+ Extension (S1) 4 Good Abduction 4- Good- Adduction 4- Good- External Rotation 5 Normal Internal Rotation 5 Normal Left Flexion (L2) 4 Good Extension (S1) 4 Good Abduction 5 Normal Adduction 4 Good External Rotation 5 Normal Internal Rotation 5 Normal Knee Strength Knee Manual Muscle Testing Right Flexion (S2) 5 Normal Extension (L3) 5 Normal Left Flexion (S2) 5 Normal Extension (L3) 5 Normal Ankle/Foot Strength Ankle and Foot Manual Muscle Testing Right Dorsiflexion (L4) 5 Normal Plantarflexion (S1) 5 Normal Left Dorsiflexion (L4) 5 Normal Plantarflexion (S1) 5 Normal Comments 20 heel raises B PT-OP-Q Treatments Start: 12/25/20 08:56 Freq: Status: Active Protocol: Document 02/24/21 09:56 [facility] (Rec: 02/24/21 10:07 [facility] [id number]) Manual Therapy Treatment Soft Tissue Mobilization ant knee Body Location patellar tendon lat R Mobilization Type Strumming Intensity/Depth Moderate Body Position Supine Comments w/APs ITB Body Location R Mobilization Type Rolling,Strumming Intensity/Depth Moderate Body Position Supine Comments w/ knee ext & hip rotation; supine & S/L Neuro Re-Education Treatment Other Activities sit to stand facilitation Comments 1. traction from distal femur progressed to w/pull up R 2.traction from distal femur progressed to w/pull up L 3. traction from distal femur progressed to w/pull up B PT R PT student LLE 4. PT hold into hip hinge fwd to wt shift of legs w/pt cued to push into ground as when PT and PT student were pulling through legs 5. sit to stand x5 w/focus on wt shift based on training PT-OP-T Assessment and Plan Start: 12/25/20 08:56 Freq: Status: Active Protocol: Document 02/24/21 09:56 [facility] (Rec: 02/24/21 10:07 [facility] [id number]) Physical Therapy Assessment Goals gait Short Term Goal (STG) pt will be able to go up/down stairs without inc pain in hip or knee. 02/04-able to do recipro [place] but slight knee pain but better and R hip pain 02/10/21: progressing: Pt ableto ascend/descend reciprocal patterning without UE support mild medial R knee pain. STG Duration 03/06 progressing Fdc Goal (LTG) Pt will be able to walk any distance she wants without inc pain and be able to walk on trails without feeling of instability. 02/04-has walked the flat of [place] [employer] only 02/10/21: progressing able to walk more level surfaces of [place] [employer] approx little over 1 mile total still pain low level constant pain with warm to touch. LTG Duration 04/06 progressing ADLS Short Term Goal (STG) Pt will have enough hip range to be able to do all lower body dressing w/o pain. 02/10/21: progressing: LLE stiff and tight but not pain, R knee below knee and R hip when cross R over L knee. STG Duration Achieved Fdc Goal (LTG) pt will be able to sleep on B sides w/o inc pain. 02/04-can lie on sides a little more but after 10 min has to go back to back LTG Duration 04/06 strength Short Term Goal (STG) Pt will be indep w/HEP STG Duration Achieved Fdc Goal (LTG) Pt will improve strength to at least 3/5 LPM all planes and 5/5 LE strength B to allow for inc ease with mobility. 02/04-improved LTG Duration 04/06 functional mobility Short Term Goal (STG) Pt will be able to crouch low to pickers material handlers objects from the ground and/or low shelves without inc pain. 02/04-avoids crouching still- knee painw hen attempting 02/10/21 pt able to modify mini squat to get things off floor very minimal pain. 02/12/21 Goal MET STG Duration achieved Fdc Goal (LTG) pt will be able to get up/down from ground w/o requiring outside surface for hands and without inc pain. LTG Duration achieved LEFS Impairment 33/80 Short Term Goal (STG) Pt will improve LEFS score to at least 45/80 to show improved functional ability. 01/23/21- score 34/80 STG Duration 01/25/21 Pattern Attendant Goal (LTG) Pt will improve LEFS score to at least 55/80 to show improved functional ability. LTG Duration 02/24/21 Assessment Summary Assessment Pt had improved smoothness w/ up/down from lowest setting of mat and had dec knee pain after neuro re-edu for improved glute and quad activation for sit to stand. She has lat knee soft tissue tightness which likely affects her knee tracking. Physical Therapy Plan Frequency and Duration Frequency of Treatment 1-2x/week Duration of Treatment 2 months Plan of Care Start Date 02/04/21 Plan of Care End Date 04/06/21 Next Visit Focus/Plan Next Note Type Treatment Note Next Visit Plan cont to work on knee tracking and ability to stand from low surfaces
--- NOTE | 2021-02-26 12:11 | PT.OTN ---
Current Diagnoses Pain in right hip (02/26/21) Pain in right knee (02/26/21) Dorsalgia, unspecified (02/26/21) Difficulty in walking, not elsewhere classified (02/26/21) Abnormal posture (02/26/21) Weakness (02/26/21) Physical Therapy Treatment Note PT-OP-A Visit Information Start: 12/25/20 08:56 Freq: Status: Active Protocol: Document 02/26/21 11:19 [facility] (Rec: 02/26/21 12:11 [facility] [id number]) Out-Patient Physical Therapy Visit Information Visit Information Visit Type Treatment Note Visit Note 11/22 Visit Start Time 11:19 Visit Stop Time 11:59 Total Visit Minutes 40 Visit Number 14 Number of ASSEMBLY LINE MACHINE OPERATOR Visits 0 PT-OP-B Current Condition Start: 12/25/20 08:56 Freq: Status: Active Protocol: Document 12/25/20 16:50 [facility] (Rec: 12/25/20 18:26 [facility] [id number]) Current Condition History of Current Condition Onset Date earlier this year Current Complaints R hip pain & knee pain History of Current Condition Pt reports in Jan 2020 she started to get plantar fascititis and got hoka shoes and insoles which helped but still occ gets feet pain in AMs. HIp pain started this year and she hobbles quite a bit when she first gets up. Notes a couple months later the R groin started hurting too and esteban tis the most notable pain now. Pt reports groin gives out on her more recently (few weeks) and comes and goes-sometimes up to 20x/ day. Pt reprots pain in R med also. Pt cannot lay on either side d/t pain in R hip with about 5 min of laying on side so has to lay on back. Denies LBP. Pt notes at one point had to drag herself up the stairs . Pain has gotten gradually worse. Pt walks about 2 miles maximum but her hip hurts the entire time and she just pushes through pain. Pt has polymyalgia rheumatica, w/hx of oopherectomy, R big toe sx, R shoulder surgery, and heart attack and eneck pain. 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, grade one L; neck pain for PT which was successful only occ pain Treatment Goals Patient/Caregiver Goals Be able to walk further and be able to go on the trails, sleep on her sides, not hobble in AM when get up, ease going up/down stairs w/o pain, get up/down from floor w/o using hands on something outside of herself, be able to squat down low to lemon picker things, be able dress lower body w/o pain PT-OP-C Subjective Start: 12/25/20 08:56 Freq: Status: Active Protocol: Document 02/26/21 11:19 [facility] (Rec: 02/26/21 12:11 [facility] [id number]) OP-PT Subjective Patient Comments Patient Comments Pt reports she thinks the work last session did help some w/ up/down from chairs PT-OP-D Balance Start: 12/25/20 08:56 Freq: Status: Active Protocol: Document 12/25/20 16:50 [facility] (Rec: 12/25/20 18:26 [facility] [id number]) Balance Tests Single Limb Standing Single Limb- Right 23 sec w/hip drop and sig UE use Single Limb- Left 22 sec w/hip drop and sig ue use PT-OP-F Manual Assessment Start: 12/25/20 08:56 Freq: Status: Active Protocol: Document 12/25/20 16:50 [facility] (Rec: 12/25/20 18:26 [facility] [id number]) Manual Assessments Soft Tissue Assessment Soft Tissue Mobility Assessment R iliacus, ITB, HS, adductors tightness and tenderness Joint Mobility Assessment Joint Mobility Assessment equal greater trochanter and iliac crest height PT-OP-G Mobility & Gait Start: 12/25/20 08:56 Freq: Status: Active Protocol: Document 12/25/20 16:50 [facility] (Rec: 12/25/20 18:26 [facility] [id number]) OP Gait Assessment Comments Gait Comments very rigid upper body and trunk, dec stance time RUE, ER BLEs PT-OP-J Posture/Palpation/Skin Start: 12/25/20 08:56 Freq: Status: Active Protocol: Document 02/04/21 13:03 [facility] (Rec: 02/04/21 13:45 [facility] [id number]) Posture Evaluation Javier Postural Classification System Lumbar Protective Mechanism Left AP 0 Lumbar Protective Mechanism Right AP 2 Lumbar Protective Mechanism Left PA 1 Lumbar Protective Mechanism Right PA 0 PT-OP-K Range of Motion Start: 12/25/20 08:56 Freq: Status: Active Protocol: Document 12/25/20 16:50 [facility] (Rec: 12/25/20 18:26 [facility] [id number]) Hip Goniometric Range of Motion Hip Right Active Flexion w/Knee Flexed 94 Straight Leg Raise 66 Internal Rotation 35 External Rotation 21 Left Active Flexion w/Knee Flexed 105 Straight Leg Raise 78 Internal Rotation 31 External Rotation 25 Knee Goniometric Range of Motion Knee Right Flexion Active (degrees) 118 Extension Active (degrees) 8 Left Flexion Active (degrees) 130 Extension Active (degrees) 3 PT-OP-L Special Tests Start: 12/25/20 08:56 Freq: Status: Active Protocol: Document 12/25/20 16:50 [facility] (Rec: 12/25/20 18:26 [facility] [id number]) Special Tests Hip Special Tests obers Test Results R post PT-OP-M Strength Start: 12/25/20 08:56 Freq: Status: Active Protocol: Document 02/04/21 13:03 [facility] (Rec: 02/04/21 13:45 [facility] [id number]) Hip Strength Hip Manual Muscle Testing Right Flexion (L2) 4+ Good+ Extension (S1) 4 Good Abduction 4- Good- Adduction 4- Good- External Rotation 5 Normal Internal Rotation 5 Normal Left Flexion (L2) 4 Good Extension (S1) 4 Good Abduction 5 Normal Adduction 4 Good External Rotation 5 Normal Internal Rotation 5 Normal Knee Strength Knee Manual Muscle Testing Right Flexion (S2) 5 Normal Extension (L3) 5 Normal Left Flexion (S2) 5 Normal Extension (L3) 5 Normal Ankle/Foot Strength Ankle and Foot Manual Muscle Testing Right Dorsiflexion (L4) 5 Normal Plantarflexion (S1) 5 Normal Left Dorsiflexion (L4) 5 Normal Plantarflexion (S1) 5 Normal Comments 20 heel raises B PT-OP-Q Treatments Start: 12/25/20 08:56 Freq: Status: Active Protocol: Document 02/26/21 11:19 [facility] (Rec: 02/26/21 12:11 [facility] [id number]) Therapeutic Exercises Supine Exercises core Supine Exercise Name hip/ knee flexion isometric against hands Side bilateral Reps/Minutes 30 sec bridge Supine Exercise Name w/alt front march Side bilateral Resistance discussed not performed Reps/Minutes 15 july pelvic tilt Supine Exercise Name w/july then leg raise Reps/Minutes 15 Comments focus on core Standing Exercises squats Standing Exercise Name 1. sit to stand x5 2. squat over chair 2x10 Comments mini squat over chair and used mirror for 2nd set to monitor hips Manual Therapy Treatment Soft Tissue Mobilization HS Body Location R HS Mobilization Type Rolling,Strumming Intensity/Depth Moderate Body Position Supine Comments w/knee ext in HS stretch positon med Joint Mobilizations tibfib Joint R proximal Direction AP FM tibfem Joint AP FM femur PF Joint R patellofem Direction sup, inf, med Comments w/quad set PT-OP-T Assessment and Plan Start: 12/25/20 08:56 Freq: Status: Active Protocol: Document 02/26/21 11:19 [facility] (Rec: 02/26/21 12:11 [facility] [id number]) Physical Therapy Assessment Goals gait Short Term Goal (STG) pt will be able to go up/down stairs without inc pain in hip or knee. 02/04-able to do recipro [place] but slight knee pain but better and R hip pain 02/10/21: progressing: Pt ableto ascend/descend reciprocal patterning without UE support mild medial R knee pain. STG Duration 03/06 progressing Halfway Goal (LTG) Pt will be able to walk any distance she wants without inc pain and be able to walk on trails without feeling of instability. 02/04-has walked the flat of [place] only 02/10/21: progressing able to walk more level surfaces of [place] approx little over 1 mile total still pain low level constant pain with warm to touch. LTG Duration 04/06 progressing ADLS Short Term Goal (STG) Pt will have enough hip range to be able to do all lower body dressing w/o pain. 02/10/21: progressing: LLE stiff and tight but not pain, R knee below knee and R hip when cross R over L knee. STG Duration Achieved Halfway Goal (LTG) pt will be able to sleep on B sides w/o inc pain. 02/04-can lie on sides a little more but after 10 min has to go back to back LTG Duration 04/06 strength Short Term Goal (STG) Pt will be indep w/HEP STG Duration Achieved Halfway Goal (LTG) Pt will improve strength to at least 3/5 LPM all planes and 5/5 LE strength B to allow for inc ease with mobility. 02/04-improved LTG Duration 04/06 functional mobility Short Term Goal (STG) Pt will be able to crouch low to lemon picker objects from the ground and/or low shelves without inc pain. 02/04-avoids crouching still- knee painw hen attempting 02/10/21 pt able to modify mini squat to get things off floor very minimal pain. 02/12/21 Goal MET STG Duration achieved Roofing Subcontractor Goal (LTG) pt will be able to get up/down from ground w/o requiring outside surface for hands and without inc pain. LTG Duration achieved LEFS Impairment 33/80 Short Term Goal (STG) Pt will improve LEFS score to at least 45/80 to show improved functional ability. 01/23/21- score 34/80 STG Duration 01/25/21 Halfway Goal (LTG) Pt will improve LEFS score to at least 55/80 to show improved functional ability. LTG Duration 02/24/21 Assessment Summary Assessment Pt required cues during supine exercise sto slow down and to work on more control of pelvis position & relaxation of cervical spine. She initially had a R shear of pelvis during squats that imrpoved w/cues and use of mirror Physical Therapy Plan Frequency and Duration Frequency of Treatment 1-2x/week Duration of Treatment 2 months Plan of Care Start Date 02/04/21 Plan of Care End Date 04/06/21 Next Visit Focus/Plan Next Note Type Treatment Note Next Visit Plan cont to work on knee tracking and ability to stand from low surfaces
--- NOTE | 2021-03-02 12:15 | PT.OTN ---
Current Diagnoses Pain in right hip (03/02/21) Pain in right knee (03/02/21) Dorsalgia, unspecified (03/02/21) Difficulty in walking, not elsewhere classified (03/02/21) Abnormal posture (03/02/21) Weakness (03/02/21) Physical Therapy Treatment Note PT-OP-A Visit Information Start: 12/25/20 08:56 Freq: Status: Active Protocol: Document 03/02/21 10:54 [facility] (Rec: 03/02/21 12:15 [facility] [id number]) Out-Patient Physical Therapy Visit Information Visit Information Visit Type Treatment Note Visit Note 12/23 Visit Start Time 11:17 Visit Stop Time 12:02 Total Visit Minutes 45 Visit Number 15 Number of GAS ENGINE OPERATOR COMPRESSORS Visits 0 PT-OP-B Current Condition Start: 12/25/20 08:56 Freq: Status: Active Protocol: Document 12/25/20 16:50 [facility] (Rec: 12/25/20 18:26 [facility] [id number]) Current Condition History of Current Condition Onset Date earlier this year Current Complaints R hip pain & knee pain History of Current Condition Pt reports in Jan 2020 she started to get plantar fascititis and got hoka shoes and insoles which helped but still occ gets feet pain in AMs. HIp pain started this year and she hobbles quite a bit when she first gets up. Notes a couple months later the R groin started hurting too and esteban tis the most notable pain now. Pt reports groin gives out on her more recently (few weeks) and comes and goes-sometimes up to 20x/ day. Pt reprots pain in R med also. Pt cannot lay on either side d/t pain in R hip with about 5 min of laying on side so has to lay on back. Denies LBP. Pt notes at one point had to drag herself up the stairs . Pain has gotten gradually worse. Pt walks about 2 miles maximum but her hip hurts the entire time and she just pushes through pain. Pt has polymyalgia rheumatica, w/hx of oopherectomy, R big toe sx, R shoulder surgery, and heart attack and eneck pain. 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, grade one L; neck pain for PT which was successful only occ pain Treatment Goals Patient/Caregiver Goals Be able to walk further and be able to go on the trails, sleep on her sides, not hobble in AM when get up, ease going up/down stairs w/o pain, get up/down from floor w/o using hands on something outside of herself, be able to squat down low to apple picking supervisor things, be able dress lower body w/o pain PT-OP-C Subjective Start: 12/25/20 08:56 Freq: Status: Active Protocol: Document 03/02/21 10:54 [facility] (Rec: 03/02/21 12:15 [facility] [id number]) OP-PT Subjective Patient Comments Patient Comments Pt reports noticing greater ease w/stairs and low surfaces but does still feel it in her knees some Patient Reported Progress Improving PT-OP-D Balance Start: 12/25/20 08:56 Freq: Status: Active Protocol: Document 12/25/20 16:50 [facility] (Rec: 12/25/20 18:26 [facility] [id number]) Balance Tests Single Limb Standing Single Limb- Right 23 sec w/hip drop and sig UE use Single Limb- Left 22 sec w/hip drop and sig ue use PT-OP-F Manual Assessment Start: 12/25/20 08:56 Freq: Status: Active Protocol: Document 12/25/20 16:50 [facility] (Rec: 12/25/20 18:26 [facility] [id number]) Manual Assessments Soft Tissue Assessment Soft Tissue Mobility Assessment R iliacus, ITB, HS, adductors tightness and tenderness Joint Mobility Assessment Joint Mobility Assessment equal greater trochanter and iliac crest height PT-OP-G Mobility & Gait Start: 12/25/20 08:56 Freq: Status: Active Protocol: Document 12/25/20 16:50 [facility] (Rec: 12/25/20 18:26 [facility] [id number]) OP Gait Assessment Comments Gait Comments very rigid upper body and trunk, dec stance time RUE, ER BLEs PT-OP-J Posture/Palpation/Skin Start: 12/25/20 08:56 Freq: Status: Active Protocol: Document 02/04/21 13:03 [facility] (Rec: 02/04/21 13:45 [facility] [id number]) Posture Evaluation Javier Postural Classification System Lumbar Protective Mechanism Left AP 0 Lumbar Protective Mechanism Right AP 2 Lumbar Protective Mechanism Left PA 1 Lumbar Protective Mechanism Right PA 0 PT-OP-K Range of Motion Start: 12/25/20 08:56 Freq: Status: Active Protocol: Document 12/25/20 16:50 [facility] (Rec: 12/25/20 18:26 [facility] [id number]) Hip Goniometric Range of Motion Hip Right Active Flexion w/Knee Flexed 94 Straight Leg Raise 66 Internal Rotation 35 External Rotation 21 Left Active Flexion w/Knee Flexed 105 Straight Leg Raise 78 Internal Rotation 31 External Rotation 25 Knee Goniometric Range of Motion Knee Right Flexion Active (degrees) 118 Extension Active (degrees) 8 Left Flexion Active (degrees) 130 Extension Active (degrees) 3 PT-OP-L Special Tests Start: 12/25/20 08:56 Freq: Status: Active Protocol: Document 12/25/20 16:50 [facility] (Rec: 12/25/20 18:26 [facility] [id number]) Special Tests Hip Special Tests obers Test Results R post PT-OP-M Strength Start: 12/25/20 08:56 Freq: Status: Active Protocol: Document 02/04/21 13:03 [facility] (Rec: 02/04/21 13:45 [facility] [id number]) Hip Strength Hip Manual Muscle Testing Right Flexion (L2) 4+ Good+ Extension (S1) 4 Good Abduction 4- Good- Adduction 4- Good- External Rotation 5 Normal Internal Rotation 5 Normal Left Flexion (L2) 4 Good Extension (S1) 4 Good Abduction 5 Normal Adduction 4 Good External Rotation 5 Normal Internal Rotation 5 Normal Knee Strength Knee Manual Muscle Testing Right Flexion (S2) 5 Normal Extension (L3) 5 Normal Left Flexion (S2) 5 Normal Extension (L3) 5 Normal Ankle/Foot Strength Ankle and Foot Manual Muscle Testing Right Dorsiflexion (L4) 5 Normal Plantarflexion (S1) 5 Normal Left Dorsiflexion (L4) 5 Normal Plantarflexion (S1) 5 Normal Comments 20 heel raises B PT-OP-Q Treatments Start: 12/25/20 08:56 Freq: Status: Active Protocol: Document 03/02/21 10:54 [facility] (Rec: 03/02/21 12:15 [facility] [id number]) Gym Equipment Shuttle Balance red clips Comments fwd & side: WBOS & NBOS fwd: staggered stance B w/head turns darrell xcept side NBOS Therapeutic Exercises Standing Exercises squats Standing Exercise Name 1. sit to stand on blue foam x10 2. squat over chair 2x10 Comments mini squat over chair and used mirror to monitor hips Manual Therapy Treatment Soft Tissue Mobilization ant knee Body Location patellar tendon lat R Mobilization Type Strumming Intensity/Depth Moderate Body Position Supine Comments w/APs ITB Body Location R Mobilization Type Rolling,Strumming Intensity/Depth Moderate Body Position Supine Comments w/ knee ext & hip rotation; supine & S/L Taping Kierra Body Location L Treatment Focus med glide, tilt & rot KT Body Location R 3 Y technique Treatment Focus for med glide & quad activation Neuro Re-Education Treatment Balance Activities foam Details step ups Surface blue foam ontop of 4 in step Reps/Duration 10B foam pad walk through Surface blue tpad, green tpad, black tpad, hartmann and blue foams Reps/Duration 5x Comments walk across PT-OP-T Assessment and Plan Start: 12/25/20 08:56 Freq: Status: Active Protocol: Document 03/02/21 10:54 [facility] (Rec: 03/02/21 12:15 [facility] [id number]) Physical Therapy Assessment Goals gait Short Term Goal (STG) pt will be able to go up/down stairs without inc pain in hip or knee. 02/04-able to do recipro [place] but slight knee pain but better and R hip pain 02/10/21: progressing: Pt ableto ascend/descend reciprocal patterning without UE support mild medial R knee pain. STG Duration 03/06 progressing Penitentiary Goal (LTG) Pt will be able to walk any distance she wants without inc pain and be able to walk on trails without feeling of instability. 02/04-has walked the flat of [place] only 02/10/21: progressing able to walk more level surfaces of [employer] approx little over 1 mile total still pain low level constant pain with warm to touch. LTG Duration 04/06 progressing ADLS Short Term Goal (STG) Pt will have enough hip range to be able to do all lower body dressing w/o pain. 02/10/21: progressing: LLE stiff and tight but not pain, R knee below knee and R hip 8/ 10 when cross R over L knee. STG Duration Achieved Paddle Dyeing Machine Operator Goal (LTG) pt will be able to sleep on B sides w/o inc pain. 02/04-can lie on sides a little more but after 10 min has to go back to back LTG Duration 04/06 strength Short Term Goal (STG) Pt will be indep w/HEP STG Duration Achieved Paddle Dyeing Machine Operator Goal (LTG) Pt will improve strength to at least 3/5 LPM all planes and 5/5 LE strength B to allow for inc ease with mobility. 02/04-improved LTG Duration 04/06 functional mobility Short Term Goal (STG) Pt will be able to crouch low to apple picking supervisor objects from the ground and/or low shelves without inc pain. 02/04-avoids crouching still- knee painw hen attempting 02/10/21 pt able to modify mini squat to get things off floor very minimal pain. 02/12/21 Goal MET STG Duration achieved Paddle Dyeing Machine Operator Goal (LTG) pt will be able to get up/down from ground w/o requiring outside surface for hands and without inc pain. LTG Duration achieved LEFS Impairment 33/80 Short Term Goal (STG) Pt will improve LEFS score to at least 45/80 to show improved functional ability. 01/23/21- score 34/80 STG Duration 01/25/21 Paddle Dyeing Machine Operator Goal (LTG) Pt will improve LEFS score to at least 55/80 to show improved functional ability. LTG Duration 02/24/21 Assessment Summary Assessment Pt did betteer with squatting but still did require edu and work through w/the exercise for knee tracking and foot position and hip tracking during exercise. She noted dec pain w/sit to stand w/blue foam under feet despite inc hip and knee flex in this positon. This is likely d/t improved activaition of VMO w/ unstable surface. She did require cues for comortable range w/squats Physical Therapy Plan Frequency and Duration Frequency of Treatment 1-2x/week Duration of Treatment 2 months Plan of Care Start Date 02/04/21 Plan of Care End Date 04/06/21 Next Visit Focus/Plan Next Note Type Treatment Note Next Visit Plan cont to work on knee tracking and ability to stand from low surfaces & do stairs & walk trails
--- NOTE | 2021-03-05 13:03 | PT.OTN ---
Current Diagnoses Pain in right hip (03/05/21) Pain in right knee (03/05/21) Dorsalgia, unspecified (03/05/21) Difficulty in walking, not elsewhere classified (03/05/21) Abnormal posture (03/05/21) Weakness (03/05/21) Physical Therapy Treatment Note PT-OP-A Visit Information Start: 12/25/20 08:56 Freq: Status: Active Protocol: Document 03/05/21 11:21 [facility] (Rec: 03/05/21 13:03 [facility] [id number]) Out-Patient Physical Therapy Visit Information Visit Information Visit Type Treatment Note Visit Note 01/23 Visit Start Time 11:21 Visit Stop Time 12:02 Total Visit Minutes 41 Visit Number 16 Number of MIXING PAN TENDER Visits 0 PT-OP-B Current Condition Start: 12/25/20 08:56 Freq: Status: Active Protocol: Document 12/25/20 16:50 [facility] (Rec: 12/25/20 18:26 [facility] [id number]) Current Condition History of Current Condition Onset Date earlier this year Current Complaints R hip pain & knee pain History of Current Condition Pt reports in Jan 2020 she started to get plantar fascititis and got hoka shoes and insoles which helped but still occ gets feet pain in AMs. HIp pain started this year and she hobbles quite a bit when she first gets up. Notes a couple months later the R groin started hurting too and esteban tis the most notable pain now. Pt reports groin gives out on her more recently (few weeks) and comes and goes-sometimes up to 20x/ day. Pt reprots pain in R med also. Pt cannot lay on either side d/t pain in R hip with about 5 min of laying on side so has to lay on back. Denies LBP. Pt notes at one point had to drag herself up the stairs . Pain has gotten gradually worse. Pt walks about 2 miles maximum but her hip hurts the entire time and she just pushes through pain. Pt has polymyalgia rheumatica, w/hx of oopherectomy, R big toe sx, R shoulder surgery, and heart attack and eneck pain. 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, grade one L; neck pain for PT which was successful only occ pain Treatment Goals Patient/Caregiver Goals Be able to walk further and be able to go on the trails, sleep on her sides, not hobble in AM when get up, ease going up/down stairs w/o pain, get up/down from floor w/o using hands on something outside of herself, be able to squat down low to scrap picker things, be able dress lower body w/o pain PT-OP-C Subjective Start: 12/25/20 08:56 Freq: Status: Active Protocol: Document 03/05/21 11:21 [facility] (Rec: 03/05/21 13:03 [facility] [id number]) OP-PT Subjective Patient Comments Patient Comments Pt reports she felt like the KT tape helped a lot. Pt reports walkin small bit of trail at [facility] and that went okay. All blood work showed good levels per pt Patient Reported Progress Improving PT-OP-D Balance Start: 12/25/20 08:56 Freq: Status: Active Protocol: Document 12/25/20 16:50 [facility] (Rec: 12/25/20 18:26 [facility] [id number]) Balance Tests Single Limb Standing Single Limb- Right 23 sec w/hip drop and sig UE use Single Limb- Left 22 sec w/hip drop and sig ue use PT-OP-F Manual Assessment Start: 12/25/20 08:56 Freq: Status: Active Protocol: Document 12/25/20 16:50 [facility] (Rec: 12/25/20 18:26 [facility] [id number]) Manual Assessments Soft Tissue Assessment Soft Tissue Mobility Assessment R iliacus, ITB, HS, adductors tightness and tenderness Joint Mobility Assessment Joint Mobility Assessment equal greater trochanter and iliac crest height PT-OP-G Mobility & Gait Start: 12/25/20 08:56 Freq: Status: Active Protocol: Document 12/25/20 16:50 [facility] (Rec: 12/25/20 18:26 [facility] [id number]) OP Gait Assessment Comments Gait Comments very rigid upper body and trunk, dec stance time RUE, ER BLEs PT-OP-J Posture/Palpation/Skin Start: 12/25/20 08:56 Freq: Status: Active Protocol: Document 02/04/21 13:03 [facility] (Rec: 02/04/21 13:45 [facility] [id number]) Posture Evaluation Javier Postural Classification System Lumbar Protective Mechanism Left AP 0 Lumbar Protective Mechanism Right AP 2 Lumbar Protective Mechanism Left PA 1 Lumbar Protective Mechanism Right PA 0 PT-OP-K Range of Motion Start: 12/25/20 08:56 Freq: Status: Active Protocol: Document 12/25/20 16:50 [facility] (Rec: 12/25/20 18:26 [facility] [id number]) Hip Goniometric Range of Motion Hip Right Active Flexion w/Knee Flexed 94 Straight Leg Raise 66 Internal Rotation 35 External Rotation 21 Left Active Flexion w/Knee Flexed 105 Straight Leg Raise 78 Internal Rotation 31 External Rotation 25 Knee Goniometric Range of Motion Knee Right Flexion Active (degrees) 118 Extension Active (degrees) 8 Left Flexion Active (degrees) 130 Extension Active (degrees) 3 PT-OP-L Special Tests Start: 12/25/20 08:56 Freq: Status: Active Protocol: Document 12/25/20 16:50 [facility] (Rec: 12/25/20 18:26 [facility] [id number]) Special Tests Hip Special Tests obers Test Results R post PT-OP-M Strength Start: 12/25/20 08:56 Freq: Status: Active Protocol: Document 02/04/21 13:03 [facility] (Rec: 02/04/21 13:45 [facility] [id number]) Hip Strength Hip Manual Muscle Testing Right Flexion (L2) 4+ Good+ Extension (S1) 4 Good Abduction 4- Good- Adduction 4- Good- External Rotation 5 Normal Internal Rotation 5 Normal Left Flexion (L2) 4 Good Extension (S1) 4 Good Abduction 5 Normal Adduction 4 Good External Rotation 5 Normal Internal Rotation 5 Normal Knee Strength Knee Manual Muscle Testing Right Flexion (S2) 5 Normal Extension (L3) 5 Normal Left Flexion (S2) 5 Normal Extension (L3) 5 Normal Ankle/Foot Strength Ankle and Foot Manual Muscle Testing Right Dorsiflexion (L4) 5 Normal Plantarflexion (S1) 5 Normal Left Dorsiflexion (L4) 5 Normal Plantarflexion (S1) 5 Normal Comments 20 heel raises B PT-OP-Q Treatments Start: 12/25/20 08:56 Freq: Status: Active Protocol: Document 03/05/21 11:21 [facility] (Rec: 03/05/21 13:03 [facility] [id number]) Therapeutic Exercises Standing Exercises squats Standing Exercise Name 1. sit to stand on blue foam x10 2. squat over chair 2x10 sidestep Standing Exercise Name in mini squat Side bilateral Equipment Used L3 around knees Reps/Minutes 20ft x2 Comments cues for foot and knee positon Manual Therapy Treatment Soft Tissue Mobilization HS Body Location R HS and mostly calf med Mobilization Type Rolling,Strumming Intensity/Depth Moderate Body Position Supine Comments w/knee ext ITB Body Location R Mobilization Type Rolling,Strumming Intensity/Depth Moderate Body Position Supine Comments w/ knee ext Taping KT Body Location R 3 Y technique Treatment Focus for med glide & quad activation Comments B Neuro Re-Education Treatment Balance Activities foam Comments 1. fwd step ups blue foam ontop 4 in step x10 B 2. side step up/over 4 in step w/blue foam on top x12 B SLS Details on foam B trials PT-OP-T Assessment and Plan Start: 12/25/20 08:56 Freq: Status: Active Protocol: Document 03/05/21 11:21 [facility] (Rec: 03/05/21 13:03 [facility] [id number]) Physical Therapy Assessment Goals gait Short Term Goal (STG) pt will be able to go up/down stairs without inc pain in hip or knee. 02/04-able to do recipro [place] but slight knee pain but better and R hip pain 02/10/21: progressing: Pt ableto ascend/descend reciprocal patterning without UE support mild medial R knee pain. STG Duration 03/06 progressing Winch Runner Goal (LTG) Pt will be able to walk any distance she wants without inc pain and be able to walk on trails without feeling of instability. 02/04-has walked the flat of [place] only 02/10/21: progressing able to walk more level surfaces of [place] approx little over 1 mile total still pain low level constant pain with warm to touch. LTG Duration 04/06 progressing ADLS Short Term Goal (STG) Pt will have enough hip range to be able to do all lower body dressing w/o pain. 02/10/21: progressing: LLE stiff and tight but not pain, R knee below knee and R hip when cross R over L knee. STG Duration Achieved Intermediate Goal (LTG) pt will be able to sleep on B sides w/o inc pain. 02/04-can lie on sides a little more but after 10 min has to go back to back LTG Duration 04/06 strength Short Term Goal (STG) Pt will be indep w/HEP STG Duration Achieved Intermediate Goal (LTG) Pt will improve strength to at least 3/5 LPM all planes and 5/5 LE strength B to allow for inc ease with mobility. 02/04-improved LTG Duration 04/06 functional mobility Short Term Goal (STG) Pt will be able to crouch low to scrap picker objects from the ground and/or low shelves without inc pain. 02/04-avoids crouching still- knee painw hen attempting 02/10/21 pt able to modify mini squat to get things off floor very minimal pain. 02/12/21 Goal MET STG Duration achieved Intermediate Goal (LTG) pt will be able to get up/down from ground w/o requiring outside surface for hands and without inc pain. LTG Duration achieved LEFS Impairment 33/80 Short Term Goal (STG) Pt will improve LEFS score to at least 45/80 to show improved functional ability. 01/23/21- score 34/80 STG Duration 01/25/21 Winch Runner Goal (LTG) Pt will improve LEFS score to at least 55/80 to show improved functional ability. LTG Duration 02/24/21 Assessment Summary Assessment Pt did well with exercises today w/o c/o pain during exercises. She requires cues for knee and foot position occ but ovearll does well with form. Pt was challenged by balance w/foam. Physical Therapy Plan Frequency and Duration Frequency of Treatment 1-2x/week Duration of Treatment 2 months Plan of Care Start Date 02/04/21 Plan of Care End Date 04/06/21 Next Visit Focus/Plan Next Note Type Progress Note Next Visit Plan cont to work on knee tracking and ability to stand from low surfaces & do stairs comfortably
--- NOTE | 2021-03-09 12:16 | PT.OTN ---
Current Diagnoses Pain in right hip (03/09/21) Pain in right knee (03/09/21) Dorsalgia, unspecified (03/09/21) Difficulty in walking, not elsewhere classified (03/09/21) Abnormal posture (03/09/21) Weakness (03/09/21) Physical Therapy Treatment Note PT-OP-A Visit Information Start: 12/25/20 08:56 Freq: Status: Active Protocol: Document 03/09/21 11:27 [facility] (Rec: 03/09/21 12:16 [facility] [id number]) Out-Patient Physical Therapy Visit Information Visit Information Visit Type Progress Note Visit Note 05/25 Visit Start Time 11:22 Visit Stop Time 12:01 Total Visit Minutes 39 Visit Number 17 Number of CHERRY CUTTER Visits 0 PT-OP-B Current Condition Start: 12/25/20 08:56 Freq: Status: Active Protocol: Document 12/25/20 16:50 [facility] (Rec: 12/25/20 18:26 [facility] [id number]) Current Condition History of Current Condition Onset Date earlier this year Current Complaints R hip pain & knee pain History of Current Condition Pt reports in Jan 2020 she started to get plantar fascititis and got hoka shoes and insoles which helped but still occ gets feet pain in AMs. HIp pain started this year and she hobbles quite a bit when she first gets up. Notes a couple months later the R groin started hurting too and esteban tis the most notable pain now. Pt reports groin gives out on her more recently (few weeks) and comes and goes-sometimes up to 20x/ day. Pt reprots pain in R med also. Pt cannot lay on either side d/t pain in R hip with about 5 min of laying on side so has to lay on back. Denies LBP. Pt notes at one point had to drag herself up the stairs . Pain has gotten gradually worse. Pt walks about 2 miles maximum but her hip hurts the entire time and she just pushes through pain. Pt has polymyalgia rheumatica, w/hx of oopherectomy, R big toe sx, R shoulder surgery, and heart attack and eneck pain. 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, grade one L; neck pain for PT which was successful only occ pain Treatment Goals Patient/Caregiver Goals Be able to walk further and be able to go on the trails, sleep on her sides, not hobble in AM when get up, ease going up/down stairs w/o pain, get up/down from floor w/o using hands on something outside of herself, be able to squat down low to shrimp picker things, be able dress lower body w/o pain PT-OP-C Subjective Start: 12/25/20 08:56 Freq: Status: Active Protocol: Document 03/09/21 11:27 [facility] (Rec: 03/09/21 12:16 [facility] [id number]) OP-PT Subjective Patient Comments Patient Comments Pt reports she will be walking a lot when going to [place]. She feels like the tape helps but notes she feels like her knees are still the thing that limit her the most PT-OP-D Balance Start: 12/25/20 08:56 Freq: Status: Active Protocol: Document 12/25/20 16:50 [facility] (Rec: 12/25/20 18:26 [facility] [id number]) Balance Tests Single Limb Standing Single Limb- Right 23 sec w/hip drop and sig UE use Single Limb- Left 22 sec w/hip drop and sig ue use PT-OP-F Manual Assessment Start: 12/25/20 08:56 Freq: Status: Active Protocol: Document 12/25/20 16:50 [facility] (Rec: 12/25/20 18:26 [facility] [id number]) Manual Assessments Soft Tissue Assessment Soft Tissue Mobility Assessment R iliacus, ITB, HS, adductors tightness and tenderness Joint Mobility Assessment Joint Mobility Assessment equal greater trochanter and iliac crest height PT-OP-G Mobility & Gait Start: 12/25/20 08:56 Freq: Status: Active Protocol: Document 12/25/20 16:50 [facility] (Rec: 12/25/20 18:26 [facility] [id number]) OP Gait Assessment Comments Gait Comments very rigid upper body and trunk, dec stance time RUE, ER BLEs PT-OP-J Posture/Palpation/Skin Start: 12/25/20 08:56 Freq: Status: Active Protocol: Document 03/09/21 11:27 [facility] (Rec: 03/09/21 12:16 [facility] [id number]) Posture Evaluation Javier Postural Classification System Lumbar Protective Mechanism Left AP 1 Lumbar Protective Mechanism Right AP 2 Lumbar Protective Mechanism Left PA 2 Lumbar Protective Mechanism Right PA 1 PT-OP-K Range of Motion Start: 12/25/20 08:56 Freq: Status: Active Protocol: Document 12/25/20 16:50 [facility] (Rec: 12/25/20 18:26 [facility] [id number]) Hip Goniometric Range of Motion Hip Right Active Flexion w/Knee Flexed 94 Straight Leg Raise 66 Internal Rotation 35 External Rotation 21 Left Active Flexion w/Knee Flexed 105 Straight Leg Raise 78 Internal Rotation 31 External Rotation 25 Knee Goniometric Range of Motion Knee Right Flexion Active (degrees) 118 Extension Active (degrees) 8 Left Flexion Active (degrees) 130 Extension Active (degrees) 3 PT-OP-L Special Tests Start: 12/25/20 08:56 Freq: Status: Active Protocol: Document 12/25/20 16:50 [facility] (Rec: 12/25/20 18:26 [facility] [id number]) Special Tests Hip Special Tests obers Test Results R post PT-OP-M Strength Start: 12/25/20 08:56 Freq: Status: Active Protocol: Document 03/09/21 11:27 [facility] (Rec: 03/09/21 12:16 [facility] [id number]) Hip Strength Hip Manual Muscle Testing Right Flexion (L2) 5 Normal Extension (S1) 4+ Good+ Abduction 4+ Good+ Adduction 4 Good External Rotation 4+ Good+ Internal Rotation 5 Normal Left Flexion (L2) 4+ Good+ Extension (S1) 4+ Good+ Abduction 5 Normal Adduction 5 Normal External Rotation 5 Normal Internal Rotation 5 Normal Knee Strength Knee Manual Muscle Testing Right Flexion (S2) 5 Normal Extension (L3) 5 Normal Left Flexion (S2) 5 Normal Extension (L3) 5 Normal Ankle/Foot Strength Ankle and Foot Manual Muscle Testing Right Dorsiflexion (L4) 5 Normal Plantarflexion (S1) 5 Normal Left Dorsiflexion (L4) 5 Normal Plantarflexion (S1) 5 Normal Comments 20 heel raises B PT-OP-Q Treatments Start: 12/25/20 08:56 Freq: Status: Active Protocol: Document 03/09/21 11:27 [facility] (Rec: 03/09/21 12:16 [facility] [id number]) Therapeutic Exercises Sitting Exercises karena pin Sitting Exercise Name to calf Side right Standing Exercises stertch Standing Exercise Name calf stair stretch Side bilateral Reps/Minutes 30 sec sidestep Side bilateral Equipment Used L3 at feet Reps/Minutes 20ft x2 Comments cues for foot and knee positon Manual Therapy Treatment Soft Tissue Mobilization ITB Body Location R distal Mobilization Type Rolling,Strumming Intensity/Depth Moderate Body Position Supine Comments w/ knee ext Joint Mobilizations tibfib Joint R proximal Direction AP FM tibfem Joint AP FM femur & lat glides Self-Care/Home Management Treatment Education Other Education edu for pillow between legs and under side for s/l and edu re: how it is important for building hip and thigh strength to dec pain w/low sit to stand. edu on how to pick things up w/ getting closer PT-OP-T Assessment and Plan Start: 12/25/20 08:56 Freq: Status: Active Protocol: Document 03/09/21 11:27 [facility] (Rec: 03/09/21 12:16 [facility] [id number]) Physical Therapy Assessment Goals gait Short Term Goal (STG) pt will be able to go up/down stairs without inc pain in hip or knee. 02/04-able to do recipro [place] but slight knee pain but better and R hip pain 02/10/21: progressing: Pt ableto ascend/descend reciprocal patterning without UE support mild medial R knee pain. 03/09-mild knee pain w/decent STG Duration 03/06 progressing Director Family Goal (LTG) Pt will be able to walk any distance she wants without inc pain and be able to walk on trails without feeling of instability. 02/04-has walked the flat of [place] [employer] only 02/10/21: progressing able to walk more level surfaces of [place] [employer] approx little over 1 mile total still pain low level constant pain with warm to touch. 03/09-reports no issues with walking. d/t weather has not tried trails LTG Duration 04/06 progressing ADLS Short Term Goal (STG) Pt will have enough hip range to be able to do all lower body dressing w/o pain. 02/10/21: progressing: LLE stiff and tight but not pain, R knee below knee and R hip / when cross R over L knee. STG Duration Achieved Skilled Nursing Goal (LTG) pt will be able to sleep on B sides w/o inc pain. 02/04-can lie on sides a little more but after 10 min has to go back to back 03/09-no change LTG Duration 04/06 strength Short Term Goal (STG) Pt will be indep w/HEP STG Duration Achieved Skilled Nursing Goal (LTG) Pt will improve strength to at least 3/5 LPM all planes and 5/5 LE strength B to allow for inc ease with mobility. 02/04-improved 03/09 improved LTG Duration 04/06 functional mobility Short Term Goal (STG) Pt will be able to crouch low to shrimp picker objects from the ground and/or low shelves without inc pain. 02/04-avoids crouching still- knee painw hen attempting 02/10/21 pt able to modify mini squat to get things off floor very minimal pain. 02/12/21 Goal MET STG Duration achieved Director Family Goal (LTG) pt will be able to get up/down from ground w/o requiring outside surface for hands and without inc pain. LTG Duration achieved LEFS Impairment 33/80 Short Term Goal (STG) Pt will improve LEFS score to at least 45/80 to show improved functional ability. 01/23/21- score 34/80 03/09-n/t STG Duration 01/25/21 Director Family Goal (LTG) Pt will improve LEFS score to at least 55/80 to show improved functional ability. LTG Duration 02/24/21 Assessment Summary Assessment Pt is progressing with therapy and is making good improvements w/her strength, functional ability & range. She is able to squat down to get things out of a cubbord. Physical Therapy Plan Frequency and Duration Frequency of Treatment 1-2x/week Duration of Treatment 2 months Plan of Care Start Date 02/04/21 Plan of Care End Date 04/06/21 Therapeutic Interventions Therapeutic Interventions Aquatic Therapy,Balance Training,Gait Training,Home Exercise Program,Joint Mobilizations,Manual Therapy, Neuromuscular Re-education, Patient/Caregiver Education, Self-Care/Home Management, Sensory Integration,Soft Tissue Mobilization,Taping, Therapeutic Activities, Therapeutic Exercises Modalities Cold Pack/Ice Massage,Electric Stimulation,Hot Packs, Infrared Therapy,Ultrasound Next Visit Focus/Plan Next Note Type Progress Note Next Visit Plan cont to work on knee tracking and ability to stand from low surfaces & do stairs comfortably
--- NOTE | 2021-03-11 09:49 | PT.OTN ---
Current Diagnoses Pain in right hip (03/11/21) Pain in right knee (03/11/21) Dorsalgia, unspecified (03/11/21) Difficulty in walking, not elsewhere classified (03/11/21) Abnormal posture (03/11/21) Weakness (03/11/21) Physical Therapy Treatment Note PT-OP-A Visit Information Start: 12/25/20 08:56 Freq: Status: Active Protocol: Document 03/11/21 09:04 [facility] (Rec: 03/11/21 09:49 [facility] [id number]) Out-Patient Physical Therapy Visit Information Visit Information Visit Type Treatment Note Visit Note 06/25 Visit Start Time 09:02 Visit Stop Time 09:43 Total Visit Minutes 41 Visit Number 18 Number of PUMP ATTENDANT Visits 0 PT-OP-B Current Condition Start: 12/25/20 08:56 Freq: Status: Active Protocol: Document 12/25/20 16:50 [facility] (Rec: 12/25/20 18:26 [facility] [id number]) Current Condition History of Current Condition Onset Date earlier this year Current Complaints R hip pain & knee pain History of Current Condition Pt reports in Jan 2020 she started to get plantar fascititis and got hoka shoes and insoles which helped but still occ gets feet pain in AMs. HIp pain started this year and she hobbles quite a bit when she first gets up. Notes a couple months later the R groin started hurting too and esteban tis the most notable pain now. Pt reports groin gives out on her more recently (few weeks) and comes and goes-sometimes up to 20x/ day. Pt reprots pain in R med also. Pt cannot lay on either side d/t pain in R hip with about 5 min of laying on side so has to lay on back. Denies LBP. Pt notes at one point had to drag herself up the stairs . Pain has gotten gradually worse. Pt walks about 2 miles maximum but her hip hurts the entire time and she just pushes through pain. Pt has polymyalgia rheumatica, w/hx of oopherectomy, R big toe sx, R shoulder surgery, and heart attack and eneck pain. 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, grade one L; neck pain for PT which was successful only occ pain Treatment Goals Patient/Caregiver Goals Be able to walk further and be able to go on the trails, sleep on her sides, not hobble in AM when get up, ease going up/down stairs w/o pain, get up/down from floor w/o using hands on something outside of herself, be able to squat down low to pick and shovel worker things, be able dress lower body w/o pain PT-OP-C Subjective Start: 12/25/20 08:56 Freq: Status: Active Protocol: Document 03/11/21 09:04 [facility] (Rec: 03/11/21 09:49 [facility] [id number]) OP-PT Subjective Patient Comments Patient Comments Pt reports right knee felt fine getting up/down from chair and she was able to get up/down from the couch. [place] L knee a little. Notes she feels like she can get up/down from the ground smoother now. Patient Reported Progress Improving PT-OP-D Balance Start: 12/25/20 08:56 Freq: Status: Active Protocol: Document 12/25/20 16:50 [facility] (Rec: 12/25/20 18:26 [facility] [id number]) Balance Tests Single Limb Standing Single Limb- Right 23 sec w/hip drop and sig UE use Single Limb- Left 22 sec w/hip drop and sig ue use PT-OP-F Manual Assessment Start: 12/25/20 08:56 Freq: Status: Active Protocol: Document 12/25/20 16:50 [facility] (Rec: 12/25/20 18:26 [facility] [id number]) Manual Assessments Soft Tissue Assessment Soft Tissue Mobility Assessment R iliacus, ITB, HS, adductors tightness and tenderness Joint Mobility Assessment Joint Mobility Assessment equal greater trochanter and iliac crest height PT-OP-G Mobility & Gait Start: 12/25/20 08:56 Freq: Status: Active Protocol: Document 12/25/20 16:50 [facility] (Rec: 12/25/20 18:26 [facility] [id number]) OP Gait Assessment Comments Gait Comments very rigid upper body and trunk, dec stance time RUE, ER BLEs PT-OP-J Posture/Palpation/Skin Start: 12/25/20 08:56 Freq: Status: Active Protocol: Document 03/09/21 11:27 [facility] (Rec: 03/09/21 12:16 [facility] [id number]) Posture Evaluation [facility] Postural Classification System Lumbar Protective Mechanism Left AP 1 Lumbar Protective Mechanism Right AP 2 Lumbar Protective Mechanism Left PA 2 Lumbar Protective Mechanism Right PA 1 PT-OP-K Range of Motion Start: 12/25/20 08:56 Freq: Status: Active Protocol: Document 12/25/20 16:50 [facility] (Rec: 12/25/20 18:26 [facility] [id number]) Hip Goniometric Range of Motion Hip Right Active Flexion w/Knee Flexed 94 Straight Leg Raise 66 Internal Rotation 35 External Rotation 21 Left Active Flexion w/Knee Flexed 105 Straight Leg Raise 78 Internal Rotation 31 External Rotation 25 Knee Goniometric Range of Motion Knee Right Flexion Active (degrees) 118 Extension Active (degrees) 8 Left Flexion Active (degrees) 130 Extension Active (degrees) 3 PT-OP-L Special Tests Start: 12/25/20 08:56 Freq: Status: Active Protocol: Document 12/25/20 16:50 [facility] (Rec: 12/25/20 18:26 [facility] [id number]) Special Tests Hip Special Tests obers Test Results R post PT-OP-M Strength Start: 12/25/20 08:56 Freq: Status: Active Protocol: Document 03/09/21 11:27 [facility] (Rec: 03/09/21 12:16 [facility] [id number]) Hip Strength Hip Manual Muscle Testing Right Flexion (L2) 5 Normal Extension (S1) 4+ Good+ Abduction 4+ Good+ Adduction 4 Good External Rotation 4+ Good+ Internal Rotation 5 Normal Left Flexion (L2) 4+ Good+ Extension (S1) 4+ Good+ Abduction 5 Normal Adduction 5 Normal External Rotation 5 Normal Internal Rotation 5 Normal Knee Strength Knee Manual Muscle Testing Right Flexion (S2) 5 Normal Extension (L3) 5 Normal Left Flexion (S2) 5 Normal Extension (L3) 5 Normal Ankle/Foot Strength Ankle and Foot Manual Muscle Testing Right Dorsiflexion (L4) 5 Normal Plantarflexion (S1) 5 Normal Left Dorsiflexion (L4) 5 Normal Plantarflexion (S1) 5 Normal Comments 20 heel raises B PT-OP-Q Treatments Start: 12/25/20 08:56 Freq: Status: Active Protocol: Document 03/11/21 09:04 [facility] (Rec: 03/11/21 09:49 [facility] [id number]) Manual Therapy Treatment Soft Tissue Mobilization ant knee Body Location L quad Mobilization Type Strumming Intensity/Depth Moderate Body Position Supine ITB Body Location L distal Mobilization Type Rolling,Strumming Intensity/Depth Moderate Body Position Supine Comments w/ knee ext & rot & use of plunger Neuro Re-Education Treatment Balance Activities foam Comments 1. fwd step ups blue foam ontop 4 in step x10 B 2. side step up/over 4 in step w/blue foam on top x12 B 3. NBOS EC PT-OP-T Assessment and Plan Start: 12/25/20 08:56 Freq: Status: Active Protocol: Document 03/11/21 09:04 [facility] (Rec: 03/11/21 09:49 [facility] [id number]) Physical Therapy Assessment Goals gait Short Term Goal (STG) pt will be able to go up/down stairs without inc pain in hip or knee. 02/04-able to do recipro [place] but slight knee pain but better and R hip pain 02/10/21: progressing: Pt ableto ascend/descend reciprocal patterning without UE support mild medial R knee pain. 03/09-mild knee pain w/decent STG Duration 03/06 progressing Usp Goal (LTG) Pt will be able to walk any distance she wants without inc pain and be able to walk on trails without feeling of instability. 02/04-has walked the flat of [place] only 02/10/21: progressing able to walk more level surfaces of [facility] approx little over 1 mile total still pain low level constant pain with warm to touch. 03/09-reports no issues with walking. d/t weather has not tried trails LTG Duration 04/06 progressing ADLS Short Term Goal (STG) Pt will have enough hip range to be able to do all lower body dressing w/o pain. 02/10/21: progressing: LLE stiff and tight but not pain, R knee below knee and R hip when cross R over L knee. STG Duration Achieved Usp Goal (LTG) pt will be able to sleep on B sides w/o inc pain. 02/04-can lie on sides a little more but after 10 min has to go back to back 03/09-no change LTG Duration 04/06 strength Short Term Goal (STG) Pt will be indep w/HEP STG Duration Achieved Traveling Construction Superintendent Goal (LTG) Pt will improve strength to at least 3/5 LPM all planes and 5/5 LE strength B to allow for inc ease with mobility. 02/04-improved 03/09 improved LTG Duration 04/06 functional mobility Short Term Goal (STG) Pt will be able to crouch low to pick and shovel worker objects from the ground and/or low shelves without inc pain. 02/04-avoids crouching still- knee painw hen attempting 02/10/21 pt able to modify mini squat to get things off floor very minimal pain. 02/12/21 Goal MET STG Duration achieved Usp Goal (LTG) pt will be able to get up/down from ground w/o requiring outside surface for hands and without inc pain. LTG Duration achieved LEFS Impairment 33/80 Short Term Goal (STG) Pt will improve LEFS score to at least 45/80 to show improved functional ability. 01/23/21- score 34/80 03/09-n/t STG Duration 01/25/21 Usp Goal (LTG) Pt will improve LEFS score to at least 55/80 to show improved functional ability. LTG Duration 02/24/21 Assessment Summary Assessment Pt did well with step up activities today w/o inc pain just noting working hard. She had L ITB tightness that limits her mobility of her knee and it did improve w/soft tissue work Physical Therapy Plan Frequency and Duration Frequency of Treatment 1-2x/week Duration of Treatment 2 months Plan of Care Start Date 02/04/21 Plan of Care End Date 04/06/21 Next Visit Focus/Plan Next Note Type Treatment Note Next Visit Plan cont to work on knee tracking and ability to stand from low surfaces & do stairs comfortably
--- NOTE | 2021-03-31 11:19 | PT.OTN ---
Current Diagnoses Pain in right hip (03/31/21) Pain in right knee (03/31/21) Dorsalgia, unspecified (03/31/21) Difficulty in walking, not elsewhere classified (03/31/21) Abnormal posture (03/31/21) Weakness (03/31/21) Physical Therapy Treatment Note PT-OP-A Visit Information Start: 12/25/20 08:56 Freq: Status: Active Protocol: Document 03/31/21 10:36 [facility] (Rec: 03/31/21 11:19 [facility] [id number]) Out-Patient Physical Therapy Visit Information Visit Information Visit Type Treatment Note Visit Note 07/23 Visit Start Time 10:35 Visit Stop Time 11:15 Total Visit Minutes 40 Visit Number 19 Number of PLANNING AND ANALYSIS MANAGER Visits 0 PT-OP-B Current Condition Start: 12/25/20 08:56 Freq: Status: Active Protocol: Document 12/25/20 16:50 [facility] (Rec: 12/25/20 18:26 [facility] [id number]) Current Condition History of Current Condition Onset Date earlier this year Current Complaints R hip pain & knee pain History of Current Condition Pt reports in Jan 2020 she started to get plantar fascititis and got hoka shoes and insoles which helped but still occ gets feet pain in AMs. HIp pain started this year and she hobbles quite a bit when she first gets up. Notes a couple months later the R groin started hurting too and esteban tis the most notable pain now. Pt reports groin gives out on her more recently (few weeks) and comes and goes-sometimes up to 20x/ day. Pt reprots pain in R med also. Pt cannot lay on either side d/t pain in R hip with about 5 min of laying on side so has to lay on back. Denies LBP. Pt notes at one point had to drag herself up the stairs . Pain has gotten gradually worse. Pt walks about 2 miles maximum but her hip hurts the entire time and she just pushes through pain. Pt has polymyalgia rheumatica, w/hx of oopherectomy, R big toe sx, R shoulder surgery, and heart attack and eneck pain. 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, grade one L; neck pain for PT which was successful only occ pain Treatment Goals Patient/Caregiver Goals Be able to walk further and be able to go on the trails, sleep on her sides, not hobble in AM when get up, ease going up/down stairs w/o pain, get up/down from floor w/o using hands on something outside of herself, be able to squat down low to sweet pickled fruit maker things, be able dress lower body w/o pain PT-OP-C Subjective Start: 12/25/20 08:56 Freq: Status: Active Protocol: Document 03/31/21 10:36 [facility] (Rec: 03/31/21 11:19 [facility] [id number]) OP-PT Subjective Patient Comments Patient Comments Pt reports L leg feels good and feels tight some still in R ant knee and thigh. Some discomfort in R hip. Occ a little buttocks pain but it goes away Patient Reported Progress Improving PT-OP-D Balance Start: 12/25/20 08:56 Freq: Status: Active Protocol: Document 12/25/20 16:50 [facility] (Rec: 12/25/20 18:26 [facility] [id number]) Balance Tests Single Limb Standing Single Limb- Right 23 sec w/hip drop and sig UE use Single Limb- Left 22 sec w/hip drop and sig ue use PT-OP-F Manual Assessment Start: 12/25/20 08:56 Freq: Status: Active Protocol: Document 12/25/20 16:50 [facility] (Rec: 12/25/20 18:26 [facility] [id number]) Manual Assessments Soft Tissue Assessment Soft Tissue Mobility Assessment R iliacus, ITB, HS, adductors tightness and tenderness Joint Mobility Assessment Joint Mobility Assessment equal greater trochanter and iliac crest height PT-OP-G Mobility & Gait Start: 12/25/20 08:56 Freq: Status: Active Protocol: Document 12/25/20 16:50 [facility] (Rec: 12/25/20 18:26 [facility] [id number]) OP Gait Assessment Comments Gait Comments very rigid upper body and trunk, dec stance time RUE, ER BLEs PT-OP-J Posture/Palpation/Skin Start: 12/25/20 08:56 Freq: Status: Active Protocol: Document 03/09/21 11:27 [facility] (Rec: 03/09/21 12:16 [facility] [id number]) Posture Evaluation [facility] Postural Classification System Lumbar Protective Mechanism Left AP 1 Lumbar Protective Mechanism Right AP 2 Lumbar Protective Mechanism Left PA 2 Lumbar Protective Mechanism Right PA 1 PT-OP-K Range of Motion Start: 12/25/20 08:56 Freq: Status: Active Protocol: Document 12/25/20 16:50 [facility] (Rec: 12/25/20 18:26 [facility] [id number]) Hip Goniometric Range of Motion Hip Right Active Flexion w/Knee Flexed 94 Straight Leg Raise 66 Internal Rotation 35 External Rotation 21 Left Active Flexion w/Knee Flexed 105 Straight Leg Raise 78 Internal Rotation 31 External Rotation 25 Knee Goniometric Range of Motion Knee Right Flexion Active (degrees) 118 Extension Active (degrees) 8 Left Flexion Active (degrees) 130 Extension Active (degrees) 3 PT-OP-L Special Tests Start: 12/25/20 08:56 Freq: Status: Active Protocol: Document 12/25/20 16:50 [facility] (Rec: 12/25/20 18:26 [facility] [id number]) Special Tests Hip Special Tests obers Test Results R post PT-OP-M Strength Start: 12/25/20 08:56 Freq: Status: Active Protocol: Document 03/09/21 11:27 [facility] (Rec: 03/09/21 12:16 [facility] [id number]) Hip Strength Hip Manual Muscle Testing Right Flexion (L2) 5 Normal Extension (S1) 4+ Good+ Abduction 4+ Good+ Adduction 4 Good External Rotation 4+ Good+ Internal Rotation 5 Normal Left Flexion (L2) 4+ Good+ Extension (S1) 4+ Good+ Abduction 5 Normal Adduction 5 Normal External Rotation 5 Normal Internal Rotation 5 Normal Knee Strength Knee Manual Muscle Testing Right Flexion (S2) 5 Normal Extension (L3) 5 Normal Left Flexion (S2) 5 Normal Extension (L3) 5 Normal Ankle/Foot Strength Ankle and Foot Manual Muscle Testing Right Dorsiflexion (L4) 5 Normal Plantarflexion (S1) 5 Normal Left Dorsiflexion (L4) 5 Normal Plantarflexion (S1) 5 Normal Comments 20 heel raises B PT-OP-Q Treatments Start: 12/25/20 08:56 Freq: Status: Active Protocol: Document 03/31/21 10:36 [facility] (Rec: 03/31/21 11:19 [facility] [id number]) Therapeutic Exercises Standing Exercises stertch Standing Exercise Name 1. hip flexor 2. quad Side right Reps/Minutes 30 sec ea squats Standing Exercise Name tap to mat Side bilateral Reps/Minutes 3x8 Comments cues for knee tracking Manual Therapy Treatment Soft Tissue Mobilization ant knee Body Location R lat quad Mobilization Type Strumming Intensity/Depth Moderate Body Position Hooklying Comments w/IR/ER ITB Body Location L distal Mobilization Type Rolling,Strumming Intensity/Depth Moderate Body Position Supine Comments w/ APs & rot Joint Mobilizations tibfib Joint R proximal Direction PA FM tibfem Joint PA FM for flex w/toe taps Self-Care/Home Management Treatment Education Other Education Discuss plan for DC and edu re : rolling out for ITB still PT-OP-T Assessment and Plan Start: 12/25/20 08:56 Freq: Status: Active Protocol: Document 03/31/21 10:36 [facility] (Rec: 03/31/21 11:19 [facility] [id number]) Physical Therapy Assessment Goals gait Short Term Goal (STG) pt will be able to go up/down stairs without inc pain in hip or knee. 02/04-able to do recipro [place] but slight knee pain but better and R hip pain 02/10/21: progressing: Pt ableto ascend/descend reciprocal patterning without UE support mild medial R knee pain. 03/09-mild knee pain w/decent STG Duration 03/06 progressing Nylon Winder Goal (LTG) Pt will be able to walk any distance she wants without inc pain and be able to walk on trails without feeling of instability. 02/04-has walked the flat of [facility] only 02/10/21: progressing able to walk more level surfaces of [facility] approx little over 1 mile total still pain low level constant pain with warm to touch. 03/09-reports no issues with walking. d/t weather has not tried trails LTG Duration 04/06 progressing ADLS Short Term Goal (STG) Pt will have enough hip range to be able to do all lower body dressing w/o pain. 02/10/21: progressing: LLE stiff and tight but not pain, R knee below knee and R hip when cross R over L knee. STG Duration Achieved Nylon Winder Goal (LTG) pt will be able to sleep on B sides w/o inc pain. 02/04-can lie on sides a little more but after 10 min has to go back to back 03/09-no change LTG Duration 04/06 strength Short Term Goal (STG) Pt will be indep w/HEP STG Duration Achieved Nylon Winder Goal (LTG) Pt will improve strength to at least 3/5 LPM all planes and 5/5 LE strength B to allow for inc ease with mobility. 02/04-improved 03/09 improved LTG Duration 04/06 functional mobility Short Term Goal (STG) Pt will be able to crouch low to sweet pickled fruit maker objects from the ground and/or low shelves without inc pain. 02/04-avoids crouching still- knee painw hen attempting 02/10/21 pt able to modify mini squat to get things off floor very minimal pain. 02/12/21 Goal MET STG Duration achieved Nylon Winder Goal (LTG) pt will be able to get up/down from ground w/o requiring outside surface for hands and without inc pain. LTG Duration achieved LEFS Impairment 33/80 Short Term Goal (STG) Pt will improve LEFS score to at least 45/80 to show improved functional ability. 01/23/21- score 34/80 03/09-n/t STG Duration 01/25/21 Care Home Goal (LTG) Pt will improve LEFS score to at least 55/80 to show improved functional ability. LTG Duration 02/24/21 Assessment Summary Assessment Cues required for knee tracking w/squats. Pt did feel good stretch w/quad stretching exercise and did have improved ROM into flex after manual therapy on R side . Physical Therapy Plan Frequency and Duration Frequency of Treatment 1-2x/week Duration of Treatment 2 months Plan of Care Start Date 02/04/21 Plan of Care End Date 04/06/21 Next Visit Focus/Plan Next Note Type Discharge Summary Next Visit Plan review HEP as needed
--- NOTE | 2021-04-06 16:06 | PT.OTN ---
Current Diagnoses Pain in right hip (04/06/21) Pain in right knee (04/06/21) Dorsalgia, unspecified (04/06/21) Difficulty in walking, not elsewhere classified (04/06/21) Abnormal posture (04/06/21) Weakness (04/06/21) Physical Therapy Treatment Note PT-OP-A Visit Information Start: 12/25/20 08:56 Freq: Status: Active Protocol: Document 04/06/21 13:50 [facility] (Rec: 04/06/21 16:06 [facility] [id number]) Out-Patient Physical Therapy Visit Information Visit Information Visit Type Discharge Summary Visit Start Time 13:48 Visit Stop Time 14:30 Total Visit Minutes 42 Visit Number 20 Number of UPPER SHAPER Visits 0 PT-OP-B Current Condition Start: 12/25/20 08:56 Freq: Status: Active Protocol: Document 12/25/20 16:50 [facility] (Rec: 12/25/20 18:26 [facility] [id number]) Current Condition History of Current Condition Onset Date earlier this year Current Complaints R hip pain & knee pain History of Current Condition Pt reports in Jan 2020 she started to get plantar fascititis and got hoka shoes and insoles which helped but still occ gets feet pain in AMs. HIp pain started this year and she hobbles quite a bit when she first gets up. Notes a couple months later the R groin started hurting too and esteban tis the most notable pain now. Pt reports groin gives out on her more recently (few weeks) and comes and goes-sometimes up to 20x/ day. Pt reprots pain in R med also. Pt cannot lay on either side d/t pain in R hip with about 5 min of laying on side so has to lay on back. Denies LBP. Pt notes at one point had to drag herself up the stairs . Pain has gotten gradually worse. Pt walks about 2 miles maximum but her hip hurts the entire time and she just pushes through pain. Pt has polymyalgia rheumatica, w/hx of oopherectomy, R big toe sx, R shoulder surgery, and heart attack and eneck pain. 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, grade one L; neck pain for PT which was successful only occ pain Treatment Goals Patient/Caregiver Goals Be able to walk further and be able to go on the trails, sleep on her sides, not hobble in AM when get up, ease going up/down stairs w/o pain, get up/down from floor w/o using hands on something outside of herself, be able to squat down low to bean picker machine operator things, be able dress lower body w/o pain PT-OP-C Subjective Start: 12/25/20 08:56 Freq: Status: Active Protocol: Document 04/06/21 13:50 [facility] (Rec: 04/06/21 16:06 [facility] [id number]) OP-PT Subjective Patient Comments Patient Comments Pt reports she feels ready for DC Patient Reported Progress Improving PT-OP-D Balance Start: 12/25/20 08:56 Freq: Status: Active Protocol: Document 12/25/20 16:50 [facility] (Rec: 12/25/20 18:26 [facility] [id number]) Balance Tests Single Limb Standing Single Limb- Right 23 sec w/hip drop and sig UE use Single Limb- Left 22 sec w/hip drop and sig ue use PT-OP-F Manual Assessment Start: 12/25/20 08:56 Freq: Status: Active Protocol: Document 12/25/20 16:50 [facility] (Rec: 12/25/20 18:26 [facility] [id number]) Manual Assessments Soft Tissue Assessment Soft Tissue Mobility Assessment R iliacus, ITB, HS, adductors tightness and tenderness Joint Mobility Assessment Joint Mobility Assessment equal greater trochanter and iliac crest height PT-OP-G Mobility & Gait Start: 12/25/20 08:56 Freq: Status: Active Protocol: Document 12/25/20 16:50 [facility] (Rec: 12/25/20 18:26 [facility] [id number]) OP Gait Assessment Comments Gait Comments very rigid upper body and trunk, dec stance time RUE, ER BLEs PT-OP-J Posture/Palpation/Skin Start: 12/25/20 08:56 Freq: Status: Active Protocol: Document 04/06/21 13:50 [facility] (Rec: 04/06/21 15:15 [facility] [id number]) Posture Evaluation Javier Postural Classification System Lumbar Protective Mechanism Left AP 4 Lumbar Protective Mechanism Right AP 3 Lumbar Protective Mechanism Left PA 5 Lumbar Protective Mechanism Right PA 3 PT-OP-K Range of Motion Start: 12/25/20 08:56 Freq: Status: Active Protocol: Document 12/25/20 16:50 [facility] (Rec: 12/25/20 18:26 [facility] [id number]) Hip Goniometric Range of Motion Hip Right Active Flexion w/Knee Flexed 94 Straight Leg Raise 66 Internal Rotation 35 External Rotation 21 Left Active Flexion w/Knee Flexed 105 Straight Leg Raise 78 Internal Rotation 31 External Rotation 25 Knee Goniometric Range of Motion Knee Right Flexion Active (degrees) 118 Extension Active (degrees) 8 Left Flexion Active (degrees) 130 Extension Active (degrees) 3 PT-OP-L Special Tests Start: 12/25/20 08:56 Freq: Status: Active Protocol: Document 12/25/20 16:50 [facility] (Rec: 12/25/20 18:26 [facility] [id number]) Special Tests Hip Special Tests obers Test Results R post PT-OP-M Strength Start: 12/25/20 08:56 Freq: Status: Active Protocol: Document 04/06/21 13:50 [facility] (Rec: 04/06/21 15:15 [facility] [id number]) Hip Strength Hip Manual Muscle Testing Right Flexion (L2) 4+ Good+ Extension (S1) 5 Normal Abduction 4+ Good+ Adduction 4+ Good+ External Rotation 5 Normal Internal Rotation 5 Normal Left Flexion (L2) 5 Normal Extension (S1) 5 Normal Abduction 5 Normal Adduction 5 Normal External Rotation 5 Normal Internal Rotation 5 Normal Knee Strength Knee Manual Muscle Testing Right Flexion (S2) 5 Normal Extension (L3) 5 Normal Left Flexion (S2) 5 Normal Extension (L3) 5 Normal Ankle/Foot Strength Ankle and Foot Manual Muscle Testing Right Dorsiflexion (L4) 5 Normal Plantarflexion (S1) 5 Normal Left Dorsiflexion (L4) 5 Normal Plantarflexion (S1) 5 Normal Comments 20 heel raises B PT-OP-Q Treatments Start: 12/25/20 08:56 Freq: Status: Active Protocol: Document 04/06/21 13:50 [facility] (Rec: 04/06/21 15:15 [facility] [id number]) Therapeutic Exercises Supine Exercises bridge Supine Exercise Name w/alt front july Side bilateral Resistance discussed not performed Reps/Minutes 21 july pelvic tilt Supine Exercise Name 1./july then leg raise 2. slr Reps/Minutes 15 ea Comments focus on core hip stretch Supine Exercise Name figure 4 Side bilateral Reps/Minutes 30 sec ea HS stretch Supine Exercise Name 1. HS stretch w/ankle pump grasp behind thigh 2. HS/add stretch Side bilateral Equipment Used w/ strap adductor stretch Reps/Minutes 30 sec ea Comments good feedback response Sidelying Exercises clamshell Side right Equipment Used L3 Reps/Minutes 10 Standing Exercises fwd/back Standing Exercise Name resisted walk Side bilateral Equipment Used L3 Reps/Minutes 10ft stertch Standing Exercise Name 1. hip flexor 2. quad Side right Reps/Minutes 30 sec ea squats Standing Exercise Name 1. sit to stand 2. squat Side bilateral Reps/Minutes 8 ea w/cues sidestep Side bilateral Equipment Used L3 at feet Reps/Minutes 10ft Comments cues for foot and knee positon Self-Care/Home Management Treatment Education Other Education discussed trying ND treatment and other anti-inflamatory options, eud to cont strengthening a couple times a weeka nd cont walking PT-OP-T Assessment and Plan Start: 12/25/20 08:56 Freq: Status: Active Protocol: Document 04/06/21 13:50 [facility] (Rec: 04/06/21 15:15 [facility] [id number]) Physical Therapy Assessment Goals gait Short Term Goal (STG) pt will be able to go up/down stairs without inc pain in hip or knee. 02/04-able to do recipro [place] but slight knee pain but better and R hip pain 02/10/21: progressing: Pt ableto ascend/descend reciprocal patterning without UE support mild medial R knee pain. 03/09-mild knee pain w/decent STG Duration slight R hip discomfort Welding Equipment Repairer Goal (LTG) Pt will be able to walk any distance she wants without inc pain and be able to walk on trails without feeling of instability. 02/04-has walked the flat of [employer] only 02/10/21: progressing able to walk more level surfaces of [place] approx little over 1 mile total still pain low level constant pain with warm to touch. 03/09-reports no issues with walking. d/t weather has not tried trails LTG Duration achieved with some discomofrt in hip after but subsides quickly ADLS Short Term Goal (STG) Pt will have enough hip range to be able to do all lower body dressing w/o pain. 02/10/21: progressing: LLE stiff and tight but not pain, R knee below knee and R hip 8/ 10 when cross R over L knee. STG Duration Achieved Welding Equipment Repairer Goal (LTG) pt will be able to sleep on B sides w/o inc pain. 02/04-can lie on sides a little more but after 10 min has to go back to back 03/09-no change LTG Duration only able to do for short bouts strength Short Term Goal (STG) Pt will be indep w/HEP STG Duration Achieved Welding Equipment Repairer Goal (LTG) Pt will improve strength to at least 3/5 LPM all planes and 5/5 LE strength B to allow for inc ease with mobility. 02/04-improved 03/09 improved LTG Duration Improved almost 5/5 functional mobility Short Term Goal (STG) Pt will be able to crouch low to bean picker machine operator objects from the ground and/or low shelves without inc pain. 02/04-avoids crouching still- knee painw hen attempting 02/10/21 pt able to modify mini squat to get things off floor very minimal pain. 02/12/21 Goal MET STG Duration achieved Penitentiary Goal (LTG) pt will be able to get up/down from ground w/o requiring outside surface for hands and without inc pain. LTG Duration achieved LEFS Impairment 33/80 Short Term Goal (STG) Pt will improve LEFS score to at least 45/80 to show improved functional ability. 01/23/21- score 34/80 03/09-n/t STG Duration achieved to 65/80 Penitentiary Goal (LTG) Pt will improve LEFS score to at least 55/80 to show improved functional ability. LTG Duration achieved to 65/80 Assessment Summary Assessment Pt has imrpoved significantly w/PT and at this time is DC d/ t meeting goals. She has improved strengtha nd ROM and functional ability. SHe sitll does get hip and knee pain but it is less and requries more activity to bring it on. Exercises reviewed today and pt required very little cues. DC to HEP at this time. Physical Therapy Plan Discharge Physical Therapy Discharge Reasons Goals Met
== END 2021-06-16 09:33 ==
LOC: PHYS 13:45
PROVIDERS: PCP Internal Medicine; Referring Provider Internal Medicine Rheumatology; Visit Provider Internal Medicine Rheumatology
DX: M25.551 Pain in right hip (principal); M54.9 Dorsalgia, unspecified; M25.561 Pain in right knee; R53.1 Weakness; R26.2 Difficulty in walking, not elsewhere classified; R29.3 Abnormal posture
CPT/HCPCS: 97110; 97112; 97140; 97162; 97535

== ENCOUNTER 2021-07-13 14:15 | Outpatient (RCR) | payer MEDICARE, SELFPAY | END 2021-07-13 16:15 | LOC: CAR 14:15 | PROVIDERS: PCP Internal Medicine; Referring Provider Internal Medicine Cardiovascular Disease; Visit Provider Internal Medicine Cardiovascular Disease | DX: I21.3 ST elevation (STEMI) myocardial infarction of unspecified site (principal) | CPT/HCPCS: 93798 ==

== ENCOUNTER 2023-01-19 11:30 | Outpatient (RCR) | payer MEDICARE, SELFPAY ==
--- NOTE | 2022-10-26 18:39 | PT.OIE ---
Current Diagnoses Pain in right hip (10/26/22) Pain in right knee (10/26/22) Pain in left knee (10/26/22) Difficulty in walking, not elsewhere classified (10/26/22) Weakness (10/26/22) Past Medical History (Last Updated 12/04/20 @ 05:54 by Betzadia Lee DO) Dyslipidemia GERD (gastroesophageal reflux disease) Polymyalgia rheumatica Eddie's ring Visit Care Team Role Provider Type Erica Patel MD Primary Care Provider Non-Staff Specialty: Internal Medicine Address: [address] [place], [address] Fax: Email: Attending Provider Referring Provider Specialty: Address: Phone: Fax: Email: Physical Therapy Initial Evaluation PT-OP-A Visit Information Start: 10/21/22 14:55 Freq: Status: Active Protocol: Document 10/26/22 10:17 [facility] (Rec: 10/26/22 12:26 [facility] [id number]) Out-Patient Physical Therapy Visit Information Visit Information Visit Type Initial Evaluation Visit Note 05/25 Visit Start Time 11:36 Visit Stop Time 12:26 Total Visit Minutes 50 Visit Number 1 Number of PROTECTION ANALYST Visits 0 PT-OP-B Current Condition Start: 10/21/22 14:55 Freq: Status: Active Protocol: Document 10/26/22 10:17 [facility] (Rec: 10/26/22 12:26 [facility] [id number]) Current Condition History of Current Condition Onset Date Jun was when it got really bad Current Complaints L knee pain History of Current Condition Pt has history of neck pain which was treated w/PT w/good results and R hip pain that did imrpove w/PT and injection . She had heart attack in November 2020 and she is monitored and taking meds for this. Pt reports L knee felt like a 'a knife was stuck into it' and when she walked it felt like ' it was going further'. She saw her MD and made her wait several weeks and the constantness is not present but it still will inc. Pain in L knee will hurt w/stairs, walking, sleeping. She sleeps on her back d/t her R hip and CPAP. Sometimes she has to place a pillow under her knees to get comfortable. it stops her from going to sleep but doesn't wake her. Sometimes she gets rodriguez down the pozo that is burning. APs improves burning in pozo and propping LE. Pt notes she still walks but just deals with the pain. She does do hills and downhill and stairs are painful. Sometimes it feels like the knee is going ot go out from under her and she has to grab something. Pt reports she fell when she squatted down in [employer] to get somethign and fell toher butt. no known injury. Getting up from the floor is hard. Avoiding the gardening d/t her knee. Pt reports R knee is also limiting her ability to kneel and stairs, walking. She has had pain for years d/t polymyalgia rheumatica, so she keeps herself moving. The last time missy had the knife feeling was about 2 weeks ago. She is using the rower at home and that feels okay. Pt is typically do 2 miles walking 2-3x/wk and that was on the flat except the past few weeks. SHe hasn't walked d /t a respiratory thing. She hasn't tried to get back. August is around when pain got to be more intermittent. Denies back pain recently. Notes sometimes she has a weird feeling in her L ankle and she has to mvoe it around. Treatment Goals Patient/Caregiver Goals be able to do hills and stairs , be able to garden and kneel, be able to squat down, be able to walk w/o inc pain, be able to get off the floor without looking like a crab; build strength and balance to avoid a fall. PT-OP-C Subjective Start: 10/21/22 14:55 Freq: Status: Active Protocol: Document 10/26/22 10:17 [facility] (Rec: 10/26/22 12:26 [facility] [id number]) Patient Questionnaires Lower Extremity Functional Scale LEFS Score 46/80 OP-PT Pain Assessment Location L knee Pain Location Details med knee and across ant knee and post knee Description Burning,Shooting,Stabbing Frequency Daily Variations/Patterns burning in pozo Pain Aggravating Factors Walking,Stair Climbing Other Pain Aggravating Factors laying supine, kneeling,squat, up from ground Other Pain Alleviating Factors APs, prop pillow w/LE PT-OP-D Balance Start: 10/21/22 14:55 Freq: Status: Active Protocol: Document 10/26/22 10:17 [facility] (Rec: 10/26/22 12:26 [facility] [id number]) Balance Tests Single Limb Standing Single Limb- Right 3 sec (cramp in L HS) Single Limb- Left 12 sec w/use of arms to blance (pain in R HS) PT-OP-G Mobility & Gait Start: 10/21/22 14:55 Freq: Status: Active Protocol: Document 10/26/22 10:17 [facility] (Rec: 10/26/22 12:26 [facility] [id number]) OP Gait Assessment Comments Gait Comments dec ant dep R; dec push off B, primarily leg walker for prupulsion, L pelvic shear PT-OP-J Posture/Palpation/Skin Start: 10/21/22 14:55 Freq: Status: Active Protocol: Document 10/26/22 10:17 [facility] (Rec: 10/26/22 12:26 [facility] [id number]) Posture Evaluation [facility] Postural Classification System Lumbar Protective Mechanism Left AP 0 Lumbar Protective Mechanism Right AP 0 Lumbar Protective Mechanism Left PA 0 Lumbar Protective Mechanism Right PA 0 Comments Posture Comments RLE turned out, L shoulder is higher, L pelvic shear, inc kyphosis (pain in knee); R iliac crest higher, greater trochanter equal B PT-OP-K Range of Motion Start: 10/21/22 14:55 Freq: Status: Active Protocol: Document 10/26/22 10:17 [facility] (Rec: 10/26/22 12:26 [facility] [id number]) Knee Goniometric Range of Motion Knee Right Flexion Active (degrees) 110 Extension Active (degrees) 4 Comments cramping post knee w/flex Left Flexion Active (degrees) 110 Extension Active (degrees) 3 Comments painful flex in me dknee; PT-OP-M Strength Start: 10/21/22 14:55 Freq: Status: Active Protocol: Document 10/26/22 10:17 [facility] (Rec: 10/26/22 12:26 [facility] [id number]) Hip Strength Hip Manual Muscle Testing Right Flexion (L2) 4 Good Extension (S1) 3- Fair- Abduction 3+ Fair+ Adduction 3+ Fair+ External Rotation 4+ Good+ Internal Rotation 3+ Fair+ Left Flexion (L2) 4- Good- Extension (S1) 4 Good Abduction 4 Good Adduction 3 Fair External Rotation 4- Good- Internal Rotation 4- Good- Comments dec core engagement B Knee Strength Knee Manual Muscle Testing Right Flexion (S2) 4+ Good+ Extension (L3) 5 Normal Left Flexion (S2) 4+ Good+ Extension (L3) 4 Good Ankle/Foot Strength Ankle and Foot Manual Muscle Testing Right Dorsiflexion (L4) 5 Normal Plantarflexion (S1) 5 Normal Comments 20 heel raises Left Dorsiflexion (L4) 5 Normal Plantarflexion (S1) 4+ Good+ Comments pozo cramping; 17 heel raises PT-OP-T Assessment and Plan Start: 10/21/22 14:55 Freq: Status: Active Protocol: Document 10/26/22 10:17 [facility] (Rec: 10/26/22 12:26 [facility] [id number]) Physical Therapy Assessment Rehab Potential Rehabilitation Potential Good Evaluation Complexity Number of Personal Factors/Comorbidities 3 or More Number of Body Systems Impaired 4 or More Clinical Presentation at Evaluation Evolving Impairments Impairments Activity Tolerance,Balance, Functional Activities, Functional Mobility,Gait,Pain, Posture,ROM,Soft Tissue Mobility,Strength,Transfers Goals balance Senior Living Goal (LTG) Pt will be able to do SLS B w/ arms at side for at least 15 sec LTG Duration 01/14/23 gait Regional Controller Goal (LTG) Pt will be able do go up/down stairs w/o inc pain LTG Duration 01/07 LE strength Short Term Goal (STG) Pt will be abl to squat down to seed cone picker things/lift things w/o pain or dec balance STG Duration 12/14 Senior Living Goal (LTG) Pt willb e able to get up/down from the ground w/o inc pain or significant difficulty LTG Duration 01/14/23 strength Short Term Goal (STG) Pt will be indep w/HEP STG Duration 11/27/22 Regional Controller Goal (LTG) Pt will score at least 3/5 on LPM in all planes and 5/5 on all MMT of LEs to show improved stability in order to improve pt gait mecahnics and dec pain. LTG Duration 01/14/23 activities Short Term Goal (STG) Pt will be able to returnt o 2 mile flat walks w/o B knee or R hip pain greater tahn 2/ 10. STG Duration 12/07/22 Regional Controller Goal (LTG) pt will be able to return to hilly walks w/o B knee pain or R hip pain LTG Duration 01/14/23 Assessment Summary Assessment Pt presents w/L knee pain that started to be much worse in Feb w/sharp pains and history of B knee pain and R hip pain wchi likely contribute to this pain. She does show uneven pelvis height and gait impariments that likely are related to her inc in R knee pain as she has changed movement based on her R sided pain taht did improve w/past PT and a shot but did not resolve fully. She is limited in her moblity due to how sharp L knee painw as at the start and does still have pain w/stairs, hills and extended walkinga nd did note discomfort w/ext standing during eval for postural eval. S he does have ER of tibia and IR of femur in standing w/ signfiicant inward tracing of knee w/bending,which has likely has caused wear and tear of the meniscus. no special tests performed today but will complete at next session. Pt would benefit from skilled PT to work on pelvic height and posture, B hip mobiltiy and stability along w /gait mechanics and LE strength and stabiltiy. Physical Therapy Plan Frequency and Duration Frequency of Treatment 1-2x/wk Duration of treatment (weeks) 12 Plan of Care Start Date 10/26/22 Plan of Care End Date 01/18/23 Therapeutic Interventions Therapeutic Interventions Balance Training,Gait Training ,Home Exercise Program,Joint Mobilizations,Manual Therapy, Neuromuscular Re-education, Patient/Caregiver Education, Self-Care/Home Management,Soft Tissue Mobilization,Taping, Therapeutic Activities, Therapeutic Exercises Modalities Cold Pack/Ice Massage,Electric Stimulation,Hot Packs, Infrared Therapy,Iontophoresis ,Ultrasound Next Visit Focus/Plan Next Note Type Treatment Note Next Visit Plan knee special tests, impact test; HEP: sidesteps, bridges, sit to stands, B knee press; manual to B hips, sacrum and innominate
--- NOTE | 2022-10-26 18:39 | PT.OPPOC ---
Physical, Occupational & Speech Therapy At [facility] Current Diagnoses Pain in right hip (10/26/22) Pain in right knee (10/26/22) Pain in left knee (10/26/22) Difficulty in walking, not elsewhere classified (10/26/22) Weakness (10/26/22) Visit Care Team Role Provider Type Erica Patel MD Primary Care Provider Non-Staff Specialty: Internal Medicine Address: [address] [place] [address], [phone] Fax: Email: Attending Provider Referring Provider Specialty: Address: Phone: Fax: Email: Plan Of Care PT-OP-T Assessment and Plan Start: 10/21/22 14:55 Freq: Status: Active Protocol: Document 10/26/22 10:17 [facility] (Rec: 10/26/22 12:26 [facility] [id number]) Physical Therapy Assessment Rehab Potential Rehabilitation Potential Good Evaluation Complexity Number of Personal Factors/Comorbidities 3 or More Number of Body Systems Impaired 4 or More Clinical Presentation at Evaluation Evolving Impairments Impairments Activity Tolerance,Balance, Functional Activities, Functional Mobility,Gait,Pain, Posture,ROM,Soft Tissue Mobility,Strength,Transfers Goals balance Motor Vehicle Assembler Goal (LTG) Pt will be able to do SLS B w/ arms at side for at least 15 sec LTG Duration 01/14/23 gait Halfway Goal (LTG) Pt will be able do go up/down stairs w/o inc pain LTG Duration 01/07 LE strength Short Term Goal (STG) Pt will be abl to squat down to curing pickling packer things/lift things w/o pain or dec balance STG Duration 12/14 Motor Vehicle Assembler Goal (LTG) Pt willb e able to get up/down from the ground w/o inc pain or significant difficulty LTG Duration 01/14/23 strength Short Term Goal (STG) Pt will be indep w/HEP STG Duration 11/27/22 Motor Vehicle Assembler Goal (LTG) Pt will score at least 3/5 on LPM in all planes and 5/5 on all MMT of LEs to show improved stability in order to improve pt gait mecahnics and dec pain. LTG Duration 01/14/23 activities Short Term Goal (STG) Pt will be able to returnt o 2 mile flat walks w/o B knee or R hip pain greater tahn 2/ 10. STG Duration 12/07/22 Motor Vehicle Assembler Goal (LTG) pt will be able to return to hilly walks w/o B knee pain or R hip pain LTG Duration 01/14/23 Assessment Summary Assessment Pt presents w/L knee pain that started to be much worse in Feb w/sharp pains and history of B knee pain and R hip pain wchi likely contribute to this pain. She does show uneven pelvis height and gait impariments that likely are related to her inc in R knee pain as she has changed movement based on her R sided pain taht did improve w/past PT and a shot but did not resolve fully. She is limited in her moblity due to how sharp L knee painw as at the start and does still have pain w/stairs, hills and extended walkinga nd did note discomfort w/ext standing during eval for postural eval. S he does have ER of tibia and IR of femur in standing w/ signfiicant inward tracing of knee w/bending,which has likely has caused wear and tear of the meniscus. no special tests performed today but will complete at next session. Pt would benefit from skilled PT to work on pelvic height and posture, B hip mobiltiy and stability along w /gait mechanics and LE strength and stabiltiy. Physical Therapy Plan Frequency and Duration Frequency of Treatment 1-2x/wk Duration of treatment (weeks) 12 Plan of Care Start Date 10/26/22 Plan of Care End Date 01/18/23 Therapeutic Interventions Therapeutic Interventions Balance Training,Gait Training ,Home Exercise Program,Joint Mobilizations,Manual Therapy, Neuromuscular Re-education, Patient/Caregiver Education, Self-Care/Home Management,Soft Tissue Mobilization,Taping, Therapeutic Activities, Therapeutic Exercises Modalities Cold Pack/Ice Massage,Electric Stimulation,Hot Packs, Infrared Therapy,Iontophoresis ,Ultrasound Next Visit Focus/Plan Next Note Type Treatment Note Next Visit Plan knee special tests, impact test; HEP: sidesteps, bridges, sit to stands, B knee press; manual to B hips, sacrum and innominate Plan of Care Dates Plan of Care Start Date 10/26/22 Plan of Care End Date 01/18/23 Electronically Signed by: Jennifer Pitts, PT 10/26/22 1373 If you are in agreement with this Plan of Care, please return a signed and dated copy. I have reviewed this Plan of Care and certify that the skilled therapy services above are required to meet the patient?s needs. Physician Signature Date Printed Name and Credentials Clinical Instructor Signature Printed Name and Credentials
--- NOTE | 2022-11-10 14:28 | PT.OTN ---
Current Diagnoses Pain in right hip (11/10/22) Pain in right knee (11/10/22) Pain in left knee (11/10/22) Difficulty in walking, not elsewhere classified (11/10/22) Weakness (11/10/22) Physical Therapy Treatment Note PT-OP-A Visit Information Start: 10/21/22 14:55 Freq: Status: Active Protocol: Document 11/10/22 13:34 [facility] (Rec: 11/10/22 14:28 [facility] [id number]) Out-Patient Physical Therapy Visit Information Visit Information Visit Type Treatment Note Visit Start Time 13:34 Visit Stop Time 14:16 Total Visit Minutes 42 Visit Number 2 Number of PHOTONICS ENGINEER Visits 0 PT-OP-B Current Condition Start: 10/21/22 14:55 Freq: Status: Active Protocol: Document 10/26/22 10:17 [facility] (Rec: 10/26/22 12:26 [facility] [id number]) Current Condition History of Current Condition Onset Date Jun was when it got really bad Current Complaints L knee pain History of Current Condition Pt has history of neck pain which was treated w/PT w/good results and R hip pain that did imrpove w/PT and injection . She had heart attack in November 2020 and she is monitored and taking meds for this. Pt reports L knee felt like a 'a knife was stuck into it' and when she walked it felt like ' it was going further'. She saw her MD and made her wait several weeks and the constantness is not present but it still will inc. Pain in L knee will hurt w/stairs, walking, sleeping. She sleeps on her back d/t her R hip and CPAP. Sometimes she has to place a pillow under her knees to get comfortable. it stops her from going to sleep but doesn't wake her. Sometimes she gets rodriguez down the pozo that is burning. APs improves burning in pozo and propping LE. Pt notes she still walks but just deals with the pain. She does do hills and downhill and stairs are painful. Sometimes it feels like the knee is going ot go out from under her and she has to grab something. Pt reports she fell when she squatted down in [employer] to get somethign and fell toher butt. no known injury. Getting up from the floor is hard. Avoiding the gardening d/t her knee. Pt reports R knee is also limiting her ability to kneel and stairs, walking. She has had pain for years d/t polymyalgia rheumatica, so she keeps herself moving. The last time msisy had the knife feeling was about 2 weeks ago. She is using the rower at home and that feels okay. Pt is typically do 2 miles walking 2-3x/wk and that was on the flat except the past few weeks. SHe hasn't walked d /t a respiratory thing. She hasn't tried to get back. August is around when pain got to be more intermittent. Denies back pain recently. Notes sometimes she has a weird feeling in her L ankle and she has to mvoe it around. Treatment Goals Patient/Caregiver Goals be able to do hills and stairs , be able to garden and kneel, be able to squat down, be able to walk w/o inc pain, be able to get off the floor without looking like a crab; build strength and balance to avoid a fall. PT-OP-C Subjective Start: 10/21/22 14:55 Freq: Status: Active Protocol: Document 11/10/22 13:34 [facility] (Rec: 11/10/22 14:28 [facility] [id number]) OP-PT Subjective Patient Comments Patient Comments Pt realized she just bends at her back to do her gardening. PT-OP-D Balance Start: 10/21/22 14:55 Freq: Status: Active Protocol: Document 10/26/22 10:17 [facility] (Rec: 10/26/22 12:26 [facility] [id number]) Balance Tests Single Limb Standing Single Limb- Right 3 sec (cramp in L HS) Single Limb- Left 12 sec w/use of arms to blance (pain in R HS) PT-OP-G Mobility & Gait Start: 10/21/22 14:55 Freq: Status: Active Protocol: Document 10/26/22 10:17 [facility] (Rec: 10/26/22 12:26 [facility] [id number]) OP Gait Assessment Comments Gait Comments dec ant dep R; dec push off B, primarily leg walker for prupulsion, L pelvic shear PT-OP-J Posture/Palpation/Skin Start: 10/21/22 14:55 Freq: Status: Active Protocol: Document 10/26/22 10:17 [facility] (Rec: 10/26/22 12:26 [facility] [id number]) Posture Evaluation [facility] Postural Classification System Lumbar Protective Mechanism Left AP 0 Lumbar Protective Mechanism Right AP 0 Lumbar Protective Mechanism Left PA 0 Lumbar Protective Mechanism Right PA 0 Comments Posture Comments RLE turned out, L shoulder is higher, L pelvic shear, inc kyphosis (pain in knee); R iliac crest higher, greater trochanter equal B PT-OP-K Range of Motion Start: 10/21/22 14:55 Freq: Status: Active Protocol: Document 10/26/22 10:17 [facility] (Rec: 10/26/22 12:26 [facility] [id number]) Knee Goniometric Range of Motion Knee Right Flexion Active (degrees) 110 Extension Active (degrees) 4 Comments cramping post knee w/flex Left Flexion Active (degrees) 110 Extension Active (degrees) 3 Comments painful flex in me dknee; PT-OP-L Special Tests Start: 10/21/22 14:55 Freq: Status: Active Protocol: Document 11/10/22 13:34 [facility] (Rec: 11/10/22 14:28 [facility] [id number]) Special Tests Knee Special Tests Thessaly Test 5 Degrees Test Results neg L Prem Test Test Results neg L Apley's Compression Comments positive L ligamentous test Comments ACL, PCL, MCL & LCL neg L PT-OP-M Strength Start: 10/21/22 14:55 Freq: Status: Active Protocol: Document 10/26/22 10:17 [facility] (Rec: 10/26/22 12:26 [facility] [id number]) Hip Strength Hip Manual Muscle Testing Right Flexion (L2) 4 Good Extension (S1) 3- Fair- Abduction 3+ Fair+ Adduction 3+ Fair+ External Rotation 4+ Good+ Internal Rotation 3+ Fair+ Left Flexion (L2) 4- Good- Extension (S1) 4 Good Abduction 4 Good Adduction 3 Fair External Rotation 4- Good- Internal Rotation 4- Good- Comments dec core engagement B Knee Strength Knee Manual Muscle Testing Right Flexion (S2) 4+ Good+ Extension (L3) 5 Normal Left Flexion (S2) 4+ Good+ Extension (L3) 4 Good Ankle/Foot Strength Ankle and Foot Manual Muscle Testing Right Dorsiflexion (L4) 5 Normal Plantarflexion (S1) 5 Normal Comments 20 heel raises Left Dorsiflexion (L4) 5 Normal Plantarflexion (S1) 4+ Good+ Comments pozo cramping; 17 heel raises PT-OP-Q Treatments Start: 10/21/22 14:55 Freq: Status: Active Protocol: Document 11/10/22 13:34 [facility] (Rec: 11/10/22 14:28 [facility] [id number]) Therapeutic Exercises Supine Exercises bridge Supine Exercise Name w/alt march Side bilateral Reps/Minutes 10 core Side bilateral Reps/Minutes 30 sec Comments DL press Standing Exercises squat Side bilateral Equipment Used grand traverse band at knees Reps/Minutes 10 sidesteps Side bilateral Equipment Used grand traverse band Reps/Minutes 2x15ft Manual Therapy Treatment Soft Tissue Mobilization quads Body Location L along VMO border w/quad set Mobilization Type Sustained Pressure Intensity/Depth Moderate adductors Body Location L w/ER FM Mobilization Type Rolling Intensity/Depth Moderate Body Position Hooklying Joint Mobilizations patellofemoral Joint sup, inf, med L hip Joint free the ball L FM Body Position Hooklying Neuro Re-Education Treatment Other Activities facilitation Comments R diagonal DL press w/L chop, chin tuck and pillow tucked under pelvis prolonged holds ( 3 min total) PT-OP-T Assessment and Plan Start: 10/21/22 14:55 Freq: Status: Active Protocol: Document 11/10/22 13:34 [facility] (Rec: 11/10/22 14:28 [facility] [id number]) Physical Therapy Assessment Goals balance Garment Manufacturer Goal (LTG) Pt will be able to do SLS B w/ arms at side for at least 15 sec LTG Duration 01/14/23 gait Garment Manufacturer Goal (LTG) Pt will be able do go up/down stairs w/o inc pain LTG Duration 01/07 LE strength Short Term Goal (STG) Pt will be abl to squat down to warehouse picker things/lift things w/o pain or dec balance STG Duration 12/14 Long-Term Goal (LTG) Pt willb e able to get up/down from the ground w/o inc pain or significant difficulty LTG Duration 01/14/23 strength Short Term Goal (STG) Pt will be indep w/HEP STG Duration 11/27/22 Long-Term Goal (LTG) Pt will score at least 3/5 on LPM in all planes and 5/5 on all MMT of LEs to show improved stability in order to improve pt gait mecahnics and dec pain. LTG Duration 01/14/23 activities Short Term Goal (STG) Pt will be able to returnt o 2 mile flat walks w/o B knee or R hip pain greater tahn 2/ 10. STG Duration 12/07/22 Garment Manufacturer Goal (LTG) pt will be able to return to hilly walks w/o B knee pain or R hip pain LTG Duration 01/14/23 Assessment Summary Assessment Pt did well with new exercsies and required min cues. She did require cues for nuetral knee and pelvis position w/ these exercsies. w/ facilitation, ptwent from 3+/5 MMT B hip flex to 4/5. She does have weakness in stabilizers likely affecting her LE motor patterns. Pt had imrpoved ER w/manual. Physical Therapy Plan Frequency and Duration Frequency of Treatment 1-2x/wk Duration of treatment (weeks) 12 Plan of Care Start Date 10/26/22 Plan of Care End Date 01/18/23 Next Visit Focus/Plan Next Note Type Treatment Note Next Visit Plan review HEP: sidesteps, bridges , sit to stands, B knee press; manual to B hips, sacrum and innominate
--- NOTE | 2022-11-15 17:44 | PT.OTN ---
Current Diagnoses Pain in right hip (11/15/22) Pain in right knee (11/15/22) Pain in left knee (11/15/22) Difficulty in walking, not elsewhere classified (11/15/22) Weakness (11/15/22) Physical Therapy Treatment Note PT-OP-A Visit Information Start: 10/21/22 14:55 Freq: Status: Active Protocol: Document 11/15/22 16:47 [facility] (Rec: 11/15/22 17:44 [facility] [id number]) Out-Patient Physical Therapy Visit Information Visit Information Visit Type Treatment Note Visit Note 07/23 Visit Start Time 16:48 Visit Stop Time 17:29 Total Visit Minutes 41 Visit Number 3 Number of GIG TENDER Visits 0 PT-OP-B Current Condition Start: 10/21/22 14:55 Freq: Status: Active Protocol: Document 10/26/22 10:17 [facility] (Rec: 10/26/22 12:26 [facility] [id number]) Current Condition History of Current Condition Onset Date Jun was when it got really bad Current Complaints L knee pain History of Current Condition Pt has history of neck pain which was treated w/PT w/good results and R hip pain that did imrpove w/PT and injection . She had heart attack in November 2020 and she is monitored and taking meds for this. Pt reports L knee felt like a 'a knife was stuck into it' and when she walked it felt like ' it was going further'. She saw her MD and made her wait several weeks and the constantness is not present but it still will inc. Pain in L knee will hurt w/stairs, walking, sleeping. She sleeps on her back d/t her R hip and CPAP. Sometimes she has to place a pillow under her knees to get comfortable. it stops her from going to sleep but doesn't wake her. Sometimes she gets rodriguez down the pozo that is burning. APs improves burning in pozo and propping LE. Pt notes she still walks but just deals with the pain. She does do hills and downhill and stairs are painful. Sometimes it feels like the knee is going ot go out from under her and she has to grab something. Pt reports she fell when she squatted down in [employer] to get somethign and fell toher butt. no known injury. Getting up from the floor is hard. Avoiding the gardening d/t her knee. Pt reports R knee is also limiting her ability to kneel and stairs, walking. She has had pain for years d/t polymyalgia rheumatica, so she keeps herself moving. The last time missy had the knife feeling was about 2 weeks ago. She is using the rower at home and that feels okay. Pt is typically do 2 miles walking 2-3x/wk and that was on the flat except the past few weeks. SHe hasn't walked d /t a respiratory thing. She hasn't tried to get back. August is around when pain got to be more intermittent. Denies back pain recently. Notes sometimes she has a weird feeling in her L ankle and she has to mvoe it around. Treatment Goals Patient/Caregiver Goals be able to do hills and stairs , be able to garden and kneel, be able to squat down, be able to walk w/o inc pain, be able to get off the floor without looking like a crab; build strength and balance to avoid a fall. PT-OP-C Subjective Start: 10/21/22 14:55 Freq: Status: Active Protocol: Document 11/15/22 16:47 [facility] (Rec: 11/15/22 17:44 [facility] [id number]) OP-PT Subjective Patient Comments Patient Comments Pt reports doing exercises. Feels the burning in her hips. PT-OP-D Balance Start: 10/21/22 14:55 Freq: Status: Active Protocol: Document 10/26/22 10:17 [facility] (Rec: 10/26/22 12:26 [facility] [id number]) Balance Tests Single Limb Standing Single Limb- Right 3 sec (cramp in L HS) Single Limb- Left 12 sec w/use of arms to blance (pain in R HS) PT-OP-G Mobility & Gait Start: 10/21/22 14:55 Freq: Status: Active Protocol: Document 10/26/22 10:17 [facility] (Rec: 10/26/22 12:26 [facility] [id number]) OP Gait Assessment Comments Gait Comments dec ant dep R; dec push off B, primarily leg walker for prupulsion, L pelvic shear PT-OP-J Posture/Palpation/Skin Start: 10/21/22 14:55 Freq: Status: Active Protocol: Document 10/26/22 10:17 [facility] (Rec: 10/26/22 12:26 [facility] [id number]) Posture Evaluation [facility] Postural Classification System Lumbar Protective Mechanism Left AP 0 Lumbar Protective Mechanism Right AP 0 Lumbar Protective Mechanism Left PA 0 Lumbar Protective Mechanism Right PA 0 Comments Posture Comments RLE turned out, L shoulder is higher, L pelvic shear, inc kyphosis (pain in knee); R iliac crest higher, greater trochanter equal B PT-OP-K Range of Motion Start: 10/21/22 14:55 Freq: Status: Active Protocol: Document 10/26/22 10:17 [facility] (Rec: 10/26/22 12:26 [facility] [id number]) Knee Goniometric Range of Motion Knee Right Flexion Active (degrees) 110 Extension Active (degrees) 4 Comments cramping post knee w/flex Left Flexion Active (degrees) 110 Extension Active (degrees) 3 Comments painful flex in me dknee; PT-OP-L Special Tests Start: 10/21/22 14:55 Freq: Status: Active Protocol: Document 11/10/22 13:34 [facility] (Rec: 11/10/22 14:28 [facility] [id number]) Special Tests Knee Special Tests Thessaly Test 5 Degrees Test Results neg L Prem Test Test Results neg L Apley's Compression Comments positive L ligamentous test Comments ACL, PCL, MCL & LCL neg L PT-OP-M Strength Start: 10/21/22 14:55 Freq: Status: Active Protocol: Document 10/26/22 10:17 [facility] (Rec: 10/26/22 12:26 [facility] [id number]) Hip Strength Hip Manual Muscle Testing Right Flexion (L2) 4 Good Extension (S1) 3- Fair- Abduction 3+ Fair+ Adduction 3+ Fair+ External Rotation 4+ Good+ Internal Rotation 3+ Fair+ Left Flexion (L2) 4- Good- Extension (S1) 4 Good Abduction 4 Good Adduction 3 Fair External Rotation 4- Good- Internal Rotation 4- Good- Comments dec core engagement B Knee Strength Knee Manual Muscle Testing Right Flexion (S2) 4+ Good+ Extension (L3) 5 Normal Left Flexion (S2) 4+ Good+ Extension (L3) 4 Good Ankle/Foot Strength Ankle and Foot Manual Muscle Testing Right Dorsiflexion (L4) 5 Normal Plantarflexion (S1) 5 Normal Comments 20 heel raises Left Dorsiflexion (L4) 5 Normal Plantarflexion (S1) 4+ Good+ Comments pozo cramping; 17 heel raises PT-OP-Q Treatments Start: 10/21/22 14:55 Freq: Status: Active Protocol: Document 11/15/22 16:47 [facility] (Rec: 11/15/22 17:44 [facility] [id number]) Therapeutic Exercises Supine Exercises bridge Side bilateral Comments attempted /july x3 but cramping; 5 sec DL x6 core Side bilateral Reps/Minutes 30 sec Comments DL press Standing Exercises squat Side bilateral Equipment Used twenty-nine palms band at knees Reps/Minutes 10 sidesteps Side bilateral Equipment Used twenty-nine palms band Reps/Minutes 2x15ft Manual Therapy Treatment Soft Tissue Mobilization HS Body Location R Mobilization Type Rolling Intensity/Depth Moderate Comments active HS stretch quads Body Location L along VMO border w/hip ER & patellar tendon w/quad set Mobilization Type Sustained Pressure Intensity/Depth Moderate adductors Body Location L w/ER FM Mobilization Type Rolling Intensity/Depth Moderate Body Position Hooklying Joint Mobilizations ankle Comments L calcaneal distraction & lat glide FM L talar distraction, med gldie and AP FM tibfib Comments L AP fib proximal FM 2. L AP tibia distal FM tibfem Joint L Direction AP femur FM; IR tibia AP FM PT-OP-T Assessment and Plan Start: 10/21/22 14:55 Freq: Status: Active Protocol: Document 11/15/22 16:47 [facility] (Rec: 11/15/22 17:44 [facility] [id number]) Physical Therapy Assessment Goals balance Assisted Goal (LTG) Pt will be able to do SLS B w/ arms at side for at least 15 sec LTG Duration 01/14/23 gait Astronomy Instructor Goal (LTG) Pt will be able do go up/down stairs w/o inc pain LTG Duration 01/07 LE strength Short Term Goal (STG) Pt will be abl to squat down to rock picker things/lift things w/o pain or dec balance STG Duration 12/14 Astronomy Instructor Goal (LTG) Pt willb e able to get up/down from the ground w/o inc pain or significant difficulty LTG Duration 01/14/23 strength Short Term Goal (STG) Pt will be indep w/HEP STG Duration 11/27/22 Assisted Goal (LTG) Pt will score at least 3/5 on LPM in all planes and 5/5 on all MMT of LEs to show improved stability in order to improve pt gait mecahnics and dec pain. LTG Duration 01/14/23 activities Short Term Goal (STG) Pt will be able to returnt o 2 mile flat walks w/o B knee or R hip pain greater tahn 2/ 10. STG Duration 12/07/22 Assisted Goal (LTG) pt will be able to return to hilly walks w/o B knee pain or R hip pain LTG Duration 01/14/23 Assessment Summary Assessment Pt had improved knee tracking after manual treatment today. She is imprvoing w/squat form but did still require cues. She had cramping w/bridge w/ july so changed to just bridges with hold. She was told to do those at home and can try to progress if reg bridges feel too easy. Physical Therapy Plan Frequency and Duration Frequency of Treatment 1-2x/wk Duration of treatment (weeks) 12 Plan of Care Start Date 10/26/22 Plan of Care End Date 01/18/23 Next Visit Focus/Plan Next Note Type Treatment Note Next Visit Plan review squats and bridges, try lunges, step ups; manual for knee tracking
--- NOTE | 2022-11-19 17:31 | PT.OTN ---
Current Diagnoses Pain in right hip (11/19/22) Pain in right knee (11/19/22) Pain in left knee (11/19/22) Difficulty in walking, not elsewhere classified (11/19/22) Weakness (11/19/22) Physical Therapy Treatment Note PT-OP-A Visit Information Start: 10/21/22 14:55 Freq: Status: Active Protocol: Document 11/19/22 11:30 [facility] (Rec: 11/19/22 12:19 [facility] [id number]) Out-Patient Physical Therapy Visit Information Visit Information Visit Type Treatment Note Visit Note 08/23 Visit Start Time 11:30 Visit Stop Time 12:15 Total Visit Minutes 45 Visit Number 4 Number of PREFABRICATOR Visits 1 PT-OP-B Current Condition Start: 10/21/22 14:55 Freq: Status: Active Protocol: Document 10/26/22 10:17 [facility] (Rec: 10/26/22 12:26 [facility] [id number]) Current Condition History of Current Condition Onset Date Jun was when it got really bad Current Complaints L knee pain History of Current Condition Pt has history of neck pain which was treated w/PT w/good results and R hip pain that did imrpove w/PT and injection . She had heart attack in November 2020 and she is monitored and taking meds for this. Pt reports L knee felt like a 'a knife was stuck into it' and when she walked it felt like ' it was going further'. She saw her MD and made her wait several weeks and the constantness is not present but it still will inc. Pain in L knee will hurt w/stairs, walking, sleeping. She sleeps on her back d/t her R hip and CPAP. Sometimes she has to place a pillow under her knees to get comfortable. it stops her from going to sleep but doesn't wake her. Sometimes she gets rodriguez down the pozo that is burning. APs improves burning in pozo and propping LE. Pt notes she still walks but just deals with the pain. She does do hills and downhill and stairs are painful. Sometimes it feels like the knee is going ot go out from under her and she has to grab something. Pt reports she fell when she squatted down in [employer] to get somethign and fell toher butt. no known injury. Getting up from the floor is hard. Avoiding the gardening d/t her knee. Pt reports R knee is also limiting her ability to kneel and stairs, walking. She has had pain for years d/t polymyalgia rheumatica, so she keeps herself moving. The last time missy had the knife feeling was about 2 weeks ago. She is using the rower at home and that feels okay. Pt is typically do 2 miles walking 2-3x/wk and that was on the flat except the past few weeks. SHe hasn't walked d /t a respiratory thing. She hasn't tried to get back. August is around when pain got to be more intermittent. Denies back pain recently. Notes sometimes she has a weird feeling in her L ankle and she has to mvoe it around. Treatment Goals Patient/Caregiver Goals be able to do hills and stairs , be able to garden and kneel, be able to squat down, be able to walk w/o inc pain, be able to get off the floor without looking like a crab; build strength and balance to avoid a fall. PT-OP-C Subjective Start: 10/21/22 14:55 Freq: Status: Active Protocol: Document 11/19/22 11:30 [facility] (Rec: 11/19/22 12:19 [facility] [id number]) OP-PT Subjective Patient Comments Patient Comments María went for a walk Tuesday for twenty minutes with hills and noticed no stabbing pain in L knee with going downhill. PT-OP-D Balance Start: 10/21/22 14:55 Freq: Status: Active Protocol: Document 10/26/22 10:17 [facility] (Rec: 10/26/22 12:26 [facility] [id number]) Balance Tests Single Limb Standing Single Limb- Right 3 sec (cramp in L HS) Single Limb- Left 12 sec w/use of arms to blance (pain in R HS) PT-OP-G Mobility & Gait Start: 10/21/22 14:55 Freq: Status: Active Protocol: Document 10/26/22 10:17 [facility] (Rec: 10/26/22 12:26 [facility] [id number]) OP Gait Assessment Comments Gait Comments dec ant dep R; dec push off B, primarily leg walker for prupulsion, L pelvic shear PT-OP-J Posture/Palpation/Skin Start: 10/21/22 14:55 Freq: Status: Active Protocol: Document 10/26/22 10:17 [facility] (Rec: 10/26/22 12:26 [facility] [id number]) Posture Evaluation [facility] Postural Classification System Lumbar Protective Mechanism Left AP 0 Lumbar Protective Mechanism Right AP 0 Lumbar Protective Mechanism Left PA 0 Lumbar Protective Mechanism Right PA 0 Comments Posture Comments RLE turned out, L shoulder is higher, L pelvic shear, inc kyphosis (pain in knee); R iliac crest higher, greater trochanter equal B PT-OP-K Range of Motion Start: 10/21/22 14:55 Freq: Status: Active Protocol: Document 10/26/22 10:17 [facility] (Rec: 10/26/22 12:26 [facility] [id number]) Knee Goniometric Range of Motion Knee Right Flexion Active (degrees) 110 Extension Active (degrees) 4 Comments cramping post knee w/flex Left Flexion Active (degrees) 110 Extension Active (degrees) 3 Comments painful flex in me dknee; PT-OP-L Special Tests Start: 10/21/22 14:55 Freq: Status: Active Protocol: Document 11/10/22 13:34 [facility] (Rec: 11/10/22 14:28 [facility] [id number]) Special Tests Knee Special Tests Thessaly Test 5 Degrees Test Results neg L Prem Test Test Results neg L Apley's Compression Comments positive L ligamentous test Comments ACL, PCL, MCL & LCL neg L PT-OP-M Strength Start: 10/21/22 14:55 Freq: Status: Active Protocol: Document 10/26/22 10:17 [facility] (Rec: 10/26/22 12:26 [facility] [id number]) Hip Strength Hip Manual Muscle Testing Right Flexion (L2) 4 Good Extension (S1) 3- Fair- Abduction 3+ Fair+ Adduction 3+ Fair+ External Rotation 4+ Good+ Internal Rotation 3+ Fair+ Left Flexion (L2) 4- Good- Extension (S1) 4 Good Abduction 4 Good Adduction 3 Fair External Rotation 4- Good- Internal Rotation 4- Good- Comments dec core engagement B Knee Strength Knee Manual Muscle Testing Right Flexion (S2) 4+ Good+ Extension (L3) 5 Normal Left Flexion (S2) 4+ Good+ Extension (L3) 4 Good Ankle/Foot Strength Ankle and Foot Manual Muscle Testing Right Dorsiflexion (L4) 5 Normal Plantarflexion (S1) 5 Normal Comments 20 heel raises Left Dorsiflexion (L4) 5 Normal Plantarflexion (S1) 4+ Good+ Comments pozo cramping; 17 heel raises PT-OP-Q Treatments Start: 10/21/22 14:55 Freq: Status: Active Protocol: Document 11/19/22 11:30 [facility] (Rec: 11/19/22 12:19 [facility] [id number]) Therapeutic Exercises Supine Exercises heel digs Supine Exercise Name added to HEP Side bilateral Reps/Minutes 10 x 5SH Comments no increase in baseline symptoms bridge Supine Exercise Name alt heel raise attempted but dc'd d/t calf pain Side bilateral Reps/Minutes 10 x 5SH (or two breath cycles ) Comments cues for not breathholding, LE alignment core Side bilateral Reps/Minutes 30 sec Comments DL press, cue for core engagement Standing Exercises squat Side bilateral Equipment Used [employer] band at knees Reps/Minutes 10 Comments cued hip hinge with fatigue sidesteps Side bilateral Equipment Used [employer] band Reps/Minutes 2x15ft Other Exercises step ups Other Exercise Name no UE support - add to HEP Equipment Used 4>6 training stairs Reps/Minutes x10 reps ea, alt leading leg Comments cues for neutral foot position and eccentric control Manual Therapy Treatment Soft Tissue Mobilization HS Body Location R Mobilization Type Rolling,Other Intensity/Depth Moderate Comments manual HS stretch w/ contract/ relax 2x10s quads Body Location L along VMO border w/hip ER & patellar tendon w/quad set Mobilization Type Sustained Pressure Intensity/Depth Moderate Joint Mobilizations patellofemoral Joint sup, inf, med L Self-Care/Home Management Treatment Education Patient Education Home Exercise Program,Pain Management,Safety Other Education Added to HEP: heel digs, step- ups - HO given. Discussed pt's tendency to push through pain due to history of polymyalgia rheumatica and that it is not necessary to push through hamstring/calf pain when bridging with alternating july - reminded pt of modification to hold bridge instead of july, which she had forgotten. PT-OP-T Assessment and Plan Start: 10/21/22 14:55 Freq: Status: Active Protocol: Document 11/19/22 11:30 [facility] (Rec: 11/19/22 12:19 [facility] [id number]) Physical Therapy Assessment Impairments Impairments Activity Tolerance,Balance, Functional Activities, Functional Mobility,Gait,Pain, Posture,ROM,Soft Tissue Mobility,Strength,Transfers Goals balance Long-Term Goal (LTG) Pt will be able to do SLS B w/ arms at side for at least 15 sec LTG Duration 01/14/23 gait Long-Term Goal (LTG) Pt will be able do go up/down stairs w/o inc pain LTG Duration 01/07 LE strength Short Term Goal (STG) Pt will be abl to squat down to lease picker things/lift things w/o pain or dec balance STG Duration 12/14 Long-Term Goal (LTG) Pt willb e able to get up/down from the ground w/o inc pain or significant difficulty LTG Duration 01/14/23 strength Short Term Goal (STG) Pt will be indep w/HEP STG Duration 11/27/22 Long-Term Goal (LTG) Pt will score at least 3/5 on LPM in all planes and 5/5 on all MMT of LEs to show improved stability in order to improve pt gait mecahnics and dec pain. LTG Duration 01/14/23 activities Short Term Goal (STG) Pt will be able to returnt o 2 mile flat walks w/o B knee or R hip pain greater tahn 2/ 10. STG Duration 12/07/22 Long-Term Goal (LTG) pt will be able to return to hilly walks w/o B knee pain or R hip pain LTG Duration 01/14/23 Assessment Summary Assessment María demonstrates good form with squats initially but requires cues to maintain hip hinge with knees behind toes as she approaches fatigue. She needs cues for neutral foot position and eccentric control with step ups. Discussed pt's tendency to push through pain due to history of polymyalgia rheumatica and that it is not necessary to push through hamstring/calf pain when bridging with alternating july - reminded pt of modification to hold bridge only which she had forgotten. Added to HEP: heel digs for hamstring strengthening, step- ups - HO given. Physical Therapy Plan Frequency and Duration Frequency of Treatment 1-2x/wk Duration of treatment (weeks) 12 Plan of Care Start Date 10/26/22 Plan of Care End Date 01/18/23 Therapeutic Interventions Therapeutic Interventions Balance Training,Gait Training ,Home Exercise Program,Joint Mobilizations,Manual Therapy, Neuromuscular Re-education, Patient/Caregiver Education, Self-Care/Home Management,Soft Tissue Mobilization,Taping, Therapeutic Activities, Therapeutic Exercises Modalities Cold Pack/Ice Massage,Electric Stimulation,Hot Packs, Infrared Therapy,Iontophoresis ,Ultrasound Next Visit Focus/Plan Next Note Type Treatment Note Next Visit Plan review squats, bridges, step ups (progress if able), heel digs; try lunges; manual for knee tracking
--- NOTE | 2022-11-22 12:18 | PT.OTN ---
Current Diagnoses Pain in right hip (11/22/22) Pain in right knee (11/22/22) Pain in left knee (11/22/22) Difficulty in walking, not elsewhere classified (11/22/22) Weakness (11/22/22) Physical Therapy Treatment Note PT-OP-A Visit Information Start: 10/21/22 14:55 Freq: Status: Active Protocol: Document 11/22/22 11:28 [facility] (Rec: 11/22/22 12:18 [facility] [id number]) Out-Patient Physical Therapy Visit Information Visit Information Visit Type Treatment Note Visit Note 09/22 Visit Start Time 11:30 Visit Stop Time 12:13 Total Visit Minutes 43 Visit Number 5 Number of MOTORCYCLE DELIVERER Visits 2 PT-OP-B Current Condition Start: 10/21/22 14:55 Freq: Status: Active Protocol: Document 10/26/22 10:17 [facility] (Rec: 10/26/22 12:26 [facility] [id number]) Current Condition History of Current Condition Onset Date Jun was when it got really bad Current Complaints L knee pain History of Current Condition Pt has history of neck pain which was treated w/PT w/good results and R hip pain that did imrpove w/PT and injection . She had heart attack in November 2020 and she is monitored and taking meds for this. Pt reports L knee felt like a 'a knife was stuck into it' and when she walked it felt like ' it was going further'. She saw her MD and made her wait several weeks and the constantness is not present but it still will inc. Pain in L knee will hurt w/stairs, walking, sleeping. She sleeps on her back d/t her R hip and CPAP. Sometimes she has to place a pillow under her knees to get comfortable. it stops her from going to sleep but doesn't wake her. Sometimes she gets rodriguez down the pozo that is burning. APs improves burning in pozo and propping LE. Pt notes she still walks but just deals with the pain. She does do hills and downhill and stairs are painful. Sometimes it feels like the knee is going ot go out from under her and she has to grab something. Pt reports she fell when she squatted down in [employer] to get somethign and fell toher butt. no known injury. Getting up from the floor is hard. Avoiding the gardening d/t her knee. Pt reports R knee is also limiting her ability to kneel and stairs, walking. She has had pain for years d/t polymyalgia rheumatica, so she keeps herself moving. The last time missy had the knife feeling was about 2 weeks ago. She is using the rower at home and that feels okay. Pt is typically do 2 miles walking 2-3x/wk and that was on the flat except the past few weeks. SHe hasn't walked d /t a respiratory thing. She hasn't tried to get back. August is around when pain got to be more intermittent. Denies back pain recently. Notes sometimes she has a weird feeling in her L ankle and she has to mvoe it around. Treatment Goals Patient/Caregiver Goals be able to do hills and stairs , be able to garden and kneel, be able to squat down, be able to walk w/o inc pain, be able to get off the floor without looking like a crab; build strength and balance to avoid a fall. PT-OP-C Subjective Start: 10/21/22 14:55 Freq: Status: Active Protocol: Document 11/22/22 11:28 [facility] (Rec: 11/22/22 12:18 [facility] [id number]) OP-PT Subjective Patient Comments Patient Comments María reports some ankle discomfort with heel digs. Counting in breaths works better for me than counting seconds so she doesn't hold her breath. PT-OP-D Balance Start: 10/21/22 14:55 Freq: Status: Active Protocol: Document 10/26/22 10:17 [facility] (Rec: 10/26/22 12:26 [facility] [id number]) Balance Tests Single Limb Standing Single Limb- Right 3 sec (cramp in L HS) Single Limb- Left 12 sec w/use of arms to blance (pain in R HS) PT-OP-G Mobility & Gait Start: 10/21/22 14:55 Freq: Status: Active Protocol: Document 10/26/22 10:17 [facility] (Rec: 10/26/22 12:26 [facility] [id number]) OP Gait Assessment Comments Gait Comments dec ant dep R; dec push off B, primarily leg walker for prupulsion, L pelvic shear PT-OP-J Posture/Palpation/Skin Start: 10/21/22 14:55 Freq: Status: Active Protocol: Document 10/26/22 10:17 [facility] (Rec: 10/26/22 12:26 [facility] [id number]) Posture Evaluation [facility] Postural Classification System Lumbar Protective Mechanism Left AP 0 Lumbar Protective Mechanism Right AP 0 Lumbar Protective Mechanism Left PA 0 Lumbar Protective Mechanism Right PA 0 Comments Posture Comments RLE turned out, L shoulder is higher, L pelvic shear, inc kyphosis (pain in knee); R iliac crest higher, greater trochanter equal B PT-OP-K Range of Motion Start: 10/21/22 14:55 Freq: Status: Active Protocol: Document 10/26/22 10:17 [facility] (Rec: 10/26/22 12:26 [facility] [id number]) Knee Goniometric Range of Motion Knee Right Flexion Active (degrees) 110 Extension Active (degrees) 4 Comments cramping post knee w/flex Left Flexion Active (degrees) 110 Extension Active (degrees) 3 Comments painful flex in me dknee; PT-OP-L Special Tests Start: 10/21/22 14:55 Freq: Status: Active Protocol: Document 11/10/22 13:34 [facility] (Rec: 11/10/22 14:28 [facility] [id number]) Special Tests Knee Special Tests Thessaly Test 5 Degrees Test Results neg L Prem Test Test Results neg L Apley's Compression Comments positive L ligamentous test Comments ACL, PCL, MCL & LCL neg L PT-OP-M Strength Start: 10/21/22 14:55 Freq: Status: Active Protocol: Document 10/26/22 10:17 [facility] (Rec: 10/26/22 12:26 [facility] [id number]) Hip Strength Hip Manual Muscle Testing Right Flexion (L2) 4 Good Extension (S1) 3- Fair- Abduction 3+ Fair+ Adduction 3+ Fair+ External Rotation 4+ Good+ Internal Rotation 3+ Fair+ Left Flexion (L2) 4- Good- Extension (S1) 4 Good Abduction 4 Good Adduction 3 Fair External Rotation 4- Good- Internal Rotation 4- Good- Comments dec core engagement B Knee Strength Knee Manual Muscle Testing Right Flexion (S2) 4+ Good+ Extension (L3) 5 Normal Left Flexion (S2) 4+ Good+ Extension (L3) 4 Good Ankle/Foot Strength Ankle and Foot Manual Muscle Testing Right Dorsiflexion (L4) 5 Normal Plantarflexion (S1) 5 Normal Comments 20 heel raises Left Dorsiflexion (L4) 5 Normal Plantarflexion (S1) 4+ Good+ Comments pozo cramping; 17 heel raises PT-OP-Q Treatments Start: 10/21/22 14:55 Freq: Status: Active Protocol: Document 11/22/22 11:28 [facility] (Rec: 11/22/22 12:18 [facility] [id number]) Therapeutic Exercises Supine Exercises heel digs Supine Exercise Name modified HEP from 2 sets to 1 set/day Side bilateral Reps/Minutes 10 x 5SH Comments Pt notices in L anterior ankle /pozo and hamstring bridge Supine Exercise Name 1. bridge 2. alt heel raise x5 Side bilateral Reps/Minutes 10 x 5SH (or two breath cycles ) Comments cues for not breathholding, LE alignment core Side bilateral Reps/Minutes 2x30 sec Comments DL press Standing Exercises squat Side bilateral Equipment Used [employer] band at knees Reps/Minutes 10 Comments cued hip hinge with fatigue sidesteps Side bilateral Equipment Used [employer] band Reps/Minutes 2x15ft Other Exercises step ups Other Exercise Name no UE support - add to HEP Equipment Used 6 training stairs Reps/Minutes x10 reps ea, alt leading leg Comments cues for neutral foot position , improved eccentric control Manual Therapy Treatment Soft Tissue Mobilization quads Body Location L along VMO border w/hip ER & patellar tendon w/quad set Mobilization Type Instrument Assisted,Sustained Pressure Intensity/Depth Moderate Comments rolling pin to VMO and adductorsv- pt educated for self-STM adductors Body Location L w/ER FM Mobilization Type Rolling Intensity/Depth Moderate Body Position Hooklying Joint Mobilizations patellofemoral Joint sup, inf, med L Self-Care/Home Management Treatment Education Patient Education Home Exercise Program,Pain Management,Safety Other Education HEP review: heel digs, step- ups - HO given. Added to HEP: seated HS stretch w/ stool. Pt educated for self-STM w/ rolling pin to adductors and quads - HO given. PT-OP-T Assessment and Plan Start: 10/21/22 14:55 Freq: Status: Active Protocol: Document 11/22/22 11:28 [facility] (Rec: 11/22/22 12:18 [facility] [id number]) Physical Therapy Assessment Impairments Impairments Activity Tolerance,Balance, Functional Activities, Functional Mobility,Gait,Pain, Posture,ROM,Soft Tissue Mobility,Strength,Transfers Goals balance [facility] Goal (LTG) Pt will be able to do SLS B w/ arms at side for at least 15 sec LTG Duration 01/14/23 gait Sales Expert Goal (LTG) Pt will be able do go up/down stairs w/o inc pain LTG Duration 01/07 LE strength Short Term Goal (STG) Pt will be abl to squat down to tow picker things/lift things w/o pain or dec balance STG Duration 12/14 Sales Expert Goal (LTG) Pt willb e able to get up/down from the ground w/o inc pain or significant difficulty LTG Duration 01/14/23 strength Short Term Goal (STG) Pt will be indep w/HEP STG Duration 11/27/22 Sales Expert Goal (LTG) Pt will score at least 3/5 on LPM in all planes and 5/5 on all MMT of LEs to show improved stability in order to improve pt gait mecahnics and dec pain. LTG Duration 01/14/23 activities Short Term Goal (STG) Pt will be able to returnt o 2 mile flat walks w/o B knee or R hip pain greater tahn 2/ 10. STG Duration 12/07/22 [facility] Goal (LTG) pt will be able to return to hilly walks w/o B knee pain or R hip pain LTG Duration 01/14/23 Assessment Summary Assessment María demonstrates improved HS strength with bridging w/ alternating heel raises without HS cramping today. She demonstrates improved neutral foot positioning with side steps and maintains hip hinge with squats but requires cues for eccentric control with both ex's. Added to HEP: seated HS stretch w/ stool and self-STM w/ rolling pin to adductors and quads - HO given . Physical Therapy Plan Frequency and Duration Frequency of Treatment 1-2x/wk Duration of treatment (weeks) 12 Plan of Care Start Date 10/26/22 Plan of Care End Date 01/18/23 Therapeutic Interventions Therapeutic Interventions Balance Training,Gait Training ,Home Exercise Program,Joint Mobilizations,Manual Therapy, Neuromuscular Re-education, Patient/Caregiver Education, Self-Care/Home Management,Soft Tissue Mobilization,Taping, Therapeutic Activities, Therapeutic Exercises Modalities Cold Pack/Ice Massage,Electric Stimulation,Hot Packs, Infrared Therapy,Iontophoresis ,Ultrasound Next Visit Focus/Plan Next Note Type Treatment Note Next Visit Plan review squats, bridges, step ups (progress if able), heel digs; try lunges; manual for knee tracking
--- NOTE | 2022-11-25 16:24 | PT.OTN ---
Current Diagnoses Pain in right hip (11/25/22) Pain in right knee (11/25/22) Pain in left knee (11/25/22) Difficulty in walking, not elsewhere classified (11/25/22) Weakness (11/25/22) Physical Therapy Treatment Note PT-OP-A Visit Information Start: 10/21/22 14:55 Freq: Status: Active Protocol: Document 11/25/22 15:17 [facility] (Rec: 11/25/22 16:24 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 (Rec: 10/26/22 12:26 [facility] [id number]) Current Condition History of Current Condition Onset Date Jun was when it got really bad Current Complaints L knee pain History of Current Condition Pt has history of neck pain which was treated w/PT w/good results and R hip pain that did imrpove w/PT and injection . She had heart attack in November 2020 and she is monitored and taking meds for this. Pt reports L knee felt like a 'a knife was stuck into it' and when she walked it felt like ' it was going further'. She saw her MD and made her wait several weeks and the constantness is not present but it still will inc. Pain in L knee will hurt w/stairs, walking, sleeping. She sleeps on her back d/t her R hip and CPAP. Sometimes she has to place a pillow under her knees to get comfortable. it stops her from going to sleep but doesn't wake her. Sometimes she gets rodriguez down the pozo that is burning. APs improves burning in pozo and propping LE. Pt notes she still walks but just deals with the pain. She does do hills and downhill and stairs are painful. Sometimes it feels like the knee is going ot go out from under her and she has to grab something. Pt reports she fell when she squatted down in [employer] to get somethign and fell toher butt. no known injury. Getting up from the floor is hard. Avoiding the gardening d/t her knee. Pt reports R knee is also limiting her ability to kneel and stairs, walking. She has had pain for years d/t polymyalgia rheumatica, so she keeps herself moving. The last time missy had the knife feeling was about 2 weeks ago. She is using the rower at home and that feels okay. Pt is typically do 2 miles walking 2-3x/wk and that was on the flat except the past few weeks. SHe hasn't walked d /t a respiratory thing. She hasn't tried to get back. August is around when pain got to be more intermittent. Denies back pain recently. Notes sometimes she has a weird feeling in her L ankle and she has to mvoe it around. Treatment Goals Patient/Caregiver Goals be able to do hills and stairs , be able to garden and kneel, be able to squat down, be able to walk w/o inc pain, be able to get off the floor without looking like a crab; build strength and balance to avoid a fall. PT-OP-C Subjective Start: 10/21/22 14:55 Freq: Status: Active Protocol: Document 11/25/22 15:17 [facility] (Rec: 11/25/22 16:24 [facility] [id number]) OP-PT Subjective Patient Comments Patient Comments Pt reports she has done one small walk and was able to do the downhill w/o inc pain. She is still aware of the knee on the decent of stairs PT-OP-D Balance Start: 10/21/22 14:55 Freq: Status: Active Protocol: Document 10/26/22 10:17 [facility] (Rec: 10/26/22 12:26 [facility] [id number]) Balance Tests Single Limb Standing Single Limb- Right 3 sec (cramp in L HS) Single Limb- Left 12 sec w/use of arms to blance (pain in R HS) PT-OP-G Mobility & Gait Start: 10/21/22 14:55 Freq: Status: Active Protocol: Document 10/26/22 10:17 [facility] (Rec: 10/26/22 12:26 [facility] [id number]) OP Gait Assessment Comments Gait Comments dec ant dep R; dec push off B, primarily leg walker for prupulsion, L pelvic shear PT-OP-J Posture/Palpation/Skin Start: 10/21/22 14:55 Freq: Status: Active Protocol: Document 10/26/22 10:17 [facility] (Rec: 10/26/22 12:26 [facility] [id number]) Posture Evaluation [facility] Postural Classification System Lumbar Protective Mechanism Left AP 0 Lumbar Protective Mechanism Right AP 0 Lumbar Protective Mechanism Left PA 0 Lumbar Protective Mechanism Right PA 0 Comments Posture Comments RLE turned out, L shoulder is higher, L pelvic shear, inc kyphosis (pain in knee); R iliac crest higher, greater trochanter equal B PT-OP-K Range of Motion Start: 10/21/22 14:55 Freq: Status: Active Protocol: Document 10/26/22 10:17 [facility] (Rec: 10/26/22 12:26 [facility] [id number]) Knee Goniometric Range of Motion Knee Right Flexion Active (degrees) 110 Extension Active (degrees) 4 Comments cramping post knee w/flex Left Flexion Active (degrees) 110 Extension Active (degrees) 3 Comments painful flex in me dknee; PT-OP-L Special Tests Start: 10/21/22 14:55 Freq: Status: Active Protocol: Document 11/10/22 13:34 [facility] (Rec: 11/10/22 14:28 [facility] [id number]) Special Tests Knee Special Tests Thessaly Test 5 Degrees Test Results neg L Prem Test Test Results neg L Apley's Compression Comments positive L ligamentous test Comments ACL, PCL, MCL & LCL neg L PT-OP-M Strength Start: 10/21/22 14:55 Freq: Status: Active Protocol: Document 10/26/22 10:17 [facility] (Rec: 10/26/22 12:26 [facility] [id number]) Hip Strength Hip Manual Muscle Testing Right Flexion (L2) 4 Good Extension (S1) 3- Fair- Abduction 3+ Fair+ Adduction 3+ Fair+ External Rotation 4+ Good+ Internal Rotation 3+ Fair+ Left Flexion (L2) 4- Good- Extension (S1) 4 Good Abduction 4 Good Adduction 3 Fair External Rotation 4- Good- Internal Rotation 4- Good- Comments dec core engagement B Knee Strength Knee Manual Muscle Testing Right Flexion (S2) 4+ Good+ Extension (L3) 5 Normal Left Flexion (S2) 4+ Good+ Extension (L3) 4 Good Ankle/Foot Strength Ankle and Foot Manual Muscle Testing Right Dorsiflexion (L4) 5 Normal Plantarflexion (S1) 5 Normal Comments 20 heel raises Left Dorsiflexion (L4) 5 Normal Plantarflexion (S1) 4+ Good+ Comments pozo cramping; 17 heel raises PT-OP-Q Treatments Start: 10/21/22 14:55 Freq: Status: Active Protocol: Document 11/25/22 15:17 [facility] (Rec: 11/25/22 16:24 [facility] [id number]) Manual Therapy Treatment Soft Tissue Mobilization glutes Body Location L lat w/ER Mobilization Type Sustained Pressure Intensity/Depth Moderate Body Position Hooklying ITB Body Location L distal and proximal Mobilization Type Rolling,Strumming,Sustained Pressure Intensity/Depth Moderate Comments w/ER/IR; manual and w/plunger adductors Body Location L w/ER FM Mobilization Type Rolling Intensity/Depth Moderate Body Position Hooklying Joint Mobilizations hip Joint free the ball ER ; abd L FM PT-OP-T Assessment and Plan Start: 10/21/22 14:55 Freq: Status: Active Protocol: Document 11/25/22 15:17 [facility] (Rec: 11/25/22 16:24 [facility] [id number]) Physical Therapy Assessment Goals balance Mcc Goal (LTG) Pt will be able to do SLS B w/ arms at side for at least 15 sec LTG Duration 01/14/23 gait Slope Tender Goal (LTG) Pt will be able do go up/down stairs w/o inc pain LTG Duration 01/07 LE strength Short Term Goal (STG) Pt will be abl to squat down to crab picker things/lift things w/o pain or dec balance STG Duration 12/14 Slope Tender Goal (LTG) Pt willb e able to get up/down from the ground w/o inc pain or significant difficulty LTG Duration 01/14/23 strength Short Term Goal (STG) Pt will be indep w/HEP STG Duration 11/27/22 Mcc Goal (LTG) Pt will score at least 3/5 on LPM in all planes and 5/5 on all MMT of LEs to show improved stability in order to improve pt gait mecahnics and dec pain. LTG Duration 01/14/23 activities Short Term Goal (STG) Pt will be able to returnt o 2 mile flat walks w/o B knee or R hip pain greater tahn 2/ 10. STG Duration 12/07/22 Slope Tender Goal (LTG) pt will be able to return to hilly walks w/o B knee pain or R hip pain LTG Duration 01/14/23 Assessment Summary Assessment Pt had improved ER of hip w/ manual and is very limited on abd which likely is affecting her ability to wt accept on her LLE w/step down. She was unable to do 4 in step down w/ o pain and also was shearing lat w/pelvis. Physical Therapy Plan Frequency and Duration Frequency of Treatment 1-2x/wk Duration of treatment (weeks) 12 Plan of Care Start Date 10/26/22 Plan of Care End Date 01/18/23 Next Visit Focus/Plan Next Note Type Treatment Note Next Visit Plan advance modified squat down to 2 or 4 in step down, attempt lunges. cont to wrk hip mobility for knee tracking, abd most limited at this time.
--- NOTE | 2022-11-29 13:00 | PT.OTN ---
Current Diagnoses Pain in right hip (11/29/22) Pain in right knee (11/29/22) Pain in left knee (11/29/22) Difficulty in walking, not elsewhere classified (11/29/22) Weakness (11/29/22) Physical Therapy Treatment Note PT-OP-A Visit Information Start: 10/21/22 14:55 Freq: Status: Active Protocol: Document 11/29/22 11:18 [facility] (Rec: 11/29/22 12:19 [facility] [id number]) Out-Patient Physical Therapy Visit Information Visit Information Visit Type Treatment Note Visit Note 11/22 Visit Start Time 11:30 Visit Stop Time 12:19 Total Visit Minutes 49 Visit Number 7 Number of SUPER[employer]OR [employer] Visits 1 PT-OP-B Current Condition Start: 10/21/22 14:55 Freq: Status: Active Protocol: Document 10/26/22 10:17 [facility] (Rec: 10/26/22 12:26 [facility] [id number]) Current Condition History of Current Condition Onset Date Jun was when it got really bad Current Complaints L knee pain History of Current Condition Pt has history of neck pain which was treated w/PT w/good results and R hip pain that did imrpove w/PT and injection . She had heart attack in November 2020 and she is monitored and taking meds for this. Pt reports L knee felt like a 'a knife was stuck into it' and when she walked it felt like ' it was going further'. She saw her MD and made her wait several weeks and the constantness is not present but it still will inc. Pain in L knee will hurt w/stairs, walking, sleeping. She sleeps on her back d/t her R hip and CPAP. Sometimes she has to place a pillow under her knees to get comfortable. it stops her from going to sleep but doesn't wake her. Sometimes she gets rodriguez down the pozo that is burning. APs improves burning in pozo and propping LE. Pt notes she still walks but just deals with the pain. She does do hills and downhill and stairs are painful. Sometimes it feels like the knee is going ot go out from under her and she has to grab something. Pt reports she fell when she squatted down in [employer] to get somethign and fell toher butt. no known injury. Getting up from the floor is hard. Avoiding the gardening d/t her knee. Pt reports R knee is also limiting her ability to kneel and stairs, walking. She has had pain for years d/t polymyalgia rheumatica, so she keeps herself moving. The last time missy had the knife feeling was about 2 weeks ago. She is using the rower at home and that feels okay. Pt is typically do 2 miles walking 2-3x/wk and that was on the flat except the past few weeks. SHe hasn't walked d /t a respiratory thing. She hasn't tried to get back. August is around when pain got to be more intermittent. Denies back pain recently. Notes sometimes she has a weird feeling in her L ankle and she has to mvoe it around. Treatment Goals Patient/Caregiver Goals be able to do hills and stairs , be able to garden and kneel, be able to squat down, be able to walk w/o inc pain, be able to get off the floor without looking like a crab; build strength and balance to avoid a fall. PT-OP-C Subjective Start: 10/21/22 14:55 Freq: Status: Active Protocol: Document 11/29/22 11:18 [facility] (Rec: 11/29/22 12:19 [facility] [id number]) OP-PT Subjective Patient Comments Patient Comments María reports she is doing much better overall. She did not do much over the weekend but tried new ex on one leg. PT-OP-D Balance Start: 10/21/22 14:55 Freq: Status: Active Protocol: Document 10/26/22 10:17 [facility] (Rec: 10/26/22 12:26 [facility] [id number]) Balance Tests Single Limb Standing Single Limb- Right 3 sec (cramp in L HS) Single Limb- Left 12 sec w/use of arms to blance (pain in R HS) PT-OP-G Mobility & Gait Start: 10/21/22 14:55 Freq: Status: Active Protocol: Document 10/26/22 10:17 [facility] (Rec: 10/26/22 12:26 [facility] [id number]) OP Gait Assessment Comments Gait Comments dec ant dep R; dec push off B, primarily leg walker for prupulsion, L pelvic shear PT-OP-J Posture/Palpation/Skin Start: 10/21/22 14:55 Freq: Status: Active Protocol: Document 10/26/22 10:17 [facility] (Rec: 10/26/22 12:26 [facility] [id number]) Posture Evaluation [facility] Postural Classification System Lumbar Protective Mechanism Left AP 0 Lumbar Protective Mechanism Right AP 0 Lumbar Protective Mechanism Left PA 0 Lumbar Protective Mechanism Right PA 0 Comments Posture Comments RLE turned out, L shoulder is higher, L pelvic shear, inc kyphosis (pain in knee); R iliac crest higher, greater trochanter equal B PT-OP-K Range of Motion Start: 10/21/22 14:55 Freq: Status: Active Protocol: Document 10/26/22 10:17 [facility] (Rec: 10/26/22 12:26 [facility] [id number]) Knee Goniometric Range of Motion Knee Right Flexion Active (degrees) 110 Extension Active (degrees) 4 Comments cramping post knee w/flex Left Flexion Active (degrees) 110 Extension Active (degrees) 3 Comments painful flex in me dknee; PT-OP-L Special Tests Start: 10/21/22 14:55 Freq: Status: Active Protocol: Document 11/10/22 13:34 [facility] (Rec: 11/10/22 14:28 [facility] [id number]) Special Tests Knee Special Tests Thessaly Test 5 Degrees Test Results neg L Prem Test Test Results neg L Apley's Compression Comments positive L ligamentous test Comments ACL, PCL, MCL & LCL neg L PT-OP-M Strength Start: 10/21/22 14:55 Freq: Status: Active Protocol: Document 10/26/22 10:17 [facility] (Rec: 10/26/22 12:26 [facility] [id number]) Hip Strength Hip Manual Muscle Testing Right Flexion (L2) 4 Good Extension (S1) 3- Fair- Abduction 3+ Fair+ Adduction 3+ Fair+ External Rotation 4+ Good+ Internal Rotation 3+ Fair+ Left Flexion (L2) 4- Good- Extension (S1) 4 Good Abduction 4 Good Adduction 3 Fair External Rotation 4- Good- Internal Rotation 4- Good- Comments dec core engagement B Knee Strength Knee Manual Muscle Testing Right Flexion (S2) 4+ Good+ Extension (L3) 5 Normal Left Flexion (S2) 4+ Good+ Extension (L3) 4 Good Ankle/Foot Strength Ankle and Foot Manual Muscle Testing Right Dorsiflexion (L4) 5 Normal Plantarflexion (S1) 5 Normal Comments 20 heel raises Left Dorsiflexion (L4) 5 Normal Plantarflexion (S1) 4+ Good+ Comments pozo cramping; 17 heel raises PT-OP-Q Treatments Start: 10/21/22 14:55 Freq: Status: Active Protocol: Document 11/29/22 11:18 [facility] (Rec: 11/29/22 12:19 [facility] [id number]) Therapeutic Exercises Supine Exercises bridge Supine Exercise Name 1. bridge 2. alt heel raise x5 > marching x 10 Side bilateral Resistance Lvl 1>3 Tb (peach>green) added to bridge x10 Reps/Minutes 10 x 5SH (or two breath cycles ) Comments cues for not breathholding, LE alignment core Side bilateral Reps/Minutes 2x30 sec Comments DL press Standing Exercises Lunges Standing Exercise Name stationary Side bilateral Equipment Used // bars, mirror, visual cues Reps/Minutes x10 ea Comments cues for form, improved awareness w/ repetition calf stretch Standing Exercise Name 1. TRAE 2. step Side bilateral Reps/Minutes 1' ea Comments L>R tightness squat Standing Exercise Name modified step down Side bilateral Equipment Used // bars, no step, 2, 4 Reps/Minutes 10 Comments cued form - HEP HO given sidesteps Side bilateral Equipment Used [place] [employer] Reps/Minutes 3x10ft ea Neuro Re-Education Treatment Balance Activities SLS Details hands on hips Surface lobo Reps/Duration ~35s ea Self-Care/Home Management Treatment Education Other Education Added to HEP: SL squat to progress to modified step down - HO given. Bridging progressed to resisted w/ green Tb. PT-OP-T Assessment and Plan Start: 10/21/22 14:55 Freq: Status: Active Protocol: Document 11/29/22 11:18 [facility] (Rec: 11/29/22 12:19 [facility] [id number]) Physical Therapy Assessment Impairments Impairments Activity Tolerance,Balance, Functional Activities, Functional Mobility,Gait,Pain, Posture,ROM,Soft Tissue Mobility,Strength,Transfers Goals balance Glaze Carrier Goal (LTG) Pt will be able to do SLS B w/ arms at side for at least 15 sec 11/29/22: B SLS w/ hands on hips ~35s each until told to stop. LTG Duration 01/14/23 (progressing 11/29/22) gait Glaze Carrier Goal (LTG) Pt will be able do go up/down stairs w/o inc pain LTG Duration 01/07 LE strength Short Term Goal (STG) Pt will be abl to squat down to diamond picker things/lift things w/o pain or dec balance STG Duration 12/14 Senior Care Goal (LTG) Pt willb e able to get up/down from the ground w/o inc pain or significant difficulty LTG Duration 01/14/23 strength Short Term Goal (STG) Pt will be indep w/HEP STG Duration 11/27/22 Senior Care Goal (LTG) Pt will score at least 3/5 on LPM in all planes and 5/5 on all MMT of LEs to show improved stability in order to improve pt gait mecahnics and dec pain. LTG Duration 01/14/23 activities Short Term Goal (STG) Pt will be able to returnt o 2 mile flat walks w/o B knee or R hip pain greater tahn 2/ 10. 11/29/22: walked ~1mi flat without any pain on 11/26/22. STG Duration 12/07/22 (progressing 11/29/22) Glaze Carrier Goal (LTG) pt will be able to return to hilly walks w/o B knee pain or R hip pain LTG Duration 01/14/23 Progress Towards Goals Progress Towards Goals Progressing Toward Goals Progress Comments Progressing towards balance and activites goals. Assessment Summary Assessment María requires verbal and visual cues for SL squat and modified step down for upright posture and forward leg knees behind toes - forward knee pain improves with these cues; clinic only at this time due to verbal and visual cueing needed to avoid increasing knee pain from baseline. She is progressing towards balance goal of SLS B w/ arms at side for at least 15 sec and today performs B SLS w/ hands on hips at least 35s. Pt is also progressing towards Activities STG of 2 mile flat walks w/o B knee or R hip pain greater than 2/10 as she walked 1mi flat 0/10 pain on 11/26/22. She tolerates progression of bridge w/ heel raises to marching w/o pain and bridge progression to resisted w/ green Tb added above knees. Added to HEP: SL squat to progress to modified step down - HO given. Bridging progressed to resisted w/ green Tb. Physical Therapy Plan Frequency and Duration Frequency of Treatment 1-2x/wk Duration of treatment (weeks) 12 Plan of Care Start Date 10/26/22 Plan of Care End Date 01/18/23 Therapeutic Interventions Therapeutic Interventions Balance Training,Gait Training ,Home Exercise Program,Joint Mobilizations,Manual Therapy, Neuromuscular Re-education, Patient/Caregiver Education, Self-Care/Home Management,Soft Tissue Mobilization,Taping, Therapeutic Activities, Therapeutic Exercises Modalities Cold Pack/Ice Massage,Electric Stimulation,Hot Packs, Infrared Therapy,Iontophoresis ,Ultrasound Next Visit Focus/Plan Next Note Type Treatment Note Next Visit Plan review SL squat and modified squat down to 2 or 4 in step down and review lunges. Assess lunges and modified squat for HEP. cont to wrk hip mobility for knee tracking, abd most limited at this time.
--- NOTE | 2022-12-02 18:03 | PT.OTN ---
Addendum entered and electronically signed by Jennifer Pitts, PT 12/02/22 18:10: PT direct supervision and direction to PT student. 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 She had heart attack in November 2020 and she is monitored and taking meds for this. Pt reports L knee felt like a 'a knife was stuck into it' and when she walked it felt like ' it was going further'. She saw her MD and made her wait several weeks and the constantness is not present but it still will inc. Pain in L knee will hurt w/stairs, walking, sleeping. She sleeps on her back d/t her R hip and CPAP. Sometimes she has to place a pillow under her knees to get comfortable. it stops her from going to sleep but doesn't wake her. Sometimes she gets rodriguez down the pozo that is burning. APs improves burning in pozo and propping LE. Pt notes she still walks but just deals with the pain. She does do hills and downhill and stairs are painful. Sometimes it feels like the knee is going ot go out from under her and she has to grab something. Pt reports she fell when she squatted down in [employer] to get somethign and fell toher butt. no known injury. Getting up from the floor is hard. Avoiding the gardening d/t her knee. Pt reports R knee is also limiting her ability to kneel and stairs, walking. She has had pain for years d/t polymyalgia rheumatica, so she keeps herself moving. The last time missy had the knife feeling was about 2 weeks ago. She is using the rower at home and that feels okay. Pt is typically do 2 miles walking 2-3x/wk and that was on the flat except the past few weeks. SHe hasn't walked d /t a respiratory thing. She hasn't tried to get back. August is around when pain got to be more intermittent. Denies back pain recently. Notes sometimes she has a weird feeling in her L ankle and she has to mvoe it around. Treatment Goals Patient/Caregiver Goals be able to do hills and stairs , be able to garden and kneel, be able to squat down, be able to walk w/o inc pain, be able to get off the floor without looking like a crab; build strength and balance to avoid a fall. PT-OP-C Subjective Start: 10/21/22 14:55 Freq: Status: Active Protocol: Document 12/02/22 16:35 (Rec: 12/02/22 17:48 [id number]) OP-PT Subjective Patient Comments Patient Comments pt notes that she has been doing the modified step downs and they do not hurt as much as they did before but are still causing discomfort. PT-OP-D Balance Start: 10/21/22 14:55 Freq: Status: Active Protocol: Document 10/26/22 10:17 [facility] (Rec: 10/26/22 12:26 [facility] [id number]) Balance Tests Single Limb Standing Single Limb- Right 3 sec (cramp in L HS) Single Limb- Left 12 sec w/use of arms to blance (pain in R HS) PT-OP-G Mobility & Gait Start: 10/21/22 14:55 Freq: Status: Active Protocol: Document 10/26/22 10:17 [facility] (Rec: 10/26/22 12:26 [facility] [id number]) OP Gait Assessment Comments Gait Comments dec ant dep R; dec push off B, primarily leg walker for prupulsion, L pelvic shear PT-OP-J Posture/Palpation/Skin Start: 10/21/22 14:55 Freq: Status: Active Protocol: Document 10/26/22 10:17 [facility] (Rec: 10/26/22 12:26 [facility] [id number]) Posture Evaluation [facility] Postural Classification System Lumbar Protective Mechanism Left AP 0 Lumbar Protective Mechanism Right AP 0 Lumbar Protective Mechanism Left PA 0 Lumbar Protective Mechanism Right PA 0 Comments Posture Comments RLE turned out, L shoulder is higher, L pelvic shear, inc kyphosis (pain in knee); R iliac crest higher, greater trochanter equal B PT-OP-K Range of Motion Start: 10/21/22 14:55 Freq: Status: Active Protocol: Document 10/26/22 10:17 [facility] (Rec: 10/26/22 12:26 [facility] [id number]) Knee Goniometric Range of Motion Knee Right Flexion Active (degrees) 110 Extension Active (degrees) 4 Comments cramping post knee w/flex Left Flexion Active (degrees) 110 Extension Active (degrees) 3 Comments painful flex in me dknee; PT-OP-L Special Tests Start: 10/21/22 14:55 Freq: Status: Active Protocol: Document 11/10/22 13:34 [facility] (Rec: 11/10/22 14:28 [facility] [id number]) Special Tests Knee Special Tests Thessaly Test 5 Degrees Test Results neg L Prem Test Test Results neg L Apley's Compression Comments positive L ligamentous test Comments ACL, PCL, MCL & LCL neg L PT-OP-M Strength Start: 10/21/22 14:55 Freq: Status: Active Protocol: Document 10/26/22 10:17 [facility] (Rec: 10/26/22 12:26 [facility] [id number]) Hip Strength Hip Manual Muscle Testing Right Flexion (L2) 4 Good Extension (S1) 3- Fair- Abduction 3+ Fair+ Adduction 3+ Fair+ External Rotation 4+ Good+ Internal Rotation 3+ Fair+ Left Flexion (L2) 4- Good- Extension (S1) 4 Good Abduction 4 Good Adduction 3 Fair External Rotation 4- Good- Internal Rotation 4- Good- Comments dec core engagement B Knee Strength Knee Manual Muscle Testing Right Flexion (S2) 4+ Good+ Extension (L3) 5 Normal Left Flexion (S2) 4+ Good+ Extension (L3) 4 Good Ankle/Foot Strength Ankle and Foot Manual Muscle Testing Right Dorsiflexion (L4) 5 Normal Plantarflexion (S1) 5 Normal Comments 20 heel raises Left Dorsiflexion (L4) 5 Normal Plantarflexion (S1) 4+ Good+ Comments pozo cramping; 17 heel raises PT-OP-Q Treatments Start: 10/21/22 14:55 Freq: Status: Active Protocol: Document 12/02/22 16:35 (Rec: 12/02/22 16:49 [id number]) Therapeutic Exercises Standing Exercises calf stretch Standing Exercise Name 1. TRAE Side bilateral Reps/Minutes 1' ea squat Standing Exercise Name modified step down Side bilateral Equipment Used @rail no step Reps/Minutes 20 Comments cued form - HEP HO given sidesteps Side bilateral Equipment Used standing rock band Reps/Minutes 3x10ft ea Manual Therapy Treatment Soft Tissue Mobilization ITB Body Location L distal and proximal Mobilization Type Rolling,Strumming,Sustained Pressure Intensity/Depth Moderate HS Body Location R Mobilization Type Rolling,Other Intensity/Depth Moderate Comments manual HS stretch w/ contract/ relax Joint Mobilizations tibfib Joint L Comments L inferior, AP fib proximal FM tibfem Joint L Direction AP femur FM; IR tibia AP FM Comments Femur medial to lateral, tibia medial to lateral FM Neuro Re-Education Treatment Balance Activities SLS Details hands on hips Surface lobo Reps/Duration ~30s ea 2x ea PT-OP-T Assessment and Plan Start: 10/21/22 14:55 Freq: Status: Active Protocol: Document 12/02/22 16:35 (Rec: 12/02/22 16:49 [id number]) Physical Therapy Assessment Goals balance Halfway Goal (LTG) Pt will be able to do SLS B w/ arms at side for at least 15 sec 11/29/22: B SLS w/ hands on hips ~35s each until told to stop. LTG Duration 01/14/23 (progressing 11/29/22) gait Is Manager Goal (LTG) Pt will be able do go up/down stairs w/o inc pain LTG Duration 01/07 LE strength Short Term Goal (STG) Pt will be abl to squat down to product picker things/lift things w/o pain or dec balance STG Duration 12/14 Is Manager Goal (LTG) Pt willb e able to get up/down from the ground w/o inc pain or significant difficulty LTG Duration 01/14/23 strength Short Term Goal (STG) Pt will be indep w/HEP STG Duration 11/27/22 Is Manager Goal (LTG) Pt will score at least 3/5 on LPM in all planes and 5/5 on all MMT of LEs to show improved stability in order to improve pt gait mecahnics and dec pain. LTG Duration 01/14/23 activities Short Term Goal (STG) Pt will be able to returnt o 2 mile flat walks w/o B knee or R hip pain greater tahn / . 11/29/22: walked ~1mi flat without any pain on 11/26/22. STG Duration 12/07/22 (progressing 11/29/22) Halfway Goal (LTG) pt will be able to return to hilly walks w/o B knee pain or R hip pain LTG Duration 01/14/23 Assessment Summary Assessment Time was spent on verbal cues for mini squats. a mirror was used for visual cueing. Pt did well w/lateral banded side steps, she did not need any cueing. prior to manual tracking of knee was medial over big toe. Following manual pts knee tracked more over lateral big toe. Physical Therapy Plan Frequency and Duration Frequency of Treatment 1-2x/wk Duration of treatment (weeks) 12 Plan of Care Start Date 10/26/22 Plan of Care End Date 01/18/23 Next Visit Focus/Plan Next Note Type Treatment Note Next Visit Plan review SL squat and modified squat down to 2 or 4 in step down and review lunges. Assess lunges and modified squat for HEP. cont to wrk hip mobility for knee tracking and femur, abd most limited at this time.
--- NOTE | 2022-12-08 13:31 | PT.OTN ---
Current Diagnoses Pain in right hip (12/08/22) Pain in right knee (12/08/22) Pain in left knee (12/08/22) Difficulty in walking, not elsewhere classified (12/08/22) Weakness (12/08/22) Physical Therapy Treatment Note PT-OP-A Visit Information Start: 10/21/22 14:55 Freq: Status: Active Protocol: Document 12/08/22 11:37 [facility] (Rec: 12/08/22 13:31 [facility] [id number]) Out-Patient Physical Therapy Visit Information Visit Information Visit Type Progress Note Visit Note 05/25 Visit Start Time 11:37 Visit Stop Time 12:20 Total Visit Minutes 43 Visit Number 9 Number of TIMBER SURVEYOR Visits 0 PT-OP-B Current Condition Start: 10/21/22 14:55 Freq: Status: Active Protocol: Document 10/26/22 10:17 [facility] (Rec: 10/26/22 12:26 [facility] [id number]) Current Condition History of Current Condition Onset Date Jun was when it got really bad Current Complaints L knee pain History of Current Condition Pt has history of neck pain which was treated w/PT w/good results and R hip pain that did imrpove w/PT and injection . She had heart attack in November 2020 and she is monitored and taking meds for this. Pt reports L knee felt like a 'a knife was stuck into it' and when she walked it felt like ' it was going further'. She saw her MD and made her wait several weeks and the constantness is not present but it still will inc. Pain in L knee will hurt w/stairs, walking, sleeping. She sleeps on her back d/t her R hip and CPAP. Sometimes she has to place a pillow under her knees to get comfortable. it stops her from going to sleep but doesn't wake her. Sometimes she gets rodriguez down the pozo that is burning. APs improves burning in pozo and propping LE. Pt notes she still walks but just deals with the pain. She does do hills and downhill and stairs are painful. Sometimes it feels like the knee is going ot go out from under her and she has to grab something. Pt reports she fell when she squatted down in [employer] to get somethign and fell toher butt. no known injury. Getting up from the floor is hard. Avoiding the gardening d/t her knee. Pt reports R knee is also limiting her ability to kneel and stairs, walking. She has had pain for years d/t polymyalgia rheumatica, so she keeps herself moving. The last time missy had the knife feeling was about 2 weeks ago. She is using the rower at home and that feels okay. Pt is typically do 2 miles walking 2-3x/wk and that was on the flat except the past few weeks. SHe hasn't walked d /t a respiratory thing. She hasn't tried to get back. August is around when pain got to be more intermittent. Denies back pain recently. Notes sometimes she has a weird feeling in her L ankle and she has to mvoe it around. Treatment Goals Patient/Caregiver Goals be able to do hills and stairs , be able to garden and kneel, be able to squat down, be able to walk w/o inc pain, be able to get off the floor without looking like a crab; build strength and balance to avoid a fall. PT-OP-C Subjective Start: 10/21/22 14:55 Freq: Status: Active Protocol: Document 12/08/22 11:37 [facility] (Rec: 12/08/22 13:31 [facility] [id number]) OP-PT Subjective Patient Comments Patient Comments Pt reports she hasn't been walking d/t busy with other things PT-OP-D Balance Start: 10/21/22 14:55 Freq: Status: Active Protocol: Document 10/26/22 10:17 [facility] (Rec: 10/26/22 12:26 [facility] [id number]) Balance Tests Single Limb Standing Single Limb- Right 3 sec (cramp in L HS) Single Limb- Left 12 sec w/use of arms to blance (pain in R HS) PT-OP-G Mobility & Gait Start: 10/21/22 14:55 Freq: Status: Active Protocol: Document 10/26/22 10:17 [facility] (Rec: 10/26/22 12:26 [facility] [id number]) OP Gait Assessment Comments Gait Comments dec ant dep R; dec push off B, primarily leg walker for prupulsion, L pelvic shear PT-OP-J Posture/Palpation/Skin Start: 10/21/22 14:55 Freq: Status: Active Protocol: Document 12/08/22 11:37 [facility] (Rec: 12/08/22 13:31 [facility] [id number]) Posture Evaluation [facility] Postural Classification System Lumbar Protective Mechanism Left AP 2 Lumbar Protective Mechanism Right AP 1 Lumbar Protective Mechanism Left PA 1 Lumbar Protective Mechanism Right PA 1 PT-OP-K Range of Motion Start: 10/21/22 14:55 Freq: Status: Active Protocol: Document 10/26/22 10:17 [facility] (Rec: 10/26/22 12:26 [facility] [id number]) Knee Goniometric Range of Motion Knee Right Flexion Active (degrees) 110 Extension Active (degrees) 4 Comments cramping post knee w/flex Left Flexion Active (degrees) 110 Extension Active (degrees) 3 Comments painful flex in me dknee; PT-OP-L Special Tests Start: 10/21/22 14:55 Freq: Status: Active Protocol: Document 11/10/22 13:34 [facility] (Rec: 11/10/22 14:28 [facility] [id number]) Special Tests Knee Special Tests Thessaly Test 5 Degrees Test Results neg L Prem Test Test Results neg L Apley's Compression Comments positive L ligamentous test Comments ACL, PCL, MCL & LCL neg L PT-OP-M Strength Start: 10/21/22 14:55 Freq: Status: Active Protocol: Document 12/08/22 11:37 [facility] (Rec: 12/08/22 13:31 [facility] [id number]) Hip Strength Hip Manual Muscle Testing Right Flexion (L2) 4+ Good+ Extension (S1) 4+ Good+ Abduction 4 Good Adduction 5 Normal External Rotation 5 Normal Internal Rotation 5 Normal Left Flexion (L2) 4- Good- Extension (S1) 4 Good Abduction 4 Good Adduction 4 Good External Rotation 5 Normal Internal Rotation 5 Normal Comments dec core engagement B Knee Strength Knee Manual Muscle Testing Right Flexion (S2) 5 Normal Extension (L3) 5 Normal Left Flexion (S2) 5 Normal Extension (L3) 4+ Good+ Ankle/Foot Strength Ankle and Foot Manual Muscle Testing Right Dorsiflexion (L4) 5 Normal Plantarflexion (S1) 5 Normal Comments 20 heel raises Left Dorsiflexion (L4) 5 Normal Plantarflexion (S1) 5 Normal Comments 20 somd discomfort in knee PT-OP-Q Treatments Start: 10/21/22 14:55 Freq: Status: Active Protocol: Document 12/08/22 11:37 [facility] (Rec: 12/08/22 13:31 [facility] [id number]) Manual Therapy Treatment Joint Mobilizations ankle Comments L calcaneal distraction & lat glide FM L talar distraction, med gldie and AP FM (AP supine & standing) tibfib Comments L distal AP FM supine and standing Self-Care/Home Management Treatment Education Other Education 10 min: edu of anatomy of knee and how ankle ROM affects ability to track. edu re: ability to squat requires signfciant ankle mobility w/o med tracking as that will put more pressur michelle knees. edu to retrun to walks to build up fro her trip. PT-OP-T Assessment and Plan Start: 10/21/22 14:55 Freq: Status: Active Protocol: Document 12/08/22 11:37 [facility] (Rec: 12/08/22 13:31 [facility] [id number]) Physical Therapy Assessment Goals balance Fdc Goal (LTG) Pt will be able to do SLS B w/ arms at side for at least 15 sec 11/29/22: B SLS w/ hands on hips ~35s each until told to stop. LTG Duration achieved 12/08 gait Psychiatric Therapist Goal (LTG) Pt will be able do go up/down stairs w/o inc pain LTG Duration achieved 12/08 LE strength Short Term Goal (STG) Pt will be abl to squat down to draft roller picker things/lift things w/o pain or dec balance 12/08-achieved but cannot still get into deep squat to reach out STG Duration 12/14 Fdc Goal (LTG) Pt willb e able to get up/down from the ground w/o inc pain or significant difficulty 12/08-reports easier but somtimes feels it LTG Duration 01/14/23 strength Short Term Goal (STG) Pt will be indep w/HEP STG Duration achieved-advancing as able Psychiatric Therapist Goal (LTG) Pt will score at least 3/5 on LPM in all planes and 5/5 on all MMT of LEs to show improved stability in order to improve pt gait mecahnics and dec pain. 12/08-improving LTG Duration 01/14/23 activities Short Term Goal (STG) Pt will be able to returnt o 2 mile flat walks w/o B knee or R hip pain greater tahn . 11/29/22: walked ~1mi flat without any pain on 11/26/22. 12/08-not walking recently STG Duration 12/07/22 (progressing 11/29/22) Fdc Goal (LTG) pt will be able to return to hilly walks w/o B knee pain or R hip pain LTG Duration 01/14/23 Assessment Summary Assessment Pt is making excellent progress w/PT and is showing improved functional ability. She cont to advance w/balance, strength and ROM but is still limited w/squat and ability to get up/down from the ground . Cont to work on PT to work on strength, balance and mobilty Physical Therapy Plan Frequency and Duration Frequency of Treatment 1-2x/wk Duration of treatment (weeks) 12 Plan of Care Start Date 10/26/22 Plan of Care End Date 01/18/23 Next Visit Focus/Plan Next Note Type Treatment Note Next Visit Plan review SL squat and modified squat down to 2 or 4 in step down and review lunges. lunges and modified squat for HEP. cont to work ankle mobility for squat
--- NOTE | 2022-12-24 17:36 | PT.OTN ---
Current Diagnoses Pain in right hip (12/24/22) Pain in right knee (12/24/22) Pain in left knee (12/24/22) Difficulty in walking, not elsewhere classified (12/24/22) Weakness (12/24/22) Physical Therapy Treatment Note PT-OP-A Visit Information Start: 10/21/22 14:55 Freq: Status: Active Protocol: Document 12/24/22 11:11 [facility] (Rec: 12/24/22 12:19 [facility] [id number]) Out-Patient Physical Therapy Visit Information Visit Information Visit Type Treatment Note Visit Note 06/25 Visit Start Time 11:30 Visit Stop Time 12:18 Total Visit Minutes 48 Visit Number 10 Number of GENERAL SURGERY PHYSICIAN ASSISTANT Visits 1 PT-OP-B Current Condition Start: 10/21/22 14:55 Freq: Status: Active Protocol: Document 10/26/22 10:17 [facility] (Rec: 10/26/22 12:26 [facility] [id number]) Current Condition History of Current Condition Onset Date Jun was when it got really bad Current Complaints L knee pain History of Current Condition Pt has history of neck pain which was treated w/PT w/good results and R hip pain that did imrpove w/PT and injection . She had heart attack in November 2020 and she is monitored and taking meds for this. Pt reports L knee felt like a 'a knife was stuck into it' and when she walked it felt like ' it was going further'. She saw her MD and made her wait several weeks and the constantness is not present but it still will inc. Pain in L knee will hurt w/stairs, walking, sleeping. She sleeps on her back d/t her R hip and CPAP. Sometimes she has to place a pillow under her knees to get comfortable. it stops her from going to sleep but doesn't wake her. Sometimes she gets rodriguez down the pozo that is burning. APs improves burning in pozo and propping LE. Pt notes she still walks but just deals with the pain. She does do hills and downhill and stairs are painful. Sometimes it feels like the knee is going ot go out from under her and she has to grab something. Pt reports she fell when she squatted down in [employer] to get somethign and fell toher butt. no known injury. Getting up from the floor is hard. Avoiding the gardening d/t her knee. Pt reports R knee is also limiting her ability to kneel and stairs, walking. She has had pain for years d/t polymyalgia rheumatica, so she keeps herself moving. The last time missy had the knife feeling was about 2 weeks ago. She is using the rower at home and that feels okay. Pt is typically do 2 miles walking 2-3x/wk and that was on the flat except the past few weeks. SHe hasn't walked d /t a respiratory thing. She hasn't tried to get back. August is around when pain got to be more intermittent. Denies back pain recently. Notes sometimes she has a weird feeling in her L ankle and she has to mvoe it around. Treatment Goals Patient/Caregiver Goals be able to do hills and stairs , be able to garden and kneel, be able to squat down, be able to walk w/o inc pain, be able to get off the floor without looking like a crab; build strength and balance to avoid a fall. PT-OP-C Subjective Start: 10/21/22 14:55 Freq: Status: Active Protocol: Document 12/24/22 11:11 [facility] (Rec: 12/24/22 12:19 [facility] [id number]) OP-PT Subjective Patient Comments Patient Comments María reports she feels looser and has been exercising religiously the sideways monster walk is a killer. She thinks she can go down stairs now without pain in her leg, but still gets occasional stabbing pain once in a while that comes and goes. Her ankles are very tight. She can stand up without pushing off now to get off her rower machine. She started walking and walked 4 mi total last week in [place], and noticed pain in front of thighs with going uphill about 1-2/10. She stopped the ex on her back pumping her ankle. Her Lvl 3 Tb broke. PT-OP-D Balance Start: 10/21/22 14:55 Freq: Status: Active Protocol: Document 10/26/22 10:17 [facility] (Rec: 10/26/22 12:26 [facility] [id number]) Balance Tests Single Limb Standing Single Limb- Right 3 sec (cramp in L HS) Single Limb- Left 12 sec w/use of arms to blance (pain in R HS) PT-OP-G Mobility & Gait Start: 10/21/22 14:55 Freq: Status: Active Protocol: Document 10/26/22 10:17 [facility] (Rec: 10/26/22 12:26 [facility] [id number]) OP Gait Assessment Comments Gait Comments dec ant dep R; dec push off B, primarily leg walker for prupulsion, L pelvic shear PT-OP-J Posture/Palpation/Skin Start: 10/21/22 14:55 Freq: Status: Active Protocol: Document 12/08/22 11:37 [facility] (Rec: 12/08/22 13:31 [facility] [id number]) Posture Evaluation [facility] Postural Classification System Lumbar Protective Mechanism Left AP 2 Lumbar Protective Mechanism Right AP 1 Lumbar Protective Mechanism Left PA 1 Lumbar Protective Mechanism Right PA 1 PT-OP-K Range of Motion Start: 10/21/22 14:55 Freq: Status: Active Protocol: Document 10/26/22 10:17 [facility] (Rec: 10/26/22 12:26 [facility] [id number]) Knee Goniometric Range of Motion Knee Right Flexion Active (degrees) 110 Extension Active (degrees) 4 Comments cramping post knee w/flex Left Flexion Active (degrees) 110 Extension Active (degrees) 3 Comments painful flex in me dknee; PT-OP-L Special Tests Start: 10/21/22 14:55 Freq: Status: Active Protocol: Document 11/10/22 13:34 [facility] (Rec: 11/10/22 14:28 [facility] [id number]) Special Tests Knee Special Tests Thessaly Test 5 Degrees Test Results neg L Prem Test Test Results neg L Apley's Compression Comments positive L ligamentous test Comments ACL, PCL, MCL & LCL neg L PT-OP-M Strength Start: 10/21/22 14:55 Freq: Status: Active Protocol: Document 12/08/22 11:37 [facility] (Rec: 12/08/22 13:31 [facility] [id number]) Hip Strength Hip Manual Muscle Testing Right Flexion (L2) 4+ Good+ Extension (S1) 4+ Good+ Abduction 4 Good Adduction 5 Normal External Rotation 5 Normal Internal Rotation 5 Normal Left Flexion (L2) 4- Good- Extension (S1) 4 Good Abduction 4 Good Adduction 4 Good External Rotation 5 Normal Internal Rotation 5 Normal Comments dec core engagement B Knee Strength Knee Manual Muscle Testing Right Flexion (S2) 5 Normal Extension (L3) 5 Normal Left Flexion (S2) 5 Normal Extension (L3) 4+ Good+ Ankle/Foot Strength Ankle and Foot Manual Muscle Testing Right Dorsiflexion (L4) 5 Normal Plantarflexion (S1) 5 Normal Comments 20 heel raises Left Dorsiflexion (L4) 5 Normal Plantarflexion (S1) 5 Normal Comments 20 somd discomfort in knee PT-OP-Q Treatments Start: 10/21/22 14:55 Freq: Status: Active Protocol: Document 12/24/22 11:11 [facility] (Rec: 12/24/22 12:19 [facility] [id number]) Therapeutic Exercises Standing Exercises resisted band walks Standing Exercise Name fwd/bwd Side bilateral Reps/Minutes 2x10ft ea Comments cues for excessive hip ER and hip hinge calf stretch Standing Exercise Name 1. TRAE 2. wall: gastroc/soleus Side bilateral Reps/Minutes 1' ea Comments cues for foot positioning squat Standing Exercise Name w/ chair behind Side bilateral Resistance Lvl 3 Tb Equipment Used mesh chair Reps/Minutes x20 Comments cued for eccentric control and fully upright w/ glute squeeze sidesteps Side bilateral Equipment Used [place] band Reps/Minutes 3x10ft ea Therapeutic Activity Therapeutic Activity Gardening Name Bending and squatting mechanics Reps/Minutes 5' Comments Pt unable to squat independently or on low stool and demonstrates tall kneeling but reports low back pain. Pt educated on half kneeling position to improve low back pain w/ gardening and demonstrates 1/2 kneel RLE forward>standing w/ UE pushoff on thigh. Pt instructed to change positions/stand/take a break if experiencing low back pain. Manual Therapy Treatment Soft Tissue Mobilization calves Body Location L>R Mobilization Type Cross-Friction,Instrument Assisted,Rolling,Sustained Pressure Intensity/Depth Moderate Body Position Sitting Comments rolling pin - pt i/s in self- STM to calves gentle cross friction/circular strokes to Achilles tendon. Self-Care/Home Management Treatment Education Patient Education Body Mechanics,Home Exercise Program,Safety Other Education Pt educated on gastroc/soleus/ Achilles tendon anatomy w/ visual aid. Added soleus stretch at wall due to increase ankle ROM - HO declined. PT-OP-T Assessment and Plan Start: 10/21/22 14:55 Freq: Status: Active Protocol: Document 12/24/22 11:11 [facility] (Rec: 12/24/22 12:19 [facility] [id number]) Physical Therapy Assessment Impairments Impairments Activity Tolerance,Balance, Functional Activities, Functional Mobility,Gait,Pain, Posture,ROM,Soft Tissue Mobility,Strength,Transfers Goals balance Intermediate Goal (LTG) Pt will be able to do SLS B w/ arms at side for at least 15 sec 11/29/22: B SLS w/ hands on hips ~35s each until told to stop. LTG Duration achieved 12/08 gait Intermediate Goal (LTG) Pt will be able do go up/down stairs w/o inc pain LTG Duration achieved 12/08 LE strength Short Term Goal (STG) Pt will be abl to squat down to parts picker things/lift things w/o pain or dec balance 12/08-achieved but cannot still get into deep squat to reach out STG Duration 12/14 Intermediate Goal (LTG) Pt willb e able to get up/down from the ground w/o inc pain or significant difficulty 12/08-reports easier but somtimes feels it 12/24/22: pt demonstrates w/ some difficulty standing<>1/2 kneel RLE fwd<>tall kneel independently. UE pushoff on R thigh for 1/2 kneel>standing. LTG Duration 01/14/23 (progressing 12/24/22) strength Short Term Goal (STG) Pt will be indep w/HEP STG Duration achieved-advancing as able Intermediate Goal (LTG) Pt will score at least 3/5 on LPM in all planes and 5/5 on all MMT of LEs to show improved stability in order to improve pt gait mecahnics and dec pain. 12/08-improving LTG Duration 01/14/23 activities Short Term Goal (STG) Pt will be able to returnt o 2 mile flat walks w/o B knee or R hip pain greater tahn . 11/29/22: walked ~1mi flat without any pain on 11/26/22. 12/08-not walking recently 12/24/22: pt reports she can walk ~ 2mi flats without increased hip or knee pain. STG Duration 12/07/22 (GOAL MET 12/24/22) Intermediate Goal (LTG) pt will be able to return to hilly walks w/o B knee pain or R hip pain LTG Duration 01/14/23 Assessment Summary Assessment aMría achieves Activites STG of walking ~ 2m flat without increased pain. Treatment focus on LE strengthening for LE strength goal. Pt requires consistent cues for hip hinge with squatting ex's with fatigue and is encouraged to slow ex's down and perform les repetitions with increased focus on hip hinge and eccentric control- pt reported knee pain/discomfort improves with cueing. She's able to descend stairs reciprocally. Pt unable to squat independently or on low stool and demonstrates tall kneeling but reports low back pain. Pt educated on half kneeling position to improve low back pain w/ gardening and demonstrates 1/2 kneel RLE forward>standing w/ UE pushoff on thigh. Pt instructed to change positions/stand/take a break if experiencing low back pain. Pt i/s in self-STM to calves w/ rolling pin, and on gastroc/soleus/Achilles tendon anatomy w/ visual aid. Added soleus stretch at wall due to increase ankle ROM - HO declined. Pt given replacement Lvl 3 Tb. Physical Therapy Plan Frequency and Duration Frequency of Treatment 1-2x/wk Duration of treatment (weeks) 12 Plan of Care Start Date 10/26/22 Plan of Care End Date 01/18/23 Therapeutic Interventions Therapeutic Interventions Balance Training,Gait Training ,Home Exercise Program,Joint Mobilizations,Manual Therapy, Neuromuscular Re-education, Patient/Caregiver Education, Self-Care/Home Management,Soft Tissue Mobilization,Taping, Therapeutic Activities, Therapeutic Exercises Modalities Cold Pack/Ice Massage,Electric Stimulation,Hot Packs, Infrared Therapy,Iontophoresis ,Ultrasound Next Visit Focus/Plan Next Note Type Treatment Note Next Visit Plan review SL squat and modified squat down to 2 or 4 in step down and review lunges. lunges and modified squat for HEP. cont to work ankle mobility for squat
--- NOTE | 2022-12-29 12:19 | PT.OTN ---
Current Diagnoses Pain in right hip (12/29/22) Pain in right knee (12/29/22) Pain in left knee (12/29/22) Difficulty in walking, not elsewhere classified (12/29/22) Weakness (12/29/22) Physical Therapy Treatment Note PT-OP-A Visit Information Start: 10/21/22 14:55 Freq: Status: Active Protocol: Document 12/29/22 11:37 [facility] (Rec: 12/29/22 12:18 [facility] [id number]) Out-Patient Physical Therapy Visit Information Visit Information Visit Type Treatment Note Visit Note 07/23 Visit Start Time 11:36 Visit Stop Time 12:15 Total Visit Minutes 39 Visit Number 11 Number of FINAL FINISHER FORGING DIES Visits 0 PT-OP-B Current Condition Start: 10/21/22 14:55 Freq: Status: Active Protocol: Document 10/26/22 10:17 [facility] (Rec: 10/26/22 12:26 [facility] [id number]) Current Condition History of Current Condition Onset Date Jun was when it got really bad Current Complaints L knee pain History of Current Condition Pt has history of neck pain which was treated w/PT w/good results and R hip pain that did imrpove w/PT and injection . She had heart attack in November 2020 and she is monitored and taking meds for this. Pt reports L knee felt like a 'a knife was stuck into it' and when she walked it felt like ' it was going further'. She saw her MD and made her wait several weeks and the constantness is not present but it still will inc. Pain in L knee will hurt w/stairs, walking, sleeping. She sleeps on her back d/t her R hip and CPAP. Sometimes she has to place a pillow under her knees to get comfortable. it stops her from going to sleep but doesn't wake her. Sometimes she gets rodriguez down the pozo that is burning. APs improves burning in pozo and propping LE. Pt notes she still walks but just deals with the pain. She does do hills and downhill and stairs are painful. Sometimes it feels like the knee is going ot go out from under her and she has to grab something. Pt reports she fell when she squatted down in [employer] to get somethign and fell toher butt. no known injury. Getting up from the floor is hard. Avoiding the gardening d/t her knee. Pt reports R knee is also limiting her ability to kneel and stairs, walking. She has had pain for years d/t polymyalgia rheumatica, so she keeps herself moving. The last time missy had the knife feeling was about 2 weeks ago. She is using the rower at home and that feels okay. Pt is typically do 2 miles walking 2-3x/wk and that was on the flat except the past few weeks. SHe hasn't walked d /t a respiratory thing. She hasn't tried to get back. August is around when pain got to be more intermittent. Denies back pain recently. Notes sometimes she has a weird feeling in her L ankle and she has to mvoe it around. Treatment Goals Patient/Caregiver Goals be able to do hills and stairs , be able to garden and kneel, be able to squat down, be able to walk w/o inc pain, be able to get off the floor without looking like a crab; build strength and balance to avoid a fall. PT-OP-C Subjective Start: 10/21/22 14:55 Freq: Status: Active Protocol: Document 12/29/22 11:37 [facility] (Rec: 12/29/22 12:18 [facility] [id number]) OP-PT Subjective Patient Comments Patient Comments Pt reports she has done a long walk while was in his procedure (5 miles) with only mild knee pain w/hills. notes she hasn't had much knee pain but occ sharp twinges that happen with weird movement PT-OP-D Balance Start: 10/21/22 14:55 Freq: Status: Active Protocol: Document 10/26/22 10:17 [facility] (Rec: 10/26/22 12:26 [facility] [id number]) Balance Tests Single Limb Standing Single Limb- Right 3 sec (cramp in L HS) Single Limb- Left 12 sec w/use of arms to blance (pain in R HS) PT-OP-G Mobility & Gait Start: 10/21/22 14:55 Freq: Status: Active Protocol: Document 10/26/22 10:17 [facility] (Rec: 10/26/22 12:26 [facility] [id number]) OP Gait Assessment Comments Gait Comments dec ant dep R; dec push off B, primarily leg walker for prupulsion, L pelvic shear PT-OP-J Posture/Palpation/Skin Start: 10/21/22 14:55 Freq: Status: Active Protocol: Document 12/08/22 11:37 [facility] (Rec: 12/08/22 13:31 [facility] [id number]) Posture Evaluation [facility] Postural Classification System Lumbar Protective Mechanism Left AP 2 Lumbar Protective Mechanism Right AP 1 Lumbar Protective Mechanism Left PA 1 Lumbar Protective Mechanism Right PA 1 PT-OP-K Range of Motion Start: 10/21/22 14:55 Freq: Status: Active Protocol: Document 10/26/22 10:17 [facility] (Rec: 10/26/22 12:26 [facility] [id number]) Knee Goniometric Range of Motion Knee Right Flexion Active (degrees) 110 Extension Active (degrees) 4 Comments cramping post knee w/flex Left Flexion Active (degrees) 110 Extension Active (degrees) 3 Comments painful flex in me dknee; PT-OP-L Special Tests Start: 10/21/22 14:55 Freq: Status: Active Protocol: Document 11/10/22 13:34 [facility] (Rec: 11/10/22 14:28 [facility] [id number]) Special Tests Knee Special Tests Thessaly Test 5 Degrees Test Results neg L Prem Test Test Results neg L Apley's Compression Comments positive L ligamentous test Comments ACL, PCL, MCL & LCL neg L PT-OP-M Strength Start: 10/21/22 14:55 Freq: Status: Active Protocol: Document 12/08/22 11:37 [facility] (Rec: 12/08/22 13:31 [facility] [id number]) Hip Strength Hip Manual Muscle Testing Right Flexion (L2) 4+ Good+ Extension (S1) 4+ Good+ Abduction 4 Good Adduction 5 Normal External Rotation 5 Normal Internal Rotation 5 Normal Left Flexion (L2) 4- Good- Extension (S1) 4 Good Abduction 4 Good Adduction 4 Good External Rotation 5 Normal Internal Rotation 5 Normal Comments dec core engagement B Knee Strength Knee Manual Muscle Testing Right Flexion (S2) 5 Normal Extension (L3) 5 Normal Left Flexion (S2) 5 Normal Extension (L3) 4+ Good+ Ankle/Foot Strength Ankle and Foot Manual Muscle Testing Right Dorsiflexion (L4) 5 Normal Plantarflexion (S1) 5 Normal Comments 20 heel raises Left Dorsiflexion (L4) 5 Normal Plantarflexion (S1) 5 Normal Comments 20 somd discomfort in knee PT-OP-Q Treatments Start: 10/21/22 14:55 Freq: Status: Active Protocol: Document 12/29/22 11:37 [facility] (Rec: 12/29/22 12:18 [facility] [id number]) Manual Therapy Treatment Soft Tissue Mobilization ITB Body Location L distal and proximal Mobilization Type Rolling,Strumming,Sustained Pressure Intensity/Depth Moderate quads Body Location L vl Mobilization Type Sustained Pressure Intensity/Depth Moderate Comments w/quad set Joint Mobilizations tibfib Joint proximal L Comments L gapping & AP FM tibfem Comments AP on tib and femur and med on femur FM patellofemoral Joint sup, inf, med L Neuro Re-Education Treatment Balance Activities bosu Comments 1.step ups x10 B 2. lat step ups and [id number] B 3.squats on blue side x10 4.mini lunges x10 B SLS Comments w/fwd, back and lat reach x10 B PT-OP-T Assessment and Plan Start: 10/21/22 14:55 Freq: Status: Active Protocol: Document 12/29/22 11:37 [facility] (Rec: 12/29/22 12:18 [facility] [id number]) Physical Therapy Assessment Goals balance Custodial Goal (LTG) Pt will be able to do SLS B w/ arms at side for at least 15 sec 11/29/22: B SLS w/ hands on hips ~35s each until told to stop. LTG Duration achieved 12/08 gait Glass Vial Bending Conveyor Feeder Goal (LTG) Pt will be able do go up/down stairs w/o inc pain LTG Duration achieved 12/08 LE strength Short Term Goal (STG) Pt will be abl to squat down to sampler pickup things/lift things w/o pain or dec balance 12/08-achieved but cannot still get into deep squat to reach out STG Duration 12/14 Glass Vial Bending Conveyor Feeder Goal (LTG) Pt willb e able to get up/down from the ground w/o inc pain or significant difficulty 12/08-reports easier but somtimes feels it 12/24/22: pt demonstrates w/ some difficulty standing<>1/2 kneel RLE fwd<>tall kneel independently. UE pushoff on R thigh for 1/2 kneel>standing. LTG Duration 01/14/23 (progressing 12/24/22) strength Short Term Goal (STG) Pt will be indep w/HEP STG Duration achieved-advancing as able Custodial Goal (LTG) Pt will score at least 3/5 on LPM in all planes and 5/5 on all MMT of LEs to show improved stability in order to improve pt gait mecahnics and dec pain. 12/08-improving LTG Duration 01/14/23 activities Short Term Goal (STG) Pt will be able to returnt o 2 mile flat walks w/o B knee or R hip pain greater tahn . 11/29/22: walked ~1mi flat without any pain on 11/26/22. 12/08-not walking recently 12/24/22: pt reports she can walk ~ 2mi flats without increased hip or knee pain. STG Duration 12/07/22 (GOAL MET 12/24/22) Custodial Goal (LTG) pt will be able to return to hilly walks w/o B knee pain or R hip pain LTG Duration 01/14/23 Assessment Summary Assessment Pt did well with strength/ balance challenge w/o inc pain . She had initially some ache in standing and with laying supine and that improved to dec discomfort w/manual treatment. Physical Therapy Plan Frequency and Duration Frequency of Treatment 1-2x/wk Duration of treatment (weeks) 12 Plan of Care Start Date 10/26/22 Plan of Care End Date 01/18/23 Next Visit Focus/Plan Next Note Type Treatment Note Next Visit Plan work on unstable and twisting motion to create full knee stability
--- NOTE | 2023-01-05 13:01 | PT.OTN ---
Current Diagnoses Pain in right hip (01/05/23) Pain in right knee (01/05/23) Pain in left knee (01/05/23) Difficulty in walking, not elsewhere classified (01/05/23) Weakness (01/05/23) Physical Therapy Treatment Note PT-OP-A Visit Information Start: 10/21/22 14:55 Freq: Status: Active Protocol: Document 01/05/23 11:39 [facility] (Rec: 01/05/23 13:01 [facility] [id number]) Out-Patient Physical Therapy Visit Information Visit Information Visit Type Treatment Note Visit Note 08/23 Visit Start Time 11:38 Visit Stop Time 12:17 Total Visit Minutes 39 Visit Number 12 Number of CLOTH RO[employer] W[employer]ER Visits 0 PT-OP-B Current Condition Start: 10/21/22 14:55 Freq: Status: Active Protocol: Document 10/26/22 10:17 [facility] (Rec: 10/26/22 12:26 [facility] [id number]) Current Condition History of Current Condition Onset Date Jun was when it got really bad Current Complaints L knee pain History of Current Condition Pt has history of neck pain which was treated w/PT w/good results and R hip pain that did imrpove w/PT and injection . She had heart attack in November 2020 and she is monitored and taking meds for this. Pt reports L knee felt like a 'a knife was stuck into it' and when she walked it felt like ' it was going further'. She saw her MD and made her wait several weeks and the constantness is not present but it still will inc. Pain in L knee will hurt w/stairs, walking, sleeping. She sleeps on her back d/t her R hip and CPAP. Sometimes she has to place a pillow under her knees to get comfortable. it stops her from going to sleep but doesn't wake her. Sometimes she gets rodriguez down the pozo that is burning. APs improves burning in pozo and propping LE. Pt notes she still walks but just deals with the pain. She does do hills and downhill and stairs are painful. Sometimes it feels like the knee is going ot go out from under her and she has to grab something. Pt reports she fell when she squatted down in [employer] to get somethign and fell toher butt. no known injury. Getting up from the floor is hard. Avoiding the gardening d/t her knee. Pt reports R knee is also limiting her ability to kneel and stairs, walking. She has had pain for years d/t polymyalgia rheumatica, so she keeps herself moving. The last time missy had the knife feeling was about 2 weeks ago. She is using the rower at home and that feels okay. Pt is typically do 2 miles walking 2-3x/wk and that was on the flat except the past few weeks. SHe hasn't walked d /t a respiratory thing. She hasn't tried to get back. August is around when pain got to be more intermittent. Denies back pain recently. Notes sometimes she has a weird feeling in her L ankle and she has to mvoe it around. Treatment Goals Patient/Caregiver Goals be able to do hills and stairs , be able to garden and kneel, be able to squat down, be able to walk w/o inc pain, be able to get off the floor without looking like a crab; build strength and balance to avoid a fall. PT-OP-C Subjective Start: 10/21/22 14:55 Freq: Status: Active Protocol: Document 01/05/23 11:39 [facility] (Rec: 01/05/23 13:01 [facility] [id number]) OP-PT Subjective Patient Comments Patient Comments Pt reports some discomfort w/ down and up steps. She reports missy can kneel but can't sit back because it is hurts her L knee. Notes she can get up/ dwon from ground easier. PT-OP-D Balance Start: 10/21/22 14:55 Freq: Status: Active Protocol: Document 10/26/22 10:17 [facility] (Rec: 10/26/22 12:26 [facility] [id number]) Balance Tests Single Limb Standing Single Limb- Right 3 sec (cramp in L HS) Single Limb- Left 12 sec w/use of arms to blance (pain in R HS) PT-OP-G Mobility & Gait Start: 10/21/22 14:55 Freq: Status: Active Protocol: Document 10/26/22 10:17 [facility] (Rec: 10/26/22 12:26 [facility] [id number]) OP Gait Assessment Comments Gait Comments dec ant dep R; dec push off B, primarily leg walker for prupulsion, L pelvic shear PT-OP-J Posture/Palpation/Skin Start: 10/21/22 14:55 Freq: Status: Active Protocol: Document 12/08/22 11:37 [facility] (Rec: 12/08/22 13:31 [facility] [id number]) Posture Evaluation [facility] Postural Classification System Lumbar Protective Mechanism Left AP 2 Lumbar Protective Mechanism Right AP 1 Lumbar Protective Mechanism Left PA 1 Lumbar Protective Mechanism Right PA 1 PT-OP-K Range of Motion Start: 10/21/22 14:55 Freq: Status: Active Protocol: Document 10/26/22 10:17 [facility] (Rec: 10/26/22 12:26 [facility] [id number]) Knee Goniometric Range of Motion Knee Right Flexion Active (degrees) 110 Extension Active (degrees) 4 Comments cramping post knee w/flex Left Flexion Active (degrees) 110 Extension Active (degrees) 3 Comments painful flex in me dknee; PT-OP-L Special Tests Start: 10/21/22 14:55 Freq: Status: Active Protocol: Document 11/10/22 13:34 [facility] (Rec: 11/10/22 14:28 [facility] [id number]) Special Tests Knee Special Tests Thessaly Test 5 Degrees Test Results neg L Prem Test Test Results neg L Apley's Compression Comments positive L ligamentous test Comments ACL, PCL, MCL & LCL neg L PT-OP-M Strength Start: 10/21/22 14:55 Freq: Status: Active Protocol: Document 12/08/22 11:37 [facility] (Rec: 12/08/22 13:31 [facility] [id number]) Hip Strength Hip Manual Muscle Testing Right Flexion (L2) 4+ Good+ Extension (S1) 4+ Good+ Abduction 4 Good Adduction 5 Normal External Rotation 5 Normal Internal Rotation 5 Normal Left Flexion (L2) 4- Good- Extension (S1) 4 Good Abduction 4 Good Adduction 4 Good External Rotation 5 Normal Internal Rotation 5 Normal Comments dec core engagement B Knee Strength Knee Manual Muscle Testing Right Flexion (S2) 5 Normal Extension (L3) 5 Normal Left Flexion (S2) 5 Normal Extension (L3) 4+ Good+ Ankle/Foot Strength Ankle and Foot Manual Muscle Testing Right Dorsiflexion (L4) 5 Normal Plantarflexion (S1) 5 Normal Comments 20 heel raises Left Dorsiflexion (L4) 5 Normal Plantarflexion (S1) 5 Normal Comments 20 somd discomfort in knee PT-OP-Q Treatments Start: 10/21/22 14:55 Freq: Status: Active Protocol: Document 01/05/23 11:39 [facility] (Rec: 01/05/23 13:01 [facility] [id number]) Therapeutic Exercises Standing Exercises calf stretch Standing Exercise Name fwd lean gastroc then soleus Side left Reps/Minutes 30 sec ea Other Exercises self mob Other Exercise Name 1. femur PA 2. fibula PA Reps/Minutes 5 min Gait Training Gait Activity stairs Comments 1. up/down 26 lobby stairs (6 ) recip w/cues for foot postiion x2 2. step ups on 6 in step w/ cues for knee position and no IR w/alt july Manual Therapy Treatment Soft Tissue Mobilization calves Body Location L Mobilization Type Sustained Pressure Comments quadruped w/pt sit back quads Body Location L vl Mobilization Type Sustained Pressure Intensity/Depth Moderate Comments w/flex Joint Mobilizations tibfib Comments L gapping s/l & PA quadruped FM tibfem Comments PA on femur FM in quadruped w/ strap -pt educated how to self do PT-OP-T Assessment and Plan Start: 10/21/22 14:55 Freq: Status: Active Protocol: Document 01/05/23 11:39 [facility] (Rec: 01/05/23 13:01 [facility] [id number]) Physical Therapy Assessment Goals balance Jail Goal (LTG) Pt will be able to do SLS B w/ arms at side for at least 15 sec 11/29/22: B SLS w/ hands on hips ~35s each until told to stop. LTG Duration achieved 12/08 gait Jail Goal (LTG) Pt will be able do go up/down stairs w/o inc pain LTG Duration achieved 12/08 LE strength Short Term Goal (STG) Pt will be abl to squat down to lemon picker things/lift things w/o pain or dec balance 12/08-achieved but cannot still get into deep squat to reach out STG Duration 12/14 Jail Goal (LTG) Pt willb e able to get up/down from the ground w/o inc pain or significant difficulty 12/08-reports easier but somtimes feels it 12/24/22: pt demonstrates w/ some difficulty standing<>1/2 kneel RLE fwd<>tall kneel independently. UE pushoff on R thigh for 1/2 kneel>standing. LTG Duration 01/14/23 (progressing 12/24/22) strength Short Term Goal (STG) Pt will be indep w/HEP STG Duration achieved-advancing as able Jail Goal (LTG) Pt will score at least 3/5 on LPM in all planes and 5/5 on all MMT of LEs to show improved stability in order to improve pt gait mecahnics and dec pain. 12/08-improving LTG Duration 01/14/23 activities Short Term Goal (STG) Pt will be able to returnt o 2 mile flat walks w/o B knee or R hip pain greater tahn . 11/29/22: walked ~1mi flat without any pain on 11/26/22. 12/08-not walking recently 12/24/22: pt reports she can walk ~ 2mi flats without increased hip or knee pain. STG Duration 12/07/22 (GOAL MET 12/24/22) [employer] Goal (LTG) pt will be able to return to hilly walks w/o B knee pain or R hip pain LTG Duration 01/14/23 Assessment Summary Assessment Pt had less pain w/kneeling and was able to sit back on legs along w/decend stairs w/o inc pain after manual. Pt required cues to avoid minor IR to dec pain w/ascent of stairs Physical Therapy Plan Frequency and Duration Frequency of Treatment 1-2x/wk Duration of treatment (weeks) 12 Plan of Care Start Date 10/26/22 Plan of Care End Date 01/18/23 Next Visit Focus/Plan Next Note Type Treatment Note Next Visit Plan work on unstable and twisting motion to create full knee stability
--- NOTE | 2023-01-12 17:55 | PT.OTN ---
Current Diagnoses Pain in right hip (01/12/23) Pain in right knee (01/12/23) Pain in left knee (01/12/23) Difficulty in walking, not elsewhere classified (01/12/23) Weakness (01/12/23) Physical Therapy Treatment Note PT-OP-A Visit Information Start: 10/21/22 14:55 Freq: Status: Active Protocol: Document 01/12/23 11:34 [facility] (Rec: 01/12/23 17:54 [facility] [id number]) Out-Patient Physical Therapy Visit Information Visit Information Visit Type Progress Note Visit Note 05/25 Visit Start Time 11:36 Visit Stop Time 12:18 Total Visit Minutes 42 Visit Number 13 Number of PLUGMAN Visits 0 PT-OP-B Current Condition Start: 10/21/22 14:55 Freq: Status: Active Protocol: Document 10/26/22 10:17 [facility] (Rec: 10/26/22 12:26 [facility] [id number]) Current Condition History of Current Condition Onset Date Jun was when it got really bad Current Complaints L knee pain History of Current Condition Pt has history of neck pain which was treated w/PT w/good results and R hip pain that did imrpove w/PT and injection . She had heart attack in November 2020 and she is monitored and taking meds for this. Pt reports L knee felt like a 'a knife was stuck into it' and when she walked it felt like ' it was going further'. She saw her MD and made her wait several weeks and the constantness is not present but it still will inc. Pain in L knee will hurt w/stairs, walking, sleeping. She sleeps on her back d/t her R hip and CPAP. Sometimes she has to place a pillow under her knees to get comfortable. it stops her from going to sleep but doesn't wake her. Sometimes she gets rodriguez down the pozo that is burning. APs improves burning in pozo and propping LE. Pt notes she still walks but just deals with the pain. She does do hills and downhill and stairs are painful. Sometimes it feels like the knee is going ot go out from under her and she has to grab something. Pt reports she fell when she squatted down in [employer] to get somethign and fell toher butt. no known injury. Getting up from the floor is hard. Avoiding the gardening d/t her knee. Pt reports R knee is also limiting her ability to kneel and stairs, walking. She has had pain for years d/t polymyalgia rheumatica, so she keeps herself moving. The last time missy had the knife feeling was about 2 weeks ago. She is using the rower at home and that feels okay. Pt is typically do 2 miles walking 2-3x/wk and that was on the flat except the past few weeks. SHe hasn't walked d /t a respiratory thing. She hasn't tried to get back. August is around when pain got to be more intermittent. Denies back pain recently. Notes sometimes she has a weird feeling in her L ankle and she has to mvoe it around. Treatment Goals Patient/Caregiver Goals be able to do hills and stairs , be able to garden and kneel, be able to squat down, be able to walk w/o inc pain, be able to get off the floor without looking like a crab; build strength and balance to avoid a fall. PT-OP-C Subjective Start: 10/21/22 14:55 Freq: Status: Active Protocol: Document 01/12/23 11:34 [facility] (Rec: 01/12/23 17:54 [facility] [id number]) OP-PT Subjective Patient Comments Patient Comments Pt reports over the weekend, she irritated her L knee and was getting pain down the pozo .S eh had to take meds one night to sleep. Its getting better today. Has the reminents in med knee now. PT-OP-D Balance Start: 10/21/22 14:55 Freq: Status: Active Protocol: Document 10/26/22 10:17 [facility] (Rec: 10/26/22 12:26 [facility] [id number]) Balance Tests Single Limb Standing Single Limb- Right 3 sec (cramp in L HS) Single Limb- Left 12 sec w/use of arms to blance (pain in R HS) PT-OP-G Mobility & Gait Start: 10/21/22 14:55 Freq: Status: Active Protocol: Document 10/26/22 10:17 [facility] (Rec: 10/26/22 12:26 [facility] [id number]) OP Gait Assessment Comments Gait Comments dec ant dep R; dec push off B, primarily leg walker for prupulsion, L pelvic shear PT-OP-J Posture/Palpation/Skin Start: 10/21/22 14:55 Freq: Status: Active Protocol: Document 01/12/23 11:34 [facility] (Rec: 01/12/23 17:54 [facility] [id number]) Posture Evaluation [facility] Postural Classification System Lumbar Protective Mechanism Left AP 3 Lumbar Protective Mechanism Right AP 2 Lumbar Protective Mechanism Left PA 2 Lumbar Protective Mechanism Right PA 2 PT-OP-K Range of Motion Start: 10/21/22 14:55 Freq: Status: Active Protocol: Document 10/26/22 10:17 [facility] (Rec: 10/26/22 12:26 [facility] [id number]) Knee Goniometric Range of Motion Knee Right Flexion Active (degrees) 110 Extension Active (degrees) 4 Comments cramping post knee w/flex Left Flexion Active (degrees) 110 Extension Active (degrees) 3 Comments painful flex in me dknee; PT-OP-L Special Tests Start: 10/21/22 14:55 Freq: Status: Active Protocol: Document 11/10/22 13:34 [facility] (Rec: 11/10/22 14:28 [facility] [id number]) Special Tests Knee Special Tests Thessaly Test 5 Degrees Test Results neg L Prem Test Test Results neg L Apley's Compression Comments positive L ligamentous test Comments ACL, PCL, MCL & LCL neg L PT-OP-M Strength Start: 10/21/22 14:55 Freq: Status: Active Protocol: Document 01/12/23 11:34 [facility] (Rec: 01/12/23 17:54 [facility] [id number]) Hip Strength Hip Manual Muscle Testing Right Flexion (L2) 5 Normal Extension (S1) 4+ Good+ Abduction 5 Normal Adduction 5 Normal External Rotation 5 Normal Internal Rotation 5 Normal Left Flexion (L2) 4 Good Extension (S1) 4+ Good+ Abduction 5 Normal Adduction 4+ Good+ External Rotation 5 Normal Internal Rotation 5 Normal Comments dec core engagement B Knee Strength Knee Manual Muscle Testing Right Flexion (S2) 5 Normal Extension (L3) 5 Normal Left Flexion (S2) 5 Normal Extension (L3) 5 Normal Ankle/Foot Strength Ankle and Foot Manual Muscle Testing Right Dorsiflexion (L4) 5 Normal Plantarflexion (S1) 5 Normal Comments 20 heel raises Left Dorsiflexion (L4) 5 Normal Plantarflexion (S1) 5 Normal Comments 20 somd discomfort in knee PT-OP-Q Treatments Start: 10/21/22 14:55 Freq: Status: Active Protocol: Document 01/12/23 11:34 [facility] (Rec: 01/12/23 17:54 [facility] [id number]) Therapeutic Exercises Standing Exercises hip hike Side bilateral Reps/Minutes 10 Comments cues for dec QL use Manual Therapy Treatment Soft Tissue Mobilization HS Body Location L med Mobilization Type Rolling,Other Intensity/Depth Moderate Comments w/knee ext in prone and supine quads Body Location L vl Mobilization Type Sustained Pressure Intensity/Depth Moderate Comments w/flex Joint Mobilizations tibfib Joint proximal L Comments L gapping and AP FM tibfem Comments AP on femur and tibia FM Self-Care/Home Management Treatment Education Other Education 10 min: discussion of exercises. Edu which ones to focus on and to use stretches and rolling out ot help manage pain prn but do not need to be done daily. edu to do self massage on trigger points w/ AROM of jt PT-OP-T Assessment and Plan Start: 10/21/22 14:55 Freq: Status: Active Protocol: Document 01/12/23 11:34 [facility] (Rec: 01/12/23 17:54 [facility] [id number]) Physical Therapy Assessment Goals lay flat [employer] Goal (LTG) Pt will be able to lay flat in bed w/o knee pain LTG Duration 02/02 balance [employer] Goal (LTG) Pt will be able to do SLS B w/ arms at side for at least 15 sec 11/29/22: B SLS w/ hands on hips ~35s each until told to stop. LTG Duration achieved 12/08 gait Fdc Goal (LTG) Pt will be able do go up/down stairs w/o inc pain LTG Duration achieved 12/08 LE strength Short Term Goal (STG) Pt will be abl to squat down to pick up driver things/lift things w/o pain or dec balance 12/08-achieved but cannot still get into deep squat to reach out 01/12-can squat but has difficulty still for a low shelf STG Duration 01/20 [employer] Goal (LTG) Pt willb e able to get up/down from the ground w/o inc pain or significant difficulty 12/08-reports easier but somtimes feels it 12/24/22: pt demonstrates w/ some difficulty standing<>1/2 kneel RLE fwd<>tall kneel independently. UE pushoff on R thigh for 1/2 kneel>standing. LTG Duration achieved 01/12 strength Short Term Goal (STG) Pt will be indep w/HEP STG Duration achieved-advancing as able [employer] Goal (LTG) Pt will score at least 3/5 on LPM in all planes and 5/5 on all MMT of LEs to show improved stability in order to improve pt gait mecahnics and dec pain. 12/08-improving 01/12-cont improvement LTG Duration 02/02 activities Short Term Goal (STG) Pt will be able to returnt o 2 mile flat walks w/o B knee or R hip pain greater tahn . 11/29/22: walked ~1mi flat without any pain on 11/26/22. 12/08-not walking recently 12/24/22: pt reports she can walk ~ 2mi flats without increased hip or knee pain. STG Duration (GOAL MET 12/24/22) Fdc Goal (LTG) pt will be able to return to hilly walks w/o B knee pain or R hip pain LTG Duration achieved 01/12 Assessment Summary Assessment Pt is making great progress w/ PT at this time and has been able to advance well with overall less knee pain until a set back this , but she is recovering well w/pain dec today. She has pain laying supine in bed and did initially in clinic but did not after treatment today. Cont PT to focus on dec pain and improving squat ability Physical Therapy Plan Frequency and Duration Frequency of Treatment 1x/Week Duration of treatment (weeks) 3 Plan of Care Start Date 01/12/23 Plan of Care End Date 02/02/23 Therapeutic Interventions Therapeutic Interventions Balance Training,Gait Training ,Home Exercise Program,Joint Mobilizations,Manual Therapy, Neuromuscular Re-education, Patient/Caregiver Education, Self-Care/Home Management,Soft Tissue Mobilization,Taping, Therapeutic Activities, Therapeutic Exercises Modalities Cold Pack/Ice Massage,Electric Stimulation,Hot Packs, Infrared Therapy,Iontophoresis ,Ultrasound Next Visit Focus/Plan Next Note Type Discharge Summary Next Visit Plan work on unstable and twisting motion to create full knee stability
--- NOTE | 2023-01-12 17:55 | PT.OPPOC ---
Physical, Occupational & Speech Therapy At [facility] Current Diagnoses Pain in right hip (01/12/23) Pain in right knee (01/12/23) Pain in left knee (01/12/23) Difficulty in walking, not elsewhere classified (01/12/23) Weakness (01/12/23) Visit Care Team Role Provider Type Erica Patel MD Primary Care Provider Non-Staff Specialty: Internal Medicine Address: [address] [place] [address], [phone] Fax: Email: Attending Provider Referring Provider Specialty: Address: Phone: Fax: Email: Plan Of Care PT-OP-T Assessment and Plan Start: 10/21/22 14:55 Freq: Status: Active Protocol: Document 01/12/23 11:34 [facility] (Rec: 01/12/23 17:54 [facility] [id number]) Physical Therapy Assessment Goals lay flat French Lecturer Goal (LTG) Pt will be able to lay flat in bed w/o knee pain LTG Duration 02/02 balance Half-Way Goal (LTG) Pt will be able to do SLS B w/ arms at side for at least 15 sec 11/29/22: B SLS w/ hands on hips ~35s each until told to stop. LTG Duration achieved 12/08 gait French Lecturer Goal (LTG) Pt will be able do go up/down stairs w/o inc pain LTG Duration achieved 12/08 LE strength Short Term Goal (STG) Pt will be abl to squat down to orange picker machine operator things/lift things w/o pain or dec balance 12/08-achieved but cannot still get into deep squat to reach out 01/12-can squat but has difficulty still for a low shelf STG Duration 01/20 Half-Way Goal (LTG) Pt willb e able to get up/down from the ground w/o inc pain or significant difficulty 12/08-reports easier but somtimes feels it 12/24/22: pt demonstrates w/ some difficulty standing<>1/2 kneel RLE fwd<>tall kneel independently. UE pushoff on R thigh for 1/2 kneel>standing. LTG Duration achieved 01/12 strength Short Term Goal (STG) Pt will be indep w/HEP STG Duration achieved-advancing as able Half-Way Goal (LTG) Pt will score at least 3/5 on LPM in all planes and 5/5 on all MMT of LEs to show improved stability in order to improve pt gait mecahnics and dec pain. 12/08-improving 01/12-cont improvement LTG Duration 02/02 activities Short Term Goal (STG) Pt will be able to returnt o 2 mile flat walks w/o B knee or R hip pain greater tahn / 10. 11/29/22: walked ~1mi flat without any pain on 11/26/22. 12/08-not walking recently 12/24/22: pt reports she can walk ~ 2mi flats without increased hip or knee pain. STG Duration (GOAL MET 12/24/22) French Lecturer Goal (LTG) pt will be able to return to hilly walks w/o B knee pain or R hip pain LTG Duration achieved 01/12 Assessment Summary Assessment Pt is making great progress w/ PT at this time and has been able to advance well with overall less knee pain until a set back this , but she is recovering well w/pain dec today. She has pain laying supine in bed and did initially in clinic but did not after treatment today. Cont PT to focus on dec pain and improving squat ability Physical Therapy Plan Frequency and Duration Frequency of Treatment 1x/Week Duration of treatment (weeks) 3 Plan of Care Start Date 01/12/23 Plan of Care End Date 02/02/23 Therapeutic Interventions Therapeutic Interventions Balance Training,Gait Training ,Home Exercise Program,Joint Mobilizations,Manual Therapy, Neuromuscular Re-education, Patient/Caregiver Education, Self-Care/Home Management,Soft Tissue Mobilization,Taping, Therapeutic Activities, Therapeutic Exercises Modalities Cold Pack/Ice Massage,Electric Stimulation,Hot Packs, Infrared Therapy,Iontophoresis ,Ultrasound Next Visit Focus/Plan Next Note Type Discharge Summary Next Visit Plan work on unstable and twisting motion to create full knee stability Plan of Care Dates Plan of Care Start Date 01/12/23 Plan of Care End Date 02/02/23 Electronically Signed by: Jennifer Pitts, PT 01/12/23 [id number] If you are in agreement with this Plan of Care, please return a signed and dated copy. I have reviewed this Plan of Care and certify that the skilled therapy services above are required to meet the patient?s needs. Physician Signature Date Printed Name and Credentials Clinical Instructor Signature Printed Name and Credentials
--- NOTE | 2023-01-19 12:18 | PT.OTN ---
Current Diagnoses Pain in right hip (01/19/23) Pain in right knee (01/19/23) Pain in left knee (01/19/23) Difficulty in walking, not elsewhere classified (01/19/23) Weakness (01/19/23) Physical Therapy Treatment Note PT-OP-A Visit Information Start: 10/21/22 14:55 Freq: Status: Active Protocol: Document 01/19/23 11:34 [facility] (Rec: 01/19/23 12:18 [facility] [id number]) Out-Patient Physical Therapy Visit Information Visit Information Visit Type Discharge Summary Visit Start Time 11:35 Visit Stop Time 12:13 Total Visit Minutes 38 Visit Number 14 Number of CHARGING PLUG PLACER Visits 0 PT-OP-B Current Condition Start: 10/21/22 14:55 Freq: Status: Active Protocol: Document 10/26/22 10:17 [facility] (Rec: 10/26/22 12:26 [facility] [id number]) Current Condition History of Current Condition Onset Date Jun was when it got really bad Current Complaints L knee pain History of Current Condition Pt has history of neck pain which was treated w/PT w/good results and R hip pain that did imrpove w/PT and injection . She had heart attack in November 2020 and she is monitored and taking meds for this. Pt reports L knee felt like a 'a knife was stuck into it' and when she walked it felt like ' it was going further'. She saw her MD and made her wait several weeks and the constantness is not present but it still will inc. Pain in L knee will hurt w/stairs, walking, sleeping. She sleeps on her back d/t her R hip and CPAP. Sometimes she has to place a pillow under her knees to get comfortable. it stops her from going to sleep but doesn't wake her. Sometimes she gets rodriguez down the pozo that is burning. APs improves burning in pozo and propping LE. Pt notes she still walks but just deals with the pain. She does do hills and downhill and stairs are painful. Sometimes it feels like the knee is going ot go out from under her and she has to grab something. Pt reports she fell when she squatted down in [employer] to get somethign and fell toher butt. no known injury. Getting up from the floor is hard. Avoiding the gardening d/t her knee. Pt reports R knee is also limiting her ability to kneel and stairs, walking. She has had pain for years d/t polymyalgia rheumatica, so she keeps herself moving. The last time missy had the knife feeling was about 2 weeks ago. She is using the rower at home and that feels okay. Pt is typically do 2 miles walking 2-3x/wk and that was on the flat except the past few weeks. SHe hasn't walked d /t a respiratory thing. She hasn't tried to get back. August is around when pain got to be more intermittent. Denies back pain recently. Notes sometimes she has a weird feeling in her L ankle and she has to mvoe it around. Treatment Goals Patient/Caregiver Goals be able to do hills and stairs , be able to garden and kneel, be able to squat down, be able to walk w/o inc pain, be able to get off the floor without looking like a crab; build strength and balance to avoid a fall. PT-OP-C Subjective Start: 10/21/22 14:55 Freq: Status: Active Protocol: Document 01/19/23 11:34 [facility] (Rec: 01/19/23 12:18 [facility] [id number]) OP-PT Subjective Patient Comments Patient Comments Pt able to kneel and not have the pain stretch anymore. She felt beter about 2 dsya after last session. Can do yoga poses again. Exercises going well. Patient Reported Progress Improving PT-OP-D Balance Start: 10/21/22 14:55 Freq: Status: Active Protocol: Document 10/26/22 10:17 [facility] (Rec: 10/26/22 12:26 [facility] [id number]) Balance Tests Single Limb Standing Single Limb- Right 3 sec (cramp in L HS) Single Limb- Left 12 sec w/use of arms to blance (pain in R HS) PT-OP-G Mobility & Gait Start: 10/21/22 14:55 Freq: Status: Active Protocol: Document 10/26/22 10:17 [facility] (Rec: 10/26/22 12:26 [facility] [id number]) OP Gait Assessment Comments Gait Comments dec ant dep R; dec push off B, primarily leg walker for prupulsion, L pelvic shear PT-OP-J Posture/Palpation/Skin Start: 10/21/22 14:55 Freq: Status: Active Protocol: Document 01/12/23 11:34 [facility] (Rec: 01/12/23 17:54 [facility] [id number]) Posture Evaluation [facility] Postural Classification System Lumbar Protective Mechanism Left AP 3 Lumbar Protective Mechanism Right AP 2 Lumbar Protective Mechanism Left PA 2 Lumbar Protective Mechanism Right PA 2 PT-OP-K Range of Motion Start: 10/21/22 14:55 Freq: Status: Active Protocol: Document 10/26/22 10:17 [facility] (Rec: 10/26/22 12:26 [facility] [id number]) Knee Goniometric Range of Motion Knee Right Flexion Active (degrees) 110 Extension Active (degrees) 4 Comments cramping post knee w/flex Left Flexion Active (degrees) 110 Extension Active (degrees) 3 Comments painful flex in me dknee; PT-OP-L Special Tests Start: 10/21/22 14:55 Freq: Status: Active Protocol: Document 11/10/22 13:34 [facility] (Rec: 11/10/22 14:28 [facility] [id number]) Special Tests Knee Special Tests Thessaly Test 5 Degrees Test Results neg L Prem Test Test Results neg L Apley's Compression Comments positive L ligamentous test Comments ACL, PCL, MCL & LCL neg L PT-OP-M Strength Start: 10/21/22 14:55 Freq: Status: Active Protocol: Document 01/12/23 11:34 [facility] (Rec: 01/12/23 17:54 [facility] [id number]) Hip Strength Hip Manual Muscle Testing Right Flexion (L2) 5 Normal Extension (S1) 4+ Good+ Abduction 5 Normal Adduction 5 Normal External Rotation 5 Normal Internal Rotation 5 Normal Left Flexion (L2) 4 Good Extension (S1) 4+ Good+ Abduction 5 Normal Adduction 4+ Good+ External Rotation 5 Normal Internal Rotation 5 Normal Comments dec core engagement B Knee Strength Knee Manual Muscle Testing Right Flexion (S2) 5 Normal Extension (L3) 5 Normal Left Flexion (S2) 5 Normal Extension (L3) 5 Normal Ankle/Foot Strength Ankle and Foot Manual Muscle Testing Right Dorsiflexion (L4) 5 Normal Plantarflexion (S1) 5 Normal Comments 20 heel raises Left Dorsiflexion (L4) 5 Normal Plantarflexion (S1) 5 Normal Comments 20 somd discomfort in knee PT-OP-Q Treatments Start: 10/21/22 14:55 Freq: Status: Active Protocol: Document 01/19/23 11:34 [facility] (Rec: 01/19/23 12:18 [facility] [id number]) Therapeutic Exercises Standing Exercises hip hike Side bilateral Reps/Minutes 10 Comments cues for dec QL use squat Standing Exercise Name w/ chair behind Side bilateral Resistance Lvl 3 Tb Equipment Used mesh chair Reps/Minutes x20 Comments cued for lower squat and knees apart Manual Therapy Treatment Soft Tissue Mobilization calves Body Location L Mobilization Type Sustained Pressure Comments in standing w/knee bends ITB Body Location L proximal Mobilization Type Rolling,Strumming,Sustained Pressure Intensity/Depth Moderate quads Body Location L med knee Mobilization Type Sustained Pressure Comments w/hip IR/ER Joint Mobilizations ankle Comments L talus AP FM in standing w/ knee bends tibfib Comments L distal AP w/knee bends standing FM PT-OP-T Assessment and Plan Start: 10/21/22 14:55 Freq: Status: Active Protocol: Document 01/19/23 11:34 [facility] (Rec: 01/19/23 12:18 [facility] [id number]) Physical Therapy Assessment Goals lay flat Snf Goal (LTG) Pt will be able to lay flat in bed w/o knee pain LTG Duration small twinge if leg really straight balance Pin Drafting Machine Tender Goal (LTG) Pt will be able to do SLS B w/ arms at side for at least 15 sec 11/29/22: B SLS w/ hands on hips ~35s each until told to stop. LTG Duration achieved 12/08 gait Snf Goal (LTG) Pt will be able do go up/down stairs w/o inc pain LTG Duration achieved 12/08 LE strength Short Term Goal (STG) Pt will be abl to squat down to picker/puller things/lift things w/o pain or dec balance 12/08-achieved but cannot still get into deep squat to reach out 01/12-can squat but has difficulty still for a low shelf STG Duration achieved Snf Goal (LTG) Pt willb e able to get up/down from the ground w/o inc pain or significant difficulty 12/08-reports easier but somtimes feels it 12/24/22: pt demonstrates w/ some difficulty standing<>1/2 kneel RLE fwd<>tall kneel independently. UE pushoff on R thigh for 1/2 kneel>standing. LTG Duration achieved 01/12 strength Short Term Goal (STG) Pt will be indep w/HEP STG Duration achieved-advancing as able Snf Goal (LTG) Pt will score at least 3/5 on LPM in all planes and 5/5 on all MMT of LEs to show improved stability in order to improve pt gait mecahnics and dec pain. 12/08-improving 01/12-cont improvement LTG Duration improved since start of PT activities Short Term Goal (STG) Pt will be able to returnt o 2 mile flat walks w/o B knee or R hip pain greater tahn . 11/29/22: walked ~1mi flat without any pain on 11/26/22. 12/08-not walking recently 12/24/22: pt reports she can walk ~ 2mi flats without increased hip or knee pain. STG Duration (GOAL MET 12/24/22) Snf Goal (LTG) pt will be able to return to hilly walks w/o B knee pain or R hip pain LTG Duration achieved 01/12 Assessment Summary Assessment Pt feels good about HEP and does not have further questions after going through some points on more difficult exercises. She was able to lay flat and push knee down today in the clinic after mnaul. Physical Therapy Plan Discharge Physical Therapy Discharge Reasons Goals Met
== END 2023-01-20 15:15 | disposition home or self-care (01) ==
LOC: PHYS 11:30
PROVIDERS: PCP Student in an Organized Health Care Education/Training Program
DX: M25.562 Pain in left knee (principal); R26.2 Difficulty in walking, not elsewhere classified; R53.1 Weakness; M25.561 Pain in right knee; M25.551 Pain in right hip
CPT/HCPCS: 97110; 97112; 97116; 97140; 97162; 97530; 97535; 97750

== ENCOUNTER → 2023-03-09 07:20 | Outpatient (CLI) | payer MEDICARE, SELFPAY | PROVIDERS: PCP Student in an Organized Health Care Education/Training Program; Visit Provider Nurse Practitioner Family | DX: R30.0 Dysuria (principal) | CPT/HCPCS: 87077; 87086; 87186 ==

== ENCOUNTER → 2025-05-06 13:22 | Outpatient (CLI) | payer MEDICARE, SELFPAY | PROVIDERS: PCP Student in an Organized Health Care Education/Training Program; Referring Provider Dermatology; Visit Provider Dermatology | DX: L30.9 Dermatitis, unspecified (principal) | CPT/HCPCS: 36415; 86038 ==